=== PATIENT | male | born 1960 | race African-American/Black ===

== ENCOUNTER → 2016-09-11 | Outpatient (CLI) | payer OTHER ==
[~2016-09-11] MED LIST: ACET325T30 PO; ACET325T96 PO; ATOR-22 PO; ATV/1 PO; ATV1 PO; BUSP-8 PO; CHOL1000 PO; DULCOLAX SUPP10 MG RE; FLM4 PO; GABA-112 PO; GABA1CAP5 PO; GLC/500 PO; GLC500 PO; INSDGI SC; INSDGIPEN SC; INSU100I SC; LEDI1TAB PO; LEVE250T PO; LRS20 PO; MAGN400T6 PO; MAGNSUS5 PO; MOML PO; MULT-506 PO; NVLGIPEN SC; OMEG10007 PO; ROPI1TAB PO; SENN1TAB65 PO; SIMV40TA2 PO; SODIENE PR; TAMS0.4C38 PO; VENL150T33 PO; VENL75CA PO; [UNRECOGNIZED DRUG - CODE] INJ
[2016-09-11 08:37] LABS: BASO % 0.3 %; BASO ABS # 0.03 K/uL (0-0.2); COMPLETE YES; EOS % 1.3 %; HEMATOCRIT 37.6 % (42-52); IG% 0.2 %; LYMPH % 35.7 %; LYMPH ABS # 3.59 K/uL (1.2-3.4); MEAN CELL VOLUME 88.9 fL (80-100); MEAN CORPUSCULAR HEMOGLOBIN 29.1 pg (25-34); MEAN CORPUSCULAR HGB CONC 32.7 g/dl (32-36); NEUT % 55.5 %; PLATELET COUNT 276 K/uL (130-400); RED BLOOD COUNT 4.23 M/uL (4.7-6.1); WHITE BLOOD COUNT 10.06 K/uL (4.8-10.8)
[2016-09-11 08:48] LABS: ALT/SGPT 42 U/L (12-78); AST/SGOT 24 U/L (15-37); BLOOD UREA NITROGEN 9 mg/dl (7-18); BUN/CREATININE RATIO 13.2 (10-20); CALCIUM 8.9 mg/dl (8.5-10.1); CARBON DIOXIDE 25 mmol/L (21-32); CHLORIDE 105 mmol/L (98-107); CREATININE 0.71 mg/dl (0.60-1.40); GLUCOSE 65 mg/dl (70-99); POTASSIUM 3.7 mmol/L (3.5-5.1); SODIUM 139 mmol/L (136-145)
[2016-09-11 08:59] LABS: ALB/GLOB RATIO 0.8 (0.9-2); ALKALINE PHOSPHATASE 76 U/L (45-117); THYROID STIMULATING HORMONE 0.953 uIu/ml (0.300-4.500)
--- NOTE | 2016-09-16 08:50 | CODING QUERY MEDICAL NECESSITY ---
SUPPORTING DIAGNOSIS NEEDED A supporting diagnosis is required for the test/procedure performed on this patient in order for us to be reimbursed by the patient's insurance. Please provide a supporting diagnosis for the following test/procedure listed below next to the test name along with your signature. *If there is no additional diagnosis for this patient that would support the following test/procedure please document that below next to the test/procedure. Test(s)/Procedure(s) that require a supporting diagnosis: * VITAMIN B-12 LEVEL DIAGNOSIS: * DOS: 09/11/16 Provider Signature: Date: Thank you Rayna Grey Health Information Management Once completed, please kindly fax back to [phone] For questions please call [phone]
== END ==
LOC: C.LABCC 07:53
PROVIDERS: ATTEND Internal Medicine
DX: M79.1 Myalgia (principal)

== ENCOUNTER → 2016-10-02 | Outpatient (CLI) | payer OTHER ==
[~2016-10-02] MED LIST changes: -ACET325T30 PO; -CHOL1000 PO; -GLC/500 PO; -INSDGI SC; -INSU100I SC; -LEDI1TAB PO; -MOML PO; -SIMV40TA2 PO; -SODIENE PR; -TAMS0.4C38 PO; -VENL150T33 PO; -[UNRECOGNIZED DRUG - CODE] INJ
--- NOTE | 2016-10-08 13:39 | CODING QUERY MEDICAL NECESSITY ---
SUPPORTING DIAGNOSIS NEEDED A supporting diagnosis is required for the test/procedure performed on this patient in order for us to be reimbursed by the patient's insurance. Please provide a supporting diagnosis for the following test/procedure listed below next to the test name along with your signature. *If there is no additional diagnosis for this patient that would support the following test/procedure please document that below next to the test/procedure. Test(s)/Procedure(s) that require a supporting diagnosis: DOS 10/02 * Vitamin D DIAGNOSIS: * Vitamin B12 DIAGNOSIS: Provider Signature: Date: Thank you Marysol Mcadams Health Information Management Once completed, please kindly fax back to [phone] For questions please call [phone]
== END ==
LOC: C.LABCC 08:01
PROVIDERS: ATTEND Internal Medicine
DX: M79.606 Pain in leg, unspecified (principal); M79.1 Myalgia

== ENCOUNTER → 2016-11-07 | Outpatient (CLI) | payer OTHER ==
[~2016-11-07] MED LIST changes: +ACET325T30 PO; +CHOL1000 PO; +CPR500 PO; +GLC/500 PO; +INSDGI SC; +INSU100I SC; +LEDI1TAB PO; +MOML PO; +SIMV40TA2 PO; +SODIENE PR; +TAMS0.4C38 PO; +VENL150T33 PO; +[UNRECOGNIZED DRUG - CODE] INJ
[2016-11-07 09:07] LABS: ESTIMATED AVERAGE GLUCOSE 111 mg/dl; HA1C FLAG Normal (Normal)
== END ==
LOC: C.LABCC 08:18
PROVIDERS: ATTEND Internal Medicine
DX: E11.9 Type 2 diabetes mellitus without complications (principal)

== ENCOUNTER → 2017-02-23 | Outpatient (CLI) | payer OTHER ==
[~2017-02-23] MED LIST changes: -CPR500 PO
[2017-02-23 10:07] LABS: BASO % 0.3 %; BASO ABS # 0.04 K/uL (0-0.2); COMPLETE YES; EOS % 1.2 %; HEMATOCRIT 38.5 % (42-52); IG% 0.3 %; LYMPH ABS # 4.25 K/uL (1.2-3.4); MEAN CORPUSCULAR HEMOGLOBIN 29.2 pg (25-34); MEAN CORPUSCULAR HGB CONC 32.5 g/dl (32-36); MEAN PLATELET VOLUME 9.8 fL (7.4-10.4); MONO % 4.9 %; NEUT % 58.3 %; PLATELET COUNT 312 K/uL (130-400); RED BLOOD COUNT 4.28 M/uL (4.7-6.1); WHITE BLOOD COUNT 12.14 K/uL (4.8-10.8)
[2017-02-23 10:21] LABS: ALT/SGPT 39 U/L (12-78); AST/SGOT 17 U/L (15-37); BLOOD UREA NITROGEN 12 mg/dl (7-18); BUN/CREATININE RATIO 15.3 (10-20); CALCIUM 8.5 mg/dl (8.5-10.1); CARBON DIOXIDE 28 mmol/L (21-32); CHLORIDE 107 mmol/L (98-107); CREATININE 0.76 mg/dl (0.60-1.40); GLUCOSE 89 mg/dl (70-99); POTASSIUM 3.7 mmol/L (3.5-5.1); SODIUM 140 mmol/L (136-145)
[2017-02-23 10:32] LABS: ALB/GLOB RATIO 0.7 (0.9-2); ALKALINE PHOSPHATASE 88 U/L (45-117); CHOLESTEROL 138 mg/dl (0-200); HDL CHOLESTEROL 46 mg/dl; LDL CHOLESTEROL CALCULATED 73 mg/dl; THYROID STIMULATING HORMONE 0.824 uIu/ml (0.300-4.500); TRIGLYCERIDES 97 mg/dl (0-150); VERY LOW DENSITY LIPOPROT CALC 19 mg/dl
[2017-02-23 10:33] LABS: ESTIMATED AVERAGE GLUCOSE 114 mg/dl; HA1C FLAG Normal (Normal)
== END ==
LOC: C.LABCC 09:22
PROVIDERS: ATTEND Internal Medicine
DX: G40.909 Epilepsy, unspecified, not intractable, without status epilepticus (principal); E11.9 Type 2 diabetes mellitus without complications; E78.5 Hyperlipidemia, unspecified

== ENCOUNTER → 2017-03-23 | Outpatient (CLI) | payer OTHER ==
[2017-03-23 08:26] LABS: BASO % 0.3 %; BASO ABS # 0.03 K/uL (0-0.2); COMPLETE YES; EOS % 1.5 %; HEMATOCRIT 36.9 % (42-52); IG% 0.2 %; LYMPH % 36.7 %; LYMPH ABS # 3.24 K/uL (1.2-3.4); MEAN CELL VOLUME 88.1 fL (80-100); MEAN CORPUSCULAR HEMOGLOBIN 28.4 pg (25-34); MEAN CORPUSCULAR HGB CONC 32.2 g/dl (32-36); MEAN PLATELET VOLUME 9.8 fL (7.4-10.4); NEUT % 53.3 %; PLATELET COUNT 250 K/uL (130-400); RED BLOOD COUNT 4.19 M/uL (4.7-6.1); WHITE BLOOD COUNT 8.83 K/uL (4.8-10.8)
[2017-03-23 08:33] LABS: ALT/SGPT 32 U/L (12-78); BLOOD UREA NITROGEN 12 mg/dl (7-18); BUN/CREATININE RATIO 14.9 (10-20); CALCIUM 8.9 mg/dl (8.5-10.1); CARBON DIOXIDE 27 mmol/L (21-32); CHLORIDE 105 mmol/L (98-107); CREATININE 0.78 mg/dl (0.60-1.40); GLUCOSE 76 mg/dl (70-99); POTASSIUM 3.6 mmol/L (3.5-5.1); SODIUM 138 mmol/L (136-145)
[2017-03-23 08:36] LABS: ALKALINE PHOSPHATASE 90 U/L (45-117); AST/SGOT 19 U/L (15-37)
[2017-03-24 15:21] LABS: HEPATITIS C VIRAL RNA BY PCR <15 NOT DETECTED IU/ML (<15); HEPATITIS C VIRAL RNA(LOG) PCR <1.18 NOT DETECTED LOG IU/ML (<1.18)
== END ==
LOC: C.LABCC 07:56
PROVIDERS: ATTEND Internal Medicine
DX: B19.20 Unspecified viral hepatitis C without hepatic coma (principal)

== ENCOUNTER → 2017-04-21 | Outpatient (CLI) | payer OTHER ==
[~2017-04-21] MED LIST changes: -ATOR-22 PO; -ATV1 PO; -FLM4 PO; -GLC500 PO; -INSDGIPEN SC; -MAGNSUS5 PO; -NVLGIPEN SC; -OMEG10007 PO; -VENL75CA PO
[2017-04-21 08:48] LABS: BASO % 0.4 %; BASO ABS # 0.04 K/uL (0-0.2); COMPLETE YES; EOS % 1.3 %; IG% 0.3 %; LYMPH % 32.7 %; LYMPH ABS # 3.47 K/uL (1.2-3.4); MEAN CELL VOLUME 87.6 fL (80-100); MEAN CORPUSCULAR HEMOGLOBIN 28.8 pg (25-34); MEAN CORPUSCULAR HGB CONC 32.8 g/dl (32-36); MEAN PLATELET VOLUME 9.6 fL (7.4-10.4); MONO % 6.6 %; NEUT % 58.7 %; PLATELET COUNT 266 K/uL (130-400); RED BLOOD COUNT 4.45 M/uL (4.7-6.1); WHITE BLOOD COUNT 10.62 K/uL (4.8-10.8)
[2017-04-21 08:56] LABS: ALT/SGPT 40 U/L (12-78); BLOOD UREA NITROGEN 11 mg/dl (7-18); BUN/CREATININE RATIO 13.6 (10-20); CALCIUM 9.1 mg/dl (8.5-10.1); CARBON DIOXIDE 27 mmol/L (21-32); CHLORIDE 104 mmol/L (98-107); CREATININE 0.77 mg/dl (0.60-1.40); GLUCOSE 82 mg/dl (70-99); POTASSIUM 3.7 mmol/L (3.5-5.1); SODIUM 138 mmol/L (136-145)
[2017-04-21 08:59] LABS: ALKALINE PHOSPHATASE 92 U/L (45-117); AST/SGOT 22 U/L (15-37)
[2017-04-23 16:28] LABS: HEPATITIS C VIRAL RNA BY PCR <15 NOT DETECTED IU/ML (<15); HEPATITIS C VIRAL RNA(LOG) PCR <1.18 NOT DETECTED LOG IU/ML (<1.18)
== END ==
LOC: C.LABCC 08:29
PROVIDERS: ATTEND Internal Medicine
DX: B19.20 Unspecified viral hepatitis C without hepatic coma (principal)

== ENCOUNTER → 2017-04-22 | Day surgery (SDC) | payer OTHER ==
[2017-04-16 08:50] VITALS: BMI 33.0
[~2017-04-22] VITALS: Ht 193 cm; Wt 125.0 kg
[~2017-04-22] MED LIST changes: +LABETALOL HCL IV 5 MG/ML 20ML IV ONE; +LIDOCAINE HCL 2% 2 ML VIAL (20MG/ML) ONE; +LIDOCAINE HCL 2% JELLY 30 ML TUBE EXT ONE; +PROPOFOL IV EMULSION 10 MG/ML 20 ML VIAL IV ONE; +SODIUM CHLORIDE 0.9% 500ML 500 ML IV ONE
--- NOTE | 2017-04-22 09:16 | Endo History and Physical ---
History & Physical Date of Service: Apr 22, 2017. Chief Complaint: Referring Physician: History of Present Illness screening colonoscopy Past Medical History Diabetes, CVA/TIA hep C Past Surgical History Hx Cardiac Surgery: No Hx Abdominal Surgery: No Hx Cancer Surgery: No Hx Thoracic Surgery: No Hx Orthopedic: No Hx Urinary Tract Surgery: No Family History None Social History Smoking Status: Former Smoker Hx Substance Use: Yes (HX) Hx Alcohol Use: Yes (HX) Allergies Coded Allergies: No Known Allergies (Verified , 04/16/17) Current Medications Reported Home Medications Medications Dose Route/Sig Max Daily Dose Days Date Category Dose Instructions Havrix (Hepatitis A Vaccine) 1,440 Elu/Ml Inj 1 Dose INJ UD 04/16/17 Reported NEXT DOSE DUE 08-09-17 Fleet Enema (Sodium Phosphate/Biphosphate) Stephanie 1 Ea MT UD PRN 04/16/17 Reported Milk Of Magnesia (Magnesium Hydroxide) 30 Ml Susp 30 Ml PO DAILY PRN 04/16/17 Reported Acetaminophen 325 Mg Tab 2 Tabs PO BID 04/16/17 Reported Vitamin D3 (Cholecalciferol) 1,000 Unit Tab 1 Tab PO QAM 04/16/17 Reported Flomax (Tamsulosin Hcl) 0.4 Mg Cap 0.4 Mg PO BID 04/16/17 Reported Zocor (Simvastatin) 40 Mg Tab 40 Mg PO QPM 04/16/17 Reported Glucophage (Metformin Hcl) 500 Mg Tab 500 Mg PO BID 04/16/17 Reported Ativan (Lorazepam) 1 Mg Tab 1 Mg PO BID 04/16/17 Reported Lantus (Insulin Glargine) 100 Unit/Ml Inj 25 Units SC BID 04/16/17 Reported Humalog (Insulin Lispro (Human)) 100 Unit/Ml Inj 5 Units SC LUNCH 04/16/17 Reported Harvoni 90-400 mg (Ledipasvir-Sofosbuvir) 1 Tab Tab 1 Tab PO DAILY 04/16/17 Reported Baclofen 20 Mg Tab 1 Tab PO QID 04/16/17 Reported Venlafaxine Hcl Er (Venlafaxine Hcl) 150 Mg Tab 1 Tab PO QAM 04/16/17 Reported Tylenol (Acetaminophen) 325 Mg Tab 650 Mg PO Q4 PRN 05/16/15 Reported MAX 3GM APAP/24HR Senna Plus (Sennosides-Docusate Sodium) 1 Tab Tab 1 Tab PO BID 05/16/15 Reported Buspirone Hcl 10 Mg Tab 10 Mg PO BID 05/16/15 Reported Neurontin (Gabapentin) 100 Mg Cap 100 Mg PO QAM 12/13/14 Reported Neurontin (Gabapentin) 400 Mg Cap 400 Mg PO HS 12/13/14 Reported Requip (Ropinirole HCl) 1 Mg Tab 1 Mg PO HS 12/13/14 Reported 1 HOUR BEFORE BEDTIME. Dulcolax Supp10 Mg 10 Mg RE PRN 10/15/09 Reported Keppra (Levetiracetam) 250 Mg Tab 250 Mg PO BID 10/15/09 Reported Multivitamin (Multivitamins) Tab 1 Tab PO QAM 03/08/09 Reported Mag-Ox (Magnesium Oxide) 400 Mg Tab 400 Mg PO BID 03/08/09 Reported Vital Signs Weight (Kilograms): 125 Height (Feet): 0 Height (Inches): 76 Physical Exam General Appearance: no apparent distress Respiratory/Chest: Auscultation: breath sounds normal Cardiovascular: Heart Auscultation: RRR Abdomen: Inspection & Palpation: soft Liver: non-tender Quadriplegic Assessment and Plan stable for colonoscopy
[2017-04-22 10:16] VITALS: Ht 193 cm; Wt 125.0 kg
[2017-04-22 10:33] VITALS: TEMP 36.4
--- NOTE | 2017-04-22 11:12 | Discharge Instructions ---
Endoscopy Patient Instructions Date / Procedure(s) Performed Apr 22, 2017. Colonoscopy Allergy Information Coded Allergies: No Known Allergies (Verified , 04/16/17) Discharge Date / Findings Apr 22, 2017. mild diverticulosis/ no polyps Provider Instructions Activity Restrictions - No exercising or heavy lifting for 24 hours. - Do not drink alcohol the day of the procedure. - Do not drive a car or operate machinery until the day after the procedure. - Do not make any important decisions or sign important papers in 24 hours after the procedure. Following Day: - Return to full activity which may include returning to work/school. Diet Start your diet with liquids and light foods (jello, soup, juice, toast). Then eat your usual diet if not nauseated. Treatment For Common After Affects For mild abdominal pain, bloating, or excessive gas: - Rest - Eat lightly - Lie on right side Follow-Up Information Follow-up with [facility] as scheduled Anesthesia Information What You Should Know You have had a procedure that required some medicine to reduce anxiety and discomfort. This treatment is called moderate sedation. After receiving the treatment, you may be sleepy, but you will be able to breathe on your own. The effects of the treatment may last for several hours. Follow these instructions along with Activity/Diet recommendations noted above: * Do NOT do anything where dizziness or clumsiness would be dangerous. * Rest quietly at home today, then you can be up and about tomorrow. * Have a responsible person stay with you the rest of today. * You may have had an I.V. today. If so, you may take the dressing off later today. Recommendations Call your doctor if: * Trouble breathing * Continuous vomiting for more than 24 hours * Temperature above 101 degrees * Severe abdominal pain or bloating * Pain not relieved by pain medicine ordered * There is increased drainage or redness from any incision * A large amount of rectal bleeding greater than 2-3 tablespoons. (If you had a polyp/s removed or have hemorrhoids, a small amount of blood - from the rectum is to be expected.) * You have any unanswered questions or concerns. IN THE EVENT OF A SERIOUS EMERGENCY, GO TO THE NEAREST EMERGENCY ROOM Your discharge instructions were prepared by provider Himanshu Maria. Patient Instructions Signature Page Karan Guzman Patient (or Guardian) Signature/Date: I have read and understand the instructions given to me by my caregivers. Caregiver/RN/Doctor Signature/Date: The above-named patient and/or guardian has received patient instructions on this date. + Original Patient Signature Page (only) stays with chart. Please make copy for patient.
--- NOTE | 2017-04-22 11:20 | GI REPORT ---
Procedure Date: 04/22/2017 10:44 AM Procedure: Colonoscopy Indications: Screening for colorectal malignant neoplasm Medicines: See the Anesthesia note for documentation of the administered medications Complications: No immediate complications. Estimated Blood Loss: Estimated blood loss: none. Procedure: Pre-Anesthesia Assessment: - Prior to the procedure, a History and Physical was performed, and patient medications, allergies and sensitivities were reviewed. The patient's tolerance of previous anesthesia was reviewed. - The risks and benefits of the procedure and the sedation options and risks were discussed with the patient. All questions were answered and informed consent was obtained. - Patient identification and proposed procedure were verified prior to the procedure by the physician and the nurse. The procedure was verified in the pre-procedure area. - Pre-procedure physical examination revealed no contraindications to sedation. - After reviewing the risks and benefits, the patient was deemed in satisfactory condition to undergo the procedure. After I obtained informed consent, the scope was passed under direct vision. Throughout the procedure, the patient's blood pressure, pulse, and oxygen saturations were monitored continuously. The Scope was introduced through the anus and advanced to the terminal ileum, with identification of the appendiceal orifice and IC valve. The colonoscopy was performed without difficulty. The patient tolerated the procedure well. The quality of the bowel preparation was good. Findings: The perianal and digital rectal examinations were normal. Many small-mouthed diverticula were found in the sigmoid colon and in the descending colon. The exam was otherwise without abnormality on direct and retroflexion views. Impression: - Diverticulosis in the sigmoid colon and in the descending colon. - The examination was otherwise normal on direct and retroflexion views. - No specimens collected. Recommendation: - Repeat colonoscopy in 10 years for screening purposes. - Discharge patient to home. Himanshu Maria M.D. Himanshu Maria MD 04/22/2017 11:19:56 AM This report has been signed electronically. Note Initiated On: 04/22/2017 10:44 AM I attest to the content of the Intraoperative Record and orders documented therein, exceptions below
[2017-04-22 12:39] VITALS: BP 151/89; PULSE 73; O2SAT 98
--- NOTE | 2017-04-22 13:06 | Anesthesiology Progress Note ---
Anesthesia Post Op Note Date & Time Apr 22, 2017 at 13:05 Vital Signs Pain Intensity: 0 Vital Signs Past 12 Hours Date Time Temp Pulse Resp B/P (MAP) Pulse Ox O2 Delivery O2 Flow Rate FiO2 04/22/17 12:39 73 18 151/89 (109) 98 Room Air 04/22/17 12:24 67 18 158/89 (112) 97 Room Air 04/22/17 12:09 66 18 160/90 (113) 96 Room Air 04/22/17 12:00 152/94 (113) 04/22/17 11:54 70 15 166/112 (130) 98 Room Air 04/22/17 11:44 145/96 (112) 04/22/17 11:39 75 18 170/99 (122) 98 Room Air 04/22/17 11:24 88 18 173/95 (121) 98 Room Air 04/22/17 11:09 88 18 137/85 (102) 100 Room Air 04/22/17 10:33 36.4 80 20 135/81 (99) 98 Room Air Notes Mental Status: alert / awake / arousable, participated in evaluation Pt Amnestic to Procedure: Yes Nausea / Vomiting: adequately controlled Pain: adequately controlled Airway Patency, RR, SpO2: stable & adequate BP & HR: stable & adequate Hydration State: stable & adequate Anesthetic Complications: no major complications apparent Patient had prolonged monitoring for his quadraplegia with possible risk for autonomic hyperreflexia. In PACU he did require a dose of labetalol for one BP with diastolic >110. He responded well to this and did not rebound. BP and HR were normal at the time of disposition back to SNF.
== END | disposition home or self-care (01) ==
LOC: C.GI 09:12
PROVIDERS: ATTEND Internal Medicine Gastroenterology
DX: Z12.11 Encounter for screening for malignant neoplasm of colon (principal); K57.30 Diverticulosis of large intestine without perforation or abscess without bleeding; E11.9 Type 2 diabetes mellitus without complications; B19.20 Unspecified viral hepatitis C without hepatic coma; Z86.73 Personal history of transient ischemic attack (TIA), and cerebral infarction without residual deficits; Z87.891 Personal history of nicotine dependence; Z79.4 Long term (current) use of insulin; Z79.899 Other long term (current) drug therapy

== ENCOUNTER 2017-06-13 17:40 | Inpatient (IN) | payer OTHER ==
[~2017-06-13] VITALS: Ht 195.6 cm; Wt 121.4 kg
[~2017-06-13 17:40] MED LIST changes: -LABETALOL HCL IV 5 MG/ML 20ML IV ONE; -LIDOCAINE HCL 2% 2 ML VIAL (20MG/ML) ONE; -LIDOCAINE HCL 2% JELLY 30 ML TUBE EXT ONE; -PROPOFOL IV EMULSION 10 MG/ML 20 ML VIAL IV ONE; -SODIUM CHLORIDE 0.9% 500ML 500 ML IV ONE
[2017-06-13] MEDS ORDERED: CEFEPIME IV 2,000 MG in DEXTROSE 5% 100ML 100 ML IV STA (17:48)
[2017-06-13] MEDS ORDERED: SODIUM CHLORIDE 0.9% 1000ML 500 ML IV ONE (17:48)
--- NOTE | 2017-06-13 17:56 | EMERGENCY ROOM VISIT NOTE ---
History Report prepared by Cass: Tal Hayes Under the Supervision of: Dr. Daniel Baird M.D. First contact with patient: 17:44 Stated Complaint: FEVER/[facility] History of Present Illness The patient is a 57 year old male who presents to the Emergency Room with complaints of a constant fever beginning today. Per EMS, the patient lives at [facility] and is a paraplegic. He notes that the patient's fever reached a high of 102 earlier today, but has since decreased when rechecked--he had received oral Tylenol at the fever onset. He reports that the patient's vital signs were stable during transport. The patient also complains of diaphoresis but denies any cough, body pain, sore throat, and congestion. He notes that he has no function in his legs but has function in both of his arms. Source of History: patient, EMS Onset: today Position: other (global) Symptom Intensity: 102 Quality: other (fever) Timing: constant Associated Symptoms: + diaphoresis, No cough, No neck pain, No chest pain, No abdominal pain, No back pain Note: He denies any head pain, arm pain, leg pain, and congestion. Review of Systems See HPI for pertinent positives & negatives. A total of 10 systems reviewed and were otherwise negative. Past Medical & Surgical Medical Problems: (1) Brain aneurysm (2) Stroke Family History Patient reports no known family medical history. Social History Smoking Status: Former Smoker Alcohol Use: none Drug Use: none Marital Status: single Housing Status: shelter Occupation Status: disabled Current/Historical Medications Scheduled Acetaminophen (Acetaminophen), 2 TABS PO BID Baclofen (Baclofen), 1 TAB PO QID Buspirone Hcl (Buspirone Hcl), 10 MG PO BID Cholecalciferol (Vitamin D3), 1 TAB PO QAM Gabapentin (Neurontin), 400 MG PO HS Gabapentin (Neurontin), 100 MG PO QAM Insulin Glargine (Lantus), 25 UNITS SC BID Insulin Lispro (Human) (Humalog), 5 UNITS SC LUNCH Levetiracetam (Keppra), 250 MG PO BID Lorazepam (Ativan), 1 MG PO BID Magnesium Oxide (Mag-Ox), 400 MG PO BID Metformin Hcl (Glucophage), 500 MG PO BID Multivitamin (Multivitamin), 1 TAB PO QAM Ropinirole (Requip), 1 MG PO HS Sennosides-Docusate Sodium (Senna Plus), 1 TAB PO BID Simvastatin (Zocor), 40 MG PO QPM Tamsulosin Hcl (Flomax), 0.4 MG PO BID Venlafaxine Hcl (Venlafaxine Hcl Er), 1 TAB PO QAM Scheduled PRN , 10 MG RE for no bm x 4 days Acetaminophen Tab (Tylenol), 650 MG PO Q4 PRN for Pain or Fever Magnesium Hydroxide (Milk Of Magnesia), 30 ML PO DAILY PRN for Constipation Sodium Phosphate/Biphosphate (Fleet Enema), 1 EA AL UD PRN for Constipation Allergies Coded Allergies: No Known Allergies (Verified , 06/13/17) Physical Exam Vital Signs Date Time Temp Pulse Resp B/P (MAP) Pulse Ox O2 Delivery O2 Flow Rate FiO2 06/13/17 20:02 37.5 06/13/17 19:45 37.5 121 24 06/13/17 19:43 152/100 96 Room Air 06/13/17 19:40 118 20 06/13/17 19:35 119 21 06/13/17 19:30 233 22 92 06/13/17 19:25 115 23 06/13/17 19:20 134 18 93 06/13/17 19:15 125 18 96 06/13/17 19:15 123 18 143/112 94 Room Air 06/13/17 19:10 124 18 06/13/17 19:09 143/112 06/13/17 19:05 126 20 06/13/17 19:00 127 23 06/13/17 18:55 131 21 06/13/17 18:50 125 19 06/13/17 18:45 131 23 06/13/17 18:40 130 27 06/13/17 18:35 132 21 06/13/17 18:30 133 28 06/13/17 18:25 130 21 06/13/17 18:20 132 24 06/13/17 18:15 134 22 06/13/17 18:10 132 25 06/13/17 18:05 133 16 06/13/17 18:00 135 19 06/13/17 17:56 130 06/13/17 17:56 145/108 06/13/17 17:55 130 20 06/13/17 17:55 37.9 128 18 145/108 96 Room Air Physical Exam GENERAL: Patient is in no acute distress. HEENT: No acute trauma, normocephalic atraumatic, mucous membranes moist, no nasal congestion, no scleral icterus. NECK: No stridor, no adenopathy, no meningismus, trachea is midline. LUNGS: Clear to auscultation bilaterally, no wheeze, no rhonchi, breath sounds equal. HEART: Without murmurs gallops or rubs, regular rate and rhythm. ABDOMEN: Soft, nontender, bowel sounds positive, no hernias, no peritonitis. [place] catheter in place with a strong smell of urine noted. EXTREMITIES: No cyanosis or edema, full range of motion of all the joints without pain or difficulty, no signs for acute trauma. NEUROLOGIC: Random movement of lower extremities, no purposeful lower extremity movement, moves upper extremities on command, awake and alert. SKIN: No rash, no jaundice, no diaphoresis. Medical Decision & Procedures ER Provider Diagnostic Interpretation: Radiology results as stated below per my review and radiologist interpretation: CHEST ONE VIEW PORTABLE FINDINGS: Cardiac silhouette is mildly enlarged, unchanged. The patient is rotated to the right. No pneumothorax, pleural effusion, focal airspace consolidation or overt pulmonary edema. Bones of the chest are grossly intact. IMPRESSION: No acute cardiopulmonary process. The above report was generated using voice recognition software. It may contain grammatical, syntax or spelling errors. Electronically signed by: Je Orosco M.D. 06/13/2017 6:13 PM Laboratory Results 06/13/17 17:30 Red Blood Count 4.71, Mean Corpuscular Volume 88.3, Mean Corpuscular Hemoglobin 28.9, Mean Corpuscular Hemoglobin Concent 32.7, Mean Platelet Volume 10.8, Neutrophils (%) (Auto) 85.7, Lymphocytes (%) (Auto) 7.9, Monocytes (%) (Auto) 5.9, Eosinophils (%) (Auto) 0.1, Basophils (%) (Auto) 0.1, Neutrophils # (Auto) 13.82, Lymphocytes # (Auto) 1.27, Monocytes # (Auto) 0.95, Eosinophils # (Auto) 0.01, Basophils # (Auto) 0.02 06/13/17 18:45 Test 06/13/17 17:30 06/13/17 18:01 06/13/17 18:45 06/13/17 19:10 White Blood Count 16.12 K/uL (4.8-10.8) Red Blood Count 4.71 M/uL (4.7-6.1) Hemoglobin 13.6 g/dL (14.0-18.0) Hematocrit 41.6 % (42-52) Mean Corpuscular Volume 88.3 fL (80-100) Mean Corpuscular Hemoglobin 28.9 pg (25-34) Mean Corpuscular Hemoglobin Concent 32.7 g/dl (32-36) Platelet Count 206 K/uL (130-400) Mean Platelet Volume 10.8 fL (7.4-10.4) Neutrophils (%) (Auto) 85.7 % Lymphocytes (%) (Auto) 7.9 % Monocytes (%) (Auto) 5.9 % Eosinophils (%) (Auto) 0.1 % Basophils (%) (Auto) 0.1 % Neutrophils # (Auto) 13.82 K/uL (1.4-6.5) Lymphocytes # (Auto) 1.27 K/uL (1.2-3.4) Monocytes # (Auto) 0.95 K/uL (0.11-0.59) Eosinophils # (Auto) 0.01 K/uL (0-0.5) Basophils # (Auto) 0.02 K/uL (0-0.2) RDW Standard Deviation 45.3 fL (36.4-46.3) RDW Coefficient of Variation 14.3 % (11.5-14.5) Immature Granulocyte % (Auto) 0.3 % Immature Granulocyte # (Auto) 0.05 K/uL (0.00-0.02) Urine Color YELLOW Urine Appearance CLOUDY (CLEAR) Urine pH 8.0 (4.5-7.5) Urine Specific [place] 1.010 (1.000-1.030) Urine Protein NEG (NEG) Urine Glucose (UA) NEG (NEG) Urine Ketones NEG (NEG) Urine Occult Blood TRACE (NEG) Urine Nitrite POS (NEG) Urine Bilirubin NEG (NEG) Urine Urobilinogen NEG (NEG) Urine Leukocyte Esterase LARGE (NEG) Urine WBC (Auto) 10-30 /hpf (0-5) Urine RBC (Auto) 0-4 /hpf (0-4) Urine Hyaline Casts (Auto) 1-5 /lpf (0-5) Urine Epithelial Cells (Auto) 10-20 /lpf (0-5) Urine Bacteria (Auto) 4+ (NEG) Urine Crystals AMORPHOUS SEDIMENT (NONE Urine Yeast (Auto) (NONE PRSENT) Bedside Lactic Acid Venous 2.71 mmol/L (0.90-1.70) Prothrombin Time 11.4 SECONDS (9.0-12.0) Prothromb Time International Ratio 1.1 (0.9-1.1) Activated Partial Thromboplast Time 29.2 SECONDS (21.0-31.0) Partial Thromboplastin Ratio 1.1 Anion Gap 7.0 mmol/L (3-11) Est Creatinine Clear Calc Drug Dose 109.1 ml/min Estimated GFR () 88.6 Estimated GFR (Non- 76.4 BUN/Creatinine Ratio 13.6 (10-20) Calcium Level 8.8 mg/dl (8.5-10.1) Magnesium Level 1.8 mg/dl (1.8-2.4) Total Bilirubin 0.3 mg/dl (0.2-1) Aspartate Amino Transf (AST/SGOT) 20 U/L (15-37) Alanine Aminotransferase (ALT/SGPT) 31 U/L (12-78) Alkaline Phosphatase 90 U/L (45-117) Total Protein 7.9 gm/dl (6.4-8.2) Albumin 3.3 gm/dl (3.4-5.0) Globulin 4.6 gm/dl (2.5-4.0) Albumin/Globulin Ratio 0.7 (0.9-2) Influenza Type A Antigen Neg for Influ A (NEG) Influenza Type B Antigen Neg for Influ B (NEG) Test 06/13/17 20:41 06/13/17 20:42 Laboratory results reviewed by me. Medications Administered Medications (Trade) Dose Ordered Sig/Kim Route Start Time Stop Time Status Last Admin Dose Admin Sodium Chloride 500 ml @ 999 mls/hr Q31M ONCE IV 06/13/17 17:48 06/13/17 18:18 DC 06/13/17 19:10 999 MLS/HR Cefepime HCl 2000 mg/Dextrose 112.5 ml @ 200 mls/hr ONE STAT IV 06/13/17 17:48 06/13/17 18:21 DC 06/13/17 18:47 200 MLS/HR Sodium Chloride 500 ml @ 999 mls/hr Q31M STAT IV 06/13/17 18:34 06/13/17 19:04 DC 06/13/17 18:47 999 MLS/HR Daptomycin 500 mg/ Syringe 10 ml @ 5 mls/min NOW ONCE IV 06/13/17 19:30 06/13/17 19:31 DC 06/13/17 19:48 5 MLS/MIN ECG Indication: tachycardia Rate (beats per minute): 127 Rhythm: sinus tachycardia Findings: no acute ischemic change, no ectopy, other (possible old inferior infarct) ED Course 1744: The patient was evaluated in room B8. A complete history and physical exam was performed. 1747: Cefepime HC 2000 mg/Dextrose 112.5ml @ 200mls/hr, .Sodium Chloride 500 ml @ 999 mls/hr IV 1833: Sodium Chloride 500 ml @ 999 mls/hr IV 1929: Daptomycin 500mg/Syringe 10 ml @ 5 mls/min Protocol IV 1935: Upon reexamination the patient is stable. I discussed results and treatment plan with the patient. He verbalizes agreement and understanding. I spoke with Dr. Bush - Hospitalist, [facility] [place]. We discussed the patient's results and findings. The patient will be evaluated for further management. 1940: I reevaluated and updated the patient and his . Medical Decision Differential diagnoses include: sepsis, bacteremia, dehydration, UTI, pneumonia , cellulitis, electrolyte imbalance, and viral illness. There is a moderate leukocytosis at 16,000, this is consistent with infection. No concerning anemia. No significant electrolyte abnormality, kidney failure or hepatitis. Lactic acid level is elevated consistent with early sepsis or possibly dehydration. Urinalysis is suggestive of infection, urine culture is pending. Blood cultures are pending. Chest film does not show evidence for pneumonia. There is no coagulopathy. Influenza testing is negative. On exam, I find no evidence for cellulitis. No sacral or buttock cellulitis/skin breakdown. The patient was aggressively managed. He was septic based on his presentation and workup. He received IV saline, IV cefepime and IV daptomycin. The patient's heart rate remains elevated but has improved. He is actually hypertensive, not hypotensive. I have been hesitant to give blood pressure medication as I do not want his blood pressure to plummet, especially given the sepsis diagnosis. The patient requires a hospital stay. I spoke to the patient and his , I did talk with case management. The on-call hospitalist was consulted. Medication Reconcilliation Current Medication List: was personally reviewed by me Blood Pressure Screening Patient's blood pressure: Elevated blood pressure Referred to hospitalist Consults Time Called: 1933 Consulting Physician: Dr. Bush - Hospitalist, [facility] [place] Returned Call: 1935 Discussed the patient's case. The patient will be evaluated for further management. Impression Primary Impression: Sepsis Additional Impressions: Tachycardia UTI (urinary tract infection) Paraplegia Critical Care I have personally spent greater than 34 minutes of critical care time in the direct management of this patient. This includes bedside care, interpretation of diagnostic studies, and testing, discussion with consultants, patient, and family members, and other required patient management activities. This 34 minutes is in excess of all separately billable procedures. Scribe Attestation The scribe's documentation has been prepared under my direction and personally reviewed by me in its entirety. I confirm that the note above accurately reflects all work, treatment, procedures, and medical decision making performed by me. Departure Information Dispostion Being Evaluated By Hospitalist Referrals [facility] (PCP) Problem Qualifiers
--- NOTE | 2017-06-13 18:15 | DIAGNOSTIC IMAGING REPORT ---
CHEST ONE VIEW PORTABLE HISTORY: 57 years-old Male Sepsis acute sepsis COMPARISON: Chest radiograph 05/16/2015 TECHNIQUE: Portable AP view of the chest FINDINGS: Cardiac silhouette is mildly enlarged, unchanged. The patient is rotated to the right. No pneumothorax, pleural effusion, focal airspace consolidation or overt pulmonary edema. Bones of the chest are grossly intact. IMPRESSION: No acute cardiopulmonary process. The above report was generated using voice recognition software. It may contain grammatical, syntax or spelling errors. Electronically signed by: Je Orosco M.D. 06/13/2017 6:13 PM Dictated Date/Time: 06/13/2017 6:12 PM
[2017-06-13 18:22] LABS: BASO % 0.1 %; BASO ABS # 0.02 K/uL (0-0.2); COMPLETE YES; EOS % 0.1 %; HEMATOCRIT 41.6 % (42-52); IG% 0.3 %; LYMPH % 7.9 %; LYMPH ABS # 1.27 K/uL (1.2-3.4); MEAN CELL VOLUME 88.3 fL (80-100); MEAN CORPUSCULAR HEMOGLOBIN 28.9 pg (25-34); MEAN CORPUSCULAR HGB CONC 32.7 g/dl (32-36); MEAN PLATELET VOLUME 10.8 fL (7.4-10.4); MONO % 5.9 %; NEUT % 85.7 %; PLATELET COUNT 206 K/uL (130-400); RED BLOOD COUNT 4.71 M/uL (4.7-6.1); WHITE BLOOD COUNT 16.12 K/uL (4.8-10.8)
[2017-06-13 18:27] LABS: URINE APPEARANCE CLOUDY (CLEAR); URINE BILIRUBIN NEG (NEG); URINE COLOR YELLOW; URINE NITRITE POS (NEG); UROBILINOGEN NEG (NEG); ZZURINE CULT IF INDIC CATH YES
[2017-06-13 18:28] LABS: MANUAL MICROSCOPIC REQUIRED? NO; REVIEW REQ? YES
[2017-06-13] MEDS ORDERED: SODIUM CHLORIDE 0.9% 500ML 500 ML IV STA (18:34)
[2017-06-13 19:07] LABS: INR 1.1 (0.9-1.1); PARTIAL THROMBOPLASTIN RATIO 1.1; PROTHROMBIN TIME (PATIENT) 11.4 SECONDS (9.0-12.0)
[2017-06-13] MEDS ORDERED: DAPTOmycin IV 500 MG in SODIUM CHLORIDE 0.9% 50ML 50 ML IV STA (19:10)
[2017-06-13] MEDS ORDERED: DAPTOmycin IV 500 MG in SYRINGE 0 ML IV ONE (19:30)
[2017-06-13 19:33] LABS: BUN/CREATININE RATIO 13.6 (10-20); CALCIUM 8.8 mg/dl (8.5-10.1); CREATININE 1.06 mg/dl (0.60-1.40); MAGNESIUM 1.8 mg/dl (1.8-2.4); POTASSIUM 3.6 mmol/L (3.5-5.1)
[2017-06-13 19:36] LABS: ALB/GLOB RATIO 0.7 (0.9-2)
[2017-06-13] MEDS ORDERED: ONDANSETRON INJ 2 MG/ML 2 ML VIAL IV PRN (20:45)
[2017-06-13] MEDS ORDERED: ACETAMINOPHEN 325 MG TAB PO PRN (21:00)
[2017-06-13] MEDS ORDERED: SOD PHOSPHATE/SOD BIPHOSPHATE ENEMA 132 ML BTL PR PRN (21:00)
[2017-06-13] MEDS ORDERED: MAGNESIUM HYDROXIDE SUSP 30 ML UDC PO PRN (21:00)
--- NOTE | 2017-06-13 21:06 | History and Physical ---
History & Physical Date & Time of Service: Jun 13, 2017 at 21:06 Chief Complaint: Fever/[facility] Primary Care Physician: Val Saravia History of Present Illness Source: family, hospital records This is a 57 yo m paraplegic secondary to CVA that is presenting to us with altered LOC and fever from [facility]. The states that the patient has been becoming more confused over the past 24 hours and today he has radha very drowsy and is havign difficulty answering questions. He was found to be febrile at the [facility] and was brought to the hospital for further evaluation. In the ED he was found to have leukocytosis and fever as well as a UTI which is the most likely source of infection. Patient was treated with Daptomycin and Cefepime in the ED. The states that at [facility] he has no use of bilat LE, minimal of the left UE and able to us his right UE. Past Medical/Surgical History Medical Problems: (1) Stroke Status: Resolved Family History Patient reports no known family medical history. Social History Smoking Status: Former Smoker Drug Use: none Marital Status: single Occupational Status: disabled Immunizations History of Influenza Vaccine: Unknown History of Tetanus Vaccine?: Unknown History of Pneumococcal: Unknown History of Hepatitis B Vaccine: Unknown Multi-Drug Resistant Organisms History of MDRO: Yes Allergies Coded Allergies: No Known Allergies (Verified , 06/13/17) Home Medications Scheduled Acetaminophen (Acetaminophen), 2 TABS PO BID Baclofen (Baclofen), 1 TAB PO QID Buspirone Hcl (Buspirone Hcl), 10 MG PO BID Cholecalciferol (Vitamin D3), 1 TAB PO QAM Gabapentin (Neurontin), 400 MG PO HS Gabapentin (Neurontin), 100 MG PO QAM Insulin Glargine (Lantus), 25 UNITS SC BID Insulin Lispro (Human) (Humalog), 5 UNITS SC LUNCH Levetiracetam (Keppra), 250 MG PO BID Lorazepam (Ativan), 1 MG PO BID Magnesium Oxide (Mag-Ox), 400 MG PO BID Metformin Hcl (Glucophage), 500 MG PO BID Multivitamin (Multivitamin), 1 TAB PO QAM Ropinirole (Requip), 1 MG PO HS Sennosides-Docusate Sodium (Senna Plus), 1 TAB PO BID Simvastatin (Zocor), 40 MG PO QPM Tamsulosin Hcl (Flomax), 0.4 MG PO BID Venlafaxine Hcl (Venlafaxine Hcl Er), 1 TAB PO QAM Scheduled PRN , 10 MG RE for no bm x 4 days Acetaminophen Tab (Tylenol), 650 MG PO Q4 PRN for Pain or Fever Magnesium Hydroxide (Milk Of Magnesia), 30 ML PO DAILY PRN for Constipation Sodium Phosphate/Biphosphate (Fleet Enema), 1 EA CO UD PRN for Constipation Review of Systems Unable to obtain meaningful ROS secondary to confusion Physical Exam Vital Signs Date Time Temp Pulse Resp B/P (MAP) Pulse Ox O2 Delivery O2 Flow Rate FiO2 06/13/17 20:02 37.5 06/13/17 19:45 37.5 121 24 06/13/17 19:43 152/100 96 Room Air 06/13/17 19:40 118 20 06/13/17 19:35 119 21 06/13/17 19:30 233 22 92 06/13/17 19:25 115 23 06/13/17 19:20 134 18 93 06/13/17 19:15 125 18 96 06/13/17 19:15 123 18 143/112 94 Room Air 06/13/17 19:10 124 18 06/13/17 19:09 143/112 06/13/17 19:05 126 20 06/13/17 19:00 127 23 06/13/17 18:55 131 21 06/13/17 18:50 125 19 06/13/17 18:45 131 23 06/13/17 18:40 130 27 06/13/17 18:35 132 21 06/13/17 18:30 133 28 06/13/17 18:25 130 21 06/13/17 18:20 132 24 06/13/17 18:15 134 22 06/13/17 18:10 132 25 06/13/17 18:05 133 16 06/13/17 18:00 135 19 06/13/17 17:56 130 06/13/17 17:56 145/108 06/13/17 17:55 130 20 06/13/17 17:55 37.9 128 18 145/108 96 Room Air General Appearance: + pertinent finding (somnolent but arousable ) Head: normocephalic, atraumatic Eyes: normal inspection ENT: normal ENT inspection, + pertinent finding (poor dentition) Neck: supple Respiratory/Chest: normal breath sounds, no respiratory distress, no accessory muscle use Cardiovascular: regular rate, rhythm, no murmur, normal peripheral pulses Abdomen/GI: normal bowel sounds, non tender, soft Extremities/Musculoskelatal: normal inspection Neurologic/Psych: + pertinent finding (somnolent ) Skin: normal color, warm/dry, no rash Lymphatic: no adenopathy Diagnostics Laboratory Results Results Past 24 Hours Test 06/13/17 17:30 06/13/17 18:01 06/13/17 18:45 06/13/17 19:10 Range/Units White Blood Count 16.12 4.8-10.8 K/uL Red Blood Count 4.71 4.7-6.1 M/uL Hemoglobin 13.6 14.0-18.0 g/dL Hematocrit 41.6 42-52 % Mean Corpuscular Volume 88.3 80-100 fL Mean Corpuscular Hemoglobin 28.9 25-34 pg Mean Corpuscular Hemoglobin Concent 32.7 32-36 g/dl Platelet Count 206 130-400 K/uL Mean Platelet Volume 10.8 7.4-10.4 fL Neutrophils (%) (Auto) 85.7 % Lymphocytes (%) (Auto) 7.9 % Monocytes (%) (Auto) 5.9 % Eosinophils (%) (Auto) 0.1 % Basophils (%) (Auto) 0.1 % Neutrophils # (Auto) 13.82 1.4-6.5 K/uL Lymphocytes # (Auto) 1.27 1.2-3.4 K/uL Monocytes # (Auto) 0.95 0.11-0.59 K/uL Eosinophils # (Auto) 0.01 0-0.5 K/uL Basophils # (Auto) 0.02 0-0.2 K/uL RDW Standard Deviation 45.3 36.4-46.3 fL RDW Coefficient of Variation 14.3 11.5-14.5 % Immature Granulocyte % (Auto) 0.3 % Immature Granulocyte # (Auto) 0.05 0.00-0.02 K/uL Urine Color YELLOW Urine Appearance CLOUDY CLEAR Urine pH 8.0 4.5-7.5 Urine Specific [place] 1.010 1.000-1.030 Urine Protein NEG NEG Urine Glucose (UA) NEG NEG Urine Ketones NEG NEG Urine Occult Blood TRACE NEG Urine Nitrite POS NEG Urine Bilirubin NEG NEG Urine Urobilinogen NEG NEG Urine Leukocyte Esterase LARGE NEG Urine WBC (Auto) 10-30 0-5 /hpf Urine RBC (Auto) 0-4 0-4 /hpf Urine Hyaline Casts (Auto) 1-5 0-5 /lpf Urine Epithelial Cells (Auto) 10-20 0-5 /lpf Urine Bacteria (Auto) 4+ NEG Urine Crystals AMORPHOUS SEDIMENT NONE PRSENT Urine Yeast (Auto) NONE PRSENT Bedside Lactic Acid Venous 2.71 0.90-1.70 mmol/L Prothrombin Time 11.4 9.0-12.0 SECONDS Prothromb Time International Ratio 1.1 0.9-1.1 Activated Partial Thromboplast Time 29.2 21.0-31.0 SECONDS Partial Thromboplastin Ratio 1.1 Sodium Level 135 136-145 mmol/L Potassium Level 3.6 3.5-5.1 mmol/L Chloride Level 104 98-107 mmol/L Carbon Dioxide Level 24 21-32 mmol/L Anion Gap 7.0 3-11 mmol/L Blood Urea Nitrogen 14 7-18 mg/dl Creatinine 1.06 0.60-1.40 mg/dl Est Creatinine Clear Calc Drug Dose 109.1 ml/min Estimated GFR () 88.6 Estimated GFR (Non- 76.4 BUN/Creatinine Ratio 13.6 10-20 Random Glucose 110 70-99 mg/dl Calcium Level 8.8 8.5-10.1 mg/dl Magnesium Level 1.8 1.8-2.4 mg/dl Total Bilirubin 0.3 0.2-1 mg/dl Aspartate Amino Transf (AST/SGOT) 20 15-37 U/L Alanine Aminotransferase (ALT/SGPT) 31 12-78 U/L Alkaline Phosphatase 90 45-117 U/L Total Protein 7.9 6.4-8.2 gm/dl Albumin 3.3 3.4-5.0 gm/dl Globulin 4.6 2.5-4.0 gm/dl Albumin/Globulin Ratio 0.7 0.9-2 Influenza Type A Antigen Neg for Influ A NEG Influenza Type B Antigen Neg for Influ B NEG Test 06/13/17 20:41 06/13/17 20:42 Range/Units Microbiology Results 06/13/17 Blood Culture, Received Pending 06/13/17 Blood Culture, Received Pending 06/13/17 Urine Culture, Received Pending Diagnostic Radiology CHEST ONE VIEW PORTABLE HISTORY: 57 years-old Male Sepsis acute sepsis COMPARISON: Chest radiograph 05/16/2015 TECHNIQUE: Portable AP view of the chest FINDINGS: Cardiac silhouette is mildly enlarged, unchanged. The patient is rotated to the right. No pneumothorax, pleural effusion, focal airspace consolidation or overt pulmonary edema. Bones of the chest are grossly intact. IMPRESSION: No acute cardiopulmonary process. EKG HR 127 with sinus tachy, no acute ischemic changes Impression Assessment and Plan This is a 57 yo m that is presenting to us with sepsis with most likely a urinary source Sepsis secondary to urinary infection as evidenced by abnormal UA - Tele admission - continue dapto and cefepime while UCx pending - blood culture pending - Procalcitonin and repeat lactate - IVF NSS @ 150cc/h Paraplegia secondary to CVA , stable - continue Gabapentin 100 in am and 400 in pm - continue Baclofen 20 mg qid, Keppra 250 mg bid, Ropinirole 1 mg hs - continue ativan bid Anxiety - continue Effexor 150 mg daily and Buspar 10 mg bid Hyperlipidemia - continue Simvastatin 40 mg HS BPH Flomax 0.4mg bid DMII - Lantus 25 units bid - insulin ISS DVT Prophylaxis Heparin tid Attending addendum: I have physically seen this patient, have supervised the medical residents activities, and agree with the H&P unless as otherwise noted. Assessment and Plan: Urosepsis-- Daptomycin IV and cefepime IV Follow urine culture and sensitivity Follow blood culture and sensitivity NSS at 150 ML's per hour Follow abnormal pro-calcitonin of 7.85 Paraplegia secondary to CVA-- Continue current dosings of gabapentin, baclofen, Keppra, ropinirole and Ativan. Anxiety-- Continue Effexor, BuSpar and Ativan Diabetes mellitus-- Continue Lantus 25 units subcutaneous twice a day Place on Accu-Cheks before meals and at bedtime with NovoLog coverage per scale Level of Care Telemetry Advanced Directives Existing Advance Directive: No Existing Living Will: No Existing Power of [employer] Forming Equipment Operator: No Resuscitation Status FULL RESUSCITATION VTE Prophylaxis VTE Risk Assessment Done? Y/N: Yes Risk Level: Moderate Given or contraindicated: Unfractionated heparin SQ Social Service Consult Lives in Usp Note Total Time: Critical Care 30 - 74 minutes Additional Copies To [place], Crest
[2017-06-13 22:00] VITALS: O2SAT 94; Ht 195.6 cm; Wt 121.4 kg
[2017-06-13 22:10] VITALS: O2SAT 94
[2017-06-13 22:11] VITALS: BP 159/53; PULSE 108; TEMP 37; O2SAT 94
[2017-06-13] MEDS ORDERED: GLUCAGON FOR INJ 1 MG VIAL SQ PRN (22:30)
[2017-06-13] MEDS ORDERED: GLUCOSE 40% GEL 15 GM TUBE PO PRN (22:30)
[2017-06-13] MEDS ORDERED: GLUCOSE 10 TABS/TUBE PO PRN (22:30)
[2017-06-13] MEDS ORDERED: DEXTROSE 50% 50 ML SYR IV PRN (22:30)
[2017-06-13 23:33] VITALS: BP 106/76; PULSE 107; TEMP 37.4; O2SAT 96
[2017-06-13] MEDS: TAMSULOSIN HCL 0.4 MG CAP PO SCH (23:48)
[2017-06-13] MEDS: LEVETIRACETAM 250 MG TAB PO SCH (23:48)
[2017-06-13] MEDS: MAGNESIUM OXIDE 400 MG TAB PO SCH (23:49)
[2017-06-13] MEDS: BACLOFEN TAB 20 MG TAB PO SCH (23:49)
[2017-06-13] MEDS: GABAPENTIN 400 MG CAP PO SCH (23:50)
[2017-06-13] MEDS: DOCUSATE SODIUM/SENNA 50/8.6MG TAB PO SCH (23:51)
[2017-06-13] MEDS: ROPINIROLE HCL 1 MG TAB PO SCH (23:51)
[2017-06-13] MEDS: ACETAMINOPHEN 325 MG TAB PO SCH (23:52)
[2017-06-13] MEDS: SIMVASTATIN 40 MG TAB PO SCH (23:52)
[2017-06-13] MEDS: INSULIN GLARGINE SOLOSTAR 100 UNITS/ML 3 ML PEN SC SCH (23:54)
[2017-06-13] MEDS: LORAZEPAM 1 MG TAB PO SCH (23:55)
[2017-06-13] MEDS: HEPARIN SOD 5000 UNIT/0.5 ML CARP SQ SCH (23:55)
[2017-06-14] VITALS (11 sets, daily range): BP systolic 103–158; BP diastolic 66–95; PULSE 87–102; TEMP 36.6–37; O2SAT 92–98
[2017-06-14] MEDS: SODIUM CHLORIDE 0.9% 1000ML 1,000 ML IV SCH ×4 (02:18→23:33)
[2017-06-14] MEDS: HEPARIN SOD 5000 UNIT/0.5 ML CARP SQ SCH ×3 (06:28→21:51)
[2017-06-14] MEDS: CEFEPIME IV 2,000 MG in SYRINGE 7.5 ML IV SCH ×2 (06:28→18:12)
[2017-06-14 07:13] LABS: BASO % 0.1 %; BASO ABS # 0.02 K/uL (0-0.2); COMPLETE YES; EOS % 0.2 %; HEMATOCRIT 38.3 % (42-52); IG% 0.2 %; LYMPH % 14.2 %; LYMPH ABS # 2.52 K/uL (1.2-3.4); MEAN CELL VOLUME 89.3 fL (80-100); MEAN CORPUSCULAR HEMOGLOBIN 27.7 pg (25-34); MEAN CORPUSCULAR HGB CONC 31.1 g/dl (32-36); MEAN PLATELET VOLUME 9.6 fL (7.4-10.4); MONO % 7.8 %; NEUT % 77.5 %; PLATELET COUNT 225 K/uL (130-400); RED BLOOD COUNT 4.29 M/uL (4.7-6.1); WHITE BLOOD COUNT 17.77 K/uL (4.8-10.8)
[2017-06-14 07:44] LABS: ALB/GLOB RATIO 0.7 (0.9-2); BUN/CREATININE RATIO 13.9 (10-20); CALCIUM 8.7 mg/dl (8.5-10.1); CREATININE 0.75 mg/dl (0.60-1.40); POTASSIUM 3.5 mmol/L (3.5-5.1)
--- NOTE | 2017-06-14 07:59 | Family Medicine Progress Note ---
Progress Note Date of Service Jun 14, 2017. Subjective Pt evaluation today including: conversation w/ patient, physical exam, chart review, lab review, review of inpatient medication list Pain: No pain reported PO Intake: Tolerating PO intake Voiding: samson catheter in place Mr. Guzman reports that he feels fine today. He denies any pain, shortness of breath, but appears drowsy and answers questions with one word answers. He is oriented to person, place and is slightly confused regarding time. Constitutional: No fever, No chills Respiratory: No cough, No sputum, No wheezing, No shortness of breath Cardiovascular: No chest pain Abdomen: No pain, No nausea, No vomiting All Other Systems: Reviewed and Negative Medications Current Inpatient Medications Medications (Trade) Dose Ordered Sig/Kim Route Start Time Stop Time Status Last Admin Dose Admin Heparin Sodium (Porcine) (Heparin Sq 5000 Unit/0.5ml) 5,000 unit Q8 SQ 06/13/17 22:00 07/13/17 21:59 06/14/17 06:28 5,000 UNIT Ondansetron HCl (Zofran Inj) 4 mg Q6H PRN IV 06/13/17 20:45 07/13/17 20:44 Acetaminophen (Tylenol Tab) 650 mg BID PO 06/13/17 21:00 07/13/17 20:59 06/14/17 08:03 650 MG Acetaminophen (Tylenol Tab) 650 mg Q4 PRN PO 06/13/17 21:00 07/13/17 20:59 Baclofen (Lioresal Tab) 20 mg QID PO 06/13/17 21:00 07/13/17 20:59 06/14/17 08:02 20 MG Cholecalciferol (Vitamin D Tab) 1,000 inter.unit QAM PO 06/14/17 09:00 07/14/17 08:59 06/14/17 08:04 1,000 INTER.UNIT Gabapentin (Neurontin Cap) 100 mg QAM PO 06/14/17 09:00 07/14/17 08:59 06/14/17 08:03 100 MG Gabapentin (Neurontin Cap) 400 mg HS PO 06/13/17 21:00 07/13/17 20:59 06/13/17 23:50 400 MG Insulin Glargine (Lantus Solostar Pen) 25 units BID SC 06/13/17 21:00 07/13/17 20:59 06/14/17 08:05 25 UNITS Levetiracetam (Keppra Tab) 250 mg BID PO 06/13/17 21:00 07/13/17 20:59 06/14/17 08:02 250 MG Lorazepam (Ativan Tab) 1 mg BID PO 06/13/17 21:00 07/13/17 20:59 06/14/17 08:07 1 MG Magnesium Hydroxide (Milk Of Magnesia Susp) 30 ml DAILY PRN PO 06/13/17 21:00 07/13/17 20:59 Magnesium Oxide (Mag-Ox Tab) 400 mg BID PO 06/13/17 21:00 07/13/17 20:59 06/14/17 08:02 400 MG Multivitamins (Multivitamin Tab) 1 tab QAM PO 06/14/17 09:00 07/14/17 08:59 06/14/17 08:03 1 TAB Ropinirole HCl (Requip Tab) 1 mg HS PO 06/13/17 21:00 07/13/17 20:59 06/13/17 23:51 1 MG Senna/Docusate Sodium (Senokot S Tab) 1 tab BID PO 06/13/17 21:00 07/13/17 20:59 06/14/17 08:03 1 TAB Simvastatin (Zocor Tab) 40 mg QPM PO 06/13/17 21:00 07/13/17 20:59 06/13/17 23:52 40 MG Sodium Biphosphate/ Sodium Phosphate (Fleet Enema) 1 ml UD PRN [place] 06/13/17 21:00 07/13/17 20:59 Tamsulosin HCl (Flomax Cap) 0.4 mg BID PO 06/13/17 21:00 07/13/17 20:59 06/14/17 08:02 0.4 MG Venlafaxine HCl (effeXOR EXTENDED REL CAP) 150 mg QAM PO 06/14/17 09:00 18 08:59 06/14/17 08:01 150 MG Buspirone HCl (Buspar Tab) 10 mg BID PO 06/13/17 21:00 07/13/17 20:59 06/14/17 08:01 10 MG Daptomycin 750 mg/ Syringe 15 ml @ 7.5 mls/min DAILY@2000 IV 06/14/17 20:00 06/14/17 20:01 Glucose (Glucose 40% Gel) 15-30 GRAMS 15 GRAMS... UD PRN PO 06/13/17 22:30 07/13/17 22:29 Glucose (Glucose Chew Tab) 4-8 Tablets 4 Tabl... UD PRN PO 06/13/17 22:30 07/13/17 22:29 Dextrose (Dextrose 50% 50ML Syringe) 25-50ML OF 50% DW IV FOR... UD PRN IV 06/13/17 22:30 07/13/17 22:29 Glucagon (Glucagon Inj) 1 mg UD PRN SQ 06/13/17 22:30 07/13/17 22:29 Cefepime HCl 2000 mg/Syringe 20 ml @ 5 mls/min Q12H IV 06/14/17 06:00 06/15/17 06:03 06/14/17 06:28 5 MLS/MIN Sodium Chloride 1,000 ml @ 150 mls/hr Q6H40M IV 06/14/17 02:30 07/14/17 02:29 06/14/17 02:18 150 MLS/HR Objective Vital Signs Date Time Temp Pulse Resp B/P (MAP) Pulse Ox O2 Delivery O2 Flow Rate FiO2 06/14/17 07:51 37.0 95 18 125/83 (97) 94 06/14/17 04:00 96 Room Air 06/14/17 03:44 36.6 102 20 103/69 (80) 96 Room Air 06/14/17 00:00 95 Room Air 06/13/17 23:33 37.4 107 22 106/76 (86) 96 Room Air 06/13/17 22:11 37.0 108 20 159/53 (88) 94 Room Air 06/13/17 22:10 94 Room Air 06/13/17 22:00 94 Room Air 06/13/17 21:30 37.5 121 24 152/100 96 06/13/17 20:02 37.5 06/13/17 19:45 37.5 121 24 06/13/17 19:43 152/100 96 Room Air 06/13/17 19:40 118 20 06/13/17 19:35 119 21 06/13/17 19:30 233 22 92 06/13/17 19:25 115 23 06/13/17 19:20 134 18 93 06/13/17 19:15 125 18 96 06/13/17 19:15 123 18 143/112 94 Room Air 06/13/17 19:10 124 18 06/13/17 19:09 143/112 06/13/17 19:05 126 20 06/13/17 19:00 127 23 06/13/17 18:55 131 21 06/13/17 18:50 125 19 06/13/17 18:45 131 23 06/13/17 18:40 130 27 06/13/17 18:35 132 21 06/13/17 18:30 133 28 06/13/17 18:25 130 21 06/13/17 18:20 132 24 06/13/17 18:15 134 22 06/13/17 18:10 132 25 06/13/17 18:05 133 16 06/13/17 18:00 135 19 06/13/17 17:56 130 06/13/17 17:56 145/108 06/13/17 17:55 130 20 06/13/17 17:55 37.9 128 18 145/108 96 Room Air Physical Exam General Appearance: WD/WN, no apparent distress Respiratory/Chest: chest non-tender, lungs clear, normal breath sounds, no respiratory distress, no accessory muscle use Cardiovascular: regular rate, rhythm, no edema, no gallop, no JVD, no murmur Abdomen: normal bowel sounds, non tender, soft, no organomegaly, no pulsatile mass Laboratory Results Last 24 Hours Test 06/13/17 17:30 06/13/17 18:01 06/13/17 18:45 06/13/17 19:10 White Blood Count 16.12 K/uL Red Blood Count 4.71 M/uL Hemoglobin 13.6 g/dL Hematocrit 41.6 % Mean Corpuscular Volume 88.3 fL Mean Corpuscular Hemoglobin 28.9 pg Mean Corpuscular Hemoglobin Concent 32.7 g/dl Platelet Count 206 K/uL Mean Platelet Volume 10.8 fL Neutrophils (%) (Auto) 85.7 % Lymphocytes (%) (Auto) 7.9 % Monocytes (%) (Auto) 5.9 % Eosinophils (%) (Auto) 0.1 % Basophils (%) (Auto) 0.1 % Neutrophils # (Auto) 13.82 K/uL Lymphocytes # (Auto) 1.27 K/uL Monocytes # (Auto) 0.95 K/uL Eosinophils # (Auto) 0.01 K/uL Basophils # (Auto) 0.02 K/uL RDW Standard Deviation 45.3 fL RDW Coefficient of Variation 14.3 % Immature Granulocyte % (Auto) 0.3 % Immature Granulocyte # (Auto) 0.05 K/uL Urine Color YELLOW Urine Appearance CLOUDY Urine pH 8.0 Urine Specific [place] 1.010 Urine Protein NEG Urine Glucose (UA) NEG Urine Ketones NEG Urine Occult Blood TRACE Urine Nitrite POS Urine Bilirubin NEG Urine Urobilinogen NEG Urine Leukocyte Esterase LARGE Urine WBC (Auto) 10-30 /hpf Urine RBC (Auto) 0-4 /hpf Urine Hyaline Casts (Auto) 1-5 /lpf Urine Epithelial Cells (Auto) 10-20 /lpf Urine Bacteria (Auto) 4+ Urine Crystals AMORPHOUS SEDIMENT Urine Yeast (Auto) Bedside Lactic Acid Venous 2.71 mmol/L Prothrombin Time 11.4 SECONDS Prothromb Time International Ratio 1.1 Activated Partial Thromboplast Time 29.2 SECONDS Partial Thromboplastin Ratio 1.1 Sodium Level 135 mmol/L Potassium Level 3.6 mmol/L Chloride Level 104 mmol/L Carbon Dioxide Level 24 mmol/L Anion Gap 7.0 mmol/L Blood Urea Nitrogen 14 mg/dl Creatinine 1.06 mg/dl Est Creatinine Clear Calc Drug Dose 109.1 ml/min Estimated GFR () 88.6 Estimated GFR (Non- 76.4 BUN/Creatinine Ratio 13.6 Random Glucose 110 mg/dl Calcium Level 8.8 mg/dl Magnesium Level 1.8 mg/dl Total Bilirubin 0.3 mg/dl Aspartate Amino Transf (AST/SGOT) 20 U/L Alanine Aminotransferase (ALT/SGPT) 31 U/L Alkaline Phosphatase 90 U/L Total Protein 7.9 gm/dl Albumin 3.3 gm/dl Globulin 4.6 gm/dl Albumin/Globulin Ratio 0.7 Influenza Type A Antigen Neg for Influ A Influenza Type B Antigen Neg for Influ B Test 06/13/17 21:27 06/13/17 22:37 06/14/17 06:07 06/14/17 06:27 Lactic Acid Level 1.9 mmol/L Procalcitonin 7.85 ng/ml Bedside Glucose 102 mg/dl 89 mg/dl White Blood Count 17.77 K/uL Red Blood Count 4.29 M/uL Hemoglobin 11.9 g/dL Hematocrit 38.3 % Mean Corpuscular Volume 89.3 fL Mean Corpuscular Hemoglobin 27.7 pg Mean Corpuscular Hemoglobin Concent 31.1 g/dl Platelet Count 225 K/uL Mean Platelet Volume 9.6 fL Neutrophils (%) (Auto) 77.5 % Lymphocytes (%) (Auto) 14.2 % Monocytes (%) (Auto) 7.8 % Eosinophils (%) (Auto) 0.2 % Basophils (%) (Auto) 0.1 % Neutrophils # (Auto) 13.77 K/uL Lymphocytes # (Auto) 2.52 K/uL Monocytes # (Auto) 1.38 K/uL Eosinophils # (Auto) 0.04 K/uL Basophils # (Auto) 0.02 K/uL RDW Standard Deviation 46.1 fL RDW Coefficient of Variation 14.1 % Immature Granulocyte % (Auto) 0.2 % Immature Granulocyte # (Auto) 0.04 K/uL Sodium Level 137 mmol/L Potassium Level 3.5 mmol/L Chloride Level 105 mmol/L Carbon Dioxide Level 26 mmol/L Anion Gap 6.0 mmol/L Blood Urea Nitrogen 10 mg/dl Creatinine 0.75 mg/dl Est Creatinine Clear Calc Drug Dose 153.0 ml/min Estimated GFR () 116.4 Estimated GFR (Non- 100.4 BUN/Creatinine Ratio 13.9 Random Glucose 87 mg/dl Calcium Level 8.7 mg/dl Total Bilirubin 0.7 mg/dl Aspartate Amino Transf (AST/SGOT) 24 U/L Alanine Aminotransferase (ALT/SGPT) 33 U/L Alkaline Phosphatase 80 U/L Total Protein 7.3 gm/dl Albumin 3.0 gm/dl Globulin 4.3 gm/dl Albumin/Globulin Ratio 0.7 Assessment and Plan Mr. Guzman is a 57 year old paraplegic male due to a CVA, with a history of type DM2 who presented with confusion and drowsiness, and was found to be septic secondary to a urinary source Sepsis secondary to urinary infection as evidenced by abnormal UA - continue cefepime - ucx showed gram negative bacilli x2 strains - d/c daptomycin given he has not had any recent hospital admission & cultures did not grow MRSA, no reason to suspect MRSA infection - blood culture pending - IVF NSS @ 150cc/h likely can reduce as PO intake improves since septic picture improving Paraplegia secondary to CVA , stable - continue Gabapentin 100 in am and 400 in pm - continue Baclofen 20 mg qid, Keppra 250 mg bid, Ropinirole 1 mg hs - continue ativan bid Anxiety - continue Effexor 150 mg daily and Buspar 10 mg bid Hyperlipidemia - continue Simvastatin 40 mg HS BPH - continue Flomax 0.4mg bid DMII - Lantus 25 units bid - insulin ISS - sugars have been good DVT Prophylaxis: Heparin tid Code: Full Disposition: move to med/surg Resident Physician Supervision Note: I interviewed and examined the patient. Discussed with Dr. Petersen and agree with findings and plan as documented in the note. Any exceptions or clarifications are listed here: None Documented By: Fei Alexander feeling better. sleepy vitlas noted nad breathing unlabored no pallor or icterus UTI w sepsis - gram negative - stop dapto, continue cefepime pending ID&S otherwise as above Resident Tracking Resident Involvement: Resident Care Provided Care Provided: Adult Hospital Medicine
[2017-06-14] MEDS: VENLAFAXINE HCL XR 150 MG CAPXR PO SCH (08:01)
[2017-06-14] MEDS: LEVETIRACETAM 250 MG TAB PO SCH ×2 (08:02→20:07)
[2017-06-14] MEDS: TAMSULOSIN HCL 0.4 MG CAP PO SCH ×2 (08:02→20:03)
[2017-06-14] MEDS: BACLOFEN TAB 20 MG TAB PO SCH ×4 (08:02→20:04)
[2017-06-14] MEDS: MAGNESIUM OXIDE 400 MG TAB PO SCH ×2 (08:02→20:04)
[2017-06-14] MEDS: MULTIVITAMIN TAB PO SCH (08:03)
[2017-06-14] MEDS: ACETAMINOPHEN 325 MG TAB PO SCH ×2 (08:03→20:06)
[2017-06-14] MEDS: GABAPENTIN 100 MG CAP PO SCH (08:03)
[2017-06-14] MEDS: DOCUSATE SODIUM/SENNA 50/8.6MG TAB PO SCH ×2 (08:03→20:06)
[2017-06-14] MEDS: CHOLECALCIFEROL 1000 INTER.UNIT TAB PO SCH (08:04)
[2017-06-14] MEDS: INSULIN GLARGINE SOLOSTAR 100 UNITS/ML 3 ML PEN SC SCH ×2 (08:05→21:50)
[2017-06-14] MEDS: LORAZEPAM 1 MG TAB PO SCH ×2 (08:07→20:09)
[2017-06-14] MEDS ORDERED: CEFEPIME IV 2,000 MG in DEXTROSE 5% 100ML 100 ML IV SCH (09:00)
[2017-06-14] MEDS ORDERED: DAPTOmycin IV 750 MG in SODIUM CHLORIDE 0.9% 50ML 50 ML IV SCH (09:00)
[2017-06-14] MEDS ORDERED: DAPTOmycin IV 750 MG in SYRINGE 0 ML IV SCH (20:00)
[2017-06-14] MEDS: ROPINIROLE HCL 1 MG TAB PO SCH (20:04)
[2017-06-14] MEDS: SIMVASTATIN 40 MG TAB PO SCH (20:06)
[2017-06-14] MEDS: GABAPENTIN 400 MG CAP PO SCH (20:07)
[2017-06-15] MEDS: CEFEPIME IV 2,000 MG in SYRINGE 7.5 ML IV SCH (05:49)
[2017-06-15] MEDS: SODIUM CHLORIDE 0.9% 1000ML 1,000 ML IV SCH ×3 (05:49→19:28)
[2017-06-15] MEDS: HEPARIN SOD 5000 UNIT/0.5 ML CARP SQ SCH ×3 (05:50→21:28)
[2017-06-15 07:13] VITALS: BP 145/84; PULSE 83; TEMP 36.9; O2SAT 96
[2017-06-15 07:23] LABS: MEAN CELL VOLUME 89.2 fL (80-100); MEAN CORPUSCULAR HEMOGLOBIN 28.7 pg (25-34); MEAN CORPUSCULAR HGB CONC 32.2 g/dl (32-36); MEAN PLATELET VOLUME 9.5 fL (7.4-10.4); PLATELET COUNT 200 K/uL (130-400); RED BLOOD COUNT 4.15 M/uL (4.7-6.1); WHITE BLOOD COUNT 13.48 K/uL (4.8-10.8)
[2017-06-15 07:52] LABS: BUN/CREATININE RATIO 11.1 (10-20); CALCIUM 8.6 mg/dl (8.5-10.1); CREATININE 0.71 mg/dl (0.60-1.40); POTASSIUM 3.6 mmol/L (3.5-5.1)
[2017-06-15] MEDS: INSULIN GLARGINE SOLOSTAR 100 UNITS/ML 3 ML PEN SC SCH ×2 (09:07→21:28)
[2017-06-15] MEDS: DOCUSATE SODIUM/SENNA 50/8.6MG TAB PO SCH ×2 (09:10→21:31)
[2017-06-15] MEDS: CHOLECALCIFEROL 1000 INTER.UNIT TAB PO SCH (09:10)
[2017-06-15] MEDS: LORAZEPAM 1 MG TAB PO SCH ×2 (09:10→21:33)
[2017-06-15] MEDS: MULTIVITAMIN TAB PO SCH (09:10)
[2017-06-15] MEDS: LEVETIRACETAM 250 MG TAB PO SCH ×2 (09:10→21:32)
[2017-06-15] MEDS: MAGNESIUM OXIDE 400 MG TAB PO SCH ×2 (09:10→21:32)
[2017-06-15] MEDS: BACLOFEN TAB 20 MG TAB PO SCH ×4 (09:11→21:32)
[2017-06-15] MEDS: TAMSULOSIN HCL 0.4 MG CAP PO SCH ×2 (09:11→21:32)
[2017-06-15] MEDS: VENLAFAXINE HCL XR 150 MG CAPXR PO SCH (09:11)
[2017-06-15] MEDS: GABAPENTIN 100 MG CAP PO SCH (09:11)
[2017-06-15] MEDS: ACETAMINOPHEN 325 MG TAB PO SCH ×2 (09:12→23:00)
--- NOTE | 2017-06-15 11:59 | Clinical Documentation Query ---
APOORVA Alcaraz : CLINICAL DOCUMENTATION QUERY Patient is a 57 year old male admitted with an altered mental status, fever, and difficulty answering questions. Documentation includes sepsis secondary to UTI. Hospital day #2, remains confused to time and drowsy. Urine culture positive for K. Pneumoniae and P. Aeruginosa. He is being treated with Ciprofloxacin. In your clinical opinion is this patient being managed for: ( X ) Metabolic encephalopathy ( ) Not Agree ( ) Other explanation of clinical findings (Please Explain) ( ) Unable to determine (Please Define) ( ) Need to Discuss The medical record reflects the following clinical findings, treatment, and risk factors. Clinical Indicators: AMS in the setting of infection Treatment: IVF, antibiotics, cultures, serial labs Risk Factors: Sepsis secondary to UTI. Please clarify and document your clinical opinion in the progress notes and discharge summary. Terms such as "probable", "suspected", "likely", "questionable", "possible", or "still to be ruled out" are acceptable. IF IN AGREEMENT, YOU MUST DOCUMENT ABOVE DIAGNOSTIC STATEMENT IN DAILY PROGRESS NOTES AND DISCHARGE SUMMARY. This document is not part of the patient's record. Thank You, Luis Chapman, RUSTY [phone]
--- NOTE | 2017-06-15 13:25 | Family Medicine Progress Note ---
Progress Note Date of Service Jun 15, 2017. Subjective Pt evaluation today including: conversation w/ patient, physical exam, chart review, lab review, review of studies Found pt resting in bed, speaking a bit slow (likely his baseline s/p prior CVA ) but answering questions easily and coherently in sentences (i.e. not just one- word answers). He denies any acute concerns or physical complaints. Constitutional: No fever, No chills Respiratory: No cough, No shortness of breath Cardiovascular: No chest pain Abdomen: No nausea, No vomiting Neurologic: + problem reported (baseline neuro deficits s/p prior CVA) Medications Current Inpatient Medications Medications (Trade) Dose Ordered Sig/Kim Route Start Time Stop Time Status Last Admin Dose Admin Heparin Sodium (Porcine) (Heparin Sq 5000 Unit/0.5ml) 5,000 unit Q8 SQ 06/13/17 22:00 07/13/17 21:59 06/15/17 05:50 5,000 UNIT Ondansetron HCl (Zofran Inj) 4 mg Q6H PRN IV 06/13/17 20:45 07/13/17 20:44 Acetaminophen (Tylenol Tab) 650 mg BID PO 06/13/17 21:00 07/13/17 20:59 06/15/17 09:12 650 MG Acetaminophen (Tylenol Tab) 650 mg Q4 PRN PO 06/13/17 21:00 07/13/17 20:59 Baclofen (Lioresal Tab) 20 mg QID PO 06/13/17 21:00 07/13/17 20:59 06/15/17 12:47 20 MG Cholecalciferol (Vitamin D Tab) 1,000 inter.unit QAM PO 06/14/17 09:00 07/14/17 08:59 06/15/17 09:10 1,000 INTER.UNIT Gabapentin (Neurontin Cap) 100 mg QAM PO 06/14/17 09:00 07/14/17 08:59 06/15/17 09:11 100 MG Gabapentin (Neurontin Cap) 400 mg HS PO 06/13/17 21:00 07/13/17 20:59 06/14/17 20:07 400 MG Insulin Glargine (Lantus Solostar Pen) 25 units BID SC 06/13/17 21:00 07/13/17 20:59 06/15/17 09:07 25 UNITS Levetiracetam (Keppra Tab) 250 mg BID PO 06/13/17 21:00 07/13/17 20:59 06/15/17 09:10 250 MG Lorazepam (Ativan Tab) 1 mg BID PO 06/13/17 21:00 07/13/17 20:59 06/15/17 09:10 1 MG Magnesium Hydroxide (Milk Of Magnesia Susp) 30 ml DAILY PRN PO 06/13/17 21:00 07/13/17 20:59 Magnesium Oxide (Mag-Ox Tab) 400 mg BID PO 06/13/17 21:00 07/13/17 20:59 06/15/17 09:10 400 MG Multivitamins (Multivitamin Tab) 1 tab QAM PO 06/14/17 09:00 07/14/17 08:59 06/15/17 09:10 1 TAB Ropinirole HCl (Requip Tab) 1 mg HS PO 06/13/17 21:00 07/13/17 20:59 06/14/17 20:04 1 MG Senna/Docusate Sodium (Senokot S Tab) 1 tab BID PO 06/13/17 21:00 07/13/17 20:59 06/15/17 09:10 1 TAB Simvastatin (Zocor Tab) 40 mg QPM PO 06/13/17 21:00 07/13/17 20:59 06/14/17 20:06 40 MG Sodium Biphosphate/ Sodium Phosphate (Fleet Enema) 1 ml UD PRN AR 06/13/17 21:00 07/13/17 20:59 Tamsulosin HCl (Flomax Cap) 0.4 mg BID PO 06/13/17 21:00 07/13/17 20:59 06/15/17 09:11 0.4 MG Venlafaxine HCl (effeXOR EXTENDED REL CAP) 150 mg QAM PO 06/14/17 09:00 07/14/17 08:59 06/15/17 09:11 150 MG Buspirone HCl (Buspar Tab) 10 mg BID PO 06/13/17 21:00 07/13/17 20:59 06/15/17 09:10 10 MG Glucose (Glucose 40% Gel) 15-30 GRAMS 15 GRAMS... UD PRN PO 06/13/17 22:30 1/1/18 22:29 Glucose (Glucose Chew Tab) 4-8 Tablets 4 Tabl... UD PRN PO 06/13/17 22:30 07/13/17 22:29 Dextrose (Dextrose 50% 50ML Syringe) 25-50ML OF 50% DW IV FOR... UD PRN IV 06/13/17 22:30 07/13/17 22:29 Glucagon (Glucagon Inj) 1 mg UD PRN SQ 06/13/17 22:30 07/13/17 22:29 Sodium Chloride 1,000 ml @ 150 mls/hr Q6H40M IV 06/14/17 02:30 07/14/17 02:29 06/15/17 12:47 150 MLS/HR Ciprofloxacin (Cipro Tab) 500 mg BID PO 06/15/17 21:00 06/19/17 23:00 Objective Vital Signs Date Time Temp Pulse Resp B/P (MAP) Pulse Ox O2 Delivery O2 Flow Rate FiO2 06/15/17 08:30 Room Air 06/15/17 07:13 36.9 83 20 145/84 (104) 96 Room Air 06/14/17 23:38 36.8 97 18 129/88 (102) 92 Room Air 06/14/17 20:00 98 Room Air 06/14/17 18:30 98 Room Air 06/14/17 17:30 36.7 96 18 158/95 (116) 96 Room Air 06/14/17 17:29 36.9 87 22 98 06/14/17 16:00 Room Air 06/14/17 15:21 36.9 87 22 138/86 (103) 98 Room Air Physical Exam General Appearance: no apparent distress Respiratory/Chest: lungs clear, normal breath sounds, no respiratory distress Cardiovascular: regular rate, rhythm, no murmur Abdomen: non tender, soft Extremities: + swelling (trace (B) edema) Neurologic/Psychiatric: + pertinent finding (Left UE and LE weaker than right, per patient at his baseline) Notes: Condom cath in place. Laboratory Results Last Resulted 06/15/17 06:59 Last Resulted 06/15/17 06:59 Assessment and Plan Mr. Guzman is a 57 year old paraplegic male due to a CVA, with a history of type DM2 who presented with confusion and drowsiness, and was found to be septic secondary to a urinary source Sepsis secondary to urinary infection as evidenced by abnormal UA - Likely the cause of his acute confusion. Not confused this morning, answering questions appropriately. - 02Dec BCx x 2 with no growth to date (04Dec). - 02Dec UCx grew klebsiella and pseudomonas, both coronado-sensitive. - Was empirically started on cefepime. 04Dec stopped IV abx and started Cipro 500 mg PO BID for complicated UTI. - On NS IVF at 150 ml/hr, which can titrate down as patient's PO intake continues to improve. Paraplegia secondary to CVA , stable - continue Gabapentin 100 in am and 400 in pm - continue Baclofen 20 mg qid, Keppra 250 mg bid, Ropinirole 1 mg hs - continue ativan bid Anxiety - continue Effexor 150 mg daily and Buspar 10 mg bid Hyperlipidemia - continue Simvastatin 40 mg HS BPH - continue Flomax 0.4mg bid DMII - Lantus 25 units bid - insulin ISS - sugars have been good DVT Prophylaxis: Heparin subq tid Code: Full Disposition: Back to residence at [facility] upon d/c. Resident Physician Supervision Note: I was present with Dr. Londono during the history and exam. I discussed the case with the resident and agree with the findings and plan as documented in the note. Any exceptions or clarifications are listed here: 57 y/o male with metabolic encephalopathy secondary to UTI. Improving sensorium today. Will change to PO Cipro today and potential return to [facility] tomorrow. Documented By: Benji Smith Resident Tracking Resident Involvement: Resident Care Provided Care Provided: Adult Hospital Medicine (inpt rounds)
[2017-06-15 15:16] VITALS: BP 139/87; PULSE 80; TEMP 36.5; O2SAT 98
[2017-06-15] MEDS: ROPINIROLE HCL 1 MG TAB PO SCH (21:31)
[2017-06-15] MEDS: SIMVASTATIN 40 MG TAB PO SCH (21:31)
[2017-06-15] MEDS: GABAPENTIN 400 MG CAP PO SCH (21:31)
[2017-06-15] MEDS: CIPROFLOXACIN 500 MG TAB PO SCH (21:32)
[2017-06-16 00:28] VITALS: BP 142/93; PULSE 94; TEMP 36.7; O2SAT 94
[2017-06-16] MEDS: SODIUM CHLORIDE 0.9% 1000ML 1,000 ML IV SCH ×2 (02:16→08:53)
[2017-06-16] MEDS: HEPARIN SOD 5000 UNIT/0.5 ML CARP SQ SCH (05:57)
[2017-06-16] MEDS: INSULIN GLARGINE SOLOSTAR 100 UNITS/ML 3 ML PEN SC SCH (07:54)
[2017-06-16] MEDS: LORAZEPAM 1 MG TAB PO SCH (07:55)
[2017-06-16 07:56] VITALS: BP 145/89; PULSE 78; TEMP 36.8; O2SAT 94
[2017-06-16] MEDS: MULTIVITAMIN TAB PO SCH (07:56)
[2017-06-16] MEDS: CHOLECALCIFEROL 1000 INTER.UNIT TAB PO SCH (07:56)
[2017-06-16] MEDS: ACETAMINOPHEN 325 MG TAB PO SCH (07:56)
[2017-06-16] MEDS: VENLAFAXINE HCL XR 150 MG CAPXR PO SCH (07:57)
[2017-06-16] MEDS: LEVETIRACETAM 250 MG TAB PO SCH (07:58)
[2017-06-16] MEDS: GABAPENTIN 100 MG CAP PO SCH (07:59)
[2017-06-16] MEDS: DOCUSATE SODIUM/SENNA 50/8.6MG TAB PO SCH (07:59)
[2017-06-16] MEDS: BACLOFEN TAB 20 MG TAB PO SCH ×2 (07:59→13:05)
[2017-06-16] MEDS: CIPROFLOXACIN 500 MG TAB PO SCH (07:59)
[2017-06-16] MEDS: MAGNESIUM OXIDE 400 MG TAB PO SCH (07:59)
[2017-06-16] MEDS: TAMSULOSIN HCL 0.4 MG CAP PO SCH (08:00)
[2017-06-16] MEDS ORDERED: CPR500 PO (08:58)
--- NOTE | 2017-06-16 09:14 | Discharge Instructions ---
Discharge Instructions Date of Service Jun 16, 2017. Admission Reason for Admission: Sepsis,Uti Discharge Discharge Diagnosis / Problem: urosepsis Discharge Goals Goal(s): Decrease discomfort, Prevent Disease Progression Activity Recommendations Activity Limitations: as noted below Lifting Limitations: gradually increase as tolerated Shower/Bathe: no limitations Driving or Machine Use: no limitations . Instructions / Follow-Up Instructions / Follow-Up Karan was admitted for altered mental status secondary to UTI. His condition has improved. He will continue Cipro 500 mg bid for another 4 days. No other changes were made. Current Hospital Diet Patient's current hospital diet: Diabetes Type 2 Diet, AHA Diet (Heart Healthy) Discharge Diet Recommended Diet: Diabetes Type 2 Diet Pending Studies Studies pending at discharge: no Medical Emergencies . Who to Call and When: Medical Emergencies: If at any time you feel your situation is an emergency, please call 911 immediately. . Non-Emergent Contact Non-Emergency issues call your: Primary Care Provider Call Non-Emergent contact if: you have a fever . . "Provider Documentation" section prepared by Rosalinda Schmitt. . VTE Core Measure Inpt VTE Proph given/why not?: Unfractionated heparin SQ
--- NOTE | 2017-06-16 09:33 | Discharge Summary ---
Discharge Summary Date of Service Jun 16, 2017. Discharge Summary Admission Date: Jun 13, 2017 at 20:58 Discharge Disposition: [facility] facility Principal Diagnosis: Urosepsis Immunizations: Have You Had Influenza Vaccine: Unknown History of Tetanus Vaccine?: Unknown History of Pneumococcal: Unknown History of Hepatitis B Vaccine: Unknown Procedures: CHEST ONE VIEW PORTABLE HISTORY: 57 years-old Male Sepsis acute sepsis COMPARISON: Chest radiograph 05/16/2015 TECHNIQUE: Portable AP view of the chest FINDINGS: Cardiac silhouette is mildly enlarged, unchanged. The patient is rotated to the right. No pneumothorax, pleural effusion, focal airspace consolidation or overt pulmonary edema. Bones of the chest are grossly intact. IMPRESSION: No acute cardiopulmonary process. Medication Reconciliation New Medications: Ciprofloxacin (Ciprofloxacin HCl) 500 Mg Tab 500 MG PO BID for 4 Days, #8 TAB Continued Medications: Acetaminophen (Acetaminophen) 325 Mg Tab 2 TABS PO BID Acetaminophen Tab (Tylenol) 325 Mg Tab 650 MG PO Q4 PRN for Pain or Fever, TAB MAX 3GM APAP/24HR Baclofen (Baclofen) 20 Mg Tab 1 TAB PO QID Buspirone Hcl (Buspirone Hcl) 10 Mg Tab 10 MG PO BID, TAB Cholecalciferol (Vitamin D3) 1,000 Unit Tab 1 TAB PO QAM () 10 MG RE PRN for no bm x 4 days Gabapentin (Neurontin) 400 Mg Cap 400 MG PO HS, CAP Gabapentin (Neurontin) 100 Mg Cap 100 MG PO QAM Insulin Glargine (Lantus) 100 Unit/Ml Inj 25 UNITS SC BID Insulin Lispro (Human) (Humalog) 100 Unit/Ml Inj 5 UNITS SC LUNCH Levetiracetam (Keppra) 250 Mg Tab 250 MG PO BID Lorazepam (Ativan) 1 Mg Tab 1 MG PO BID Magnesium Hydroxide (Milk Of Magnesia) 30 Ml Susp 30 ML PO DAILY PRN for Constipation Magnesium Oxide (Mag-Ox) 400 Mg Tab 400 MG PO BID Metformin Hcl (Glucophage) 500 Mg Tab 500 MG PO BID Multivitamin (Multivitamin) Tab 1 TAB PO QAM Ropinirole (Requip) 1 Mg Tab 1 MG PO HS 1 HOUR BEFORE BEDTIME. Sennosides-Docusate Sodium (Senna Plus) 1 Tab Tab 1 TAB PO BID Simvastatin (Zocor) 40 Mg Tab 40 MG PO QPM Sodium Phosphate/Biphosphate (Fleet Enema) Stephanie 1 EA CO UD PRN for Constipation Tamsulosin Hcl (Flomax) 0.4 Mg Cap 0.4 MG PO BID Venlafaxine Hcl (Venlafaxine Hcl Er) 150 Mg Tab 1 TAB PO QAM Discharge Exam Review of Systems: Constitutional: No fever, No chills ENT: No hearing loss Respiratory: No cough, No shortness of breath, No dyspnea on exertion, No dyspnea at rest Cardiovascular: No chest pain Abdomen: No pain, No nausea, No vomiting Neurologic: + weakness Physical Exam: General Appearance: no apparent distress ENT: hearing grossly normal Neck: supple, no adenopathy Respiratory/Chest: normal breath sounds, no respiratory distress, no accessory muscle use Cardiovascular: regular rate, rhythm, + pertinent finding (trace edema) Abdomen / GI: normal bowel sounds, non tender, soft Extremities: + pedal edema, + pertinent finding (weakness of lower extremities (L>R, preexisting from CVA)) Neurologic/Psychiatric: oriented x 3 Hospital Course This is a 57 y/o M w/o a h/o of paraplegia 2/2 to CVA, DM2 who presented with metabolic encephalopathy, and found to be septic from a UTI. Presenting concerns: Metabolic encephalopathy 2/2 Urosepsis: Patient was treated with IV cefepime and transitioned to PO Cipro Urine cultures grew coronado sensitive klebsiella and pseudomonas Improved mentation to baseline at discharge D/c back to [facility] on 06/16/2017 Chronic Conditions: Paraplegia secondary to CVA , stable - Gabapentin 100 in am and 400 in pm was continued - Baclofen 20 mg qid, Keppra 250 mg bid, Ropinirole 1 mg hs were continued - ativan bid was continued Anxiety - Effexor 150 mg daily and Buspar 10 mg bid were continued Hyperlipidemia - Simvastatin 40 mg HS was continued BPH - Flomax 0.4mg bid continued DMII - Lantus 25 units bid - insulin ISS - sugars were controlled Resident Physician Supervision Note: I was present with Dr. Long during the history and exam. I discussed the case with the resident and agree with the findings and plan as documented in the note. Documented By: Benji Smith Total Time Spent: Greater than 30 minutes This includes examination of the patient, discharge planning, medication reconciliation, and communication with other providers. Total time 40 minutes. Discharge Instructions Please refer to the electronic Patient Visit Report (Discharge Instructions) for additional information. Additional Copies To [place], [place]
[2017-06-16 10:28] VITALS: BP 145/89; PULSE 78; TEMP 36.8; O2SAT 94
[2017-06-16 13:12] VITALS: BP 145/89; PULSE 78; TEMP 36.8; O2SAT 94
== END 2017-06-16 14:00 | DRG 871 ==
LOC: EDBD 17:40 → C.EDB 17:42 → C.2T 20:58 → ENRESERV 21:10 → C.MS2W 06-14 17:46
PROVIDERS: ADMIT Hospitalist; ATTEND Family Medicine
DX: A41.9 Sepsis, unspecified organism (principal); G93.41 Metabolic encephalopathy; N39.0 Urinary tract infection, site not specified; G82.20 Paraplegia, unspecified; E78.5 Hyperlipidemia, unspecified; N40.0 Benign prostatic hyperplasia without lower urinary tract symptoms; F41.9 Anxiety disorder, unspecified; Z86.73 Personal history of transient ischemic attack (TIA), and cerebral infarction without residual deficits; Z87.891 Personal history of nicotine dependence

== ENCOUNTER → 2017-07-30 | Outpatient (CLI) | payer OTHER ==
[~2017-07-30] MED LIST changes: +ACET-1346 PO; -ACET325T30 PO; +CPR500 PO; -LEDI1TAB PO; -[UNRECOGNIZED DRUG - CODE] INJ
[2017-07-30 09:04] LABS: BASO % 0.4 %; BASO ABS # 0.04 K/uL (0-0.2); EOS % 1.1 %; EOS ABS # 0.12 K/uL (0-0.5); HEMATOCRIT 39.6 % (42-52); HEMOGLOBIN 12.8 g/dL (14.0-18.0); IG# 0.02 K/uL (0.00-0.02); LYMPH % 34.2 %; LYMPH ABS # 3.69 K/uL (1.2-3.4); MEAN CELL VOLUME 89.8 fL (80-100); MEAN CORPUSCULAR HGB CONC 32.3 g/dl (32-36); MONO % 5.6 %; NEUT % 58.5 %; NEUT ABS # 6.31 K/uL (1.4-6.5); PLATELET COUNT 284 K/uL (130-400); RED CELL DISTRIBUTION WIDTH SD 45.9 fL (36.4-46.3); WHITE BLOOD COUNT 10.78 K/uL (4.8-10.8)
[2017-07-30 09:12] LABS: ALBUMIN 3.5 gm/dl (3.4-5.0); ALT/SGPT 26 U/L (12-78); BLOOD UREA NITROGEN 11 mg/dl (7-18); CALCIUM 9.4 mg/dl (8.5-10.1); CARBON DIOXIDE 27 mmol/L (21-32); GLUCOSE 86 mg/dl (70-99); POTASSIUM 3.8 mmol/L (3.5-5.1); SODIUM 140 mmol/L (136-145)
[2017-07-30 09:15] LABS: ALKALINE PHOSPHATASE 77 U/L (45-117); AST/SGOT 14 U/L (15-37)
[2017-08-03 10:41] LABS: HEPATITIS C VIRAL RNA BY PCR <15 NOT DETECTED IU/ML (<15); HEPATITIS C VIRAL RNA(LOG) PCR <1.18 NOT DETECTED LOG IU/ML (<1.18)
== END ==
LOC: C.LABCC 08:44
PROVIDERS: ATTEND Internal Medicine
DX: B19.20 Unspecified viral hepatitis C without hepatic coma (principal)

== ENCOUNTER → 2017-08-18 | Outpatient (CLI) | payer OTHER ==
[~2017-08-18] MED LIST changes: +ACET-1693 PO; -ACET325T96 PO; +GABA-1220 PO; -GABA1CAP5 PO
[2017-08-18 08:24] LABS: ALBUMIN 3.6 gm/dl (3.4-5.0); ALT/SGPT 32 U/L (12-78); BLOOD UREA NITROGEN 10 mg/dl (7-18); CARBON DIOXIDE 27 mmol/L (21-32); CREATININE 0.86 mg/dl (0.60-1.40); GLUCOSE 86 mg/dl (70-99); POTASSIUM 4.1 mmol/L (3.5-5.1); SODIUM 136 mmol/L (136-145)
[2017-08-18 08:27] LABS: ALKALINE PHOSPHATASE 84 U/L (45-117); AST/SGOT 19 U/L (15-37); TOTAL PROTEIN 8.1 gm/dl (6.4-8.2)
[2017-08-18 08:58] LABS: HEMOGLOBIN A1C 5.5 % (4.5-5.6)
== END ==
LOC: C.LABCC 07:44
PROVIDERS: ATTEND Internal Medicine
DX: E11.00 Type 2 diabetes mellitus with hyperosmolarity without nonketotic hyperglycemic-hyperosmolar coma (NKHHC) (principal)

== ENCOUNTER → 2017-10-16 | Outpatient (CLI) | payer OTHER ==
[2017-10-16 08:45] LABS: BASO % 0.3 %; BASO ABS # 0.03 K/uL (0-0.2); EOS % 0.9 %; HEMOGLOBIN 12.7 g/dL (14.0-18.0); IG# 0.03 K/uL (0.00-0.02); LYMPH % 33.4 %; LYMPH ABS # 3.61 K/uL (1.2-3.4); MEAN CELL VOLUME 87.8 fL (80-100); MEAN CORPUSCULAR HEMOGLOBIN 28.6 pg (25-34); MEAN CORPUSCULAR HGB CONC 32.6 g/dl (32-36); MEAN PLATELET VOLUME 9.9 fL (7.4-10.4); MONO % 6.3 %; MONO ABS # 0.68 K/uL (0.11-0.59); NEUT % 58.8 %; NEUT ABS # 6.35 K/uL (1.4-6.5); PLATELET COUNT 281 K/uL (130-400); RED CELL DISTRIBUTION WIDTH SD 45.1 fL (36.4-46.3)
[2017-10-16 09:15] LABS: ALBUMIN 3.5 gm/dl (3.4-5.0); ALT/SGPT 26 U/L (12-78); BLOOD UREA NITROGEN 13 mg/dl (7-18); CARBON DIOXIDE 25 mmol/L (21-32); GLUCOSE 99 mg/dl (70-99); POTASSIUM 3.7 mmol/L (3.5-5.1); SODIUM 139 mmol/L (136-145)
[2017-10-16 09:18] LABS: ALKALINE PHOSPHATASE 80 U/L (45-117); AST/SGOT 14 U/L (15-37); TOTAL PROTEIN 7.7 gm/dl (6.4-8.2)
[2017-10-19 06:59] LABS: HEPATITIS C VIRAL RNA BY PCR <15 NOT DETECTED IU/ML (<15); HEPATITIS C VIRAL RNA(LOG) PCR <1.18 NOT DETECTED LOG IU/ML (<1.18)
== END ==
LOC: C.LABCC 07:58
PROVIDERS: ATTEND Internal Medicine
DX: B19.20 Unspecified viral hepatitis C without hepatic coma (principal)

== ENCOUNTER 2020-08-13 14:29 | Inpatient (IN) ==
[2020-08-13] MEDS ORDERED: SODIUM CHLORIDE 0.9% 1000ML 1,000 ML IV SCH (14:45)
[2020-08-13] MEDS ORDERED: ADENOSINE IV SOLN 3 MG/ML 2 ML VIAL IV ONE ×2 (15:24→17:29)
[2020-08-13] MEDS ORDERED: ADENOSINE IV SOLN 3 MG/ML 2 ML VIAL IV STA (15:27)
[2020-08-13] MEDS ORDERED: dilTIAZem HCl 5 MG/ML 5 ML VIAL IV STA ×3 (15:27→19:25)
[2020-08-13 15:28] LABS: Albumin Level 3.3 gm/dl (3.4-5.0); Calcium 8.7 mg/dl (8.5-10.1); Creatinine Clr Calc Pharmacy 105.9 ml/min; Est GFR (African American) 89.8; Est GFR (Non-African American) 77.5; Magnesium 2.4 mg/dl (1.8-2.4); Potassium 4.1 mmol/L (3.5-5.1)
--- NOTE | 2020-08-13 15:30 | XRay Report ---
XR chest 1V portable HISTORY: 60 years-old Male weakness acute weakness COMPARISON: Chest radiograph 06/13/2017 TECHNIQUE: Supine AP view of the chest FINDINGS: Cardiac silhouette is enlarged. Unchanged appearance of the mediastinal contours. Interstitial coarse leidy has progressed from comparison. Pulmonary vascular congestion. No pneumothorax, large pleural ef fusion or lobar airspace consolidation. Degenerative changes of the shoulders and spine. IMPRESSION: Cardiomegaly and pulmonary vascular congestion with interstitial opacities suggestive of pulmonary edema versus interstitial pneumonitis. ACT 112: Negative or not required by law. The above report was generated using voice recognition software. It may contain grammatical, syntax o r spelling errors. Electronically signed by: Je Orosco M.D. 08/13/2020 3:29 PM
--- NOTE | 2020-08-13 15:37 | Emergency Department Note ---
Impression & Plan Atrial flutter with rapid ventricular response, Chest pain, Elevated troponin I level ED Provider Note NAME: GUERRERO PERERA AGE: 60 SEX: M : 1960 ARRIVES VIA: Ambulance INFORMANT: Patient, prehospital personnel ED PROVIDER(S): Gato De La Cruz DO CHIEF COMPLAINT: Palpitations HPI: The patient is a 60-year-old male who presented to the emergency department for an evaluation of chest pain and palpitations. The patient stays at [facility] at this time. He does have a history of brain aneurysm that was treated surgically leaving him with left-sided weakness. The patient states that over the last 24 hours he has been experiencing episodes of palpitations including fast and irregular heartbeat. He is also noticed chest pressure. He denies having any specific shortness of breath. He has had some lower extremity swe lling. He denies having any recent falls. He denies having any headaches or changes to his outpatient medication regimen. The patient normally has a chronic indwelling [place]. He has had no fever or cough. He was previously immunized for COVID-19. The patient received aspirin and a small fluid bolus prior to arrival. ROS: See above HPI for pertinent positives & negatives. A total of 10 systems reviewed and were otherwise negative. PAST MEDICAL HISTORY: See Below PAST SURGICAL HISTORY: See Below FAMILY HISTORY: See Below SOCIAL HISTORY: See Below HOME MEDICATIONS: See Below ALLERGIES: See Below VITALS: See Below PHYSICAL EXAMINATION: GENERAL: The patient is awake and alert. He is nonanxious appearing and appears to be comfortable. EYES: The conjunctivae are clear. The pupils are round and reactive. EARS, NOSE, MOUTH AND THROAT: The nose is without any evidence of any deformity. Mucous membranes are moist. Tongue is midline. NECK: The neck is nontender and supple. RESPIRATORY: Normal respiratory effort is noted there is no evidence of wheezing rhonchi or rales CARDIOVASCULAR: Tachycardic and regular heart sounds were noted to auscultation. No definite murmur was noted. GASTROINTESTINAL: The abdomen is soft. Abdomen is nontender. MUSCULOSKELETAL/EXTREMITIES: There is no evidence of gross deformity full range of motion is noted in the hips and shoulders. SKIN: Skin was warm and dry. Pedal edema was noted bilaterally. NEUROLOGIC: Patient is awake alert and oriented x3. MEDICAL DECISION MAKING: The patient is a 60-year-old male who presented to the emergency department for an evaluation of chest pain and palpitations. The patient was found to be in narrow complex tachycardia which was very regular. At times it did have some variability and had the appearance of possible atrial flutter or fibrillation. The patient was given IV adenosine initially. This failed to break the dysrhythmia. The patient was treated with IV fluids as well as IV Cardizem in the emergency department. Blood pressure started to drop. After the second Cardizem bolus he was also treated with IV calcium. He was reevaluated multiple times. He was treated with aspirin prior to arrival. The patient was also treated with another dose of IV Cardizem which did break the dysrhythmia and appeared to show flutter waves. I discussed the patient's condition [facility] They have agreed to evaluate the patient in the emergency department for further management and disposition. Triage Nursing notes reviewed. Prior medical records reviewed Vital Signs: reviewed and remarkable for tachycardia and hypotension. Differential diagnosis: Cardiac ischemia, aortic dissection, pulmonary embolism, pneumothorax, pneumonia, pericarditis, myocarditis, esophageal rupture, GERD, cholecystitis, pancreatitis, musculoskeletal, as well as other pathologies. ER treatment provided: See below Diagnostics interpreted by me: ECG: EKG was obtained in the emergency department. My interpretation is narrow complex tachycardia at 138 bpm. Diffuse lateral and inferior T wave abnormalities were noted. This was compared to a tracing from June 132016. The T wave abnormalities are new compared to the previous tracing. Cardiac Monitoring: An order was placed for continuous cardiac monitoring. The monitor shows a rate of 140 bpm with atrial flutter rhythm. Laboratory studies: As stated above and show below. Imaging studies: See below Consultation(s): 1730: [facility], Dr. Silva was notified about the patient. ED COURSE: Procedures: none PDMP:reviewed and no issues Critical Care: I have personally spent greater than 45 minutes of critical care time in the direct management of this patient. This includes bedside care, interpretation of diagnostic studies, and testing, discussion with consultants, patient, and family members, and other required patient management activities. This 45 minutes is in excess of all separately billable procedures. Past Med/Surg History Medical History Abnormal EKG Brain aneurysm Dehydration Hyperglycemia Stroke Urinary tract infection Surgical History H/O tracheostomy Social History Smoking Status: Former smoker Feels Safe at Home: Yes Allergies Allergies Allergy/AdvReac Type Severity Reaction Status Date / Time No Known Allergies Allergy Verified 08/13/20 15:49 Home Meds Home Medications Medication Instructions Recorded Confirmed acetaminophen [Tylenol] 650 mg PO BIDM MDD 3 GRAMS/24 HOURS 08/13/20 08/13/20 acetaminophen [Tylenol] 650 mg PO Q6H PRN MDD 3 GRAMS/24 08/13/20 08/13/20 HOURS baclofen 20 mg PO QID 08/13/20 08/13/20 buspirone 10 mg PO BIDM 08/13/20 08/13/20 cholecalciferol (vitamin D3) 2,000 mcg PO QAM 08/13/20 08/13/20 [Vitamin D3] gabapentin 300 mg PO BID 08/13/20 08/13/20 gabapentin 400 mg PO HS 08/13/20 08/13/20 levetiracetam [Keppra] 250 mg PO BIDM 08/13/20 08/13/20 lorazepam 1 mg PO BIDM 08/13/20 08/13/20 magnesium oxide 400 mg PO BIDM 08/13/20 08/13/20 metformin 500 mg PO BIDM 08/13/20 08/13/20 multivitamin [Daily-Adair] 1 tab PO QAM 08/13/20 08/13/20 ropinirole 1 mg PO QPM 08/13/20 08/13/20 sennosides-docusate sodium [Senna 1 tab-cap PO BIDM 08/13/20 08/13/20 Plus] simvastatin 40 mg PO HS 08/13/20 08/13/20 tamsulosin [Flomax] 0.4 mg PO BIDM 08/13/20 08/13/20 venlafaxine [Effexor XR] 150 mg PO QAM 08/13/20 08/13/20 Results & Data (ED) Vital Signs Vital Signs - 24 hr 08/13/20 14:51 08/13/20 16:02 08/13/20 16:03 Temperature 36.7 C Temperature Source Oral Pulse Rate 138 H Pulse Rate [Apical] 137 H Pulse Rhythm Regular Pulse Rhythm [Apical] Regular Pulse Strength Normal Pulse Strength [Apical] Normal Respiratory Rate 18 18 Respiratory Effort / Characteristics Non-Labored Spontaneous Non-Labored Spontaneous Respiratory Depth Normal Normal Respiratory Pattern Regular Regular Blood Pressure 111/88 Blood Pressure [Right Arm] 106/76 Blood Pressure Mean 95 Blood Pressure Mean [Right Arm] 86 Blood Pressure Position Sitting Blood Pressure Position [Right Arm] Lying Pulse Oximetry 97 86 L 97 Oxygen Delivery Method Room Air Room Air Nasal Cannula Oxygen Flow Rate 2 Sepsis Recent Fever Within 48 Hours No Sepsis New/Unexplained Change in Mental Status N/A Sepsis Action Taken by Nursing No Action Required Oxygen Flow Rate - Titration 2 Pulse Oximetry Post Tiitration 97 08/13/20 17:21 Temperature Temperature Source Pulse Rate Pulse Rate [Apical] 137 H Pulse Rhythm Pulse Rhythm [Apical] Regular Pulse Strength Pulse Strength [Apical] Normal Respiratory Rate 22 Respiratory Effort / Characteristics Non-Labored Spontaneous Respiratory Depth Normal Respiratory Pattern Regular Blood Pressure Blood Pressure [Right Arm] 107/87 Blood Pressure Mean Blood Pressure Mean [Right Arm] 93 Blood Pressure Position Blood Pressure Position [Right Arm] Lying Pulse Oximetry 97 Oxygen Delivery Method Nasal Cannula Oxygen Flow Rate 2 Sepsis Recent Fever Within 48 Hours Sepsis New/Unexplained Change in Mental Status Sepsis Action Taken by Nursing Oxygen Flow Rate - Titration Pulse Oximetry Post Tiitration Home Medications Current Medication List: was personally reviewed by me Laboratory Data Attestation: I reviewed the patient's lab results. Result diagrams: 08/13/20 16:12 08/13/20 14:50 Lab Results 08/13/20 08/13/20 08/13/20 Range/Units 14:50 14:50 16:06 WBC Cancelled RBC Cancelled Hgb Cancelled Hct Cancelled MCV Cancelled MCH Cancelled MCHC Cancelled RDW Std Deviation Cancelled RDW Coeff of Jose Cancelled Plt Count Cancelled MPV Cancelled Immature Gran % (Auto) Cancelled Neut % (Auto) Cancelled Lymph % (Auto) Cancelled [place] % (Auto) Cancelled Eos % (Auto) Cancelled Baso % (Auto) Cancelled Neut # (Auto) Cancelled Lymph # (Auto) Cancelled [place] # (Auto) Cancelled Eos # (Auto) Cancelled Baso # (Auto) Cancelled Immature Gran # (Auto) Cancelled Absolute Nucleated RBC Cancelled Nucleated RBC % (auto) Cancelled Neutrophils % (Manual) Cancelled Band Neutrophils % Cancelled Lymphocytes % (Manual) Cancelled Prolymphocyte % Cancelled Reactive Lymphs % (Man) Cancelled Monocytes % (Manual) Cancelled Eosinophils % (Manual) Cancelled Basophils % (Manual) Cancelled Metamyelocytes % (Man) Cancelled Myelocytes % (Man) Cancelled Promyelocytes % (Man) Cancelled Blast Cells % (Manual) Cancelled Plasma Cell % (Manual) Cancelled Other Cells % Cancelled Nucleated RBC % Cancelled Neutrophils # (Manual) Cancelled Band Neutrophils # Cancelled Total Absolute Neuts Cancelled Lymphocytes # (Manual) Cancelled Prolymphocyte # Cancelled Reactive Lymphs # Cancelled Total Abs Lymphocytes Cancelled Monocytes # (Manual) Cancelled Eosinophils # (Manual) Cancelled Basophils # (Manual) Cancelled Metamyelocytes # (Man) Cancelled Myelocytes # (Manual) Cancelled Promyelocytes # (Man) Cancelled Blast Cells # (Man) Cancelled Plasma Cell # (Manual) Cancelled Other Cells # Cancelled Nucleated RBCs # (Man) Cancelled Hypersegmented Neuts Cancelled Hyposegmented Neuts Cancelled Hypogranular Neuts Cancelled Large Granular Lymphs Cancelled # Lrg Granular Lymphs Cancelled Hairy Cells Cancelled Smudge Cells Cancelled Toxic Granulation Cancelled Toxic Vacuolation Cancelled Dohle Bodies Cancelled Yaneli Rods Cancelled Platelet Estimate Cancelled Hypogranular Platelets Cancelled Clumped Platelets Cancelled Giant Platelets Cancelled Platelet Satelliting Cancelled RBC Morphology Cancelled Polychromasia Cancelled Hypochromasia Cancelled Poikilocytosis Cancelled Basophilic Stippling Cancelled Anisocytosis Cancelled Microcytosis Cancelled Macrocytosis Cancelled Spherocytes Cancelled Pappenheimer Bodies Cancelled Sickle Cells Cancelled Target Cells Cancelled Tear Drop Cells Cancelled Ovalocytes Cancelled Stomatocytes Cancelled [place]otulla Bodies Cancelled Echinocytes Cancelled Acanthocytes (Spur) Cancelled Rouleaux Cancelled RBC Agglutinates Cancelled Schistocytes Cancelled RBC Morph Comment Cancelled Sezary Cell Cancelled PT (9.0-12.0) Seconds INR (0.9-1.1) APTT (21.0-31.0) Seconds PTT Ratio D-Dimer (0-500) ug/L FEU Sodium 143 (136-145) mmol/L Potassium 4.1 (3.5-5.1) mmol/L Chloride 115 H (98-107) mmol/L Carbon Dioxide 24 (21-32) mmol/L Anion Gap 4.0 (3-11) BUN 19 H (7-18) mg/dl Creatinine 1.03 (0.6-1.4) mg/dl Est Cr Clr Drug Dosing 105.9 ml/min Est GFR ( Amer) 89.8 Est GFR (Non-Af Amer) 77.5 BUN/Creatinine Ratio 18.0 (10-20) Glucose 114 H (70-99) mg/dl Calcium 8.7 (8.5-10.1) mg/dl Magnesium 2.4 (1.8-2.4) mg/dl Total Bilirubin 0.3 (0.2-1) mg/dl AST 13 L (15-37) U/L ALT 23 (12-78) U/L Alkaline Phosphatase 87 (45-117) U/L Troponin I 0.133 H* (0-0.045) ng/ml Total Protein 7.5 (6.4-8.2) gm/dl Albumin 3.3 L (3.4-5.0) gm/dl Globulin 4.2 H (2.5-4.0) gm/dl Albumin/Globulin Ratio 0.8 L (0.9-2) TSH 1.670 (0.300-4.500) uIu/ml Specimen Hemolysis [facility], RNA, NAAT (NEGATIVE) 08/13/20 08/13/20 08/13/20 Range/Units 16:06 16:12 16:12 WBC 10.10 RBC 4.19 L Hgb 12.1 L Hct 36.6 L MCV 87.4 MCH 28.9 MCHC 33.1 RDW Std Deviation 50.1 H RDW Coeff of Jose 15.5 H Plt Count 288 MPV 9.8 Immature Gran % (Auto) 0.1 Neut % (Auto) 54.7 Lymph % (Auto) 36.7 [place] % (Auto) 7.1 Eos % (Auto) 1.0 Baso % (Auto) 0.4 Neut # (Auto) 5.52 Lymph # (Auto) 3.71 H [place] # (Auto) 0.72 H Eos # (Auto) 0.10 Baso # (Auto) 0.04 Immature Gran # (Auto) 0.01 Absolute Nucleated RBC Nucleated RBC % (auto) Neutrophils % (Manual) Band Neutrophils % Lymphocytes % (Manual) Prolymphocyte % Reactive Lymphs % (Man) Monocytes % (Manual) Eosinophils % (Manual) Basophils % (Manual) Metamyelocytes % (Man) Myelocytes % (Man) Promyelocytes % (Man) Blast Cells % (Manual) Plasma Cell % (Manual) Other Cells % Nucleated RBC % Neutrophils # (Manual) Band Neutrophils # Total Absolute Neuts Lymphocytes # (Manual) Prolymphocyte # Reactive Lymphs # Total Abs Lymphocytes Monocytes # (Manual) Eosinophils # (Manual) Basophils # (Manual) Metamyelocytes # (Man) Myelocytes # (Manual) Promyelocytes # (Man) Blast Cells # (Man) Plasma Cell # (Manual) Other Cells # Nucleated RBCs # (Man) Hypersegmented Neuts Hyposegmented Neuts Hypogranular Neuts Large Granular Lymphs # Lrg Granular Lymphs Hairy Cells Smudge Cells Toxic Granulation Toxic Vacuolation Dohle Bodies Yaneli Rods Platelet Estimate Hypogranular Platelets Clumped Platelets Giant Platelets Platelet Satelliting RBC Morphology Polychromasia Hypochromasia Poikilocytosis Basophilic Stippling Anisocytosis Microcytosis Macrocytosis Spherocytes Pappenheimer Bodies Sickle Cells Target Cells Tear Drop Cells Ovalocytes Stomatocytes [place]otulla Bodies Echinocytes Acanthocytes (Spur) Rouleaux RBC Agglutinates Schistocytes RBC Morph Comment Sezary Cell PT 11.2 (9.0-12.0) Seconds INR 1.1 (0.9-1.1) APTT 27.7 (21.0-31.0) Seconds PTT Ratio 1.0 D-Dimer 420 (0-500) ug/L FEU Sodium (136-145) mmol/L Potassium (3.5-5.1) mmol/L Chloride (98-107) mmol/L Carbon Dioxide (21-32) mmol/L Anion Gap (3-11) BUN (7-18) mg/dl Creatinine (0.6-1.4) mg/dl Est Cr Clr Drug Dosing ml/min Est GFR ( Amer) Est GFR (Non-Af Amer) BUN/Creatinine Ratio (10-20) Glucose (70-99) mg/dl Calcium (8.5-10.1) mg/dl Magnesium (1.8-2.4) mg/dl Total Bilirubin (0.2-1) mg/dl AST (15-37) U/L ALT (12-78) U/L Alkaline Phosphatase (45-117) U/L Troponin I (0-0.045) ng/ml Total Protein (6.4-8.2) gm/dl Albumin (3.4-5.0) gm/dl Globulin (2.5-4.0) gm/dl Albumin/Globulin Ratio (0.9-2) TSH (0.300-4.500) uIu/ml Specimen Hemolysis COVID-19 Eval Order SARS-CoV-2, RNA, NAAT NEGATIVE (NEGATIVE) Administered Medications Discontinued Medications Adenosine (Adenosine Iv Soln 3 Mg/Ml 2 Ml Vial) Confirm Administered Dose 6 mg IV .STK-MED ONE Stop: 08/13/20 15:25 Last Admin: 08/13/20 15:25 Dose: 6 mg Documented by: [id number] Adenosine (Adenosine Iv Soln 3 Mg/Ml 2 Ml Vial) 6 mg IV NOW STA Stop: 08/13/20 15:28 Last Admin: 08/13/20 15:48 Dose: Not Given Documented by: [id number] Adenosine (Adenosine Iv Soln 3 Mg/Ml 2 Ml Vial) Confirm Administered Dose 12 mg IV .STK-MED ONE Stop: 08/13/20 17:30 Last Admin: 08/13/20 17:36 Dose: 12 mg Documented by: [id number] Diltiazem HCl (Diltiazem Hcl 5 Mg/Ml 5 Ml Vial) 20 mg IV NOW STA Stop: 08/13/20 15:28 Last Admin: 08/13/20 15:52 Dose: 20 mg Documented by: [id number] Cosigned by: [id number] Diltiazem HCl (Diltiazem Hcl 5 Mg/Ml 5 Ml Vial) 10 mg IV NOW STA Stop: 08/13/20 16:49 Last Admin: 08/13/20 17:15 Dose: 10 mg Documented by: [id number] Cosigned by: [id number] Sodium Chloride (Nss 1000ml) 1,000 mls @ 999 mls/hr IV .Q1H1M VICKY Stop: 08/13/20 15:45 Last Infusion: 02/01/21 15:59 Dose: 0 mls/hr Documented by: [id number] Admin: 08/13/20 14:59 Dose: 999 mls/hr Documented by: [id number] Calcium Gluconate () 1,000 mg in 60 mls @ 240 mls/hr IV NOW STA Stop: 08/13/20 17:02 Last Admin: 08/13/20 17:15 Dose: 240 mls/hr Documented by: [id number] Imaging Data Radiologist's Impression: Patient: GUERRERO PERERA Admit Date: 08/13/20 MR#: [id number] Address1: [facility] Radha GUNDERSON Acct ID:[id number] Address2: [facility] Date: 1960 [facility] Zip: [place] [address] Age: 60 Location: ED Sex: M Room/Bed: Att Phy: Diagnosis: CHEST PRESSURE Dianna Phy: Val Saravia Service Date: 08/13/20 Fam Phy: Interpreting Phy: Brando Orosco Admit Phy: Ordering Phy: Gato De La Cruz DO cc: ~ XR chest 1V portable HISTORY: 60 years-old Male weakness acute weakness COMPARISON: Chest radiograph 06/13/2017 TECHNIQUE: Supine AP view of the chest FINDINGS: Cardiac silhouette is enlarged. Unchanged appearance of the mediastinal contours. Interstitial coarsening has progressed from comparison. Pulmonary vascular congestion. No pneumothorax, large pleural effusion or lobar airspace consolidation. Degenerative changes of the shoulders and spine. IMPRESSION: Cardiomegaly and pulmonary vascular congestion with interstitial opacities suggestive of pulmonary edema versus interstitial pneumonitis. ACT 112: Negative or not required by law. The above report was generated using voice recognition software. It may contain grammatical, syntax or spelling errors. Electronically signed by: Je Orosco M.D. 08/13/2020 3:29 PM Dictated: 08/13/20 1526 Transcribed: 08/13/20 1526 Discharge Plan Visit Data Chief Complaint: Chest Pain ED Provider: Gato De La Cruz Discharge Problem: Atrial flutter with rapid ventricular response, Chest pain, Elevated troponin I level Patient Disposition: Being Evaluated by Hospitalist Condition: Good Forms Stand Alone Forms: [employer] Prescriptions Prescriptions: No Action multivitamin [Daily-Adair] Tablet 1 tab PO QAM RF: 0 metformin 500 mg Tablet 500 mg PO BIDM RF: 0 acetaminophen [Tylenol] 325 mg Tablet 650 mg PO Q6H MDD 3 GRAMS/24 HOURS PRN (Reason: TEMP >100/MILD PAIN) RF: 0 acetaminophen [Tylenol] 325 mg Tablet 650 mg PO BIDM MDD 3 GRAMS/24 HOURS RF: 0 ropinirole 1 mg Tablet 1 mg PO QPM RF: 0 gabapentin 400 mg Capsule 400 mg PO HS RF: 0 venlafaxine [Effexor XR] 150 mg Capsule,Extended Release 24hr 150 mg PO QAM RF: 0 simvastatin 40 mg Tablet 40 mg PO HS RF: 0 baclofen 20 mg Tablet 20 mg PO QID RF: 0 tamsulosin [Flomax] 0.4 mg Capsule 0.4 mg PO BIDM RF: 0 levetiracetam [Keppra] 250 mg Tablet 250 mg PO BIDM RF: 0 buspirone 10 mg Tablet 10 mg PO BIDM RF: 0 gabapentin 300 mg Capsule 300 mg PO BID RF: 0 lorazepam 1 mg Tablet 1 mg PO BIDM RF: 0 cholecalciferol (vitamin D3) [Vitamin D3] 50 mcg (2,000 unit) Capsule 2,000 mcg PO QAM RF: 0 magnesium oxide 400 mg magnesium Capsule 400 mg PO BIDM RF: 0 Senna Plus 8.6-50 mg Capsule 1 tab-cap PO BIDM RF: 0 Referrals Referrals: Val Saravia [Primary Care Provider] - Discharge Problem: Chest pain Qualifiers: Chest pain type: unspecified Qualified Code(s): R07.9 - Chest pain, unspecified
[2020-08-13 15:44] LABS: Albumin Globulin Ratio 0.8 (0.9-2); Bilirubin,Total 0.3 mg/dl (0.2-1); Globulin 4.2 gm/dl (2.5-4.0); Thyroid Stimulating Hormone 1.67 uIu/ml (0.300-4.500); Total Protein 7.5 gm/dl (6.4-8.2); Troponin I 0.133 ng/ml (0-0.045)
[2020-08-13 16:20] LABS: Basophils # (auto) 0.04 K/uL (0-0.2); Basophils % (auto) 0.4 %; Hematocrit (blood only) 36.6 % (42-52); Hemoglobin 12.1 g/dL (14.0-18.0); Immature Granulocytes # (auto) 0.01 K/uL (0.00-0.02); Immature Granulocytes % (auto) 0.1 %; Lymphocytes # (auto) 3.71 K/uL (1.2-3.4); Lymphocytes % (auto) 36.7 %; Mean Corpuscular Hemoglobin 28.9 pg (25-34); Mean Corpuscular Hgb Conc 33.1 g/dL (32-36); Mean Corpuscular Volume 87.4 fL (80-100); Mean Platelet Volume 9.8 fL (7.4-10.4); Monocytes # (auto) 0.72 K/uL (0.11-0.59); Monocytes % (auto) 7.1 %; Neutrophils # (auto) 5.52 K/uL (1.4-6.5); Neutrophils % (auto) 54.7 %; Platelet Count 288 K/uL (130-400); RDW Coefficient of Variation 15.5 % (11.5-14.5); RDW Standard Deviation 50.1 fL (36.4-46.3); Red Blood Count 4.19 M/uL (4.7-6.1)
[2020-08-13] MEDS ORDERED: CALCIUM GLUCONATE 1,000 MG/60 ML BAG IV STA (16:48)
[2020-08-13 16:53] LABS: D Dimer 420 ug/L FEU (0-500); INR 1.1 (0.9-1.1); Partial Thromboplastin Time 27.7 Seconds (21.0-31.0); Prothrombin Time 11.2 Seconds (9.0-12.0)
[2020-08-13 17:43] LABS: Appearance Urine Cloudy (Clear); Bacteria Urine Automated 4+ (Negative); Blood Urine Negative (Negative); Color Urine Dark Yellow; Glucose Urine UA Negative (Negative); Ketones Urine 1+ (Negative); Leukocyte Esterase Urine 2+ (Negative); Nitrite Urine Negative (Negative); RBC Urine Automated 0-4 /hpf (0-4); Urobilinogen Urine Negative (Negative); pH Urine 7.5 (4.5-7.5)
[2020-08-13 17:50] LABS: Bilirubin Urine 1+ (Negative); Protein Urine 1+ (Negative)
[2020-08-13] MEDS ORDERED: METOPROLOL TARTRATE 25 MG TAB PO STA (17:57)
--- NOTE | 2020-08-13 19:01 | History & Physical Report ---
Date of Service August 13, 2020 Assessment & Plan (1) Atrial flutter with rapid ventricular response: Slowed to 100 bpm with diltiazem 30mg IV given in ER. Given 25mg PO metoprolol. Not HR back to 130 bpm. Will continue on PO metoprolol 25mg PO QID and start on IV diltiazem drip. Anticoagulation - [id number] 1-2, start apixaban 5mg PO BID TTE Consult cardiology (2) Shortness of breath: Suspect secondary to rapid ventricular rate. D-dimer 420low suspicion of pulmonary embolism. (3) Elevated troponin I level: Suspected demand ischemia in the setting of rapid rate as above. Will trend overnight given symptom of shortness of breath to rule out acute coronary syndrome. (4) Major depressive disorder: Continue venlafaxine 150 mg p.o. every morning. (5) Type 2 diabetes mellitus: HbA1c 5.8 in April. We will repeat with a.m. labs. Hold Metformin, use NovoLog for correction factor only. (6) BPH without urinary obstruction: Continue tamsulosin 0.4 mg p.o. twice daily. (7) Seizure disorder: Continue Keppra to 50 mg p.o. twice daily. Admission and Anticipated Discharge Date Admission Date: August 13, 2020 History of Present Illness Chief Complaint: Shortness of breath, tachycardia Primary Care Provider: [facility] Karan Guzman is a 60 year old male who presents to the ER from [facility] due to acute onset shortness of breath and tachycardia. Patient reports feeling acutely short of breath earlier this morning. He was evaluated by the on-call healthcare provider who noted tachycardia 150 to 180 bpm. Carotid massage and Valsalva of no benefit, therefore recommended further evaluation in the ER. The patient denies any chest pain, leg swelling, calf pain. No history of coronary artery disease or cardiac arrhythmias. 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 In the ER he received adenosine 6 mg with no effect, 12 mg showing underlying flutter P waves. He was given a total of 30 mg IV diltiazem with good effect slowing his heart rate to 100 bpm. He was referred to medicine for admission and ongoing management of atrial flutter with rapid ventricular rate. Allergies Allergy/AdvReac Type Severity Reaction Status Date / Time No Known Allergies Allergy Verified 08/13/20 15:49 Home Medications Medication Instructions Recorded Confirmed Type acetaminophen [Tylenol] 650 mg PO BIDM MDD 3 GRAMS/24 HOURS 08/13/20 08/13/20 History acetaminophen [Tylenol] 650 mg PO Q6H PRN MDD 3 GRAMS/24 08/13/20 08/13/20 History HOURS baclofen 20 mg PO QID 08/13/20 08/13/20 History buspirone 10 mg PO BIDM 08/13/20 08/13/20 History cholecalciferol (vitamin D3) 2,000 mcg PO QAM 08/13/20 08/13/20 History [Vitamin D3] gabapentin 300 mg PO BID 08/13/20 08/13/20 History gabapentin 400 mg PO HS 08/13/20 08/13/20 History levetiracetam [Keppra] 250 mg PO BIDM 08/13/20 08/13/20 History lorazepam 1 mg PO BIDM 08/13/20 08/13/20 History magnesium oxide 400 mg PO BIDM 08/13/20 08/13/20 History metformin 500 mg PO BIDM 08/13/20 08/13/20 History multivitamin [Daily-Adair] 1 tab PO QAM 08/13/20 08/13/20 History ropinirole 1 mg PO QPM 08/13/20 08/13/20 History sennosides-docusate sodium [Senna 1 tab-cap PO BIDM 08/13/20 08/13/20 History Plus] simvastatin 40 mg PO HS 08/13/20 08/13/20 History tamsulosin [Flomax] 0.4 mg PO BIDM 08/13/20 08/13/20 History venlafaxine [Effexor XR] 150 mg PO QAM 08/13/20 08/13/20 History Past Med/Surg History Medical History Abnormal EKG Anxiety disorder BPH without urinary obstruction Brain aneurysm Contracture of left hand Dehydration Dysphagia Essential hypertension Generalized muscle weakness Hyperglycemia Major depressive disorder Nontraumatic subarachnoid hemorrhage Personal history of covid-19 Personal history of methicillin resistant Staphylococcus aureus Quadriplegia, unspecified Seizure disorder Stroke Transient paralysis Type 2 diabetes mellitus Unspecified dementia without behavioral disturbance Unspecified glaucoma Unsteadiness on feet Urinary tract infection Surgical History H/O tracheostomy Social History Smoking Status: Former smoker Hx Alcohol Use: No Hx Substance Use: No Beliefs That Will Affect Care: None Current Living Situation: [facility] Current Living Situation Comment: [facility] Feels Safe at Home: Yes Safety Concerns: Feels Safe At This Time Assistive Devices: Oxygen - Continuous Assistive Devices Comment: lower Partial Review of Systems Review of Systems: All systems reviewed & are unremarkable except as noted in HPI & below Physical Exam Constitutional: well developed and well nourished; no acute distress Eyes: PERRL, conjunctivae normal, anicteric sclerae ENMT: Ears: no external ear abnormality Nose: no external nose abnormality Mouth: + dry oral mucous membranes Neck: trachea midline Respiratory: normal respiratory effort and able to speak in complete sentences; no respiratory distress, no labored breathing, no retractions and does not use accessory muscles Auscultation: + diminished lung sounds (Bibasal) and + crackles (Bibasal); no wheezes Cardiovascular: Rate/Rhythm: regular rhythm (Occasional skipped beats) and + tachycardic Heart Sounds: no murmur Vessels: no JVD Extremities: normal capillary refill and + pedal edema (Left 2+ to thigh, right 1+); no calf tenderness Gastrointestinal (Abdomen): normal bowel sounds, soft, nontender, no hepatosplenomegaly Skin: no rashes, warm and dry Neurologic: + focal motor deficit (Left > Right, Lower extremity > upper sided weakness (chronic, prior SAH)) and awake; + does not move all extremities (No movements of left lower extremity) and not confused Speech / Cognition: + abnormal speech (Mild dysarthria) Motor/Sensory: no tremor Psychiatric: A+Ox3, euthymic affect Genitourinary: no CVA tenderness Results & Data Results & Data ([facility]) Vital Signs (Past 12 Hours) Vital Signs Temp Pulse Pulse Resp BP BP Pulse Ox 08/13/20 17:31 136 H 22 99/72 L 96 08/13/20 17:21 137 H 22 107/87 97 08/13/20 16:03 137 H 18 106/76 97 08/13/20 16:02 86 L 08/13/20 14:51 36.7 C 138 H 18 111/88 97 Diagnostic Findings XR chest 1V portable IMPRESSION: Cardiomegaly and pulmonary vascular congestion with interstitial opacities suggestive of pulmonary edema versus interstitial pneumonitis. Medications Administered ER medications given: NSS 1 hour bolus Adenosine 6 mg + 12 mg IV Diltiazem 20 mg IV Calcium gluconate 1 g IV Diltiazem 10 mg IV ECG Rate (beats per minute): 138 Rhythm: sinus tachycardia (Unable to see flutter waves on EKG, however on telemetry this was seen when adenosine given and when heart rate slowed down) Findings: + T-wave inversion (Inferior, lateral) Comparison ECG Date: from (June 13, 2017) Change: the following changes noted Code Status & VTE Plan Code Status Full VTE Prophylaxis Plan VTE Prophylaxis will be ordered: Yes PG Care Time/CCT Total # of Minutes Spent Total Time Spent with Patient: Total time spent is greater than 50% in coordination of care (as documented) at patient's floor/unit and/or counseling patient: Coding Level of Care Code 54670 OBS Care - Level 3 Diagnoses Atrial flutter with rapid ventricular response I48.92 Shortness of breath R06.02 Elevated troponin I level R77.8 Major depressive disorder F32.9 Type 2 diabetes mellitus E11.9 BPH without urinary obstruction N40.0 Seizure disorder G40.909
[2020-08-13] MEDS ORDERED: STAT IV Infusion **Titration per Protocol STA (19:25)
[2020-08-13] MEDS: dilTIAZem HCL 125 MG in DEXTROSE 5% 100 ML IV SCH (19:52)
[2020-08-13] MEDS ORDERED: POLYETHYLENE (MIRALAX) 17 GM PACK PO PRN (20:50)
[2020-08-13] MEDS ORDERED: ONDANSETRON INJ 2 MG/ML 2 ML VIAL IV PRN (20:50)
[2020-08-13] MEDS ORDERED: ALUMINUM/MAGNESIUM SUSP 30 ML UDC PO PRN (20:50)
[2020-08-13] MEDS ORDERED: SODIUM CHLORIDE 0.9% 1000ML 500 ML IV ONE (20:54)
[2020-08-13] MEDS ORDERED: SIMVASTATIN 40 MG TAB PO SCH (21:00)
[2020-08-13] MEDS: BACLOFEN 20 MG TAB PO SCH (21:14)
[2020-08-13] MEDS: GABAPENTIN 400 MG CAP PO SCH (21:14)
[2020-08-13] MEDS: APIXABAN 5 MG TABLET PO SCH (21:15)
[2020-08-13] MEDS: rOPINIRole HCL 1 MG TABLET PO SCH (21:15)
[2020-08-13] MEDS ORDERED: DEXTROSE 50% 50 ML SYRINGE IV PRN (22:33)
[2020-08-13] MEDS ORDERED: GLUCOSE 10 TABS/TUBE PO PRN (22:33)
[2020-08-13] MEDS ORDERED: GLUCAGON FOR INJ 1 MG VIAL SQ PRN (22:33)
[2020-08-13] MEDS ORDERED: GLUCOSE 40% GEL 15 GM TUBE PO PRN (22:33)
[2020-08-13] MEDS ORDERED: CARBOHYDRATES FOR HYPOGLYCEMIA PO PRN (22:33)
[2020-08-14] MEDS: cefTRIAXone SODIUM 2,000 MG in DEXTROSE 5% 50 ML IV SCH ×2 (00:16→22:52)
[2020-08-14] MEDS ORDERED: DIGOXIN 250 MCG in SYRINGE 9 ML IV STA (01:22)
[2020-08-14] MEDS: ALBUMIN 25% 12.5 GM/50 ML VIAL IV SCH ×4 (01:50→04:58)
[2020-08-14] MEDS ORDERED: Nursing to Pharmacy Communication SCH (02:15)
[2020-08-14] MEDS ORDERED: LORazepam 1 MG TAB ONE (02:25)
[2020-08-14 06:33] LABS: Basophils # (auto) 0.04 K/uL (0-0.2); Basophils % (auto) 0.4 %; Eosinophils # (auto) 0.06 K/uL (0-0.5); Eosinophils % (auto) 0.5 %; Hematocrit (blood only) 35.2 % (42-52); Hemoglobin 11.4 g/dL (14.0-18.0); Immature Granulocytes # (auto) 0.02 K/uL (0.00-0.02); Immature Granulocytes % (auto) 0.2 %; Lymphocytes % (auto) 32.7 %; Mean Corpuscular Hemoglobin 28.4 pg (25-34); Mean Corpuscular Hgb Conc 32.4 g/dL (32-36); Mean Corpuscular Volume 87.8 fL (80-100); Mean Platelet Volume 9.6 fL (7.4-10.4); Monocytes % (auto) 5.5 %; Neutrophils # (auto) 6.68 K/uL (1.4-6.5); Neutrophils % (auto) 60.7 %; Platelet Count 261 K/uL (130-400); RDW Coefficient of Variation 15.6 % (11.5-14.5); RDW Standard Deviation 49.8 fL (36.4-46.3); Red Blood Count 4.01 M/uL (4.7-6.1)
[2020-08-14 06:56] LABS: Calcium 8.9 mg/dl (8.5-10.1); Creatinine Clr Calc Pharmacy 104.2 ml/min; Est GFR (African American) 88.8; Est GFR (Non-African American) 76.6; Potassium 4.2 mmol/L (3.5-5.1)
[2020-08-14 07:01] LABS: Troponin I 0.125 ng/ml (0-0.045)
[2020-08-14 07:54] LABS: Estimated Average Glucose 123 mg/dl; Hemoglobin A1C 5.9 % (4.5-5.6)
[2020-08-14] MEDS: INSULIN ASPART 100 UNITS/ML 3 ML PEN SC SCH ×4 (08:34→22:01)
[2020-08-14] MEDS: VENLAFAXINE HCL XR 150 MG CAPXR PO SCH (08:36)
[2020-08-14] MEDS: MAGNESIUM OXIDE 400 MG TAB PO SCH ×2 (08:36→17:21)
[2020-08-14] MEDS: MULTIVITAMIN TAB PO SCH (08:36)
[2020-08-14] MEDS: DOCUSATE SODIUM/SENNA 50/8.6MG TAB PO SCH ×2 (08:36→17:20)
[2020-08-14] MEDS: CHOLECALCIFEROL 1,000 UNITS 25 MCG TAB PO SCH (08:36)
[2020-08-14] MEDS: BACLOFEN 20 MG TAB PO SCH ×4 (08:36→22:05)
[2020-08-14] MEDS: GABAPENTIN 300 MG CAP PO SCH ×2 (08:36→15:13)
[2020-08-14] MEDS: levETIRAcetam 250 MG TAB PO SCH ×2 (08:37→17:21)
[2020-08-14] MEDS: TAMSULOSIN HCL 0.4 MG CAP PO SCH ×2 (08:37→17:21)
[2020-08-14] MEDS: APIXABAN 5 MG TABLET PO SCH ×2 (08:37→22:05)
[2020-08-14] MEDS: busPIRone 5 MG TAB PO SCH ×2 (08:37→17:20)
[2020-08-14] MEDS: ACETAMINOPHEN 325 MG TAB PO SCH ×2 (08:49→17:20)
[2020-08-14] MEDS: LORazepam 1 MG TAB PO SCH ×2 (08:49→17:20)
[2020-08-14] MEDS: dilTIAZem HCL 125 MG in DEXTROSE 5% 100 ML IV SCH ×2 (08:50→18:09)
--- NOTE | 2020-08-14 10:59 | XCELERA ---
[id number]
--- NOTE | 2020-08-14 12:55 | Hospitalist Progress Note ---
Date of Service August 14, 2020 Assessment & Plan (1) Atrial flutter with rapid ventricular response: New-onset, with thought that this was possibly acute yesterday. TTE on 08/14 showed EF 30-35%. - Anticoagulation - [id number] 1-2, started apixaban 5mg PO BID - Presently converted back to sinus rhtyhm. Discussed with cardiology re: amiodarone gtt, but now may hold off. - Consult cardiology - Appreciate recs (2) Shortness of breath: Suspect secondary to rapid ventricular rate. D-dimer 420low suspicion of pulmonary embolism. (3) Elevated troponin I level: Suspected demand ischemia in the setting of rapid rate as above. Troponin stable at ~0.12 x 3. No further trending needed. - Further testing per cardiology (4) Major depressive disorder: Flat affect today, but no overt depression. No expression of SI/HI. - Continue venlafaxine 150 mg p.o. every morning. (5) Type 2 diabetes mellitus: HbA1c 5.8% in April and again 5.9% this admission. - Hold metformin - Sliding scale insulin -> 100 - 150 in the last 24 hours. (6) BPH without urinary obstruction: - Continue tamsulosin 0.4 mg p.o. twice daily. - Per admitting provider, had some urinary retention due to CVA. Will monitor PVRs. (7) Seizure disorder: No seizure episodes here. - Continue Keppra to 50 mg p.o. twice daily. (8) History of CVA (cerebrovascular accident): Per prior notes from [facility] on 04/22/2017, he had a brain aneurysm and SAH in approx. 2006. - Continue baclofen, gabapentin (9) DVT prophylaxis: Apixaban per admitting provider for afib. - Will need to determine if he can be on anticoagulation given the possible SAH hx. Admission and Anticipated Discharge Date Admission Date: August 13, 2020 Subjective Improved shortness of breath. No edema he reports, though RN notes some trace LLE edema. Reports no fevers/chills, chest pain, shortness of breath, abdominal pain, nausea, or vomiting. Physical Exam Constitutional: WD/WN, vitals as above Eyes: EOM intact bilaterally; no conjunctival abnormality ENMT: external ear and nose normal, oropharynx normal Neck: trachea midline, no thyromegaly normal visual inspection Respiratory: normal respiratory effort, lungs clear to auscultation no respiratory distress Cardiovascular: Rate/Rhythm: regular rhythm and + tachycardic Heart Sounds: normal S1 and normal S2 Vessels: no JVD Extremities: + edema (Trace left) Gastrointestinal (Abdomen): Inspection/Auscultation: abdomen normal to inspection; abdomen not distended Musculoskeletal: no cyanosis or clubbing, extremities motor strength 5/5 Skin: no rashes, warm and dry Neurologic: moves all extremities and awake Psychiatric: Orientation: alert, oriented to person and cooperative Results & Data Results & Data ([facility]) Vital Signs (Past 12 Hours) Vital Signs Temp Pulse Pulse Resp BP Pulse Ox 08/14/20 12:01 36.5 C 88 16 142/63 H 95 08/14/20 08:02 36.6 C 89 18 135/69 100 08/14/20 07:00 104 H 08/14/20 04:23 36.8 C 75 20 106/72 94 08/14/20 01:49 134 H 08/14/20 01:12 133 H 99/72 L 08/14/20 00:49 37.2 C 133 H 17 102/67 95 PG Care Time/CCT Total # of Minutes Spent Total Time Spent with Patient: Total time spent is greater than 50% in coordination of care (as documented) at patient's floor/unit and/or counseling patient: Coding Level of Care Code 32725 Subseq Hosp Care Lvl 3 Diagnoses Atrial flutter with rapid ventricular response I48.92 Shortness of breath R06.02 Elevated troponin I level R77.8 Major depressive disorder F32.9 Type 2 diabetes mellitus E11.9 BPH without urinary obstruction N40.0 Seizure disorder G40.909 History of CVA (cerebrovascular accident) Z86.73 DVT prophylaxis Z29.9
--- NOTE | 2020-08-14 13:27 | Cardiology Consultation ---
Date of Consultation August 14, 2020 Assessment & Plan (1) Atrial flutter with rapid ventricular response: -symptoms suggest his dysrhythmia started on the day of presentation. -diltiazem seems inadequate. -would start intravenous amiodarone as the dysrhythmia is poorly tolerated (pulmonary edema). -agree with initiation of Eliquis. (2) Elevated troponin I level: -relatively minor elevation. -likely a supply demand mismatch. (3) Left ventricular dysfunction: -left ventricular ejection fraction of 30-35%. -mild left ventricular dysfunction noted on echocardiogram May 2015. (4) Pulmonary edema: -would recommend a dose of intravenous Lasix. -hopefully this will improve with rate control and/or cardioversion. History of Present Illness Attending Physician: Errol Kay MD History of Present Illness Mr. Guzman is a 60-year-old male admitted yesterday with new onset atrial flutter and associated shortness of breath. This consultation was ordered to assistance cardiac management. The patient was in his usual state of health until the day of presentation when he had the abrupt onset of palpitations and shortness of breath. The on-call physician evaluated the patient and his pulse to vary between 150-180 beats per minute. He was sent to the emergency room for further care. On arrival here, patient was noted to be in atrial flutter with 2-1 conduction at 150 beats per minute. He was treated with intravenous diltiazem and hospitalization was recommended. The patient denies a prior history of an atrial dysrhythmia. Unfortunately, the patient was not cooperative with the interview. 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 He required an emergent craniotomy. This occurred back in 2006. Currently, patient is resting comfortably in bed without complaints. Past medical and surgical history 1. Hypertension 2. Mild LVH 3. Mild left ventricular dysfunction 4. Diabetes mellitus 5. Quadriplegic 6. Brain aneurysm 7. Subarachnoid hemorrhage 8. Seizure disorder 9. BPH 10. Chronic UTIs 11. Anxiety/depression 12. Left hand contracture 13. Hepatitis-C 14. Dementia 15. History of G-tube 16. History of tracheostomy 17. Craniotomy-2006 Social history The patient is a resident at [facility]. No tobacco or alcohol. Does have history of intravenous drug abuse. Family history Unobtainable Review of systems Unobtainable Allergies Allergy/AdvReac Type Severity Reaction Status Date / Time No Known Allergies Allergy Verified 08/13/20 15:49 Home Medications Medication Instructions Recorded Confirmed Type acetaminophen [Tylenol] 650 mg PO BIDM MDD 3 GRAMS/24 HOURS 08/13/20 08/13/20 History acetaminophen [Tylenol] 650 mg PO Q6H PRN MDD 3 GRAMS/24 08/13/20 08/13/20 History HOURS baclofen 20 mg PO QID 08/13/20 08/13/20 History buspirone 10 mg PO BIDM 08/13/20 08/13/20 History cholecalciferol (vitamin D3) 2,000 mcg PO QAM 08/13/20 08/13/20 History [Vitamin D3] gabapentin 300 mg PO BID 08/13/20 08/13/20 History gabapentin 400 mg PO HS 08/13/20 08/13/20 History levetiracetam [Keppra] 250 mg PO BIDM 08/13/20 08/13/20 History lorazepam 1 mg PO BIDM 08/13/20 08/13/20 History magnesium oxide 400 mg PO BIDM 08/13/20 08/13/20 History metformin 500 mg PO BIDM 08/13/20 08/13/20 History multivitamin [Daily-Adair] 1 tab PO QAM 08/13/20 08/13/20 History ropinirole 1 mg PO QPM 08/13/20 08/13/20 History sennosides-docusate sodium [Senna 1 tab-cap PO BIDM 08/13/20 08/13/20 History Plus] simvastatin 40 mg PO HS 08/13/20 08/13/20 History tamsulosin [Flomax] 0.4 mg PO BIDM 08/13/20 08/13/20 History venlafaxine [Effexor XR] 150 mg PO QAM 08/13/20 08/13/20 History Patient History Medical History Abnormal EKG Anxiety disorder BPH without urinary obstruction Brain aneurysm Contracture of left hand Dehydration Dysphagia Essential hypertension Generalized muscle weakness Hyperglycemia Major depressive disorder Nontraumatic subarachnoid hemorrhage Personal history of covid-19 Personal history of methicillin resistant Staphylococcus aureus Quadriplegia, unspecified Seizure disorder Stroke Transient paralysis Type 2 diabetes mellitus Unspecified dementia without behavioral disturbance Unspecified glaucoma Unsteadiness on feet Urinary tract infection Surgical History H/O tracheostomy Social History Smoking Status: Former smoker Hx Alcohol Use: No Hx Substance Use: No Beliefs That Will Affect Care: None Current Living Situation: [facility] Current Living Situation Comment: [facility] [facility] Feels Safe at Home: Yes Safety Concerns: Feels Safe At This Time Assistive Devices: Oxygen - Continuous Assistive Devices Comment: lower Partial Physical Exam Physical Exam: In general is well-developed well-nourished black male in no acute distress. HEENT exam is negative. Neck is supple with full carotid upstrokes. No obvious bruits. Jugular venous pressure is difficult to evaluate. Cardiovascular exam reveals a rapid rate with distant heart sounds. No obvious murmurs. Lungs are clear without rales, rhonchi or wheezes. Abdomen is soft without bruits. Extremities reveal intact radial artery pulses bilaterally. Trace pretibial edema is noted. Results & Data ([facility]) Vital Signs (Past 12 Hours) Vital Signs Temp Pulse Pulse Resp BP Pulse Ox 08/14/20 12:01 36.5 C 88 16 142/63 H 95 08/14/20 08:02 36.6 C 89 18 135/69 100 08/14/20 07:00 104 H 08/14/20 04:23 36.8 C 75 20 106/72 94 08/14/20 01:49 134 H Laboratory Results CBC notes hemoglobin 11.4, hematocrit 35.2, white count 11.0, platelet count [id number]. Electrolytes note a sodium of 144, potassium 4.2, chloride 113, bicarb 24, BUN 23, creatinine 1.04, and glucose of 1 2. Magnesium level is normal at 2.4. TSH is normal at 1.67. Initial troponin was 0.133 with follow-up values of 0.122 and 0.125. Diagnostic Findings Echocardiogram notes moderate left ventricular dysfunction with ejection fraction of 30-35%. There is moderate global hypokinesis. There is moderate mitral and mild tricuspid regurgitation. EKG notes atrial flutter with 2-1 conduction. Chest x-ray notes cardiomegaly and evidence of congestive failure. PG Care Time/CCT Total # of Minutes Spent Total Time Spent with Patient: Total time spent is greater than 50% in coordination of care (as documented) at patient's floor/unit and/or counseling patient: Coding Level of Care Code 56849 Inpt Consult Level 4 Diagnoses Atrial flutter with rapid ventricular response I48.92 Elevated troponin I level R77.8 Left ventricular dysfunction I51.9 Pulmonary edema J81.1
--- NOTE | 2020-08-14 14:13 | Electrocardiogram Report ---
Test Reason : Blood Pressure : / mmHG Vent. Rate : 138 BPM Atrial Rate : 138 BPM P-R Int : 132 ms QRS Dur : 100 ms QT Int : 338 ms P-R-T Axes : 012 021 155 degrees QTc Int : 512 ms Atrial flutter with 2 to 1 block Abnormal ECG When compared with ECG of 13-JUN-2017 19:00, Significant changes have occurred Confirmed by Gato Greene ([id number]) on 08/14/2020 2:12:37 PM Referred By: [facility] Confirmed By:Gato Greene
[2020-08-14] MEDS ORDERED: AMIODARONE IV BOLUS & DRIP IV STA (17:11)
[2020-08-14] MEDS ORDERED: STAT IV Infusion **Titration per Protocol STA (17:11)
[2020-08-14] MEDS ORDERED: 0.2 MICRON FILTER SET 1 EA IV ONE (17:11)
[2020-08-14] MEDS ORDERED: AMIODARONE / D5W 150 MG/100 ML BAG IV ONE (17:15)
[2020-08-14] MEDS ORDERED: AMIODARONE / D5W 360 MG/200 ML BAG IV ONE (17:30)
[2020-08-14] MEDS ORDERED: OPTIRAY 320 125ml IV ONE (18:13)
--- NOTE | 2020-08-14 18:57 | CT Scan Report ---
CT ANGIOGRAM OF THE BRAIN CLINICAL HISTORY: Intracranial aneurysm. COMPARISON STUDY: No prior studies are available for comparison at the time of dictation. TECHNIQUE: Following the IV administration of 119 cc of Optiray 320, CT angiogram of the brain was pe rformed from the skull base to the vertex. Images are reviewed in the axial, sagittal, and coronal pl anes. 3-D MIPS images are created and assessed. IV contrast was administered without complication. A dose lowering technique was utilized adhering to the principles of ALARA. The examination is comprom ised by streak artifact from metallic aneurysm coils. CT DOSE: 324.34 mGy.cm FINDINGS: Brain parenchyma: Bifrontal and left temporal encephalomalacia is consistent with a remote insult. Th ere is involutional change noting mild to moderate subcortical and periventricular microangiopathic d isease There is no hemorrhage, mass effect, or evidence of acute territorial ischemia by CT criteria on this angiographic phase technique. There is no evidence of enhancing mass lesion. No extra-axial f luid collection is seen. Bark[place]-white matter differentiation is preserved. Ventricles, sulci, and cisterns: Prominent secondary to involutional change. There is ex vacuo dilata tion of the frontal horns of lateral ventricles. CT angiogram of the brain: Aneurysm coils are noted in the suprasellar region and along the course of the left middle cervical artery. The [place] is developmentally complete. The internal [place] arteries are widely patent, as are the anterior and middle cerebral arteries. The vertebrobasilar system and posterior cerebral arteries are widely patent. The right vertebral artery is dominant. No discrete aneurysm is identified. There is no high-grade stenosis or focal vessel cut off seen [place] the intracranial circulation. Dural sinuses: Clear as visualized. Orbits: The bony orbits are intact. The orbital contents are normal as visualized. Sinuses and mastoids: A 6 cm osteoma is incidentally noted in the left frontal sinus. The visualized paranasal sinuses are otherwise clear. The mastoid air cells are well pneumatized. Calvarium: Unremarkable. IMPRESSION: 1. There is no hemorrhage, mass effect, or evidence of acute territorial ischemia by CT criteria noti ng angiographic phase technique. 2. Foci of bifrontal and left temporal encephalomalacia are consistent with remote insults. 3. Aneurysm coils are seen in the suprasellar region and along the course of the left middle cerebral artery. 4. The intracranial vessels are patent. 5. No aneurysm is clearly identified. ACT 112: Negative or not required by law. Electronically signed by: Daniel Alexander M.D. 08/14/2020 6:38 PM
[2020-08-14] MEDS ORDERED: FUROSEMIDE 40 MG in SYRINGE 0 ML IV ONE (21:00)
[2020-08-14] MEDS: rOPINIRole HCL 1 MG TABLET PO SCH (22:04)
[2020-08-14] MEDS: GABAPENTIN 400 MG CAP PO SCH (22:05)
[2020-08-14] MEDS: SIMVASTATIN 20 MG TAB PO SCH (22:52)
[2020-08-14] MEDS: AMIODARONE / D5W 360 MG/200 ML BAG IV SCH (23:54)
[2020-08-15] MEDS ORDERED: DIGOXIN 250 MCG in SYRINGE 9 ML IV STA (05:11)
[2020-08-15] MEDS: dilTIAZem HCL 125 MG in DEXTROSE 5% 100 ML IV SCH (07:04)
[2020-08-15 07:15] LABS: Hematocrit (blood only) 38.5 % (42-52); Hemoglobin 12.8 g/dL (14.0-18.0); Mean Corpuscular Hemoglobin 28.7 pg (25-34); Mean Corpuscular Hgb Conc 33.2 g/dL (32-36); Mean Corpuscular Volume 86.3 fL (80-100); Mean Platelet Volume 10.8 fL (7.4-10.4); Platelet Count 301 K/uL (130-400); RDW Coefficient of Variation 15.6 % (11.5-14.5); RDW Standard Deviation 49.3 fL (36.4-46.3); Red Blood Count 4.46 M/uL (4.7-6.1); White Blood Count 12.86 K/uL (4.8-10.8)
[2020-08-15 07:43] LABS: BUN Creatinine Ratio 21.9 (10-20); Calcium 9.3 mg/dl (8.5-10.1); Creatinine Clr Calc Pharmacy 102.2 ml/min; Est GFR (African American) 86.8; Est GFR (Non-African American) 74.8; Magnesium 2.4 mg/dl (1.8-2.4); Potassium 4.1 mmol/L (3.5-5.1)
[2020-08-15] MEDS: INSULIN ASPART 100 UNITS/ML 3 ML PEN SC SCH ×4 (08:14→20:33)
--- NOTE | 2020-08-15 09:01 | XRay Report ---
XR chest 1V portable HISTORY: Possible aspiration COMPARISON: Chest 08/13/2020. FINDINGS: No pneumothorax. Small bilateral pleural effusions with diffuse interstitial/vascular thick ening. There are bibasilar airspace opacities, right greater than left. The heart is enlarged. IMPRESSION: 1. Interval development of mild interstitial pulmonary edema and small bilateral pleural effusions. 2. Bibasilar airspace opacities, right greater than left, could represent layering pleural effusions or a developing pneumonia. ACT 112: Negative or not required by law. Electronically signed by: Hung Villa M.D. 08/15/2020 9:00 AM
--- NOTE | 2020-08-15 11:39 | Cardiology Progress Note ---
Date of Service August 15, 2020 Assessment & Plan (1) Atrial flutter with rapid ventricular response: -symptoms suggest his dysrhythmia started on the day of admission. -continues on intravenous amiodarone and diltiazem. -rate was down to 90 bpm earlier this morning. -agree with Eliquis. (2) Elevated troponin I level: -minor elevation. -likely a supply/demand mismatch. (3) Left ventricular dysfunction: -left ventricular ejection fraction of 30-35%. -mild left ventricular dysfunction noted on an echocardiogram, May 2015. (4) Pulmonary edema: -received a dose of IV Lasix last evening. Admission and Anticipated Discharge Date Admission Date: August 13, 2020 Subjective The patient is resting comfortably in bed without complaints of chest pain, dyspnea, or palpitations. Physical Exam Physical Exam: In general is well-developed well-nourished black male in no acute distress. HEENT exam is negative. Neck is supple with full carotid upstrokes. No obvious bruits. Jugular venous pressure is difficult to evaluate. Cardiovascular exam reveals a rapid rate with distant heart sounds. No obvious murmurs. Lungs are clear without rales, rhonchi or wheezes. Abdomen is soft without bruits. Extremities reveal intact radial artery pulses bilaterally. Trace pretibial edema is noted. Left hand is contracted. Results & Data ([facility]) Vital Signs (Past 12 Hours) Vital Signs Temp Pulse Pulse Resp BP BP Pulse Ox 08/15/20 07:24 37.1 C 52 L 18 120/85 93 08/15/20 07:00 123 H 08/15/20 06:45 122 H 08/14/20 23:46 36.8 C 128 H 18 89/66 L 92 Diagnostic Findings refractory manager notes atrial flutter with a variable ventricular response varying between 90 and 120 bpm. PG Care Time/CCT Total # of Minutes Spent Total Time Spent with Patient: Total time spent is greater than 50% in coordination of care (as documented) at patient's floor/unit and/or counseling patient: Coding Level of Care Code 55009 Subseq Hosp Care Lvl 3 Diagnoses Atrial flutter with rapid ventricular response I48.92 Elevated troponin I level R77.8 Left ventricular dysfunction I51.9 Pulmonary edema J81.1
[2020-08-15] MEDS: AMIODARONE / D5W 360 MG/200 ML BAG IV SCH (11:59)
[2020-08-15] MEDS: DOCUSATE SODIUM/SENNA 50/8.6MG TAB PO SCH ×2 (11:59→17:21)
[2020-08-15] MEDS ORDERED: FUROSEMIDE 40 MG in SYRINGE 0 ML IV ONE (12:00)
[2020-08-15] MEDS: ACETAMINOPHEN 325 MG TAB PO SCH ×2 (12:00→17:21)
[2020-08-15] MEDS: LORazepam 1 MG TAB PO SCH ×2 (12:00→17:21)
[2020-08-15] MEDS: CHOLECALCIFEROL 1,000 UNITS 25 MCG TAB PO SCH (12:00)
[2020-08-15] MEDS: BACLOFEN 20 MG TAB PO SCH ×4 (12:00→20:33)
[2020-08-15] MEDS: MULTIVITAMIN TAB PO SCH (12:00)
[2020-08-15] MEDS: APIXABAN 5 MG TABLET PO SCH ×2 (12:01→20:33)
[2020-08-15] MEDS: busPIRone 5 MG TAB PO SCH ×2 (12:01→17:20)
[2020-08-15] MEDS: GABAPENTIN 300 MG CAP PO SCH ×2 (12:01→17:20)
[2020-08-15] MEDS: VENLAFAXINE HCL XR 150 MG CAPXR PO SCH (12:01)
[2020-08-15] MEDS: levETIRAcetam 250 MG TAB PO SCH ×2 (12:01→17:20)
[2020-08-15] MEDS: MAGNESIUM OXIDE 400 MG TAB PO SCH ×2 (12:01→17:20)
[2020-08-15] MEDS: TAMSULOSIN HCL 0.4 MG CAP PO SCH ×2 (12:01→17:20)
--- NOTE | 2020-08-15 13:18 | Hospitalist Progress Note ---
Date of Service August 15, 2020 Assessment & Plan (1) Atrial flutter with rapid ventricular response: New-onset, with thought that this was possibly acute yesterday. TTE on 08/14 showed EF 30-35%. - Anticoagulation - [id number] 1-2, started apixaban 5mg PO BID - Continue amiodarone and diltiazem. Will discuss with cardiology regarding a beta-lisa given his reduced EF. - Consult cardiology - Appreciate recs (2) Shortness of breath: Suspect secondary to rapid ventricular rate. D-dimer 420low suspicion of pulmonary embolism. - Possibly pulmonary edema given his new heart failure. (3) Elevated troponin I level: Suspected demand ischemia in the setting of rapid rate as above. Troponin stable at ~0.12 x 3. No further trending needed. - Further testing per cardiology (4) Major depressive disorder: Flat affect today, but no overt depression. No expression of SI/HI. - Continue venlafaxine 150 mg p.o. every morning. (5) Type 2 diabetes mellitus: HbA1c 5.8% in April and again 5.9% this admission. - Hold metformin - Sliding scale insulin -> 100 - 150 in the last 24 hours. (6) BPH without urinary obstruction: - Continue tamsulosin 0.4 mg p.o. twice daily. - Per admitting provider, had some urinary retention due to CVA. Will monitor PVRs. (7) Seizure disorder: No seizure episodes here. - Continue Keppra to 50 mg p.o. twice daily. (8) History of CVA (cerebrovascular accident): Per prior notes from [facility] on 04/22/2017, he had a brain aneurysm and SAH in approx. 2006. - CTA head on 08/14 shows aneurysm coils in the suprasellar region with no aneurysm clearly identified. - Continue baclofen, gabapentin (9) DVT prophylaxis: Apixaban per admitting provider for afib. - Discussed with neurology who feel that given there is no current aneurysm clearly identified, he can get anticoagulation at minimal additional risk. Admission and Anticipated Discharge Date Admission Date: August 13, 2020 Subjective No major issues today. Overnight, he possibly had some aspiration, but unclear. Reports no fevers/chills, chest pain, shortness of breath, abdominal pain, nausea, or vomiting. Physical Exam Constitutional: WD/WN, vitals as above Eyes: EOM intact bilaterally; no conjunctival abnormality ENMT: external ear and nose normal, oropharynx normal Neck: trachea midline, no thyromegaly normal visual inspection Respiratory: normal respiratory effort, lungs clear to auscultation no respiratory distress Cardiovascular: Rate/Rhythm: + tachycardic and + irregularly irregular Heart Sounds: normal S1 and normal S2 Vessels: no JVD Extremities: + edema (Trace left) Gastrointestinal (Abdomen): Inspection/Auscultation: abdomen normal to inspection; abdomen not distended Musculoskeletal: no cyanosis or clubbing, extremities motor strength 5/5 Skin: no rashes, warm and dry Neurologic: moves all extremities and awake Psychiatric: Orientation: alert, oriented to person and cooperative Results & Data Results & Data ([facility]) Vital Signs (Past 12 Hours) Vital Signs Temp Pulse Pulse Resp BP Pulse Ox 08/15/20 11:17 37.2 C 121 H 24 118/80 94 08/15/20 07:24 37.1 C 52 L 18 120/85 93 08/15/20 07:00 123 H 08/15/20 06:45 122 H PG Care Time/CCT Total # of Minutes Spent Total Time Spent with Patient: Total time spent is greater than 50% in coordination of care (as documented) at patient's floor/unit and/or counseling patient: Coding Level of Care Code 63368 Subseq Hosp Care Lvl 3 Diagnoses Atrial flutter with rapid ventricular response I48.92 Shortness of breath R06.02 Elevated troponin I level R77.8 Major depressive disorder F32.9 Type 2 diabetes mellitus E11.9 BPH without urinary obstruction N40.0 Seizure disorder G40.909 History of CVA (cerebrovascular accident) Z86.73 DVT prophylaxis Z29.9
[2020-08-15] MEDS ORDERED: DIGOXIN 250 MCG in SYRINGE 9 ML IV ONE (17:15)
[2020-08-15] MEDS: AMIODARONE 200 MG TAB PO SCH (17:20)
[2020-08-15] MEDS: rOPINIRole HCL 1 MG TABLET PO SCH (20:33)
[2020-08-15] MEDS: GABAPENTIN 400 MG CAP PO SCH (20:33)
[2020-08-15] MEDS: SIMVASTATIN 20 MG TAB PO SCH (20:33)
[2020-08-16] MEDS: AMIODARONE / D5W 360 MG/200 ML BAG IV SCH ×2 (00:17→11:52)
[2020-08-16] MEDS: cefTRIAXone SODIUM 2,000 MG in DEXTROSE 5% 50 ML IV SCH ×2 (00:18→23:56)
[2020-08-16] MEDS ORDERED: FUROSEMIDE 40 MG in SYRINGE 0 ML IV ONE ×2 (00:42→20:45)
[2020-08-16] MEDS: dilTIAZem HCL 125 MG in DEXTROSE 5% 100 ML IV SCH ×2 (03:36→11:20)
[2020-08-16 06:57] LABS: Hematocrit (blood only) 35.8 % (42-52); Hemoglobin 11.7 g/dL (14.0-18.0); Mean Corpuscular Hemoglobin 28.5 pg (25-34); Mean Corpuscular Hgb Conc 32.7 g/dL (32-36); Mean Corpuscular Volume 87.1 fL (80-100); Mean Platelet Volume 9.7 fL (7.4-10.4); Platelet Count 268 K/uL (130-400); RDW Coefficient of Variation 15.4 % (11.5-14.5); RDW Standard Deviation 48.7 fL (36.4-46.3); Red Blood Count 4.11 M/uL (4.7-6.1); White Blood Count 11.51 K/uL (4.8-10.8)
[2020-08-16 07:36] LABS: BUN Creatinine Ratio 24.2 (10-20); Calcium 8.7 mg/dl (8.5-10.1); Creatinine Clr Calc Pharmacy 109.6 ml/min; Est GFR (African American) 94.2; Est GFR (Non-African American) 81.3; Magnesium 2.4 mg/dl (1.8-2.4); Potassium 3.7 mmol/L (3.5-5.1)
[2020-08-16] MEDS: INSULIN ASPART 100 UNITS/ML 3 ML PEN SC SCH ×4 (08:47→21:10)
[2020-08-16] MEDS: busPIRone 5 MG TAB PO SCH ×2 (08:53→16:54)
[2020-08-16] MEDS: AMIODARONE 200 MG TAB PO SCH ×2 (08:53→16:54)
[2020-08-16] MEDS: CHOLECALCIFEROL 1,000 UNITS 25 MCG TAB PO SCH (08:54)
[2020-08-16] MEDS: MAGNESIUM OXIDE 400 MG TAB PO SCH ×2 (08:54→16:52)
[2020-08-16] MEDS: MULTIVITAMIN TAB PO SCH (08:54)
[2020-08-16] MEDS: ACETAMINOPHEN 325 MG TAB PO SCH ×2 (08:54→16:53)
[2020-08-16] MEDS: VENLAFAXINE HCL XR 150 MG CAPXR PO SCH (08:54)
[2020-08-16] MEDS: GABAPENTIN 300 MG CAP PO SCH ×2 (08:54→16:52)
[2020-08-16] MEDS: TAMSULOSIN HCL 0.4 MG CAP PO SCH ×2 (08:54→16:54)
[2020-08-16] MEDS: BACLOFEN 20 MG TAB PO SCH ×4 (08:54→21:08)
[2020-08-16] MEDS: LORazepam 1 MG TAB PO SCH ×2 (08:55→16:59)
[2020-08-16] MEDS: levETIRAcetam 250 MG TAB PO SCH ×2 (08:55→16:53)
[2020-08-16] MEDS: DOCUSATE SODIUM/SENNA 50/8.6MG TAB PO SCH ×2 (08:55→16:55)
[2020-08-16] MEDS: APIXABAN 5 MG TABLET PO SCH ×2 (08:55→21:09)
--- NOTE | 2020-08-16 09:51 | Cardiology Progress Note ---
Date of Service August 16, 2020 Assessment & Plan (1) Atrial flutter with rapid ventricular response: -dysrhythmia started on the day of admission. -continues on intravenous amiodarone and diltiazem. -started intravenous digoxin -rate has been better controlled. -continue Eliquis. -consider electrical cardioversion in a.m.. (2) Elevated troponin I level: -minor elevation at time of presentation. -likely a supply/demand mismatch. (3) Left ventricular dysfunction: -left ventricular ejection fraction is 30-35%. -mild left ventricular dysfunction noted on an echocardiogram, May 2015. -will start appropriate medications once atrial flutter has resolved. (4) Pulmonary edema: -compensated at this time. Admission and Anticipated Discharge Date Admission Date: August 15, 2020 Subjective The patient is resting comfortably in bed complaints chest pain, dyspnea, or palpitations. Physical Exam Physical Exam: In general is well-developed well-nourished black male in no acute distress. HEENT exam is negative. Neck is supple with full carotid upstrokes. No obvious bruits. Jugular venous pressure is difficult to evaluate. Cardiovascular exam reveals a rapid rate with distant heart sounds. No obvious murmurs. Lungs are clear without rales, rhonchi or wheezes. Abdomen is soft without bruits. Extremities reveal intact radial artery pulses bilaterally. Trace pretibial edema is noted. Left hand is contracted. Results & Data ([facility]) Vital Signs (Past 12 Hours) Vital Signs Temp Pulse Pulse Resp BP BP Pulse Ox 08/16/20 07:21 37.0 C 93 H 22 116/73 96 08/16/20 06:58 97 H 08/16/20 03:13 36.7 C 74 20 104/47 L 96 08/16/20 00:19 36.6 C 121 H 21 112/79 92 Diagnostic Findings lunchroom monitor notes atrial flutter with variable ventricular response. Heart rate has been below 100 bpm. PG Care Time/CCT Total # of Minutes Spent Total Time Spent with Patient: Total time spent is greater than 50% in coordination of care (as documented) at patient's floor/unit and/or counseling patient: Coding Level of Care Code 96677 Subseq Hosp Care Lvl 3 Diagnoses Atrial flutter with rapid ventricular response I48.92 Elevated troponin I level R77.8 Left ventricular dysfunction I51.9 Pulmonary edema J81.1
--- NOTE | 2020-08-16 12:40 | Hospitalist Progress Note ---
Date of Service August 16, 2020 Assessment & Plan (1) Atrial flutter with rapid ventricular response: New-onset, with thought that this was possibly acute yesterday. TTE on 08/14 showed EF 30-35%. - Anticoagulation - [id number] 1-2, started apixaban 5mg PO BID - Continue amiodarone and diltiazem. Added digoxin yesterday and rates are improving. - Consult cardiology - Appreciate recs (2) Shortness of breath: Suspect secondary to rapid ventricular rate. D-dimer 420low suspicion of pulmonary embolism. - Possibly pulmonary edema given his new heart failure. - Improved today after 2 doses of Lasix 40 mg IV yesterday. Will monitor closely. (3) Elevated troponin I level: Suspected demand ischemia in the setting of rapid rate as above. Troponin stable at ~0.12 x 3. No further trending needed. - Further testing per cardiology (4) Major depressive disorder: Flat affect today, but no overt depression. No expression of SI/HI. - Continue venlafaxine 150 mg p.o. every morning. (5) Type 2 diabetes mellitus: HbA1c 5.8% in April and again 5.9% this admission. - Hold metformin - Sliding scale insulin -> 110 - 150 in the last 24 hours. (6) BPH without urinary obstruction: - Continue tamsulosin 0.4 mg p.o. twice daily. - Per admitting provider, had some urinary retention due to CVA. Will monitor PVRs. - No indication of retention as of 08/16. (7) Seizure disorder: No seizure episodes here. - Continue Keppra to 50 mg p.o. twice daily. (8) History of CVA (cerebrovascular accident): Per prior notes from [facility] on 04/22/2017, he had a brain aneurysm and SAH in approx. 2006. - CTA head on 08/14 shows aneurysm coils in the suprasellar region with no aneurysm clearly identified. - Continue baclofen, gabapentin (9) DVT prophylaxis: Apixaban per admitting provider for afib. - Discussed with neurology who feel that given there is no current aneurysm clearly identified, he can get anticoagulation at minimal additional risk. Admission and Anticipated Discharge Date Admission Date: August 15, 2020 Subjective No issues today. No shortness of breath. Reports no fevers/chills, chest pain, shortness of breath, abdominal pain, nausea, or vomiting. Physical Exam Constitutional: WD/WN, vitals as above Eyes: EOM intact bilaterally; no conjunctival abnormality ENMT: external ear and nose normal, oropharynx normal Neck: trachea midline, no thyromegaly normal visual inspection Respiratory: normal respiratory effort, lungs clear to auscultation no respiratory distress Cardiovascular: Rate/Rhythm: + tachycardic and + irregularly irregular Heart Sounds: normal S1 and normal S2 Vessels: no JVD Extremities: + edema (Trace left) Gastrointestinal (Abdomen): Inspection/Auscultation: abdomen normal to inspection; abdomen not distended Musculoskeletal: no cyanosis or clubbing, extremities motor strength 5/5 Skin: no rashes, warm and dry Neurologic: moves all extremities and awake Psychiatric: Orientation: alert, oriented to person and cooperative Results & Data Results & Data ([facility]) Vital Signs (Past 12 Hours) Vital Signs Temp Pulse Pulse Resp BP BP Pulse Ox 08/16/20 11:36 36.2 C L 56 L 20 103/67 90 08/16/20 07:21 37.0 C 93 H 22 116/73 96 08/16/20 06:58 97 H 08/16/20 03:13 36.7 C 74 20 104/47 L 96 PG Care Time/CCT Total # of Minutes Spent Total Time Spent with Patient: Total time spent is greater than 50% in coordination of care (as documented) at patient's floor/unit and/or counseling patient: Coding Level of Care Code 05695 Subseq Hosp Care Lvl 2 Diagnoses Atrial flutter with rapid ventricular response I48.92 Shortness of breath R06.02 Elevated troponin I level R77.8 Major depressive disorder F32.9 Type 2 diabetes mellitus E11.9 BPH without urinary obstruction N40.0 Seizure disorder G40.909 History of CVA (cerebrovascular accident) Z86.73 DVT prophylaxis Z29.9
[2020-08-16] MEDS: DIGOXIN 0.125 MG TAB PO SCH (16:52)
[2020-08-16] MEDS ORDERED: AMIODARONE / D5W 150 MG/100 ML BAG IV STA (20:50)
[2020-08-16] MEDS ORDERED: 0.2 MICRON FILTER SET 1 EA IV ONE (20:50)
--- NOTE | 2020-08-16 20:56 | XRay Report ---
XR chest 1V portable HISTORY: tachypnea COMPARISON: Chest 08/15/2020. FINDINGS: No pneumothorax. The heart remains enlarged. There are small bilateral pleural effusions. P erihilar interstitial/vascular thickening and hazy bibasilar densities are again noted. This is sligh tly progressed within the left lung base. IMPRESSION: Redemonstration of the suspected mild interstitial pulmonary edema, cardiomegaly, small bilateral ple ural effusions. The left base airspace opacity has progressed and could represent layering pleural fl uid or developing pneumonia. ACT 112: Negative or not required by law. Electronically signed by: Hung Villa M.D. 08/16/2020 8:54 PM
[2020-08-16] MEDS: POTASSIUM CHLORIDE / WTR 10 MEQ/100 ML PLCT IV SCH (21:00)
[2020-08-16] MEDS: GABAPENTIN 400 MG CAP PO SCH (21:08)
[2020-08-16] MEDS: SIMVASTATIN 20 MG TAB PO SCH (21:08)
[2020-08-16] MEDS: rOPINIRole HCL 1 MG TABLET PO SCH (21:09)
[2020-08-16 21:17] LABS: Allen Test Pos (Pos); HCO3 ABG 24 mmol/L (19-24); Oxygen Saturation ABG 95.5 % (90-95); PCO2 ABG 37 mmHg (35-46); PO2 ABG 75 mmHg (80-95); pH ABG 7.43 (7.35-7.45)
[2020-08-16 21:34] LABS: BUN Creatinine Ratio 24.2 (10-20); Calcium 9.1 mg/dl (8.5-10.1); Creatinine Clr Calc Pharmacy 99.6 ml/min; Est GFR (African American) 83.9; Est GFR (Non-African American) 72.4; Magnesium 2.3 mg/dl (1.8-2.4); Potassium 3.5 mmol/L (3.5-5.1)
[2020-08-16 21:41] LABS: Phosphorus 3.3 mg/dl (2.5-4.9); Troponin I 0.085 ng/ml (0-0.045)
[2020-08-17] MEDS ORDERED: POTASSIUM CHLORIDE 10 MEQ TABCR PO ONE (00:15)
--- NOTE | 2020-08-17 00:42 | Procedure Note ---
Procedure Note Date of Service August 17, 2020 Chief Complaint: Poor IV Access History of Present Illness: Patient is a 60-year-old male admitted for A. fib requiring amiodarone and Cardizem drips as well as multiple other intravenous medications. I was contacted by hospitalist service as they were having difficulty with peripheral IV placement. I was asked to evaluate the patient for ongoing intravenous access. I did perform chart review which demonstrated that the patient is limb restricted on the LEFT secondary to prior history of CVA. He is not currently anticoagulated. Covid-19 negative. I did discuss patient with IV team at bedside. He has 2 sites, one of which recently failed. Medications: Reviewed Allergies: NKDAs PMH: CVA, Brain Aneurysm, A-flutter, Seizure disorder, DMII, HTN SHx: Reviewed ROS: All pertinent positive and negative review of systems are appropriately documented in the History of Present Illness. Physical Exam: VITAL SIGNS - Vital signs and nursing notes were reviewed. GENERAL - 60-year-old male appearing his stated age who is in no acute distress. Minimally communicative. SKIN - IV sites in the RIGHT AC and Hand. RIGHT AC site nonfunctional. MUSCULOSKELETAL - LUE flaccid paralysis w/ atrophy noted. VASCULAR - Capillary refill was brisk. Course/Procedure: Procedure: Rn Radiology Indwelling Peripherally Inserted IV Catheter Placement Attending: Dr. Ellis APC: Trent Fung PA-C Indication: Need for IV Access, Poor Vascular Access Anesthesia: None Verbal consent was obtained from patient prior to performing the procedure. A time-out was completed verifying correct patient, procedure, site, positioning, and implant(s) or special equipment if applicable. Utilizing bedside ultrasound, vascularity of the RIGHT upper extremity was assessed. Vessel size was noted for appropriate catheter selection and skin was marked with gentle pressure. Patients RIGHT upper extremity was prepped and draped in the usual sterile fashion utilizing chlorhexidine. Ultrasound guidance was used to aid needle placement. An 18 g Endurance Catheter was introduced into the RIGHT Basilic vein under direct ultrasound guidance. Guide wire was easily deployed without resistance. Catheter was threaded over the guide wire without resistance and the entire apparatus was removed intact. Good venous blood return was noted in the catheter. The IV catheter was easily flushed with sterile saline flush. Sterile clave was attached to the end of the catheter and good blood return was again noted. Tourniquet was released. StatLock device and sterile dressing were applied. The patient tolerated the procedure well. Blood Loss: Minimal Complications: None Procedural Ultrasound Guidance: Procedure Date: 08/17/2020 Indication: Poor Vascular Access Attending: Dr. Ellis APC: Trent Fung PA-C Artery/Veins Identified: YES Access confirmed in Vein with ultrasound: YES Complications: NONE Patient tolerated procedure: WELL Plan: Patient to continue w/ ongoing management per hospitalist service. Thank you for allowing me to participate in the care of this patient. Coding CPT Codes Tubes, Drains, and Vasc Access - Tubes, Drains, and Vasc Access: [id number] Venipuncture, Age 3/>Req phys skill, (sep proc), Dx/Tx (not rtn) ([id number]) [facility] [place] Codes (Charges) Tubes, Drains, and Vasc Access Procedure 1: Tubes, Drains, and Vasc Access: [id number] Venipuncture, Age 1/>Req phys skill, (sep proc), Dx/Tx (not rtn)
[2020-08-17] MEDS: POTASSIUM CHLORIDE / WTR 10 MEQ/100 ML PLCT IV SCH (01:06)
--- NOTE | 2020-08-17 02:00 | Communication Note ---
Date of Service: August 17, 2020 Called to patient's bedside at beginning of shift for increased oxygen demand, increased from 2LNC to 4LNC with some tachypnea. This is in the setting of having been in AFib with RVR intermittently for last 2-3 days; today was started on digoxin as well as his continued dilt and amiodarone drips with improvement in HR to 80s for a few hours. Patient stated he had a few hours of difficulty catching his breath. No chest pain, dizziness, headache. Exam with some crackles at bilateral bases, no wheezes. Noted to be HR high 110s, afebrile. CXR and ABG performed. No acidosis, CO2 and bicarb normal. CXR showed continued pulmonary edema seen on CXR /, with possible pleural fluid vs. developing pneumonia. EKG without changes compared to previous day. Troponin elevated to 0.085 however this is decreased from admission troponin. K 3.5, Mg and Phos normal. WBC elevated but decreased from yesterday, currently on ceftriaxone. Given Lasix 40mg IV, KCl 40 mEq, amiodarone 150mg bolus. HR decreased to 105. Later in the evening called due to inability of IV team to place IVs after attempting access several times. Trent Fung asked to assess IV access. Long-term indwelling peripherally-inserted IV Catheter placed in right arm successfully. Amiodarone and diltiazem drips restarted.
[2020-08-17] MEDS: dilTIAZem HCL 125 MG in DEXTROSE 5% 100 ML IV SCH (02:15)
[2020-08-17] MEDS: AMIODARONE / D5W 360 MG/200 ML BAG IV SCH ×2 (02:16→15:10)
[2020-08-17 06:26] LABS: Hematocrit (blood only) 34.8 % (42-52); Hemoglobin 11.4 g/dL (14.0-18.0); Mean Corpuscular Hemoglobin 28.7 pg (25-34); Mean Corpuscular Hgb Conc 32.8 g/dL (32-36); Mean Corpuscular Volume 87.7 fL (80-100); Mean Platelet Volume 10.3 fL (7.4-10.4); Platelet Count 289 K/uL (130-400); RDW Coefficient of Variation 15.5 % (11.5-14.5); RDW Standard Deviation 48.7 fL (36.4-46.3); Red Blood Count 3.97 M/uL (4.7-6.1); White Blood Count 11.67 K/uL (4.8-10.8)
[2020-08-17 06:58] LABS: BUN Creatinine Ratio 30.3 (10-20); Calcium 8.6 mg/dl (8.5-10.1); Creatinine Clr Calc Pharmacy 117.6 ml/min; Est GFR (African American) 102.9; Est GFR (Non-African American) 88.8; Magnesium 2.5 mg/dl (1.8-2.4); Potassium 3.6 mmol/L (3.5-5.1)
[2020-08-17] MEDS: INSULIN ASPART 100 UNITS/ML 3 ML PEN SC SCH ×4 (08:55→21:14)
--- NOTE | 2020-08-17 10:03 | CT Scan Report ---
CT chest diagnostic wo con CT DOSE: 1919.94 mGycm HISTORY: Shortness of breath. Pleural effusion, pneumonia? TECHNIQUE: Multiaxial CT images of the chest were performed without contrast. A dose lowering techni que was utilized adhering to the principles of ALARA. COMPARISON: Chest 08/16/2020. Abdomen and pelvis CT 11/15/2014. FINDINGS: No pneumothorax. Respiratory motion artifact results in suboptimal evaluation of the chest. The central airways appear patent. There is interlobular septal thickening with bilateral patchy per ihilar airspace opacities most pronounced within the left upper lobe. There is an intrathecal cathete r which terminates at the T10 level. No acute fractures within the visualized osseous structures. Mulligan ited views of the upper abdomen demonstrate a normal liver and spleen. Stable 2 cm left adrenal gland nodule. Stable hypodense lesions within the left kidney. Focal irregular density within the right malik bareolar breast which measures 2 cm. This favors gynecomastia. Normal esophagus. The jorge luis are not wel l assessed. The heart is mildly enlarged. Trace pericardial fluid is noted. There are few prominent u sed on lymph nodes measuring up to 13 mm in short axis diameter. Small to moderate bilateral pleural effusions. Consolidation within the bilateral lower lobes posteriorly favors compressive atelectasis from the pleural effusions. IMPRESSION: 1. Cardiomegaly, small to moderate bilateral pleural effusions, and interlobular septal thickening co nsistent with pulmonary edema. There are also patchy bilateral perihilar airspace opacities which als o favors an alveolar component of the moderate pulmonary edema. A superimposed pneumonia cannot be ex cluded. 2. Trace pericardial effusion. 3. Mild mediastinal lymphadenopathy. 4. Focal irregular density within the right subareolar breast which measures 2 cm. This favors gyneco mastia. However, the irregularity should be assessed at a dedicated breast cancer Center once the pat ient has stabilized. ACT 112: Positive. There are findings on this exam that require communication between the performing entity and the patient following Patient Test Result Information Act ([place] Act 112) guidelines. Electronically signed by: Hung Villa M.D. 08/17/2020 10:02 AM
--- NOTE | 2020-08-17 10:22 | Cardiology Progress Note ---
Date of Service August 17, 2020 Assessment & Plan (1) Atrial flutter with rapid ventricular response: -dysrhythmia started on the day of presentation. -continues on intravenous amiodarone and diltiazem. -oral digoxin digoxin initiated. -continue Eliquis. -electrical cardioversion 2 day as rate continues to be difficult to control. (2) Elevated troponin I level: -minor elevation. -likely a supply demand mismatch. (3) Left ventricular dysfunction: -left ventricular ejection fraction moderately reduced at 30-35%. -mild left ventricular dysfunction noted previously (May 2015). -will start beta-lisa and ACEI/ARB once atrial flutter has resolved. (4) Pulmonary edema: -compensated. Admission and Anticipated Discharge Date Admission Date: August 15, 2020 Subjective Resting comfortably in bed without complaints chest pain, dyspnea, or palpitations. Physical Exam Physical Exam: In general is well-developed well-nourished black male in no acute distress. HEENT exam is negative. Neck is supple with full carotid upstrokes. No obvious bruits. Jugular venous pressure is difficult to e valuate. Cardiovascular exam reveals distant heart sounds. No obvious murmurs. Lungs are clear without rales, rhonchi or wheezes. Abdomen is soft without bruits. Extremities reveal intact radial artery pulses bilaterally. Trace pretibial edema is noted. Left hand contracted. Results & Data ([facility]) Vital Signs (Past 12 Hours) Vital Signs Temp Pulse Pulse Resp BP BP Pulse Ox 08/17/20 07:25 37.0 C 101 H 20 107/72 98 08/17/20 03:23 36.6 C 72 22 93/68 L 94 08/17/20 00:21 36.7 C 120 H 20 111/79 96 08/17/20 00:00 117 H Diagnostic Findings monitor worker notes atrial flutter with variable response. Heart rate is approximately 100 beats per minute. PG Care Time/CCT Total # of Minutes Spent Total Time Spent with Patient: Total time spent is greater than 50% in coordination of care (as documented) at patient's floor/unit and/or counseling patient: Coding Level of Care Code 82630 Subseq Hosp Care Lvl 3 Diagnoses Atrial flutter with rapid ventricular response I48.92 Elevated troponin I level R77.8 Left ventricular dysfunction I51.9 Pulmonary edema J81.1
[2020-08-17] MEDS: levETIRAcetam 250 MG TAB PO SCH ×2 (10:29→16:06)
[2020-08-17] MEDS: LORazepam 1 MG TAB PO SCH ×3 (10:29→21:01)
[2020-08-17] MEDS: ACETAMINOPHEN 325 MG TAB PO SCH ×3 (10:29→21:02)
[2020-08-17] MEDS: MAGNESIUM OXIDE 400 MG TAB PO SCH ×2 (10:29→16:03)
[2020-08-17] MEDS: AMIODARONE 200 MG TAB PO SCH ×2 (10:29→16:02)
[2020-08-17] MEDS: DOCUSATE SODIUM/SENNA 50/8.6MG TAB PO SCH ×2 (10:29→17:15)
[2020-08-17] MEDS: TAMSULOSIN HCL 0.4 MG CAP PO SCH ×2 (10:29→16:02)
[2020-08-17] MEDS: busPIRone 5 MG TAB PO SCH ×2 (10:29→16:05)
[2020-08-17] MEDS: MULTIVITAMIN TAB PO SCH (10:30)
[2020-08-17] MEDS: APIXABAN 5 MG TABLET PO SCH ×2 (10:30→20:51)
[2020-08-17] MEDS: CHOLECALCIFEROL 1,000 UNITS 25 MCG TAB PO SCH (10:30)
[2020-08-17] MEDS: BACLOFEN 20 MG TAB PO SCH ×4 (10:30→20:51)
[2020-08-17] MEDS: GABAPENTIN 300 MG CAP PO SCH ×2 (10:30→15:11)
[2020-08-17] MEDS: VENLAFAXINE HCL XR 150 MG CAPXR PO SCH (10:30)
[2020-08-17] MEDS ORDERED: PROPOFOL IV EMULSION 10 MG/ML 20 ML VIAL IV ONE (13:12)
--- NOTE | 2020-08-17 13:22 | Electrocardiogram Report ---
Test Reason : Blood Pressure : / mmHG Vent. Rate : 117 BPM Atrial Rate : 117 BPM P-R Int : 166 ms QRS Dur : 104 ms QT Int : 332 ms P-R-T Axes : 030 020 135 degrees QTc Int : 463 ms Atrial flutter with 2 to 1 block Left ventricular hypertrophy with repolarization abnormality Cannot rule out Septal infarct , age undetermined Abnormal ECG When compared with ECG of 13-AUG-2020 14:36, Minimal criteria for Septal infarct are now Present Confirmed by Gato Greene ([id number]) on 08/17/2020 1:22:08 PM Referred By: [facility] Confirmed By:Gato Greene
--- NOTE | 2020-08-17 13:23 | Electrocardiogram Report ---
Test Reason : Blood Pressure : / mmHG Vent. Rate : 114 BPM Atrial Rate : 114 BPM P-R Int : 174 ms QRS Dur : 102 ms QT Int : 354 ms P-R-T Axes : 004 014 162 degrees QTc Int : 487 ms Atrial flutter with 2 to 1 block Left ventricular hypertrophy with repolarization abnormality Abnormal ECG When compared with ECG of 16-AUG-2020 20:01, (unconfirmed) No significant change was found Confirmed by Gato Greene ([id number]) on 08/17/2020 1:23:18 PM Referred By: [facility] Confirmed By:Gato Greene
[2020-08-17] MEDS ORDERED: ATROPINE SULFATE 0.1 MG/ML 10ML SYR IV PRN (13:50)
[2020-08-17] MEDS ORDERED: ePHEDrine sulfate 50 MG/ML AMP IV PRN (13:50)
--- NOTE | 2020-08-17 13:50 | Anesthesiology Consultation ---
Date of Service August 17, 2020 Assessment & Plan ASA ASA4 Proposed Anesthesia Anesthesia Type: MAC Risk / Benefits Reviewed With: PT / POA / Parent / Guardian, Accepts Plan and Informed Consent Obtained History Surgery Operation Date: 08/17/20 12:30 Proposed Procedures p Cardioversion Back Tender Paper Machine w/Anesthesia - Gato Greene MD Height/Weight Height: 6 ft 5 in Weight: 116 kg Allergies Allergy/AdvReac Type Severity Reaction Status Date / Time No Known Allergies Allergy Verified 08/13/20 15:49 Medications Home Medications Medication Instructions Recorded Confirmed Last Taken acetaminophen [Tylenol] 650 mg PO BIDM MDD 3 GRAMS/24 HOURS 08/13/20 08/13/20 08/13/20 08:30 acetaminophen [Tylenol] 650 mg PO Q6H PRN MDD 3 GRAMS/24 08/13/20 08/13/20 Unknown HOURS baclofen 20 mg PO QID 08/13/20 08/13/20 08/13/20 12:30 buspirone 10 mg PO BIDM 08/13/20 08/13/20 08/13/20 08:30 cholecalciferol (vitamin D3) 2,000 mcg PO QAM 08/13/20 08/13/20 08/13/20 [Vitamin D3] gabapentin 300 mg PO BID 08/13/20 08/13/20 08/13/20 08:30 gabapentin 400 mg PO HS 08/13/20 08/13/20 08/12/20 levetiracetam [Keppra] 250 mg PO BIDM 08/13/20 08/13/20 08/13/20 08:30 lorazepam 1 mg PO BIDM 08/13/20 08/13/20 08/13/20 08:30 magnesium oxide 400 mg PO BIDM 08/13/20 08/13/20 08/13/20 08:30 metformin 500 mg PO BIDM 08/13/20 08/13/20 08/13/20 08:30 multivitamin [Daily-Adair] 1 tab PO QAM 08/13/20 08/13/20 08/13/20 ropinirole 1 mg PO QPM 08/13/20 08/13/20 08/12/20 sennosides-docusate sodium [Senna 1 tab-cap PO BIDM 08/13/20 08/13/20 08/13/20 08:30 Plus] simvastatin 40 mg PO HS 08/13/20 08/13/20 08/12/20 tamsulosin [Flomax] 0.4 mg PO BIDM 08/13/20 08/13/20 08/13/20 08:30 venlafaxine [Effexor XR] 150 mg PO QAM 08/13/20 08/13/20 08/13/20 Active Medications Generic Name Dose Route Start Last Admin Trade Name Faby PRN Reason Stop Dose Admin Acetaminophen 650 mg 08/14/20 08:00 08/17/20 10:29 Acetaminophen 325 Mg Tab PO 09/13/20 07:59 Not Given BIDM VICKY Amiodarone HCl 200 mg 08/15/20 17:00 08/17/20 10:29 Amiodarone 200 Mg Tab PO 09/14/20 16:59 Not Given BIDM VICKY Apixaban 5 mg 08/13/20 21:00 08/17/20 10:30 Apixaban 5 Mg Tablet PO 09/12/20 20:59 Not Given BID VICKY Baclofen 20 mg 08/13/20 21:00 08/17/20 12:52 Baclofen 20 Mg Tab PO 09/12/20 20:59 Not Given QID VICKY Buspirone HCl 10 mg 08/14/20 08:00 08/17/20 10:29 Buspirone 5 Mg Tab PO 09/13/20 07:59 Not Given BIDM VICKY Digoxin 0.125 mg 08/16/20 16:00 08/16/20 16:52 Digoxin 0.125 Mg Tab PO 09/15/20 15:59 0.125 mg DAILY@1600 VICKY Administration Gabapentin 400 mg 08/13/20 21:00 08/16/20 21:08 Gabapentin 400 Mg Cap PO 09/12/20 20:59 400 mg HS VICKY Administration Gabapentin 300 mg 08/14/20 08:30 08/17/20 10:30 Gabapentin 300 Mg Cap PO 09/13/20 08:29 Not Given BID@0830,1430 VICKY Diltiazem HCl 125 mg/ Dextrose 125 mls @ 10 mls/hr 08/13/20 19:30 08/17/20 02:15 IV 09/12/20 19:29 10 mg/hr .[id number] VICKY 10 mls/hr Administration Protocol 10 MG/HR Ceftriaxone Sodium 2,000 mg/ 70 mls @ 100 mls/hr 08/13/20 22:30 08/17/20 01:36 Dextrose IV 08/18/20 22:29 Infused Q24H VICKY Infusion Protocol Amiodarone HCl/Dextrose 360 mg in 200 mls @ 16.667 mls/hr 08/14/20 23:30 08/17/20 02:16 Nexterone / D5w IV 09/13/20 23:29 0.5 mg/min .Q12H VICKY 16.7 mls/hr Administration 0.5 MG/MIN Insulin Aspart 0 units 08/14/20 07:30 08/17/20 11:55 Insulin Aspart 100 Units/Ml 3 Ml Pen SC 09/13/20 07:29 Not Given ACHS VICKY Levetiracetam 250 mg 08/14/20 08:00 08/17/20 10:29 Levetiracetam 250 Mg Tab PO 09/13/20 07:59 Not Given BIDM VICKY Lorazepam 1 mg 08/14/20 08:00 08/17/20 10:29 Lorazepam 1 Mg Tab PO 09/13/20 07:59 Not Given BIDM VICKY Magnesium Oxide 400 mg 08/14/20 08:00 08/17/20 10:29 Magnesium Oxide 400 Mg Tab PO 09/13/20 07:59 Not Given BIDM VICKY Multivitamins 1 tab 08/14/20 09:00 08/17/20 10:30 Multivitamin Tab PO 09/13/20 08:59 Not Given QAM VICKY Ropinirole HCl 1 mg 08/13/20 21:00 08/16/20 21:09 Ropinirole Hcl 1 Mg Tablet PO 09/12/20 20:59 1 mg QPM VICKY Administration Senna/Docusate Sodium 1 tab 08/14/20 08:00 08/17/20 10:29 Docusate Sodium/Senna 50/8.6mg Tab PO 09/13/20 07:59 Not Given BIDM VICKY Simvastatin 20 mg 08/14/20 21:00 08/16/20 21:08 Simvastatin 20 Mg Tab PO 09/13/20 20:59 20 mg HS VICKY Administration Tamsulosin HCl 0.4 mg 08/14/20 08:00 08/17/20 10:29 Tamsulosin Hcl 0.4 Mg Cap PO 09/13/20 07:59 Not Given BIDM [facility] Venlafaxine HCl 150 mg 08/14/20 09:00 08/17/20 10:30 Venlafaxine Hcl Xr 150 Mg Capxr PO 09/13/20 08:59 Not Given QAM [facility] Vitamin D 2,000 units 08/14/20 09:00 08/17/20 10:30 Cholecalciferol 1,000 Units 25 Mcg Tab PO 09/13/20 08:59 Not Given QAM [facility] Past Medical History Medical History Abnormal EKG Anxiety disorder BPH without urinary obstruction Brain aneurysm Contracture of left hand Dehydration Dysphagia Essential hypertension Generalized muscle weakness Hyperglycemia Major depressive disorder Nontraumatic subarachnoid hemorrhage Personal history of covid-19 Personal history of methicillin resistant Staphylococcus aureus Quadriplegia, unspecified Seizure disorder Stroke Transient paralysis Type 2 diabetes mellitus Unspecified dementia without behavioral disturbance Unspecified glaucoma Unsteadiness on feet Urinary tract infection Exercise / Class Metabolic Activity II 4-5 Yardwork/Stairs/Walk up hill Past Surgical History Surgical History H/O tracheostomy Past Anesthesia History No Hx of Anesthesia Complications and No Family Hx of Anesthesia Complications History of PONV No Hx of PONV and No Hx of Motion Sickness Social History Smoking Status: Former smoker Hx Alcohol Use: No Hx Substance Use: No Review of Systems denies fever/cough/ colds/ chest pain/ / ADY + sob denies ADY Physical Exam Vital Signs Last Vital Signs Temp 37.2 C 08/17/20 11:24 Pulse 113 H 08/17/20 11:24 Resp 20 08/17/20 11:24 BP 121/65 08/17/20 11:24 Pulse Ox 94 08/17/20 11:24 ENMT Mouth: + poor dentition and + chipped teeth; no TMJ abnormality and no dentition abnormality Thyromental Distance: > or= 3.5 Finger Breadths Mallampati Class: III Neck neck extension not limited Respiratory normal respiratory effort; no respiratory distress Auscultation: lungs clear to auscultation bilaterally Cardiovascular Rate/Rhythm: regular rate and regular rhythm Neurologic moves all extremities Psychiatric Orientation: alert and oriented x 3 Testing Laboratory Results 08/17/20 05:48 08/17/20 05:48 PT 11.2 Seconds (9.0-12.0) 08/13/20 16:12 INR 1.1 (0.9-1.1) 08/13/20 16:12 APTT 27.7 Seconds (21.0-31.0) 08/13/20 16:12 Hemoglobin A1c 5.9 % (4.5-5.6) H 08/14/20 06:17 Urine Color Dark Yellow 08/13/20 17:26 Urine Appearance Cloudy (Clear) A 08/13/20 17:26 Urine pH 7.5 (4.5-7.5) 08/13/20 17:26 Ur Specific [place] 1.030 (1.000-1.030) 08/13/20 17: Urine Protein 1+ (Negative) H 08/13/20 17:26 Urine Glucose (UA) Negative (Negative) 08/13/20 17: Urine Ketones 1+ (Negative) H 08/13/20 17:26 Urine Nitrite Negative (Negative) 08/13/20 17:26 Ur Leukocyte Esterase 2+ (Negative) H 08/13/20 17:26 Urine WBC (Auto) 5-10 /hpf (0-5) H 08/13/20 17:26 Urine RBC (Auto) 0-4 /hpf (0-4) 08/13/20 17: U Hyaline Cast (Auto) 1-5 /lpf (0-5) 08/13/20 17:26 U Epithel Cells (Auto) 5-10 /lpf (0-5) H 08/13/20 17:26 Urine Bacteria (Auto) 4+ (Negative) H 08/13/20 17:26 08/13/20 17:26 Urine Culture - Final Urine,Straight Cath Three types of organisms present, all high counts. Repeat collection recommended. No further identifications or sensitivities to follow. 08/17/20 08/17/20 11:50 07:40 POC Glucose 124 H 137 H
--- NOTE | 2020-08-17 14:17 | Anesthesiology Progress Note ---
Date of Service August 17, 2020 Anesthesia Post Procedure Vital Signs Vital Signs: Temp Pulse Pulse Resp BP BP Pulse Ox 08/17/20 11:24 37.2 C 113 H 20 121/65 94 08/17/20 08:00 106 H 08/17/20 07:25 37.0 C 101 H 20 107/72 98 08/17/20 03:23 36.6 C 72 22 93/68 L 94 08/17/20 00:21 36.7 C 120 H 20 111/79 96 08/17/20 00:00 117 H 08/16/20 19:46 36.9 C 118 H 24 114/79 94 08/16/20 17:17 105 H 08/16/20 16:52 115 H 08/16/20 15:33 36.3 C L 118 H 20 106/67 92 Transfer of Care Handoff Completed per policy Notes Mental Status: alert / awake / arousable and participated in evaluation Patient Amnestic to Procedure: Yes Nausea / Vomiting: adequately controlled Pain: adequately controlled Airway Patency, RR, SpO2: stable & adequate BP & HR: stable & adequate Hydration State: stable & adequate Anesthetic Complications: no major complications apparent and Pt Satisfied with anesthetic care
--- NOTE | 2020-08-17 14:28 | Cardioversion ---
Date of Service August 17, 2020 PG Electrical Cardioversion Rp Electrical Cardioversion Report Date of procedure: August 17, 2020 Principal procedure: Electrical cardioversion Indications: Refractory atrial flutter, symptomatic Protocol: After informed consent was obtained, and a time-out undertaken, the patient was sedated smoothly by anesthesia using propofol. The patient was monitored continuously by telemetry, sphygmomanometry, oximetry, and end-tidal CO2. The patient was given 50 joules of biphasic energy via hands-off paddles which was unsuccessful in cardioversion. The patient was then given 100 joules of biphasic energy via hands-off paddles and successfully converted to sinus rhythm. There were no complications. The patient tolerated the procedure well. Following the cardioversion, the patient was conversant and without complaints. Conclusions: 1. Successful electrical cardioversion from atrial flutter to sinus rhythm. 2. No complications. 3. Follow-up as scheduled. Coding Level of Care Code Cardioversion, elective Additional Codes Electrical Cardioversion Report ([id number]) Time Spent (min) 45
[2020-08-17] MEDS: DIGOXIN 0.125 MG TAB PO SCH (16:05)
--- NOTE | 2020-08-17 16:34 | Hospitalist Progress Note ---
Date of Service August 17, 2020 Assessment & Plan (1) Atrial flutter with rapid ventricular response: New-onset, with thought that this was possibly acute yesterday. TTE on 08/14 showed EF 30-35%. - Anticoagulation - [id number] 1-2, started apixaban 5mg PO BID - Cardioverted on 08/17 with return to normal sinus rythm. - STOP diltiazem and digoxin. Continue amiodarone at 200 mg PO BID -> Likely discharge tomorrow or Thursday if feeling well. - Consult cardiology - Appreciate recs (2) Shortness of breath: Suspect secondary to rapid ventricular rate. D-dimer 420low suspicion of pulmonary embolism. - Possibly pulmonary edema given his new heart failure. - Improved today after 2 doses of Lasix 40 mg IV yesterday. Will monitor closely. - Will give an additional dose of Lasix today at 40 mg IV. I thought his heart failure was mostly due to rhythm issues, but he may need standing Lasix on discharge. (3) Elevated troponin I level: Suspected demand ischemia in the setting of rapid rate as above. Troponin stable at ~0.12 x 3. No further trending needed. - Further testing per cardiology (4) Major depressive disorder: Flat affect today, but no overt depression. No expression of SI/HI. - Continue venlafaxine 150 mg p.o. every morning. (5) Type 2 diabetes mellitus: HbA1c 5.8% in April and again 5.9% this admission. - Hold metformin - Sliding scale insulin -> 110 - 150 in the last 24 hours. (6) BPH without urinary obstruction: - Continue tamsulosin 0.4 mg p.o. twice daily. - Per admitting provider, had some urinary retention due to CVA. Will monitor PVRs. - No indication of retention as of 08/16. (7) Seizure disorder: No seizure episodes here. - Continue Keppra to 50 mg p.o. twice daily. (8) History of CVA (cerebrovascular accident): Per prior notes from [facility] on 04/22/2017, he had a brain aneurysm and SAH in approx. 2006. - CTA head on 08/14 shows aneurysm coils in the suprasellar region with no aneurysm clearly identified. - Continue baclofen, gabapentin (9) DVT prophylaxis: Apixaban per admitting provider for afib. - Discussed with neurology who feel that given there is no current aneurysm clearly identified, he can get anticoagulation at minimal additional risk. Admission and Anticipated Discharge Date Admission Date: August 15, 2020 Subjective When I saw him, he was pre-cardioversion and was hungry. Overall doing well though. Reports his shortness of breath is "good enough." Reports no fevers/chills, chest pain, abdominal pain, nausea, or vomiting. Physical Exam Constitutional: WD/WN, vitals as above Eyes: EOM intact bilaterally; no conjunctival abnormality ENMT: external ear and nose normal, oropharynx normal Neck: trachea midline, no thyromegaly normal visual inspection Respiratory: normal respiratory effort, lungs clear to auscultation no respiratory distress Cardiovascular: Rate/Rhythm: + tachycardic and + irregularly irregular Heart Sounds: normal S1 and normal S2 Vessels: no JVD Extremities: + edema (Trace left) Gastrointestinal (Abdomen): Inspection/Auscultation: abdomen normal to inspection; abdomen not distended Musculoskeletal: no cyanosis or clubbing, extremities motor strength 5/5 Skin: no rashes, warm and dry Neurologic: moves all extremities and awake Psychiatric: Orientation: alert, oriented to person and cooperative Results & Data Results & Data ([facility]) Vital Signs (Past 12 Hours) Vital Signs Temp Pulse Pulse Resp BP BP Pulse Ox 08/17/20 16:05 92 H 08/17/20 16:00 88 08/17/20 15:38 36.8 C 92 H 20 122/83 90 08/17/20 14:30 36.8 C 88 20 166/82 H 96 08/17/20 14:15 36.8 C 88 20 158/88 H 95 08/17/20 11:24 37.2 C 113 H 20 121/65 94 08/17/20 08:00 106 H 08/17/20 07:25 37.0 C 101 H 20 107/72 98 PG Care Time/CCT Total # of Minutes Spent Total Time Spent with Patient: Total time spent is greater than 50% in coordination of care (as documented) at patient's floor/unit and/or counseling patient: Coding Level of Care Code 44280 Subseq Hosp Care Lvl 2 Diagnoses Atrial flutter with rapid ventricular response I48.92 Shortness of breath R06.02 Elevated troponin I level R77.8 Major depressive disorder F32.9 Type 2 diabetes mellitus E11.9 BPH without urinary obstruction N40.0 Seizure disorder G40.909 History of CVA (cerebrovascular accident) Z86.73 DVT prophylaxis Z29.9
[2020-08-17] MEDS ORDERED: FUROSEMIDE 40 MG in SYRINGE 0 ML IV ONE (16:45)
[2020-08-17] MEDS: rOPINIRole HCL 1 MG TABLET PO SCH (20:51)
[2020-08-17] MEDS: GABAPENTIN 400 MG CAP PO SCH (20:51)
[2020-08-17] MEDS: SIMVASTATIN 20 MG TAB PO SCH (20:51)
[2020-08-17] MEDS: cefTRIAXone SODIUM 2,000 MG in DEXTROSE 5% 50 ML IV SCH (21:41)
[2020-08-18 06:41] LABS: Hematocrit (blood only) 35.6 % (42-52); Hemoglobin 11.4 g/dL (14.0-18.0); Mean Corpuscular Hemoglobin 28.5 pg (25-34); Mean Platelet Volume 10.1 fL (7.4-10.4); Platelet Count 291 K/uL (130-400); RDW Coefficient of Variation 15.6 % (11.5-14.5); RDW Standard Deviation 50.1 fL (36.4-46.3); White Blood Count 9.89 K/uL (4.8-10.8)
[2020-08-18 07:33] LABS: BUN Creatinine Ratio 29.2 (10-20); Calcium 8.9 mg/dl (8.5-10.1); Creatinine Clr Calc Pharmacy 110.3 ml/min; Est GFR (African American) 96.6; Est GFR (Non-African American) 83.3; Magnesium 2.5 mg/dl (1.8-2.4); Potassium 3.4 mmol/L (3.5-5.1)
[2020-08-18] MEDS: INSULIN ASPART 100 UNITS/ML 3 ML PEN SC SCH ×4 (08:01→21:20)
[2020-08-18] MEDS: MAGNESIUM OXIDE 400 MG TAB PO SCH ×2 (08:28→16:54)
[2020-08-18] MEDS: LORazepam 1 MG TAB PO SCH ×2 (08:46→16:52)
[2020-08-18] MEDS: ACETAMINOPHEN 325 MG TAB PO SCH ×2 (08:47→16:53)
[2020-08-18] MEDS: BACLOFEN 20 MG TAB PO SCH ×4 (08:47→21:18)
[2020-08-18] MEDS: CHOLECALCIFEROL 1,000 UNITS 25 MCG TAB PO SCH (08:48)
[2020-08-18] MEDS: VENLAFAXINE HCL XR 150 MG CAPXR PO SCH (08:48)
[2020-08-18] MEDS: MULTIVITAMIN TAB PO SCH (08:48)
[2020-08-18] MEDS: levETIRAcetam 250 MG TAB PO SCH ×2 (08:48→16:54)
[2020-08-18] MEDS: AMIODARONE 200 MG TAB PO SCH ×2 (08:48→16:52)
[2020-08-18] MEDS: TAMSULOSIN HCL 0.4 MG CAP PO SCH ×2 (08:48→16:53)
[2020-08-18] MEDS: APIXABAN 5 MG TABLET PO SCH ×2 (08:48→21:18)
[2020-08-18] MEDS: busPIRone 5 MG TAB PO SCH ×2 (08:49→16:53)
[2020-08-18] MEDS: GABAPENTIN 300 MG CAP PO SCH ×2 (08:49→14:09)
[2020-08-18] MEDS: DOCUSATE SODIUM/SENNA 50/8.6MG TAB PO SCH ×2 (08:50→16:54)
[2020-08-18] MEDS ORDERED: dilTIAZem HCl 5 MG/ML 5 ML VIAL IV STA (16:53)
[2020-08-18] MEDS ORDERED: STAT IV Infusion **Titration per Protocol STA (16:53)
[2020-08-18] MEDS: dilTIAZem HCL 125 MG in DEXTROSE 5% 100 ML IV SCH (17:10)
[2020-08-18] MEDS: SIMVASTATIN 20 MG TAB PO SCH (21:18)
[2020-08-18] MEDS: ACETAMINOPHEN 325 MG TAB PO PRN (21:18)
[2020-08-18] MEDS: rOPINIRole HCL 1 MG TABLET PO SCH (21:18)
[2020-08-18] MEDS: GABAPENTIN 400 MG CAP PO SCH (21:19)
--- NOTE | 2020-08-18 21:41 | Hospitalist Progress Note ---
Date of Service August 18, 2020 Assessment & Plan (1) Atrial flutter with rapid ventricular response: New-onset, with thought that this was possibly acute yesterday. TTE on 08/14 showed EF 30-35%. -Patient returned to atrial flutter. -D/W cardio: patient will be placed on diltiazem drip -will continue with amiodarone 200 mg PO BID. - Anticoagulation - [id number] 1-2, started apixaban 5mg PO BID - Cardioverted on 08/17 with return to normal sinus rythm but again reverted back to atrial flutter on 08/18. - Consult cardiology - Appreciate recs (2) Shortness of breath: Suspect secondary to rapid ventricular rate. D-dimer 420low suspicion of pulmonary embolism. - Possibly pulmonary edema given his new heart failure. - Improved today after 2 doses of Lasix 40 mg IV yesterday. Will monitor closely. - Will give an additional dose of Lasix today at 40 mg IV. -Likely multifactorial from systolic cardiomyopathy. (3) Elevated troponin I level: Suspected demand ischemia in the setting of rapid rate as above. Troponin stable at ~0.12 x 3. No further trending needed. - Further testing per cardiology (4) Major depressive disorder: Flat affect today, but no overt depression. No expression of SI/HI. - Continue venlafaxine 150 mg p.o. every morning. (5) Type 2 diabetes mellitus: HbA1c 5.8% in April and again 5.9% this admission. - Hold metformin - Sliding scale insulin -> 110 - 150 in the last 24 hours. (6) BPH without urinary obstruction: - Continue tamsulosin 0.4 mg p.o. twice daily. - Per admitting provider, had some urinary retention due to CVA. Will monitor PVRs. - No indication of retention as of 08/16. (7) Seizure disorder: No seizure episodes here. - Continue Keppra to 50 mg p.o. twice daily. (8) History of CVA (cerebrovascular accident): Per prior notes from [facility] on 04/22/2017, he had a brain aneurysm and SAH in approx. 2006. - CTA head on 08/14 shows aneurysm coils in the suprasellar region with no aneurysm clearly identified. - Continue baclofen, gabapentin (9) DVT prophylaxis: Apixaban per admitting provider for afib. - Discussed with neurology who feel that given there is no current aneurysm bob hugo identified, he can get anticoagulation at minimal additional risk. Admission and Anticipated Discharge Date Admission Date: August 15, 2020 Subjective 60 yo male reports feeling well. He has no new complaints at this time. Review of Systems Review of Systems: All systems reviewed & are unremarkable except as noted in HPI & below Physical Exam Physical Exam: Constitutional: WD/WN, vitals as above Eyes: EOM intact bilaterally; no conjunctival abnormality ENMT: external ear and nose normal, oropharynx normal Neck: trachea midline, no thyromegaly normal visual inspection Respiratory: normal respiratory effort, lungs clear to auscultation no respiratory distress Cardiovascular: Rate/Rhythm: + tachycardic and + irregularly irregular Heart Sounds: normal S1 and normal S2 Vessels: no JVD Extremities: + edema (Trace left) Gastrointestinal (Abdomen): Inspection/Auscultation: abdomen normal to inspection; abdomen not distended Musculoskeletal: no cyanosis or clubbing, extremities motor strength 5/5 Skin: no rashes, warm and dry Neurologic: moves all extremities and awake Psychiatric: Orientation: alert, oriented to person and cooperative Results & Data Results & Data ([facility]) Vital Signs (Past 12 Hours) Vital Signs Temp Pulse Pulse Resp BP BP Pulse Ox 08/18/20 18:57 37.1 C 102 H 22 112/72 90 08/18/20 17:37 121 H 110/73 08/18/20 17:07 130 H 141/86 H 08/18/20 15:30 36.5 C 106 H 18 108/74 90 08/18/20 11:34 37.0 C 54 L 22 124/76 96 PG Care Time/CCT Total # of Minutes Spent Total Time Spent with Patient: Total time spent is greater than 50% in coordination of care (as documented) at patient's floor/unit and/or counseling patient: Coding Level of Care Code 71634 Subseq Hosp Care Lvl 3 Diagnoses Atrial flutter with rapid ventricular response I48.92 Shortness of breath R06.02 Elevated troponin I level R77.8 Major depressive disorder F32.9 Type 2 diabetes mellitus E11.9 BPH without urinary obstruction N40.0 Seizure disorder G40.909 History of CVA (cerebrovascular accident) Z86.73 DVT prophylaxis Z29.9 Time Spent (min) 35
[2020-08-19] MEDS: dilTIAZem HCL 125 MG in DEXTROSE 5% 100 ML IV SCH ×3 (01:06→22:00)
[2020-08-19] MEDS: INSULIN ASPART 100 UNITS/ML 3 ML PEN SC SCH ×4 (07:29→21:01)
[2020-08-19] MEDS: LORazepam 1 MG TAB PO SCH ×2 (08:13→17:01)
[2020-08-19] MEDS: APIXABAN 5 MG TABLET PO SCH ×2 (08:14→20:53)
[2020-08-19] MEDS: MAGNESIUM OXIDE 400 MG TAB PO SCH ×2 (08:14→17:02)
[2020-08-19] MEDS: busPIRone 5 MG TAB PO SCH ×2 (08:14→17:01)
[2020-08-19] MEDS: levETIRAcetam 250 MG TAB PO SCH ×2 (08:14→17:02)
[2020-08-19] MEDS: CHOLECALCIFEROL 1,000 UNITS 25 MCG TAB PO SCH (08:15)
[2020-08-19] MEDS: MULTIVITAMIN TAB PO SCH (08:15)
[2020-08-19] MEDS: BACLOFEN 20 MG TAB PO SCH ×4 (08:15→20:54)
[2020-08-19] MEDS: AMIODARONE 200 MG TAB PO SCH ×2 (08:16→17:01)
[2020-08-19] MEDS: ACETAMINOPHEN 325 MG TAB PO SCH ×2 (08:16→17:02)
[2020-08-19] MEDS: GABAPENTIN 300 MG CAP PO SCH ×2 (08:16→14:24)
[2020-08-19] MEDS: TAMSULOSIN HCL 0.4 MG CAP PO SCH ×2 (08:17→17:01)
[2020-08-19] MEDS: DOCUSATE SODIUM/SENNA 50/8.6MG TAB PO SCH ×2 (08:18→17:01)
[2020-08-19] MEDS: VENLAFAXINE HCL XR 150 MG CAPXR PO SCH (08:18)
--- NOTE | 2020-08-19 10:06 | Cardiology Progress Note ---
Date of Service August 19, 2020 Assessment & Plan (1) Atrial flutter with rapid ventricular response: He had fairly rapid return to atrial flutter following cardioversion, therefore repeat cardioversion is not probably going to be very successful in the near term. My thought would be to achieve better rate control if possible (especially given his left ventricular dysfunction) and repeat cardioversion in 3 to 4 weeks when he has a better likelihood of maintaining sinus rhythm as he will be loaded with amiodarone. His heart rate is reasonable however given his left ventricular dysfunction I think we should get better rate control. Beta- blockade would probably be a good drug for him, either by itself or in addition to diltiazem, due to his left ventricular dysfunction. I am going to start metoprolol succinate 100 mg daily starting today. We can titrate his beta- lisa off if his heart rate drops. Flutter may be difficult to rate control, especially with slow flutters, but since he has variable conduction perhaps we can achieve it. (2) Cardiomyopathy: He has left ventricular dysfunction, it sounds as though he has a long history of that but it seems worse now. It may be rate related, leads to some extent. He should be on a beta-lisa and I am going to add that today and try to continue with rate control. (3) On amiodarone therapy: I would continue amiodarone at 400 mg daily, since we probably should not cardiovert again in the near future I would continue this for about a month before attempting cardioversion again. If we have to we can convert sooner but he would likely have recurrence in the near future. (4) On continuous oral anticoagulation: He should be kept on an anticoagulant, he is doing well on Eliquis and I would continue it. Admission and Anticipated Discharge Date Admission Date: August 15, 2020 Subjective He converted back to atrial fibrillation/flutter shortly after cardioversion, therefore his intravenous diltiazem was started August 18, 2020 again to help control heart rate. He was maintained on oral amiodarone rather than switching to IV. Today he tells me he feels well, although he seems very sleepy and falls asleep as I am talking to him and only has 1 word answers. He does not appear to be in distress. Physical Exam Physical Exam: Constitutional: Alert, cooperative and in no distress. Sleepy. Pulmonary: Clear to auscultation bilaterally. Cardiac: Irregular rhythm with no murmur, gallop or rub. Abdomen: Soft, nontender with normal bowel sounds. Extremities: No edema. Skin: No rash, ecchymoses or petechiae. Results & Data ([facility]) Vital Signs (Past 12 Hours) Vital Signs Temp Pulse Resp BP Pulse Ox 08/19/20 07:53 36.9 C 113 H 20 128/86 92 08/19/20 03:46 37.1 C 118 H 20 115/68 94 08/18/20 23:36 36.9 C 89 20 112/69 91 Laboratory Results Intake and Output 08/18/20 08/19/20 08/19/20 22:59 06:59 14:59 Intake Total 19.917 / 690.667 190.75 / 690.667 Output Total 250 / 650 150 / 650 Balance -230.083 / 40.667 40.75 / 40.667 Intake: IV 19.917 / 110.667 90.75 / 110.667 Rocephin 2,000 mg In D5w 50 ml 0 / 0 @ 100 mls/hr IV Q24H VICKY Rx#: [id number] Cardizem 125 mg In D5 100 ml @ 19.917 / 110.667 90.75 / 110.667 5 MG/HR 5 mls/hr IV .Q24H VICKY Rx#:[id number] Oral 100 / 580 Output: Urine Amount (Catheter) 250 / 650 150 / 650 External 250 / 650 150 / 650 Other: # Unmeasured Voids 1 Weight 116 kg Weight Measurement Method Built in [facility] Diagnostic Findings Telemetry: Atrial fibrillation, possibly flutter, periods of 2-1 AV conduction with a heart rate of about 115 bpm. Heart rate averaging around 100 overall. PG Care Time/CCT Total # of Minutes Spent Total Time Spent with Patient: Total time spent is greater than 50% in coordination of care (as documented) at patient's floor/unit and/or counseling patient: Coding Level of Care Code 96090 Subseq Hosp Care Lvl 3 Diagnoses Atrial flutter with rapid ventricular response I48.92 Cardiomyopathy I42.9 Cardiomyopathy type: unspecified On amiodarone therapy Z79.899 On continuous oral anticoagulation Z79.01 (1) Cardiomyopathy Cardiomyopathy type: unspecified Qualified Code(s): I42.9 - Cardiomyopathy, unspecified
--- NOTE | 2020-08-19 11:16 | Electrocardiogram Report ---
Test Reason : Blood Pressure : / mmHG Vent. Rate : 101 BPM Atrial Rate : 101 BPM P-R Int : 190 ms QRS Dur : 110 ms QT Int : 386 ms P-R-T Axes : 053 011 151 degrees QTc Int : 500 ms Poor data quality, interpretation may be adversely affected Sinus tachycardia T wave abnormality, consider lateral ischemia Abnormal ECG When compared with ECG of 16-AUG-2020 20:50, Sinus rhythm has replaced Atrial flutter T wave inversion no longer evident in Anterior leads Confirmed by Mason Ayers ([id number]) on 08/19/2020 11:16:31 AM Referred By: [facility] Confirmed By:Mason Ayers
--- NOTE | 2020-08-19 11:33 | Electrocardiogram Report ---
Test Reason : Blood Pressure : / mmHG Vent. Rate : 131 BPM Atrial Rate : 131 BPM P-R Int : 000 ms QRS Dur : 098 ms QT Int : 328 ms P-R-T Axes : 000 007 192 degrees QTc Int : 484 ms Atrial fibrillation with rapid ventricular response T wave abnormality, consider lateral ischemia Abnormal ECG When compared with ECG of 18-AUG-2020 07:38, (unconfirmed) Atrial fibrillation has replaced Sinus rhythm Confirmed by Mason Ayers ([id number]) on 08/19/2020 11:32:56 AM Referred By: [facility] Confirmed By:Mason Ayers
[2020-08-19] MEDS: METOPROLOL SUCC 50MG EXT REL TAB PO SCH (12:11)
[2020-08-19] MEDS ORDERED: METOPROLOL TARTRATE 50 MG TAB PO STA (17:01)
[2020-08-19] MEDS ORDERED: POTASSIUM CHLORIDE CRTAB 20 MEQ TABCR PO STA (17:51)
--- NOTE | 2020-08-19 17:53 | XRay Report ---
XR chest 1V portable HISTORY: 60 years-old Male sob acute shortness of breath COMPARISON: Chest radiograph 08/16/2020, chest CT 08/17/2020 TECHNIQUE: Portable AP view of the chest FINDINGS: Cardiac silhouette is enlarged. Pulmonary vascular congestion with persistent reticular opacities. Pa tchy bilateral airspace opacities appear similar to comparison with mild progression within the right lung base. Small pleural effusions. Degenerative changes of the shoulders and spine. IMPRESSION: 1. Cardiomegaly with persistent pulmonary edema and bilateral airspace opacities. Mildly progressed c onsolidation of the right lung base. 2. Small pleural effusions. ACT 112: Negative or not required by law. The above report was generated using voice recognition software. It may contain grammatical, syntax o r spelling errors. Electronically signed by: Je Orosco M.D. 08/19/2020 5:52 PM
[2020-08-19] MEDS ORDERED: FUROSEMIDE 40 MG/4 ML VIAL IV ONE (17:54)
[2020-08-19] MEDS ORDERED: FUROSEMIDE 40 MG in SYRINGE 0 ML IV ONE ×2 (18:00→22:14)
[2020-08-19 18:43] LABS: BUN Creatinine Ratio 25.1 (10-20); Calcium 8.9 mg/dl (8.5-10.1); Creatinine Clr Calc Pharmacy 102.1 ml/min; Est GFR (African American) 86.8; Est GFR (Non-African American) 74.8; Potassium 3.7 mmol/L (3.5-5.1)
[2020-08-19] MEDS: rOPINIRole HCL 1 MG TABLET PO SCH (20:50)
[2020-08-19] MEDS: POTASSIUM CHLORIDE CRTAB 20 MEQ TABCR PO SCH (20:51)
[2020-08-19] MEDS: GABAPENTIN 400 MG CAP PO SCH (20:52)
[2020-08-19] MEDS: SIMVASTATIN 20 MG TAB PO SCH (20:55)
--- NOTE | 2020-08-19 21:34 | Hospitalist Progress Note ---
Date of Service August 19, 2020 Assessment & Plan (1) Atrial flutter with rapid ventricular response: New-onset, with thought that this was possibly acute yesterday. TTE on 08/14 showed EF 30-35%. -Patient remains on atrial flutter. -D/W cardio: patient will be placed on diltiazem drip -will continue with amiodarone 200 mg PO BID. -added metoprolol 100 succinate due to elevated HR added an additional metoprolol tartrate for evening. As patient remains wet, reordered lasix. -will monitor. - Anticoagulation - [id number] 1-2, started apixaban 5mg PO BID - Cardioverted on 08/17 with return to normal sinus rythm but again reverted back to atrial flutter on 08/18. - Consult cardiology - Appreciate recs (2) Shortness of breath: Suspect secondary to rapid ventricular rate. D-dimer 420low suspicion of pulmonary embolism. - Possibly pulmonary edema given his new heart failure. - Improved today after 2 doses of Lasix 40 mg IV yesterday. Will monitor closely. - Will give an additional dose of Lasix today at 40 mg IV. -Likely multifactorial from systolic cardiomyopathy. (3) Elevated troponin I level: Suspected demand ischemia in the setting of rapid rate as above. Troponin stable at ~0.12 x 3. No further trending needed. - Further testing per cardiology (4) Major depressive disorder: Flat affect today, but no overt depression. No expression of SI/HI. - Continue venlafaxine 150 mg p.o. every morning. (5) Type 2 diabetes mellitus: HbA1c 5.8% in April and again 5.9% this admission. - Hold metformin - Sliding scale insulin -> 110 - 150 in the last 24 hours. (6) BPH without urinary obstruction: - Continue tamsulosin 0.4 mg p.o. twice daily. - Per admitting provider, had some urinary retention due to CVA. Will monitor PVRs. - No indication of retention as of 08/16. (7) Seizure disorder: No seizure episodes here. - Continue Keppra to 50 mg p.o. twice daily. (8) History of CVA (cerebrovascular accident): Per prior notes from [facility] on 04/22/2017, he had a brain aneurysm and SAH in approx. 2006. - CTA head on 08/14 shows aneurysm coils in the suprasellar region with no aneurysm clearly identified. - Continue baclofen, gabapentin (9) DVT prophylaxis: Apixaban per admitting provider for afib. - Discussed with neurology who feel that given there is no current aneurysm clearly identified, he can get anticoagulation at minimal additional risk. Admission and Anticipated Discharge Date Admission Date: August 15, 2020 Subjective Patient reports feeling more short of breath today. Review of Systems Review of Systems: All systems reviewed & are unremarkable except as noted in HPI & below Physical Exam Physical Exam: Constitutional: WD/WN, vitals as above Eyes: EOM intact bilaterally; no conjunctival abnormality ENMT: external ear and nose normal, oropharynx normal Neck: trachea midline, no thyromegaly normal visual inspection Respiratory: normal respiratory effort, lung: rales at bases no respiratory distress Cardiovascular: Rate/Rhythm: + tachycardic and + irregularly irregular Heart Sounds: normal S1 and normal S2 Vessels: no JVD Extremities: + edema (Trace left) Gastrointestinal (Abdomen): Inspection/Auscultation: abdomen normal to inspection; abdomen not distended Musculoskeletal: no cyanosis or clubbing, extremities motor strength 5/5 Skin: no rashes, warm and dry Neurologic: moves all extremities and awake Psychiatric: Orientation: alert, oriented to person and cooperative Results & Data Results & Data ([facility]) Vital Signs (Past 12 Hours) Vital Signs Temp Pulse Pulse Resp BP BP Pulse Ox 08/19/20 18:43 36.5 C 72 96/61 L 95 08/19/20 15:18 37.0 C 112 H 19 121/85 91 08/19/20 11:59 37.0 C 61 20 108/67 94 PG Care Time/CCT Total # of Minutes Spent Total Time Spent with Patient: Total time spent is greater than 50% in coordination of care (as documented) at patient's floor/unit and/or counseling patient: Coding Level of Care Code 77673 Subseq Hosp Care Lvl 3 Diagnoses Atrial flutter with rapid ventricular response I48.92 Shortness of breath R06.02 Elevated troponin I level R77.8 Major depressive disorder F32.9 Type 2 diabetes mellitus E11.9 BPH without urinary obstruction N40.0 Seizure disorder G40.909 History of CVA (cerebrovascular accident) Z86.73 DVT prophylaxis Z29.9 Time Spent (min) 35
[2020-08-19] MEDS ORDERED: VANCOMYCIN HCL 1,000 MG/270 ML BAG IV STA (22:01)
[2020-08-19] MEDS ORDERED: VANCOMYCIN CONSULT ACTIVE PRN (22:01)
[2020-08-19 22:24] LABS: Hemoglobin 10.5 g/dL (14.0-18.0); Mean Corpuscular Hemoglobin 28.4 pg (25-34); Mean Corpuscular Hgb Conc 31.8 g/dL (32-36); Mean Corpuscular Volume 89.2 fL (80-100); Mean Platelet Volume 9.8 fL (7.4-10.4); Platelet Count 297 K/uL (130-400); RDW Coefficient of Variation 15.6 % (11.5-14.5); RDW Standard Deviation 50.1 fL (36.4-46.3); White Blood Count 15.34 K/uL (4.8-10.8)
[2020-08-19] MEDS ORDERED: VANCOMYCIN HCL 2,750 MG in SODIUM CHLORIDE 0.9% 500 ML IV ONE (22:30)
[2020-08-19] MEDS ORDERED: CEFEPIME 2,000 MG/20 ML VIAL IV STA (22:38)
[2020-08-20] MEDS: ALBUMIN 25% 12.5 GM/50 ML VIAL IV SCH ×2 (03:30→04:50)
--- NOTE | 2020-08-20 04:28 | Communication Note ---
Date of Service: August 20, 2020 Overnight around 9 PM patient became very cold and clammy, somewhat lethargic, complaining of worse shortness of breath per nursing. When I arrived at bedside patient was tachypneic, could audibly hear crackles with and without stethoscope. Oxymask overnight increased to 8L. Patient has not been febrile, nor hypothermic. Overnight received 40 IV Lasix, second dosing deferred due to hypotension to 90s systolic. Also received albumin infusion. On chart review it was noted on CXR from 08/19 that pulmonary edema was persistent as well as progression of focal consolidation. It was noted that patient had a positive MRSA nares but has not been treated with vancomycin during his time here. CBC ordered which showed an increase in WBC count to 15. Vancomycin and cefepime ordered for suspected pneumonia. On repeat evaluation at 4 AM, patient was still on 8 L oxygen mask however reported that he was more comfortable, though still tachypneic to mid 20s. On exam on repeat evaluation noted to still have bilateral crackles but decreased as compared to earlier in shift. Patient at this time was much more alert and no longer cold and clammy. Continue to monitor for now. Can consider HFNC, BiPAP if necessary for positive pressure. Patient also required straight cath x2 overnight, order placed for [place] for strict intake and output. Resident Activity Tracking Resident Involvement: Resident Care Provided Care Provided: Adult Hospital Medicine
--- NOTE | 2020-08-20 08:08 | Anesthesiology Progress Note ---
Date of Service August 20, 2020 Anesthesia Post Procedure Vital Signs Vital Signs: Temp Pulse Pulse Pulse Resp BP BP 08/20/20 07:35 36.5 C 81 22 112/75 08/20/20 03:29 37 C 91 H 26 H 101/66 08/19/20 23:00 80 08/19/20 22:00 37.1 C 87 22 93/73 L 08/19/20 18:43 36.5 C 72 96/61 L 08/19/20 15:18 37.0 C 112 H 19 121/85 08/19/20 11:59 37.0 C 61 20 108/67 Pulse Ox 08/20/20 07:35 94 08/20/20 03:29 91 08/19/20 23:00 08/19/20 22:00 90 08/19/20 18:43 95 08/19/20 15:18 91 08/19/20 11:59 94 Notes Mental Status: alert / awake / arousable and participated in evaluation Patient Amnestic to Procedure: Yes Nausea / Vomiting: adequately controlled Pain: adequately controlled Airway Patency, RR, SpO2: stable & adequate BP & HR: stable & adequate Hydration State: stable & adequate Anesthetic Complications: no major complications apparent and Pt Satisfied with anesthetic care
[2020-08-20] MEDS: APIXABAN 5 MG TABLET PO SCH (08:09)
[2020-08-20] MEDS: MULTIVITAMIN TAB PO SCH (08:09)
[2020-08-20] MEDS: GABAPENTIN 300 MG CAP PO SCH ×2 (08:10→13:33)
[2020-08-20] MEDS: busPIRone 5 MG TAB PO SCH ×2 (08:10→18:21)
[2020-08-20] MEDS: MAGNESIUM OXIDE 400 MG TAB PO SCH ×2 (08:10→18:24)
[2020-08-20] MEDS: CHOLECALCIFEROL 1,000 UNITS 25 MCG TAB PO SCH (08:10)
[2020-08-20] MEDS: levETIRAcetam 250 MG TAB PO SCH ×2 (08:10→18:22)
[2020-08-20] MEDS: METOPROLOL SUCC 50MG EXT REL TAB PO SCH (08:11)
[2020-08-20] MEDS: ACETAMINOPHEN 325 MG TAB PO SCH ×2 (08:11→18:21)
[2020-08-20] MEDS: AMIODARONE 200 MG TAB PO SCH ×2 (08:11→18:24)
[2020-08-20] MEDS: BACLOFEN 20 MG TAB PO SCH ×4 (08:11→21:11)
[2020-08-20] MEDS: VENLAFAXINE HCL XR 150 MG CAPXR PO SCH (08:11)
[2020-08-20] MEDS: POTASSIUM CHLORIDE CRTAB 20 MEQ TABCR PO SCH ×3 (08:12→21:11)
[2020-08-20] MEDS: DOCUSATE SODIUM/SENNA 50/8.6MG TAB PO SCH ×2 (08:13→18:24)
[2020-08-20] MEDS: TAMSULOSIN HCL 0.4 MG CAP PO SCH ×2 (08:13→18:24)
[2020-08-20] MEDS: INSULIN ASPART 100 UNITS/ML 3 ML PEN SC SCH ×4 (08:13→21:24)
[2020-08-20] MEDS: LORazepam 1 MG TAB PO SCH ×2 (08:17→18:26)
--- NOTE | 2020-08-20 08:41 | Pharmacy Report ---
Pharmacy Abx Initial Consult - Date of Service August 20, 2020 - Pharmacy Dosing Scope Date of Consult: 08/19/20 Consultation requested by: Dr. Silva Pharmacy is consulted to initiate Vancomycin IV dosing therapy, order appropriate labs and adjust drug dose/frequency. - Subjective The patient is a 60 year old M admitted on 08/15/20 16:45. - Objective Height: 6 ft 5 in Weight: 118.3 kg Vital Signs (Past 12hrs): Vital Signs Temp Pulse Pulse Resp BP Pulse Ox 08/20/20 07:35 36.5 C 81 22 112/75 94 08/20/20 03:29 37 C 91 H 26 H 101/66 91 08/19/20 23:00 80 08/19/20 22:00 37.1 C 87 22 93/73 L 90 Lab Results (24hrs): Laboratory Tests (24 Hours) 08/19/20 08/19/20 22:09 18:13 WBC 15.34 H Creatinine 1.06 Est Cr Clr Drug Dosing 102.1 Micro Results: 08/13/20 17:26 Urine Culture - Final Urine,Straight Cath Three types of organisms present, all high counts. Repeat collection recommended. No further identifications or sensitivities to follow. - Risk Factors for Resistance * Resident in a jail or extended-care facility * Current hospitalization > 5 days * History of infection with a multidrug-resistant organism: * Positive MRSA nasal swab * Antimicrobial use within the last 90 days: * Ceftriaxone 2000 mg IV daily x 5 days (08/14-08/19) - Assessment & Plan Assessment 60 year old M admitted on 08/13/20 secondary to atrial flutter with RVR * Chest XR yesterday showed persistent pulmonary edema and bilateral airspace opacities with mildly progressed consolidation of the right lung base. * Leukocytosis worsened yesterday (9.89k--15.34k). Renal function is stable. Previous procalcitonin on 08/15 was negative, will repeat this morning. * Patient became cold, clammy, lethargic and had worsening SOB last evening per nursing. He was also tachypneic. Oxymask had to be increased to 8L. * He was started on Vancomycin and received one dose of Cefepime. Will recommend further pseudomonas coverage given possibility of HCAP/HAP. Plan Vancomycin for treatment of possible pneumonia Vancomycin IV * Loading dose: 2750 mg (23 mg/kg) * Maintenance dose: 1500 mg IV (13 mg/kg) every 12 hours * Goal trough level: 15 to 20 mcg/mL * Trough level ordered for 08/21/20 Pharmacy will continue to follow and will adjust dose/frequency as necessary. Thank you.
[2020-08-20 09:19] LABS: Basophils # (auto) 0.03 K/uL (0-0.2); Basophils % (auto) 0.3 %; Hematocrit (blood only) 34.5 % (42-52); Hemoglobin 10.9 g/dL (14.0-18.0); Immature Granulocytes # (auto) 0.04 K/uL (0.00-0.02); Immature Granulocytes % (auto) 0.3 %; Lymphocytes # (auto) 0.85 K/uL (1.2-3.4); Lymphocytes % (auto) 7.4 %; Mean Corpuscular Hemoglobin 27.9 pg (25-34); Mean Corpuscular Hgb Conc 31.6 g/dL (32-36); Mean Corpuscular Volume 88.2 fL (80-100); Mean Platelet Volume 10.1 fL (7.4-10.4); Monocytes # (auto) 0.46 K/uL (0.11-0.59); Neutrophils # (auto) 10.11 K/uL (1.4-6.5); Platelet Count 261 K/uL (130-400); RDW Coefficient of Variation 15.7 % (11.5-14.5); RDW Standard Deviation 49.7 fL (36.4-46.3); Red Blood Count 3.91 M/uL (4.7-6.1); White Blood Count 11.49 K/uL (4.8-10.8)
--- NOTE | 2020-08-20 09:32 | Cardiology Progress Note ---
Date of Service August 20, 2020 Assessment & Plan (1) Atrial flutter with rapid ventricular response: -converted back to sinus rhythm last evening. -can d/c diltiazem drip. -continue amiodarone and metoprolol. -continue Eliquis. (2) Cardiomyopathy: -LVEF=30-35% on current echo. (3) On amiodarone therapy: -continue amiodarone at 400 mg daily (4) On continuous oral anticoagulation: -continue Eliquis. Admission and Anticipated Discharge Date Admission Date: August 15, 2020 Subjective The patient is resting comfortably in bed without complaints of chest pain, dyspnea, or palpitations. Physical Exam Physical Exam: In general is well-developed well-nourished black male in no acute distress. HEENT exam is negative. Neck is supple with full carotid upstrokes. No obvious bruits. Jugular venous pressure is difficult to evaluate. Cardiovascular exam reveals a regular rhythm with distant heart sounds. No obvious murmurs. Lungs are clear without rales, rhonchi or wheezes. Abdomen is soft without bruits. Extremities reveal intact radial artery pulses bilaterally. Trace pretibial edema is noted. Left hand contracted. Results & Data ([facility]) Vital Signs (Past 12 Hours) Vital Signs Temp Pulse Pulse Resp BP Pulse Ox 08/20/20 07:35 36.5 C 81 22 112/75 94 08/20/20 03:29 37 C 91 H 26 H 101/66 91 08/19/20 23:00 80 08/19/20 22:00 37.1 C 87 22 93/73 L 90 Diagnostic Findings residential monitor notes sinus rhythm. PG Care Time/CCT Total # of Minutes Spent Total Time Spent with Patient: Total time spent is greater than 50% in coordination of care (as documented) at patient's floor/unit and/or counseling patient: Coding Level of Care Code 30221 Subseq Hosp Care Lvl 3 Diagnoses Atrial flutter with rapid ventricular response I48.92 Cardiomyopathy I42.9 Cardiomyopathy type: unspecified On amiodarone therapy Z79.899 On continuous oral anticoagulation Z79.01 (1) Cardiomyopathy Cardiomyopathy type: unspecified Qualified Code(s): I42.9 - Cardiomyopathy, unspecified
[2020-08-20 09:43] LABS: BUN Creatinine Ratio 30.3 (10-20); Est GFR (African American) 85.8; Potassium 3.9 mmol/L (3.5-5.1)
[2020-08-20] MEDS ORDERED: VANCOMYCIN HCL 1,500 MG in SODIUM CHLORIDE 0.9% 500 ML IV SCH (10:00)
--- NOTE | 2020-08-20 10:12 | CT Scan Report ---
CT SCAN OF THE CHEST WITHOUT IV CONTRAST CLINICAL HISTORY: Dyspnea. COMPARISON STUDY: Chest x-ray dated 08/19/2020. Chest CT dated 08/17/2020. TECHNIQUE: CT scan of the thorax was performed from the thoracic inlet to the upper abdomen. Images are reviewed in the axial, sagittal, and coronal planes. IV contrast was not administered for this ex amination as per the referring clinician. A dose lowering technique was utilized adhering to the obdulia jerples of DIANNE. CT DOSE: 1344.85 mGy.cm FINDINGS: Thyroid: Imaged portions of the thyroid gland are normal in size and attenuation. Thoracic aorta: There is mild atherosclerotic calcification of the thoracic aorta, which is normal in caliber and demonstrates standard 3-vessel arch anatomy. Heart: The heart is enlarged and without pericardial effusion. Lungs and pleural spaces: Evaluation of the lung parenchyma is significantly compromised by motion ar tifact. The trachea appears clear. Secretions are noted in the right mainstem bronchus. There are mod erate pleural effusions, left larger than right with associated atelectasis. Groundglass consolidatio n is again seen throughout both lungs. This has progressed as compared to 08/17/2020. Mediastinum: There are enlarged mediastinal lymph nodes. A prevascular node on image #105 measures 13 mm in short axis. A high right peritracheal node measures 13 mm in short axis as seen on image #66. Sadia: Not well assessed without IV contrast. Axillae: There is no axillary lymphadenopathy. Upper abdomen: There are calcified gallstones. The partially imaged kidneys demonstrate cortical atro phy. There are least 2 left renal cysts which measure up to 2 cm. Foci of cortical scarring are noted in the right upper pole. Skeletal structures: Mild degenerative change and scoliosis are noted in the thoracic spine. There ar e mild superior endplate compression deformities in the upper thoracic spine. Intrathecal catheter is in place within the lower thoracic region. No lytic or blastic bony lesions are seen. Soft tissues: Gynecomastia is noted. IMPRESSION: 1. There are moderate pleural effusions, left larger than right with associated atelectasis. These ar e unchanged to modestly increased from 08/17/2020. 2. Multifocal airspace consolidation is seen throughout both lungs. This has progressed as compared t o 08/17/2020. This could represent pulmonary edema, ARDS, and/or multifocal pneumonia. Clinical correla tion will be required. 3. Cardiomegaly. 4. There are numerous mildly enlarged mediastinal lymph nodes. 5. Cholelithiasis. ACT 112: Negative or not required by law. Electronically signed by: Daniel Alexander M.D. 08/20/2020 10:10 AM
[2020-08-20] MEDS ORDERED: FUROSEMIDE 40 MG in SYRINGE 0 ML IV ONE (18:00)
[2020-08-20] MEDS: dilTIAZem HCL 125 MG in DEXTROSE 5% 100 ML IV SCH (18:06)
--- NOTE | 2020-08-20 20:22 | Progress Note ---
Date of Service August 20, 2020 Assessment & Plan (1) Atrial flutter with rapid ventricular response: low grade temp and return of atrial flutter, will recollect urine and have prn metoprolol. antibiotics were stopped today, if fever > 100f will also have 2blood cutlures Admission and Anticipated Discharge Date Admission Date: August 15, 2020 Results & Data ([facility]) Vital Signs (Past 12 Hours) Vital Signs Temp Pulse Pulse Resp BP BP Pulse Ox 08/20/20 19:54 97 H 08/20/20 19:44 100.6 F H 97 H 24 131/82 94 08/20/20 16:01 99.0 F 96 H 23 118/75 93 08/20/20 11:52 97.5 F L 84 20 111/76 95
[2020-08-20] MEDS: rOPINIRole HCL 1 MG TABLET PO SCH (21:11)
[2020-08-20] MEDS: GABAPENTIN 400 MG CAP PO SCH (21:11)
[2020-08-20] MEDS: SIMVASTATIN 20 MG TAB PO SCH (21:11)
--- NOTE | 2020-08-20 22:42 | Hospitalist Progress Note ---
Date of Service August 20, 2020 Assessment & Plan (1) Atrial flutter with rapid ventricular response: New-onset, with thought that this was possibly acute yesterday. TTE on 08/14 showed EF 30-35%. -Patient remains on atrial flutter. -D/W cardio: patient will be placed on diltiazem drip -will continue with amiodarone 200 mg PO BID. -continue metoprolol 100 succinate -patient continues to require lasix, received multiple doses of lasix IV 40 mg As patient remains wet, reordered lasix. - Anticoagulation - [id number] 1-2, started apixaban 5mg PO BID - Cardioverted on 08/17 with return to normal sinus rythm but again reverted back to atrial flutter on 08/18. - Consult cardiology - Appreciate recs (2) Shortness of breath: Suspect secondary to rapid ventricular rate. D-dimer 420low suspicion of pulmonary embolism. - Possibly pulmonary edema given his new heart failure. - Improved today after 2 doses of Lasix 40 mg IV yesterday. Will monitor closely. - Will give an additional dose of Lasix today at 40 mg IV. -Likely multifactorial from systolic cardiomyopathy. (3) Elevated troponin I level: Suspected demand ischemia in the setting of rapid rate as above. Troponin stable at ~0.12 x 3. No further trending needed. - Further testing per cardiology (4) Major depressive disorder: Flat affect today, but no overt depression. No expression of SI/HI. - Continue venlafaxine 150 mg p.o. every morning. (5) Type 2 diabetes mellitus: HbA1c 5.8% in April and again 5.9% this admission. - Hold metformin - Sliding scale insulin -> 110 - 150 in the last 24 hours. (6) BPH without urinary obstruction: - Continue tamsulosin 0.4 mg p.o. twice daily. - Per admitting provider, had some urinary retention due to CVA. Will monitor PVRs. - No indication of retention as of 08/16. (7) Seizure disorder: No seizure episodes here. - Continue Keppra to 50 mg p.o. twice daily. (8) History of CVA (cerebrovascular accident): Per prior notes from [facility] on 04/22/2017, he had a brain aneurysm and SAH in approx. 2006. - CTA head on 08/14 shows aneurysm coils in the suprasellar region with no aneurysm clearly identified. - Continue baclofen, gabapentin (9) DVT prophylaxis: holding eliquis for now. - Discussed with neurology who feel that given there is no current aneurysm clearly identified, he can get anticoagulation at minimal additional risk. (10) Bilateral pleural effusion: Had discussion with pulmonary for thoracocenthesis. Will hold anticoagulation for likely thoracocenthesis on Thursday. D/W cardio who agree that there is risk with holding anticoagulant currently, patient though will benefit from thoracocenthesis as not responing to diuretics. Admission and Anticipated Discharge Date Admission Date: August 15, 2020 Subjective Patient is more lethargic today. Review of Systems Review of Systems: All systems reviewed & are unremarkable except as noted in HPI & below Physical Exam Physical Exam: Constitutional: WD/WN, vitals as above Eyes: EOM intact bilaterally; no conjunctival abnormality ENMT: external ear and nose normal, oropharynx normal Neck: trachea midline, no thyromegaly normal visual inspection Respiratory: decreased breath sounds with rales in lower thrid bilaterally Cardiovascular: Rate/Rhythm: + tachycardic and + irregularly irregular Heart Sounds: normal S1 and normal S2 Vessels: no JVD Extremities: + edema (Trace left) Gastrointestinal (Abdomen): Inspection/Auscultation: abdomen normal to inspection; abdomen not distended Musculoskeletal: no cyanosis or clubbing, extremities motor strength 5/5 Skin: no rashes, warm and dry Neurologic: moves all extremities and awake Psychiatric: Orientation: lethargic Results & Data Results & Data ([facility]) Vital Signs (Past 12 Hours) Vital Signs Temp Pulse Pulse Resp BP BP Pulse Ox 08/20/20 19:54 97 H 08/20/20 19:44 38.1 C H 97 H 24 131/82 94 08/20/20 16:01 37.2 C 96 H 23 118/75 93 08/20/20 11:52 36.4 C L 84 20 111/76 95 PG Care Time/CCT Total # of Minutes Spent Total Time Spent with Patient: Total time spent is greater than 50% in coordination of care (as documented) at patient's floor/unit and/or counseling patient: Coding Level of Care Code 29879 Subseq Hosp Care Lvl 3 Diagnoses Atrial flutter with rapid ventricular response I48.92 Shortness of breath R06.02 Elevated troponin I level R77.8 Major depressive disorder F32.9 Type 2 diabetes mellitus E11.9 BPH without urinary obstruction N40.0 Seizure disorder G40.909 History of CVA (cerebrovascular accident) Z86.73 DVT prophylaxis Z29.9 Bilateral pleural effusion J90 Time Spent (min) 35
[2020-08-20] MEDS ORDERED: VANCOMYCIN CONSULT ACTIVE PRN (23:00)
[2020-08-20] MEDS: CEFEPIME 2,000 MG in SYRINGE 0 ML IV SCH (23:49)
[2020-08-20] MEDS: VANCOMYCIN HCL 1,500 MG in SODIUM CHLORIDE 0.9% 500 ML IV SCH (23:49)
[2020-08-21] MEDS ORDERED: FUROSEMIDE 40 MG in SYRINGE 0 ML IV ONE ×2 (00:30→14:00)
[2020-08-21 00:59] LABS: Allen Test Pos (Pos); HCO3 ABG 21 mmol/L (19-24); Oxygen Saturation ABG 94.1 % (90-95); PCO2 ABG 28 mmHg (35-46); PO2 ABG 66 mmHg (80-95); pH ABG 7.48 (7.35-7.45)
[2020-08-21] MEDS: METOPROLOL TARTRATE 1 MG/ML VIAL IV PRN (03:16)
[2020-08-21] MEDS ORDERED: AMIODARONE IV BOLUS & DRIP IV STA (04:18)
[2020-08-21] MEDS ORDERED: STAT IV Infusion **Titration per Protocol STA (04:18)
[2020-08-21] MEDS ORDERED: AMIODARONE / D5W 150 MG/100 ML BAG IV STA (04:29)
[2020-08-21] MEDS ORDERED: 0.2 MICRON FILTER SET 1 EA IV ONE (04:30)
--- NOTE | 2020-08-21 04:42 | Communication Note ---
Date of Service: August 21, 2020 Overnight called to patient's bedside for reports of lethargy, tachypnea. 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 Denied chest pain, headache. Endorsed sensation of dyspnea. Patient had ABG performed with low O2, started on CPAP, which he tolerated for a few hours. After a few hours of CPAP he was more alert, but more fidgety and agitated. He was noted at that time to go into AFib with RVR, HR 120-150s fluctuating. Given Lopressor 5mg IV x1 as BP was 110s/60s, HR briefly went to 110s for about 10 minutes before returning to 130-140s. BP at second check was 90s/50s, deferred repeat Lopressor dosing. Amiodarone push and gtt ordered, and patient transferred to PCU. Patient's HR went down to 110s with amiodarone push, continue gtt. Resident Activity Tracking Resident Involvement: Resident Care Provided Care Provided: Adult [facility] Medicine
[2020-08-21] MEDS ORDERED: AMIODARONE / D5W 360 MG/200 ML BAG IV ONE (04:45)
[2020-08-21] MEDS: MAGNESIUM OXIDE 400 MG TAB PO SCH ×2 (08:15→17:44)
[2020-08-21] MEDS: TAMSULOSIN HCL 0.4 MG CAP PO SCH ×2 (08:15→17:44)
[2020-08-21] MEDS: MULTIVITAMIN TAB PO SCH (08:16)
[2020-08-21] MEDS: BACLOFEN 20 MG TAB PO SCH ×4 (08:16→21:02)
[2020-08-21] MEDS: CHOLECALCIFEROL 1,000 UNITS 25 MCG TAB PO SCH (08:16)
[2020-08-21] MEDS: busPIRone 5 MG TAB PO SCH ×2 (08:17→17:44)
[2020-08-21] MEDS: levETIRAcetam 250 MG TAB PO SCH ×2 (08:17→17:44)
[2020-08-21] MEDS: ACETAMINOPHEN 325 MG TAB PO SCH ×2 (08:18→17:44)
[2020-08-21] MEDS: VENLAFAXINE HCL XR 150 MG CAPXR PO SCH (08:20)
[2020-08-21] MEDS: POTASSIUM CHLORIDE CRTAB 20 MEQ TABCR PO SCH ×3 (08:20→21:02)
[2020-08-21] MEDS: METOPROLOL SUCC 50MG EXT REL TAB PO SCH (08:21)
[2020-08-21] MEDS: DOCUSATE SODIUM/SENNA 50/8.6MG TAB PO SCH ×2 (08:23→17:44)
[2020-08-21] MEDS: LORazepam 1 MG TAB PO SCH ×2 (08:23→17:44)
[2020-08-21] MEDS: INSULIN ASPART 100 UNITS/ML 3 ML PEN SC SCH ×4 (08:44→21:00)
[2020-08-21] MEDS ORDERED: VANCOMYCIN TROUGH ONE ×3 (09:30→11:30)
--- NOTE | 2020-08-21 10:37 | Pulmonary Consultation ---
Date of Consultation August 21, 2020 Assessment & Plan (1) Bilateral pleural effusion: Impression: This 60-year-old -[place] male that was admitted on 08/13/2020 for acute shortness of breath. He was found to have pulmonary edema as well as pleural effusions. He has been diuresed with furosemide. Cumulatively the patient is 4.2 L ahead in spite of diuresis. We are asked to see the patient for evaluation and possible thoracentesis. Patient currently is anticoagulated on Eliquis (apixaban). His last dose was 08/20/2020 in the morning. 1. Pleural effusions: Patient does have left ventricular dysfunction with a current ejection fraction of 30 to 35%. Echocardiogram also shows hypokinesis of the left ventricle. Patient appears to have edema on chest x-ray and CT of the chest in addition to small to moderate pleural effusions. Continue to hold apixaban and we will evaluate tomorrow morning for possible thoracentesis. Patient does not need to be n.p.o. for this procedure. In the meantime, we will continue to diurese as the patient is 4.2 L ahead for cumulative fluid this admission. 2. Hypoxemic respiratory failure: Multifactorial to cardiopulmonary etiology. ABG this morning shows alkalosis. Patient has been converted over to high flow supplemental oxygen. Patient does have a prior history of tobacco abuse but is unclear if he has a diagnosis of COPD. Would target an SaO2 of around 90%. Patient does have a mild leukocytosis. He is afebrile. He has no significant sputum production. Procalcitonin was -0.08. MRSA nasal screen was positive 08/13/20. Blood cultures x2 are pending. Patient currently is being treated for urinary tract infection and MRSA. Currently on cefepime and vancomycin. Gill nue high flow supplemental O2 as above 3. Atrial flutter with RVR: Patient was started on amiodarone. Cardiology is following. 4. Left ventricular dysfunction: Hypokinesis of the left ventricle. Mitral valve regurgitation. Cardiology is following. 5. History of tobacco abuse: Patient smoked most of his adult life. He quit smoking in 2006 when he had a stroke. No indication for smoking cessation counseling Thank you very much for including us in the care of this patient. We will follow along with you. Please refer to Dr. Moore's addendum and corrections for further recommendations. (2) Pulmonary edema: Chronicity: acute Qualified Code(s): J81.0 - Acute pulmonary edema (3) Left ventricular dysfunction: (4) Acute respiratory failure: Respiratory failure complication: hypoxia Qualified Code(s): J96.01 - Acute respiratory failure with hypoxia (5) History of CVA (cerebrovascular accident): (6) Type 2 diabetes mellitus: Diabetes mellitus complication status: with other specified complication Diabetes mellitus nursing home insulin use: without nursing home use Qualified Code(s): E11.69 - Type 2 diabetes mellitus with other specified complication (7) Seizure disorder: (8) Atrial flutter with rapid ventricular response: (9) Urinary tract infection: Hematuria presence: without hematuria Urinary tract infection type: acute cystitis Qualified Code(s): N30.00 - Acute cystitis without hematuria Supervising Physician Co-Signing Physician Notes Seen and examined. Imaging independently reviewed. Discussed with pulmonary KELTON and agree with assessment and plan as noted. Pleural effusions likely secondary to fluid overload. Agree with continued diuretics. Anticoagulation is being withheld appropriately for potential pleural procedure. Will perform bedside ultrasound tomorrow morning and assess whether or not there is enough fluid to safely tap. Additional management per the patient's primary service. History of Present Illness Attending Physician: Ever Lomeli History of Present Illness Attending: Dr. Moore This is a 60-year-old -[place] male that resides at [facility]. He has a past medical history including CVA, brain aneurysm, atrial flutter with rapid ventricular response on chronic anticoagulation, BPH, left ventricular dysfunction, cardiomyopathy, hyperglycemia. The patient has been a resident at [facility] since his previous CVA with ruptured brain aneurysm followed by emergent craniotomy in 2006. He has a mother and a sister. He has never been and has no children. He reports that his sister is his POA. The patient presented on August 13, 2020 with acute onset of shortness of breath and tachycardia. In the emergency department he received 6 mg of IV adenosine with no effect. He then received 12 mg which revealed underlying a trial flutter. He was also found to have gross urinary tract infection was started on ceftriaxone. This the time of the patient's admission he has had bilateral pleural effusions which appeared small to moderate on chest x-ray. Yesterday the patient had a CT scan of the chest without contrast which showed moderate pleural effusions left larger than right with associated atelectasis. The patient also has numerous mildly enlarged mediastinal lymph nodes which may or may not be reactive. Chest x-ray today shows persistent pulmonary edema. In addition to pulmonary issues the patient also has left ventricular dysfunction. Echocardiogram reveals reduced left ventricular ejection fraction of 30 to 35%. There is moderate global hypokinesis of the left ventricle. Patient also has moderate mitral regurgitation. There is no evidence of aortic valve disease. On examination today, patient seem to be cooperative and was able to give me some of his history as well information regarding his mother and sister. He is aware of where he lives and how long he has been at [facility]. He knows why he came to the hospital. He denies any acute shortness of breath today. At the time my examination he had removed his Oxymask as well as nasal cannula and was oxygen on room air at 87 to 89%. 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 He quit smoking at the time of his stroke in 2006. The patient denies any chest pain or tightness. He has no cough. He denies any hemoptysis. He does report shortness of breath with exertion. He states he is never had pleural effusions before and is not aware of any previous thoracentesis. He denies any history of malignancy. He has no other acute complaints. Allergies Allergy/AdvReac Type Severity Reaction Status Date / Time No Known Allergies Allergy Verified 08/13/20 15:49 Home Medications Medication Instructions Recorded Confirmed Type acetaminophen [Tylenol] 650 mg PO BIDM MDD 3 GRAMS/24 HOURS 08/13/20 08/13/20 History acetaminophen [Tylenol] 650 mg PO Q6H PRN MDD 3 GRAMS/24 08/13/20 08/13/20 History HOURS baclofen 20 mg PO QID 08/13/20 08/13/20 History buspirone 10 mg PO BIDM 08/13/20 08/13/20 History cholecalciferol (vitamin D3) 2,000 mcg PO QAM 08/13/20 08/13/20 History [Vitamin D3] gabapentin 300 mg PO BID 08/13/20 08/13/20 History gabapentin 400 mg PO HS 08/13/20 08/13/20 History levetiracetam [Keppra] 250 mg PO BIDM 08/13/20 08/13/20 History lorazepam 1 mg PO BIDM 08/13/20 08/13/20 History magnesium oxide 400 mg PO BIDM 08/13/20 08/13/20 History metformin 500 mg PO BIDM 08/13/20 08/13/20 History multivitamin [Daily-Adair] 1 tab PO QAM 08/13/20 08/13/20 History ropinirole 1 mg PO QPM 08/13/20 08/13/20 History sennosides-docusate sodium [Senna 1 tab-cap PO BIDM 08/13/20 08/13/20 History Plus] simvastatin 40 mg PO HS 08/13/20 08/13/20 History tamsulosin [Flomax] 0.4 mg PO BIDM 08/13/20 08/13/20 History venlafaxine [Effexor XR] 150 mg PO QAM 08/13/20 08/13/20 History Patient History Medical History Abnormal EKG Anxiety disorder BPH without urinary obstruction Brain aneurysm Contracture of left hand Dehydration Dysphagia Essential hypertension Generalized muscle weakness Hyperglycemia Major depressive disorder Nontraumatic subarachnoid hemorrhage Personal history of covid-19 Personal history of methicillin resistant Staphylococcus aureus Quadriplegia, unspecified Seizure disorder Stroke Transient paralysis Type 2 diabetes mellitus Unspecified dementia without behavioral disturbance Unspecified glaucoma Unsteadiness on feet Urinary tract infection Surgical History H/O tracheostomy Family History (Updated 08/21/20 @ 12:43 by Daniel Hernandez PA-C) Other Family history non-contributory Social History (Updated 08/21/20 @ 12:48 by Daniel Hernandez PA-C) Smoking Status: Former smoker Age Quit Using Tobacco: 54; packs per day: 1; Smoking End Date: 2006; Do You Dip or Chew Tobacco: No; Hx Alcohol Use: No Hx Substance Use: No Communication Ability: Effective Beliefs That Will Affect Care: None marital status details: Never Current Living Situation: Custodial Current Living Situation Comment: [facility] 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 Has not worked since [facility] How many Children do You have: 0 Feels Safe at Home: Yes Safety Concerns: Feels Safe At This Time Assistive Devices: Oxygen - Continuous Assistive Devices Comment: lower Partial Review of Systems Review of Systems: All systems reviewed & are unremarkable except as noted in HPI & below Physical Exam Physical Exam: GENERAL : No acute distress EYES: No icterus, gaze conjugate NOSE: No evidence of epistaxis MOUTH: No lesions or candidiasis NECK: Supple LUNGS: Coarse crackles. Diaphragmatic excursion less than 10 cm. No appreciation of bronchospasm. HEART: Regular, rate controlled at 85 bpm ABDOMEN: Soft, NT, ND, BS Present EXTREMITIES: No LE edema, pedal pulses intact NEURO: A&OX3 Results & Data Results & Data ([facility]) Vital Signs (Past 12 Hours) Vital Signs Temp Pulse Pulse Pulse Resp BP BP 08/21/20 08:16 36.8 C 119 H 16 08/21/20 04:55 37.0 C 120 H 18 104/58 L 08/21/20 04:52 138 H 08/21/20 03:33 37.0 C 96 H 20 120/68 08/21/20 03:16 122 H 113/63 08/21/20 01:50 105 H 22 08/21/20 00:56 105 H 08/20/20 23:43 37.3 C 113 H 24 BP Pulse Ox 08/21/20 08:16 115/73 98 08/21/20 04:55 93 08/21/20 04:52 08/21/20 03:33 92 08/21/20 03:16 08/21/20 01:50 92 08/21/20 00:56 08/20/20 23:43 115/76 91 Laboratory Results 08/20/20 08:55 08/21/20 11:20 08/16/20 08/21/20 08/21/20 21:02 00:37 10:40 ABG pH 7.43 7.48 H 7.48 H ABG pCO2 37 28 L 28 L ABG pO2 75 L 66 L 55 L ABG HCO3 ABG O2 Saturation 95.5 H 94.1 89.3 L ABG Base Excess 0.0 -2.0 -2.0 INR 1.1 (0.9-1.1) 08/13/20 16:12 Diagnostic Findings XR chest 1V portable HISTORY: Increased hypoxia, shortness of breath COMPARISON: Chest 08/19/2020. FINDINGS: Progressive multifocal bilateral airspace opacities. No pneumothorax. The heart remains enlarged. There are small bilateral pleural effusions. IMPRESSION: Progressive multifocal bilateral airspace opacities. Cardiomegaly and small bilateral pleural effusions persist. Electronically signed by: Hung Villa M.D. 08/21/2020 11:16 AM PG Care Time/CCT Total # of Minutes Spent Total Time Spent with Patient: Total time spent is greater than 50% in coordination of care (as documented) at patient's floor/unit and/or counseling patient: 60 minutes Coding Level of Care Code 01066 Inpt Consult Level 4 Medical Decision Making Moderate Complexity Diagnoses Bilateral pleural effusion J90 Pulmonary edema J81.0 Chronicity: acute Left ventricular dysfunction I51.9 Acute respiratory failure J96.01 Respiratory failure complication: hypoxia History of CVA (cerebrovascular accident) Z86.73 Type 2 diabetes mellitus E11.69 Diabetes mellitus complication status: with other specified complication Diabetes mellitus physical therapy aides teacher insulin use: without physical therapy aides teacher use Seizure disorder G40.909 Atrial flutter with rapid ventricular response I48.92 Urinary tract infection N30.00 Hematuria presence: without hematuria Urinary tract infection type: acute cystitis Time Spent (min) 60
[2020-08-21 11:00] LABS: HCO3 ABG 21 mmol/L (19-24); Oxygen Saturation ABG 89.3 % (90-95); PCO2 ABG 28 mmHg (35-46); PO2 ABG 55 mmHg (80-95); pH ABG 7.48 (7.35-7.45)
[2020-08-21 11:01] LABS: Allen Test Pos (Pos)
[2020-08-21] MEDS: VANCOMYCIN HCL 1,500 MG in SODIUM CHLORIDE 0.9% 500 ML IV SCH ×2 (11:05→23:21)
--- NOTE | 2020-08-21 11:17 | XRay Report ---
XR chest 1V portable HISTORY: Increased hypoxia, shortness of breath COMPARISON: Chest 08/19/2020. FINDINGS: Progressive multifocal bilateral airspace opacities. No pneumothorax. The heart remains enl arged. There are small bilateral pleural effusions. IMPRESSION: Progressive multifocal bilateral airspace opacities. Cardiomegaly and small bilateral pleural effusio ns persist. ACT 112: Negative or not required by law. Electronically signed by: Hung Villa M.D. 08/21/2020 11:16 AM
[2020-08-21] MEDS: AMIODARONE / D5W 360 MG/200 ML BAG IV SCH (11:19)
[2020-08-21 12:02] LABS: Est GFR (African American) 77.8; Est GFR (Non-African American) 67.1
[2020-08-21] MEDS: CEFEPIME 2,000 MG in SYRINGE 0 ML IV SCH ×2 (12:24→23:21)
--- NOTE | 2020-08-21 12:31 | Pharmacy Report ---
Pharmacy Abx Dose Short Note - Date of Service August 21, 2020 - Assessment & Plan Assessment 60 year old M admitted on 08/13/20 secondary to atrial flutter with RVR * Day #3 of antimicrobial therapy * Antibiotics initially discontinued last evening but then patient's breathing worsened so Vancomycin and Cefepime were re-started. Did have a one time fever of 38.1oC around 2000 last night. * Requiring HFNC at 30 L/min today. Still experiencing some tachypnea. Renal fxn slightly worse today. * Pulm consulted. Will await their recommendations. Plan Vancomycin * Trough level of 16.2 mcg/mL is therapeutic * Continue dose of 1500 mg IV every 12 hours * Goal trough level: 15 to 20 mcg/mL * Trough level ordered for: 08/23/20 Cefepime * Cefepime 2 g IV every 12 hours Pharmacy will continue to follow and will adjust dose/frequency as necessary. Thank you.
[2020-08-21 14:53] LABS: Basophils # (auto) 0.07 K/uL (0-0.2); Basophils % (auto) 0.3 %; Eosinophils # (auto) 0.21 K/uL (0-0.5); Hematocrit (blood only) 33.8 % (42-52); Hemoglobin 10.8 g/dL (14.0-18.0); Immature Granulocytes # (auto) 0.07 K/uL (0.00-0.02); Immature Granulocytes % (auto) 0.3 %; Lymphocytes # (auto) 1.26 K/uL (1.2-3.4); Lymphocytes % (auto) 6.2 %; Mean Corpuscular Hemoglobin 28.3 pg (25-34); Mean Corpuscular Volume 88.5 fL (80-100); Mean Platelet Volume 9.6 fL (7.4-10.4); Monocytes # (auto) 1.94 K/uL (0.11-0.59); Monocytes % (auto) 9.6 %; Neutrophils # (auto) 16.73 K/uL (1.4-6.5); Neutrophils % (auto) 82.6 %; Platelet Count 278 K/uL (130-400); RDW Coefficient of Variation 16.1 % (11.5-14.5); RDW Standard Deviation 51.4 fL (36.4-46.3); Red Blood Count 3.82 M/uL (4.7-6.1); White Blood Count 20.28 K/uL (4.8-10.8)
--- NOTE | 2020-08-21 16:29 | Cardiology Progress Note ---
Date of Service August 21, 2020 Assessment & Plan (1) Atrial flutter with rapid ventricular response: -atrial flutter recurred last evening. -intravenous amiodarone was restarted. -continue metoprolol succinate. -Kandice currently on hold for possible thoracentesis tomorrow. (2) Cardiomyopathy: -LVEF=30-35% on current echocardiogram. (3) On amiodarone therapy: -continue amiodarone drip for now. (4) On continuous oral anticoagulation: -Jignaquis currently on hold as described.. Admission and Anticipated Discharge Date Admission Date: August 15, 2020 Subjective The patient is resting comfortably in bed without complaints of chest pain, dyspnea, or palpitations. Intravenous amiodarone was restarted last evening due to atrial flutter with a rapid ventricular response. Physical Exam Physical Exam: In general is well-developed well-nourished black male in no acute distress. HEENT exam is negative. Neck is supple with full carotid upstrokes. No obvious bruits. Jugular venous pressure is difficult to evaluate. Cardiovascular exam reveals a regular rhythm with distant heart sounds. No obvious murmurs. Lungs are clear without rales, rhonchi or wheezes. Abdomen is soft without bruits. Extremities reveal intact radial artery pulses bilaterally. Trace pretibial edema is noted. Left hand contracted. Results & Data ([facility]) Vital Signs (Past 12 Hours) Vital Signs Temp Pulse Pulse Pulse Resp BP BP 08/21/20 15:06 105 H 24 08/21/20 13:00 108 H 08/21/20 11:21 92 H 28 H 08/21/20 08:16 36.8 C 119 H 16 115/73 08/21/20 04:55 37.0 C 120 H 18 104/58 L 08/21/20 04:52 138 H Pulse Ox 08/21/20 15:06 92 08/21/20 13:00 08/21/20 11:21 95 08/21/20 08:16 98 08/21/20 04:55 93 08/21/20 04:52 Diagnostic Findings shop estimator notes sinus rhythm at approximately 9100 beats per minute with paroxysms of atrial flutter. PG Care Time/CCT Total # of Minutes Spent Total Time Spent with Patient: Total time spent is greater than 50% in coordination of care (as documented) at patient's floor/unit and/or counseling patient: Coding Level of Care Code 77235 Subseq Hosp Care Lvl 3 Diagnoses Atrial flutter with rapid ventricular response I48.92 Cardiomyopathy I42.9 Cardiomyopathy type: unspecified On amiodarone therapy Z79.899 On continuous oral anticoagulation Z79.01 (1) Cardiomyopathy Cardiomyopathy type: unspecified Qualified Code(s): I42.9 - Cardiomyopathy, unspecified
--- NOTE | 2020-08-21 16:59 | XRay Report ---
XR chest 1V portable CLINICAL HISTORY: hypoxia COMPARISON STUDY: Chest CT August 2020. Chest radiograph August 21, 2020 at 10:39 AM. FINDINGS: There is no pneumothorax. Bilateral pleural effusions persist. Extensive bilateral airspace opacities with relative sparing of the right middle and right lower lobes are again noted. These hav e mildly progressed. Cardiomediastinal silhouette is stable. IMPRESSION: 1. Progressive extensive bilateral airspace opacities which may reflect pulmonary edema, pneumonia or ARDS. 2. Persistent bilateral pleural effusions. 3. Cardiomegaly. ACT 112: Negative or not required by law. Electronically signed by: Abdifatah Mariscal M.D. 08/21/2020 4:58 PM
[2020-08-21] MEDS: SIMVASTATIN 20 MG TAB PO SCH (21:02)
[2020-08-21] MEDS: rOPINIRole HCL 1 MG TABLET PO SCH (21:03)
--- NOTE | 2020-08-21 22:37 | Hospitalist Progress Note ---
Date of Service August 21, 2020 Assessment & Plan (1) Atrial flutter with rapid ventricular response: New-onset, with thought that this was possibly acute yesterday. TTE on 08/14 showed EF 30-35%. -Patient remains on atrial flutter. -D/W cardio: patient will be placed on diltiazem drip -Amiodarone is switched to IV amodarone. -continue metoprolol 100 succinate -patient continues to require lasix, received multiple doses of lasix IV 40 mg As patient remains wet, reordered lasix on 06/20 - Anticoagulation - [id number] 1-2, started apixaban 5mg PO BID: held for thoracocenthesis. - Cardioverted on 08/17 with return to normal sinus rythm but again reverted back to atrial flutter on 08/18. - Consult cardiology - Appreciate recs (2) Shortness of breath: Suspect secondary to rapid ventricular rate. D-dimer 420low suspicion of pulmonary embolism. - Possibly pulmonary edema given his new heart failure. - Improved today after 2 doses of Lasix 40 mg IV yesterday. Will monitor closely. - Will give an additional dose of Lasix today at 40 mg IV. -Likely multifactorial from systolic cardiomyopathy. -dUE TO fever, and worsening tachycardia and WBC. added cefepime and vanco. (3) Elevated troponin I level: Suspected demand ischemia in the setting of rapid rate as above. Troponin stable at ~0.12 x 3. No further trending needed. - Further testing per cardiology (4) Major depressive disorder: Flat affect today, but no overt depression. No expression of SI/HI. - Continue venlafaxine 150 mg p.o. every morning. (5) Type 2 diabetes mellitus: HbA1c 5.8% in April and again 5.9% this admission. - Hold metformin - Sliding scale insulin -> 110 - 150 in the last 24 hours. (6) BPH without urinary obstruction: - Continue tamsulosin 0.4 mg p.o. twice daily. - Per admitting provider, had some urinary retention due to CVA. Will monitor PVRs. - No indication of retention as of 08/16. (7) Seizure disorder: No seizure episodes here. - Continue Keppra to 50 mg p.o. twice daily. (8) History of CVA (cerebrovascular accident): Per prior notes from [facility] on 04/22/2017, he had a brain aneurysm and SAH in approx. 2006. - CTA head on 08/14 shows aneurysm coils in the suprasellar region with no aneurysm clearly identified. - Continue baclofen, gabapentin (9) DVT prophylaxis: holding eliquis for now. - Discussed with neurology who feel that given there is no current aneurysm clearly identified, he can get anticoagulation at minimal additional risk. (10) Bilateral pleural effusion: Had discussion with pulmonary for thoracocenthesis. Will hold anticoagulation for likely thoracocenthesis on Thursday. D/W cardio who agree that there is risk with holding anticoagulant currently, patient though will benefit from thoracocenthesis as not responding to diuretics. Admission and Anticipated Discharge Date Admission Date: August 15, 2020 Subjective 60 yo male appears lethargic but more awake. Review of Systems Review of Systems: All systems reviewed & are unremarkable except as noted in HPI & below Physical Exam Physical Exam: Constitutional: WD/WN, vitals as above Eyes: EOM intact bilaterally; no conjunctival abnormality ENMT: external ear and nose normal, oropharynx normal Neck: trachea midline, no thyromegaly normal visual inspection Respiratory: decreased breath sounds with rales in lower third bilaterally Cardiovascular: Rate/Rhythm: + tachycardic and + irregularly irregular Heart Sounds: normal S1 and normal S2 Vessels: no JVD Extremities: + edema (Trace left) Gastrointestinal (Abdomen): Inspection/Auscultation: abdomen normal to inspection; abdomen not distended Musculoskeletal: no cyanosis or clubbing, extremities motor strength 5/5 Skin: no rashes, warm and dry Neurologic: moves all extremities and awake Psychiatric: Orientation: lethargic Results & Data Results & Data ([facility]) Vital Signs (Past 12 Hours) Vital Signs Temp Pulse Pulse Pulse Resp BP BP 08/21/20 20:00 37.1 C 105 H 24 122/82 08/21/20 16:30 36.6 C 79 18 123/72 08/21/20 15:06 105 H 24 08/21/20 13:00 108 H 08/21/20 11:21 92 H 28 H Pulse Ox 08/21/20 20:00 95 08/21/20 16:30 96 08/21/20 15:06 92 08/21/20 13:00 08/21/20 11:21 95 PG Care Time/CCT Total # of Minutes Spent Total Time Spent with Patient: Total time spent is greater than 50% in coordination of care (as documented) at patient's floor/unit and/or counseling patient: Coding Level of Care Code 95306 Subseq Hosp Care Lvl 3 Diagnoses Atrial flutter with rapid ventricular response I48.92 Shortness of breath R06.02 Elevated troponin I level R77.8 Major depressive disorder F32.9 Type 2 diabetes mellitus E11.69 Diabetes mellitus complication status: with other specified complication Diabetes mellitus half-way insulin use: without long line teamster use BPH without urinary obstruction N40.0 Seizure disorder G40.909 History of CVA (cerebrovascular accident) Z86.73 DVT prophylaxis Z29.9 Bilateral pleural effusion J90 Time Spent (min) 35 (1) Type 2 diabetes mellitus Diabetes mellitus complication status: with other specified complication Diabetes mellitus half-way insulin use: without long line teamster use Qualified Code(s): E11.69 - Type 2 diabetes mellitus with other specified complication
[2020-08-22] MEDS: AMIODARONE / D5W 360 MG/200 ML BAG IV SCH ×3 (00:55→22:48)
[2020-08-22 02:31] LABS: Hemoglobin 10.7 g/dL (14.0-18.0); Mean Corpuscular Hemoglobin 28.6 pg (25-34); Mean Corpuscular Hgb Conc 32.4 g/dL (32-36); Mean Corpuscular Volume 88.2 fL (80-100); Mean Platelet Volume 10.1 fL (7.4-10.4); Platelet Count 336 K/uL (130-400); RDW Standard Deviation 51.1 fL (36.4-46.3); Red Blood Count 3.74 M/uL (4.7-6.1); White Blood Count 20.16 K/uL (4.8-10.8)
[2020-08-22 02:48] LABS: BUN Creatinine Ratio 41.4 (10-20); Calcium 8.6 mg/dl (8.5-10.1); Creatinine Clr Calc Pharmacy 99.8 ml/min; Est GFR (African American) 84.8; Est GFR (Non-African American) 73.2; Magnesium 2.7 mg/dl (1.8-2.4)
[2020-08-22 02:49] LABS: Phosphorus 3.1 mg/dl (2.5-4.9)
[2020-08-22] MEDS ORDERED: FUROSEMIDE 40 MG in SYRINGE 0 ML IV ONE (06:45)
[2020-08-22] MEDS: METOPROLOL TARTRATE 1 MG/ML VIAL IV PRN ×3 (08:28→23:59)
[2020-08-22] MEDS: LORazepam 1 MG TAB PO SCH ×2 (08:34→16:42)
[2020-08-22] MEDS: POTASSIUM CHLORIDE CRTAB 20 MEQ TABCR PO SCH ×3 (08:34→21:10)
[2020-08-22] MEDS: MAGNESIUM OXIDE 400 MG TAB PO SCH ×2 (08:35→16:43)
[2020-08-22] MEDS: MULTIVITAMIN TAB PO SCH (08:35)
[2020-08-22] MEDS: BACLOFEN 20 MG TAB PO SCH ×4 (08:36→21:10)
[2020-08-22] MEDS: CHOLECALCIFEROL 1,000 UNITS 25 MCG TAB PO SCH (08:36)
[2020-08-22] MEDS: ACETAMINOPHEN 325 MG TAB PO SCH ×2 (08:37→17:01)
[2020-08-22] MEDS: TAMSULOSIN HCL 0.4 MG CAP PO SCH ×2 (08:40→16:44)
[2020-08-22] MEDS: busPIRone 5 MG TAB PO SCH ×2 (08:40→16:45)
[2020-08-22] MEDS: levETIRAcetam 250 MG TAB PO SCH ×2 (08:42→16:44)
[2020-08-22] MEDS: VENLAFAXINE HCL XR 150 MG CAPXR PO SCH (08:43)
[2020-08-22] MEDS: METOPROLOL SUCC 50MG EXT REL TAB PO SCH (08:44)
[2020-08-22] MEDS: INSULIN ASPART 100 UNITS/ML 3 ML PEN SC SCH ×4 (08:51→21:28)
--- NOTE | 2020-08-22 08:56 | XRay Report ---
XR chest 1V portable CLINICAL HISTORY: Hypoxia, Small pleural effusions COMPARISON STUDY: 08/21/2020 FINDINGS: Heart is enlarged. There are persistent multifocal pulmonary airspace opacities. Small subp ulmonic pleural effusions are suspected. Diagnostic considerations remain pulmonary edema, multifocal pneumonia, or ARDS. IMPRESSION: Persistent multifocal pulmonary airspace opacities. ACT 112: Negative or not required by law. Electronically signed by: Nayan Hsu M.D. 08/22/2020 8:54 AM
[2020-08-22] MEDS: DOCUSATE SODIUM/SENNA 50/8.6MG TAB PO SCH ×2 (11:40→16:42)
[2020-08-22] MEDS: CEFEPIME 2,000 MG in SYRINGE 0 ML IV SCH (11:45)
[2020-08-22] MEDS: VANCOMYCIN HCL 1,500 MG in SODIUM CHLORIDE 0.9% 500 ML IV SCH (11:46)
--- NOTE | 2020-08-22 13:31 | Procedure Note ---
Procedure Note Date of Service August 22, 2020 Procedure: Diagnostic therapeutic ultrasound-guided catheter thoracentesis Clergy Member: Dr. Robb Moore Indication: Pleural effusion Consent: Signed by patient and verified with timeout prior to procedure Anesthesia: 10 mL's 1% lidocaine without epinephrine local. Procedure: Consent was verified and timeout performed. Appropriate imaging studies were reviewed prior to the procedure. Patient was placed in a seated position and limited thoracic ultrasound was performed of the bilateral chest. See separate imaging. Small left-sided effusion was noted with trivial right-sided effusion. Site appropriate for thoracentesis was selected. The skin was prepped and draped in normal sterile fashion. Lidocaine was used for local analgesia. Fluid was aspirated via the finder needle. A small skin deirdre was made with the scalpel and the catheter over the needle apparatus was advanced over the rib into the pleural space. Using the syringe one-way valve system, a total of 550 mL's of yellow fluid was removed. Procedure was terminated due to inability to drain any additional fluid. The catheter was removed and observed to be intact. A sterile dressing was applied. Post procedure chest x-ray was ordered. Fluid was sent for cytology, Gram stain and culture, cell count differential, LDH, glucose, total protein, and pH Follow-up thoracic ultrasound after the procedure demonstrated trivial residual pleural fluid. The patient tolerated the procedure well without obvious complication Coding CPT Codes Pulmonary/Thoracic - Pulmonary and Thoracic: 81974 Thoracentesis w imaging ([id number]) [facility] [place] Procedure Codes (Charges) Pulmonary/Thoracic Procedure 1: Pulmonary and Thoracic: 39873 Thoracentesis w imaging
--- NOTE | 2020-08-22 13:39 | Pulmonology Progress Note ---
Date of Service August 22, 2020 Assessment & Plan (1) Bilateral pleural effusion: Impression: This 60-year-old -A[place] male that was admitted on 08/13/2020 for acute shortness of breath. He was found to have pulmonary edema as well as pleural effusions. He has been diuresed with furosemide. Cumulatively the patient is >5 L ahead in spite of diuresis. We are asked to see the patient for evaluation and possible thoracentesis. Patient currently is anticoagulated on Eliquis (apixaban). His last dose was 08/20/2020 in the morning. 1. Pleural effusions: Patient does have left ventricular dysfunction with a current ejection fraction of 30 to 35%. Echocardiogram also shows hypokinesis of the left ventricle. Although patient's chest x-ray is improving from a pleural effusion standpoint, he continues to have higher oxygen demands. He is still on high flow oxygen. We will perform thoracentesis. Dr. Moore will see the patient at bedside. Consent has been obtained by Dr. Moore from the sister Moreno Osorio who is the POA and is on the chart. Continue to titrate supplemental oxygen to a SaO2 of 88 to 92%. We will send pleural fluid to the lab for analysis. 2. Hypoxemic respiratory failure: Multifactorial to cardiopulmonary etiology. ABG revealed alkalosis with no evidence of hypercapnia. Patient continues on hi gh flow supplemental oxygen. Patient does have a prior history of tobacco abuse but is unclear if he has a diagnosis of COPD. Would target an SaO2 of around 90%. Patient does have a mild leukocytosis. He is afebrile. He has no significant sputum production. Procalcitonin was -0.08. MRSA nasal screen was positive 08/13/20. Blood cultures x2 are negative for growth as collected 08/20/2020. Patient currently is being treated for urinary tract infection and MRSA. Currently on cefepime and vancomycin. Continue high flow supplemental O2 as above and titrate as tolerated. Patient may benefit from pulmonary function testing as an outpatient. 3. Atrial flutter with RVR: Patient continues on amiodarone. Cardiology is following. 4. Left ventricular dysfunction: Hypokinesis of the left ventricle. Mitral valve regurgitation. Cardiology is following. 5. History of tobacco abuse: Patient smoked most of his adult life. He quit smoking in 2006 when he had a stroke. No indication for smoking cessation counseling Thank you very much for including us in the care of this patient. We will follow along with you. Please refer to Dr. Moore's addendum and corrections for further recommendations. (2) Pulmonary edema: Chronicity: acute Qualified Code(s): J81.0 - Acute pulmonary edema (3) Left ventricular dysfunction: (4) Acute respiratory failure: Respiratory failure complication: hypoxia Qualified Code(s): J96.01 - Acute respiratory failure with hypoxia (5) History of CVA (cerebrovascular accident): (6) Type 2 diabetes mellitus: Diabetes mellitus complication status: with other specified complication Diabetes mellitus medical terminologist insulin use: without nursing home use Qualified Code(s): E11.69 - Type 2 diabetes mellitus with other specified complication (7) Seizure disorder: (8) Atrial flutter with rapid ventricular response: (9) Urinary tract infection: Hematuria presence: without hematuria Urinary tract infection type: acute cystitis Qualified Code(s): N30.00 - Acute cystitis without hematuria Admission and Anticipated Discharge Date Admission Date: August 15, 2020 Supervising Physician Co-Signing Physician Notes Seen and examined. Agree with assessment plan as noted by KELTON. The patient underwent thoracentesis with removal of 550 cc of serous fluid. Suspect this is a transudate. Would favor continued diuresis. May need to increase Lasix or potentially add thiazide diuretic or potassium sparing diuretics to improve diuretics. His kidney function appears to be tolerating diuresis quite well. Would try and target 1 to 2 L negative every 24 hours. Would not recommend serial thoracentesis as a long-term management strategy. Wean oxygen as tolerated. We will follow up with pleural fluid studies tomorrow and then likely sign off. Subjective Attending: Dr. Moore Is a 60-year-old -Azerbaijani male who was admitted 08/13/2020. He has had progressive shortness of breath. He was also found to have progressive pleural effusions bilaterally. The patient states he has no shortness of breath today however he is on high flow oxygen at 25 L/min and an FiO2 of 40%. He has no respiratory distress on observation. He has no use of accessory muscles. He is awake and alert and answers questions appropriate. He denies any fever or chills. He has no chest pain or tightness. He does complain of some left leg pain secondary to positioning. He has no other acute complaints at this time. Review of Systems Review of Systems: All systems reviewed & are unremarkable except as noted in Subjective Physical Exam Physical Exam: GENERAL : No acute distress. Somewhat lethargic today but easily arousable. EYES: No icterus, gaze conjugate. Pupils equal round and reactive to light. NOSE: No evidence of epistaxis. High flow nasal cannula is in place. MOUTH: No lesions or candidiasis. Mucosa is moist. Tongue is midline. NECK: Supple LUNGS: Some rales at the bilateral bases. No appreciation of bronchospasm. Diaphragmatic excursion is less than 10 cm. HEART: Irregular, irregular, rate controlled ABDOMEN: Soft, NT, ND, BS Present EXTREMITIES: No LE edema, pedal pulses intact NEURO: Awake and alert. Results & Data Results & Data ([facility]) Vital Signs (Past 12 Hours) Vital Signs Temp Pulse Pulse Resp BP BP Pulse Ox 08/22/20 11:30 37.0 C 76 20 129/76 96 08/22/20 11:13 101 H 20 97 08/22/20 08:28 146 H 08/22/20 08:00 37.0 C 89 18 114/70 94 08/22/20 07:12 105 H 27 H 95 08/22/20 06:15 110 H 28 H 90 08/22/20 04:49 37.2 C 79 24 111/74 90 Laboratory Results 08/22/20 02:17 08/22/20 02:17 INR 1.1 (0.9-1.1) 08/13/20 16:12 Diagnostic Findings XR chest 1V portable CLINICAL HISTORY: Hypoxia, Small pleural effusions COMPARISON STUDY: 08/21/2020 FINDINGS: Heart is enlarged. There are persistent multifocal pulmonary airspace opacities. Small subpulmonic pleural effusions are suspected. Diagnostic considerations remain pulmonary edema, multifocal pneumonia, or ARDS. IMPRESSION: Persistent multifocal pulmonary airspace opacities. Electronically signed by: Nayan Hsu M.D. 08/22/2020 8:54 AM PG Care Time/CCT Total # of Minutes Spent Total Time Spent with Patient: Total time spent is greater than 50% in coordination of care (as documented) at patient's floor/unit and/or counseling patient: 20 minutes Coding Level of Care Code 60920 Subseq Hosp Care Lvl 2 Diagnoses Bilateral pleural effusion J90 Pulmonary edema J81.0 Chronicity: acute Left ventricular dysfunction I51.9 Acute respiratory failure J96.01 Respiratory failure complication: hypoxia History of CVA (cerebrovascular accident) Z86.73 Type 2 diabetes mellitus E11.69 Diabetes mellitus complication status: with other specified complication Diabetes mellitus medical terminologist insulin use: without nursing home use Seizure disorder G40.909 Atrial flutter with rapid ventricular response I48.92 Urinary tract infection N30.00 Hematuria presence: without hematuria Urinary tract infection type: acute cystitis Time Spent (min) 20
--- NOTE | 2020-08-22 14:13 | XRay Report ---
XR chest 1V portable HISTORY: S/P Thoracentesis COMPARISON: Chest 08/22/2020. FINDINGS: Small right pleural effusion has decreased in size. Subtle lucency at the right lung base m ay represent a tiny pneumothorax. No left-sided pneumothorax. The heart remains enlarged. Bilateral h azy airspace opacities have slightly improved. IMPRESSION: 1. Decrease in size in the small right pleural effusion. 2. Subtle linear lucency at the right lung base could represent a tiny loculated pneumothorax. Follow -up recommended to ensure resolution. 3. No left-sided pneumothorax. 4. Improved aeration within the bilateral airspace opacities. 5. Stable cardiomegaly. ACT 112: Negative or not required by law. Electronically signed by: Hung Villa M.D. 08/22/2020 2:12 PM
[2020-08-22 14:41] LABS: Glucose Pleural Fluid 149 mg/dl
[2020-08-22 14:45] LABS: LDH Pleural Fluid 143 U/L; Total Protein Pleural Fluid 2.4 g/dl
[2020-08-22 14:53] LABS: Albumin Level 2.7 gm/dl (3.4-5.0); Calcium 9.2 mg/dl (8.5-10.1); Creatinine Clr Calc Pharmacy 81.2 ml/min; Est GFR (African American) 65.9; Est GFR (Non-African American) 56.9; Potassium 3.8 mmol/L (3.5-5.1)
[2020-08-22 15:02] LABS: Albumin Globulin Ratio 0.6 (0.9-2); Bilirubin,Total 0.8 mg/dl (0.2-1); Globulin 4.2 gm/dl (2.5-4.0); Total Protein 6.9 gm/dl (6.4-8.2)
[2020-08-22 15:38] LABS: Appearance Pleural Fluid HAZY; Color Pleural Fluid YELLOW; RBC Pleural Fluid (A) < 3000 /uL; Source Pleural Fluid LEFT LUNG; WBC Pleural Fluid (A) 1069 /uL
[2020-08-22 15:57] LABS: Basophils, Fluid 0 %; Eosinophils, Fluid 0 %; Lymphocytes, Fluid 14 %; Mono,Macrophage,Mesothelial 77 %; Neutrophils, Fluid 9 %
[2020-08-22] MEDS: rOPINIRole HCL 1 MG TABLET PO SCH (21:19)
[2020-08-22] MEDS: SIMVASTATIN 20 MG TAB PO SCH (21:19)
--- NOTE | 2020-08-22 23:39 | Hospitalist Progress Note ---
Date of Service August 22, 2020 Assessment & Plan (1) Atrial flutter with rapid ventricular response: New-onset, with thought that this was possibly acute yesterday. TTE on 08/14 showed EF 30-35%. -Patient remains on atrial flutter. -D/W cardio: patient will be placed on diltiazem drip -Amiodarone is switched to IV amodarone. -continue metoprolol 100 succinate -patient continues to require lasix, received multiple doses of lasix IV 40 mg As patient remains wet, reordered lasix on 06/20 and had dose in AM of 06/21 - Anticoagulation - [id number] 1-2, started apixaban 5mg PO BID: held for thoracocenthesis. - Cardioverted on 08/17 with return to normal sinus rythm but again reverted ba ck to atrial flutter on 08/18. - Consult cardiology - Appreciate recs (2) Shortness of breath: Acute systolic heart failure Suspect secondary to rapid ventricular rate. D-dimer 420low suspicion of pulmonary embolism. - Possibly pulmonary edema given his new heart failure. Likely non ischemic given global hypokinesis. - Improved today after 2 doses of Lasix 40 mg IV yesterday. Will monitor closely. - Will give an additional dose of Lasix today at 40 mg IV. -Likely multifactorial from systolic cardiomyopathy. -dUE TO fever, and worsening tachycardia and WBC. added cefepime and vanco. (3) Elevated troponin I level: Suspected demand ischemia in the setting of rapid rate as above. Troponin stable at ~0.12 x 3. No further trending needed. - Further testing per cardiology (4) Major depressive disorder: Flat affect today, but no overt depression. No expression of SI/HI. - Continue venlafaxine 150 mg p.o. every morning. (5) Type 2 diabetes mellitus: HbA1c 5.8% in April and again 5.9% this admission. - Hold metformin - Sliding scale insulin -> 110 - 150 in the last 24 hours. (6) BPH without urinary obstruction: - Continue tamsulosin 0.4 mg p.o. twice daily. - Per admitting provider, had some urinary retention due to CVA. Will monitor PVRs. - No indication of retention as of 08/16. (7) Seizure disorder: No seizure episodes here. - Continue Keppra to 50 mg p.o. twice daily. (8) History of CVA (cerebrovascular accident): Per prior notes from [facility] on 04/22/2017, he had a brain aneurysm and SAH in approx. 2006. - CTA head on 08/14 shows aneurysm coils in the suprasellar region with no aneurysm clearly identified. - Continue baclofen, gabapentin (9) DVT prophylaxis: holding eliquis for now. - Discussed with neurology who feel that given there is no current aneurysm clearly identified, he can get anticoagulation at minimal additional risk. (10) Bilateral pleural effusion: Had discussion with pulmonary for thoracocenthesis. Will hold anticoagulation for likely thoracocenthesis This was completed today. will resume in AM. Admission and Anticipated Discharge Date Admission Date: August 15, 2020 Subjective Patient is more awake today. He has no complaints and reports breathing better after thoracocenthesis. Updated sister. Review of Systems Review of Systems: All systems reviewed & are unremarkable except as noted in HPI & below Physical Exam Physical Exam: Constitutional: WD/WN, vitals as above Eyes: EOM intact bilaterally; no conjunctival abnormality ENMT: external ear and nose normal, oropharynx normal Neck: trachea midline, no thyromegaly normal visual inspection Respiratory: decreased breath sounds with bibasilar rales. Cardiovascular: Rate/Rhythm: + tachycardic and + irregularly irregular Heart Sounds: normal S1 and normal S2 Vessels: no JVD Extremities: + edema (Trace left) Gastrointestinal (Abdomen): Inspection/Auscultation: abdomen normal to inspec tion; abdomen not distended Musculoskeletal: no cyanosis or clubbing, extremities motor strength 5/5 Skin: no rashes, warm and dry Neurologic: moves all extremities and awake Psychiatric: Orientation: lethargic Results & Data Results & Data ([facility]) Vital Signs (Past 12 Hours) Vital Signs Temp Pulse Pulse Pulse Resp BP BP 08/22/20 20:13 37.6 C H 87 18 109/80 08/22/20 18:26 128 H 113/70 08/22/20 18:22 128 H 113/70 08/22/20 16:00 36.8 C 76 16 08/22/20 15:12 20 08/22/20 14:30 104 H BP Pulse Ox 08/22/20 20:13 97 08/22/20 18:26 08/22/20 18:22 08/22/20 16:00 124/71 96 08/22/20 15:12 95 08/22/20 14:30 PG Care Time/CCT Total # of Minutes Spent Total Time Spent with Patient: Total time spent is greater than 50% in coordination of care (as documented) at patient's floor/unit and/or counseling patient: Coding Level of Care Code 77162 Subseq Hosp Care Lvl 3 Diagnoses Atrial flutter with rapid ventricular response I48.92 Shortness of breath R06.02 Elevated troponin I level R77.8 Major depressive disorder F32.9 Type 2 diabetes mellitus E11.69 Diabetes mellitus complication status: with other specified complication Diabetes mellitus bed bug exterminator insulin use: without [facility] use BPH without urinary obstruction N40.0 Seizure disorder G40.909 History of CVA (cerebrovascular accident) Z86.73 DVT prophylaxis Z29.9 Bilateral pleural effusion J90 Time Spent (min) 35 (1) Type 2 diabetes mellitus Diabetes mellitus complication status: with other specified complication Diabetes mellitus [facility] insulin use: without bed bug exterminator use Qualified Code(s): E11.69 - Type 2 diabetes mellitus with other specified complication
[2020-08-23] MEDS: CEFEPIME 2,000 MG in SYRINGE 0 ML IV SCH ×2 (07:49→21:48)
[2020-08-23] MEDS: LORazepam 1 MG TAB PO SCH ×2 (07:49→17:51)
[2020-08-23] MEDS: busPIRone 5 MG TAB PO SCH ×2 (07:53→17:54)
[2020-08-23] MEDS: levETIRAcetam 250 MG TAB PO SCH ×2 (07:54→17:54)
[2020-08-23] MEDS: TAMSULOSIN HCL 0.4 MG CAP PO SCH ×2 (07:55→17:54)
[2020-08-23] MEDS: MAGNESIUM OXIDE 400 MG TAB PO SCH ×2 (07:55→17:55)
[2020-08-23] MEDS: VENLAFAXINE HCL XR 150 MG CAPXR PO SCH (07:56)
[2020-08-23] MEDS: BACLOFEN 20 MG TAB PO SCH ×4 (07:57→21:48)
[2020-08-23] MEDS: POTASSIUM CHLORIDE CRTAB 20 MEQ TABCR PO SCH ×2 (07:57→22:18)
[2020-08-23] MEDS: CHOLECALCIFEROL 1,000 UNITS 25 MCG TAB PO SCH (07:58)
[2020-08-23] MEDS: MULTIVITAMIN TAB PO SCH (07:58)
[2020-08-23] MEDS: INSULIN ASPART 100 UNITS/ML 3 ML PEN SC SCH ×4 (08:38→21:20)
[2020-08-23] MEDS: ACETAMINOPHEN 325 MG TAB PO SCH ×2 (08:38→17:51)
[2020-08-23] MEDS: DOCUSATE SODIUM/SENNA 50/8.6MG TAB PO SCH ×2 (08:39→18:02)
[2020-08-23] MEDS: METOPROLOL SUCC 50MG EXT REL TAB PO SCH (08:45)
[2020-08-23] MEDS: AMIODARONE / D5W 360 MG/200 ML BAG IV SCH ×2 (10:13→22:19)
[2020-08-23] MEDS ORDERED: VANCOMYCIN TROUGH ONE ×2 (10:30→11:30)
[2020-08-23] MEDS: METOPROLOL TARTRATE 1 MG/ML VIAL IV PRN ×2 (11:33→18:32)
--- NOTE | 2020-08-23 12:00 | Pulmonology Progress Note ---
Date of Service August 23, 2020 Assessment & Plan (1) Bilateral pleural effusion: Impression: This 60-year-old -Hungarian male that was admitted on 08/13/2020 for acute shortness of breath. He was found to have pulmonary edema as well as pleural effusions. He has been diuresed with furosemide. Cumulatively the patient is still>5 L ahead in spite of diuresis. We were asked to see the patient for evaluation and possible thoracentesis which was completed 08/22/2020 with 550 cc evacuated. 1. Pleural effusions: Patient does have left ventricular dysfunction with a current ejection fraction of 30 to 35%. Echocardiogram also shows hypokinesis of the left ventricle. Although patient's chest x-ray is improving from a pleural effusion standpoint, he continues to have higher oxygen demands. He is still on high flow oxygen. Transudate of pleural fluid with thoracentesis 08/22/2020. Continue to titrate supplemental oxygen to a SaO2 of 88 to 92%. Ques tion of very small pneumothorax at the right base after procedure yesterday. Repeat chest x-ray today with no evidence of pneumothorax. There does appear to be some minimal reaccumulation of fluid in the right costovertebral angle. Patient also does appear to have increasing pulmonary opacities bilaterally. 2. Hypoxemic respiratory failure: Multifactorial to cardiopulmonary etiology. ABG revealed alkalosis with no evidence of hypercapnia. Patient continues on high flow supplemental oxygen at 25 L/min and an FiO2 of 40%. Patient does have a prior history of tobacco abuse but is unclear if he has a diagnosis of COPD. Would target an SaO2 of around 90%. Patient does have increasing leukocytosis. He is afebrile. He has no significant sputum production. Procalcitonin was - 0.08. Check repeat procalcitonin today. MRSA nasal screen was positive 08/13/20. Blood cultures x2 are negative for growth as collected 08/20/2020. Patient currently is being treated for urinary tract infection and MRSA. Currently on cefepime and vancomycin. Continue high flow supplemental O2 as above and titrate as tolerated. Patient may benefit from pulmonary function testing as an outpatient. We will also start chest percussion with the pneumo vest. Patient also needs to be out of bed to chair every shift and with meals. Patient does still have room for increased diuresis. Creatinine is 1.33 which is up from 1.08 yesterday. Patient has not received any further furosemide since yesterday. 3. Atrial flutter with RVR: Patient continues on amiodarone. Cardiology is following. Continue on telemetry 4. Left ventricular dysfunction: Hypokinesis of the left ventricle. Mitral valve regurgitation. Cardiology is following. 5. History of tobacco abuse: Patient smoked most of his adult life. He quit smoking in 2006 when he had a stroke. No indication for smoking cessation counseling Thank you very much for including us in the care of this patient. Please refer to Dr. Moore's addendum and corrections for further recommendations. (2) Pulmonary edema: Chronicity: acute Qualified Code(s): J81.0 - Acute pulmonary edema (3) Left ventricular dysfunction: (4) Acute respiratory failure: Respiratory failure complication: hypoxia Qualified Code(s): J96.01 - Acute respiratory failure with hypoxia (5) History of CVA (cerebrovascular accident): (6) Type 2 diabetes mellitus: Diabetes mellitus complication status: with other specified complication Diabetes mellitus terminal clerk insulin use: without fpc use Qualified Code(s): E11.69 - Type 2 diabetes mellitus with other specified complication (7) Seizure disorder: (8) Atrial flutter with rapid ventricular response: (9) Urinary tract infection: Hematuria presence: without hematuria Urinary tract infection type: acute cystitis Qualified Code(s): N30.00 - Acute cystitis without hematuria Admission and Anticipated Discharge Date Admission Date: August 15, 2020 Supervising Physician Co-Signing Physician Notes Patient seen and examined. Agree with assessment plan as noted by ADALGISA castellano. Chest x-ray today demonstrates more persistent airspace opacity in the left hemithorax. There is no evidence of pneumothorax on the right. He continues to remain essentially bedbound. He remains fluid up. Creatinine did bump slightly. Would recommend continued aggressive diuresis as tolerated. Pulmonary toilet including incentive spirometry and flutter valve may be beneficial. Patient's white count remains elevated. He is on amiodarone however I think there is a low likelihood of this causing his underlying pulmonary infiltrates. Pulmonary hemorrhage is possible given the fact that he is systemically anticoagulated however also I believe this is less likely. Risks of continued anticoagulation are outweighed by potential benefits. He is at risk for potential staph pneumonia given his positive nasal MRSA. Would repeat procalcitonin. Given the patient's debilitated state, addressing CODE STATUS would not be unreasonable. Subjective Attending: Dr. Moore Patient seen and examined at bedside today. He continues to have hypoxia and requires high flow supplemental oxygen at 25 L/min and an FiO2 of 40%. Patient has no distress and he denies any shortness of breath. He does continue to have rhonchi in the upper mason. This can be heard at bedside without stethoscopy. Patient denies any chest pain. He has no back pain. He does complain of some right hip pain and persistent left knee pain. He is unaware of any fever. He has no sweats. He is unaware of any rigors overnight. He has no other acute complaints. Review of Systems Review of Systems: All systems reviewed & are unremarkable except as noted in Subjective Physical Exam Physical Exam: GENERAL : No acute distress EYES: No icterus, gaze conjugate NOSE: No evidence of epistaxis. High flow nasal cannula in place MOUTH: No lesions or candidiasis NECK: Supple LUNGS: Rhonchi in the upper mason bilaterally. Some coarse rales at the bases. HEART: Irregular, rate controlled ABDOMEN: Soft, NT, ND, BS Present. No pain with palpation. No guarding EXTREMITIES: No LE edema, pedal pulses intact NEURO: A&OX3 Results & Data Results & Data ([facility]) Vital Signs (Past 12 Hours) Vital Signs Temp Pulse Pulse Resp BP BP Pulse Ox 08/23/20 11:33 160 H 119/68 08/23/20 07:38 37.4 C 80 20 98/68 L 93 08/23/20 03:48 37.7 C H 81 18 132/83 100 08/23/20 00:30 37.4 C 74 20 140/82 98 Laboratory Results 08/22/20 02:17 08/22/20 14:08 Diagnostic Findings No new diagnostic imaging since yesterday. Repeat chest x-ray is pending. PG Care Time/CCT Total # of Minutes Spent Total Time Spent with Patient: Total time spent is greater than 50% in coordin ation of care (as documented) at patient's floor/unit and/or counseling patient: 25 minutes Coding Level of Care Code 80134 Subseq Hosp Care Lvl 2 Diagnoses Bilateral pleural effusion J90 Pulmonary edema J81.0 Chronicity: acute Left ventricular dysfunction I51.9 Acute respiratory failure J96.01 Respiratory failure complication: hypoxia History of CVA (cerebrovascular accident) Z86.73 Type 2 diabetes mellitus E11.69 Diabetes mellitus complication status: with other specified complication Diabetes mellitus terminal clerk insulin use: without terminal clerk use Seizure disorder G40.909 Atrial flutter with rapid ventricular response I48.92 Urinary tract infection N30.00 Hematuria presence: without hematuria Urinary tract infection type: acute cystitis Time Spent (min) 25
--- NOTE | 2020-08-23 12:24 | XRay Report ---
XR chest 1V portable CLINICAL HISTORY: Hypoxia, ? R base pneumothorax COMPARISON STUDY: August 22, 2020 FINDINGS: The heart remains enlarged. There are progressive multifocal airspace opacities. A definite pneumothorax is not visualized on the current study.[ IMPRESSION: Cardiomegaly, and mild progression in the extensive bilateral pulmonary airspace opacitie s ACT 112: Negative or not required by law. Electronically signed by: Nayan Hsu M.D. 08/23/2020 12:23 PM
--- NOTE | 2020-08-23 14:35 | Hospitalist Progress Note ---
Date of Service August 23, 2020 Assessment & Plan (1) Pneumonia: Concern for pneumonia with abx started on 08/20 for concern for pneumonia. Despite abx, he has remained near febrile for several days. - Repeat bloodwork today once PICC is inserted. - Nasal swab for Covid/Bio[employer] - VBG - Follow CXR (2) Atrial flutter with rapid ventricular response: New-onset, with thought that this was possibly acute the day prior to admission. TTE on 08/14 showed EF 30-35%. - Anticoagulation - [id number] 1-2, started apixaban 5mg PO BID - Cardioverted on 08/17 with return to normal sinus rhythm. - Stopped diltiazem and digoxin at that time. Continued amiodarone at 200 mg PO BID -> Returned to atrial flutter on 08/18. - Consult cardiology - Appreciate recs - Lasix 40 mg IV x 1 today. (3) Shortness of breath: Suspect secondary to rapid ventricular rate. D-dimer 420low suspicion of pulmonary embolism. - Possibly pulmonary edema given his new heart failure. - Continue diuresis. (4) Elevated troponin I level: Suspected demand ischemia in the setting of rapid rate as above. Troponin stable at ~0.12 x 3. No further trending needed. - Further testing per cardiology (5) Major depressive disorder: Flat affect today, but no overt depression. No expression of SI/HI. - Continue venlafaxine 150 mg p.o. every morning. (6) Type 2 diabetes mellitus: HbA1c 5.8% in April and again 5.9% this admission. - Hold metformin - Sliding scale insulin -> 110 - 150 in the last 24 hours. (7) BPH without urinary obstruction: - Continue tamsulosin 0.4 mg p.o. twice daily. - Per admitting provider, had some urinary retention due to CVA. Will monitor PVRs. - No indication of retention as of 08/16. (8) Seizure disorder: No seizure episodes here. - Continue Keppra to 50 mg p.o. twice daily. (9) History of CVA (cerebrovascular accident): Per prior notes from [facility] on 04/22/2017, he had a brain aneurysm and SAH in approx. 2006. - CTA head on 08/14 shows aneurysm coils in the suprasellar region with no aneurysm clearly identified. - Continue baclofen, gabapentin (10) DVT prophylaxis: Apixaban per admitting provider for afib. - Discussed with neurology who feel that given there is no current aneurysm clearly identified, he can get anticoagulation at minimal additional risk. Admission and Anticipated Discharge Date Admission Date: August 15, 2020 Subjective Unable to answer today. He was given Ativan for agitation and now unable to answer questions for me. Will open eyes and look around, but then falls back asleep. Review of Systems Review of Systems: Unobtainable due to reduced consciousness Physical Exam Constitutional: WD/WN, vitals as above Eyes: EOM intact bilaterally; no conjunctival abnormality ENMT: external ear and nose normal, oropharynx normal Neck: trachea midline, no thyromegaly normal visual inspection Respiratory: normal respiratory effort, lungs clear to auscultation no respiratory distress Cardiovascular: Rate/Rhythm: + tachycardic and + irregularly irregular Heart Sounds: normal S1 and normal S2 Vessels: no JVD Extremities: + edema (Trace left) Gastrointestinal (Abdomen): Inspection/Auscultation: abdomen normal to inspection; abdomen not distended Musculoskeletal: no cyanosis or clubbing, extremities motor strength 5/5 Skin: no rashes, warm and dry Neurologic: moves all extremities; + not awake Psychiatric: Orientation: + not alert and + not oriented to person Results & Data Results & Data ([facility]) Vital Signs (Past 12 Hours) Vital Signs Temp Pulse Pulse Resp BP BP BP 08/23/20 14:11 08/23/20 12:41 36.5 C 145 H 20 119/68 08/23/20 11:33 160 H 119/68 08/23/20 07:38 37.4 C 80 20 98/68 L 08/23/20 07:00 149 H 08/23/20 03:48 37.7 C H 81 18 132/83 Pulse Ox 08/23/20 14:11 97 08/23/20 12:41 94 08/23/20 11:33 08/23/20 07:38 93 08/23/20 07:00 08/23/20 03:48 100 PG Care Time/CCT Total # of Minutes Spent Total Time Spent with Patient: Total time spent is greater than 50% in coordination of care (as documented) at patient's floor/unit and/or counseling patient: Coding Level of Care Code 78828 Subseq Hosp Care Lvl 3 Diagnoses Pneumonia J18.9 Atrial flutter with rapid ventricular response I48.92 Shortness of breath R06.02 Elevated troponin I level R77.8 Major depressive disorder F32.9 Type 2 diabetes mellitus E11.69 Diabetes mellitus chcf insulin use: without terminal block assembler use Diabetes mellitus complication status: with other specified complication BPH without urinary obstruction N40.0 Seizure disorder G40.909 History of CVA (cerebrovascular accident) Z86.73 DVT prophylaxis Z29.9 (1) Type 2 diabetes mellitus Diabetes mellitus terminal block assembler insulin use: without terminal block assembler use Diabetes mellitus complication status: with other specified complication Qualified Code(s): E11.69 - Type 2 diabetes mellitus with other specified complication
[2020-08-23] MEDS ORDERED: FUROSEMIDE 40 MG in SYRINGE 0 ML IV ONE (14:49)
[2020-08-23] MEDS ORDERED: FUROSEMIDE 40 MG/4 ML VIAL IV ONE (15:00)
--- NOTE | 2020-08-23 15:25 | XRay Report ---
SINGLE VIEW CHEST CLINICAL HISTORY: PICC placement. FINDINGS: An AP, portable, upright chest radiograph is compared to chest x-ray performed earlier the same day 08/23/2020 and correlated with chest CT dated 08/20/2020. The examination is significantly degr aded by portable technique and patient rotation. A right PICC line has been placed. The tip is coiled in the right subclavian vein. The heart is enlarged. There is pulmonary vascular congestion. Multifo jumana airspace consolidation is again seen throughout both lungs, most confluent in the right upper lob e. There are layering pleural effusions. No pneumothorax is identified. The skeletal structures are o steopenic. The bony thorax is grossly intact. IMPRESSION: 1. A right PICC line has been placed. The tip is coiled in the subclavian vein and repositioning is i ndicated. 2. Multifocal airspace consolidation is similar in appearance to today's earlier examination. 3. Layering pleural effusions. 4. Cardiomegaly with evidence of congestive failure. ACT 112: Negative or not required by law. Electronically signed by: Daniel Alexander M.D. 08/23/2020 3:24 PM
[2020-08-23 16:23] LABS: Influenza A virus by PCR Negative (Neg); Influenza B virus by PCR Negative (Neg); RSV by PCR Negative (Neg); SARS CoV2 RNA(COVID-19) InHosp NEGATIVE (Negative)
--- NOTE | 2020-08-23 17:39 | XRay Report ---
SINGLE VIEW CHEST CLINICAL HISTORY: PICC placement. FINDINGS: An AP, portable, upright chest radiograph is compared to chest x-ray performed earlier the same day 08/23/2020 and correlated with chest CT dated 08/20/2020. The examination is significantly degr aded by portable technique and patient rotation. A right PICC line has been reposition. The tip now e xtends into the neck within the jugular vein. The heart is enlarged. There is pulmonary vascular segundo estion. Multifocal airspace consolidation is again seen throughout both lungs, most confluent in the right upper lobe. There are layering pleural effusions. No pneumothorax is identified. The skeletal s tructures are osteopenic. The bony thorax is grossly intact. IMPRESSION: 1. A right PICC line has been repositioned. The tip now extends into the neck within the internal jug ular vein. Repositioning is indicated. 2. Multifocal airspace consolidation is similar in appearance to today's earlier examinations. 3. Layering pleural effusions. 4. Cardiomegaly with evidence of congestive failure. ACT 112: Negative or not required by law. Electronically signed by: Daniel Alexander M.D. 08/23/2020 5:38 PM
--- NOTE | 2020-08-23 21:31 | XRay Report ---
SINGLE VIEW CHEST CLINICAL HISTORY: PICC repositioning. FINDINGS: An AP, portable, upright chest radiograph is compared to chest x-ray performed earlier the same day 08/23/2020 and correlated with chest CT dated 08/20/2020. The examination is significantly degr aded by portable technique and patient rotation. A right PICC line has been reposition. The tip remai ns in the neck within the jugular vein. The heart is enlarged. There is pulmonary vascular congestion . Multifocal airspace consolidation is again seen throughout both lungs, most confluent in the right upper lobe. There are layering pleural effusions. No pneumothorax is identified. The skeletal structu res are osteopenic. The bony thorax is grossly intact. IMPRESSION: 1. A right PICC line has been repositioned. The tip remains in the neck within the internal jugular v ein. Repositioning is indicated. 2. Multifocal airspace consolidation is similar in appearance to today's earlier examinations. 3. Layering pleural effusions. 4. Cardiomegaly with evidence of congestive failure. ACT 112: Negative or not required by law. Electronically signed by: Daniel Alexander M.D. 08/23/2020 9:29 PM
[2020-08-23] MEDS: VANCOMYCIN HCL 1,500 MG in SODIUM CHLORIDE 0.9% 500 ML IV SCH ×2 (21:48)
[2020-08-23] MEDS: APIXABAN 5 MG TABLET PO SCH (21:51)
[2020-08-23] MEDS: SIMVASTATIN 20 MG TAB PO SCH (21:53)
[2020-08-23] MEDS: rOPINIRole HCL 1 MG TABLET PO SCH (21:53)
[2020-08-23 22:37] LABS: Basophils # (auto) 0.03 K/uL (0-0.2); Basophils % (auto) 0.2 %; Eosinophils # (auto) 0.77 K/uL (0-0.5); Eosinophils % (auto) 3.9 %; Hematocrit (blood only) 31.8 % (42-52); Immature Granulocytes # (auto) 0.08 K/uL (0.00-0.02); Immature Granulocytes % (auto) 0.4 %; Lymphocytes # (auto) 2.02 K/uL (1.2-3.4); Lymphocytes % (auto) 10.4 %; Mean Corpuscular Hemoglobin 27.7 pg (25-34); Mean Corpuscular Hgb Conc 31.4 g/dL (32-36); Mean Corpuscular Volume 88.1 fL (80-100); Mean Platelet Volume 10.2 fL (7.4-10.4); Monocytes % (auto) 8.2 %; Neutrophils % (auto) 76.9 %; Nucleated RBC # (auto) 0.13 K/uL (0-0); Nucleated RBC % (auto) 0.7 %; Platelet Count 334 K/uL (130-400); RDW Coefficient of Variation 16.1 % (11.5-14.5); RDW Standard Deviation 52.1 fL (36.4-46.3); Red Blood Count 3.61 M/uL (4.7-6.1)
[2020-08-23 22:43] LABS: Base Excess VBG -3.4 mEq/L; Oxygen Saturation VBG 96.4 %; pH VBG 7.48 (7.36-7.41)
[2020-08-23 22:53] LABS: Albumin Level 2.6 gm/dl (3.4-5.0); BUN Creatinine Ratio 46.4 (10-20); Calcium 8.9 mg/dl (8.5-10.1); Creatinine Clr Calc Pharmacy 75.6 ml/min; Est GFR (African American) 60.9; Est GFR (Non-African American) 52.6; Potassium 4.1 mmol/L (3.5-5.1)
[2020-08-23 22:58] LABS: Albumin Globulin Ratio 0.6 (0.9-2); Bilirubin,Total 0.8 mg/dl (0.2-1); Globulin 4.5 gm/dl (2.5-4.0); Total Protein 7.1 gm/dl (6.4-8.2)
[2020-08-24] MEDS ORDERED: HALOPERIDOL LACTATE 5 MG/ML 1 ML VIAL IV STA (06:00)
[2020-08-24 07:08] LABS: Hematocrit (blood only) 30.7 % (42-52); Hemoglobin 9.8 g/dL (14.0-18.0); Mean Corpuscular Hgb Conc 31.9 g/dL (32-36); Mean Corpuscular Volume 87.7 fL (80-100); Mean Platelet Volume 10.6 fL (7.4-10.4); Nucleated RBC # (auto) 0.13 K/uL (0-0); Nucleated RBC % (auto) 0.7 %; Platelet Count 337 K/uL (130-400); RDW Coefficient of Variation 16.2 % (11.5-14.5); RDW Standard Deviation 51.8 fL (36.4-46.3); White Blood Count 18.64 K/uL (4.8-10.8)
[2020-08-24 07:42] LABS: Albumin Level 2.6 gm/dl (3.4-5.0); BUN Creatinine Ratio 49.1 (10-20); Calcium 8.5 mg/dl (8.5-10.1); Creatinine Clr Calc Pharmacy 81.4 ml/min; Est GFR (African American) 67.2; Est GFR (Non-African American) 57.9; Magnesium 3.1 mg/dl (1.8-2.4); Potassium 3.6 mmol/L (3.5-5.1)
[2020-08-24 07:44] LABS: Albumin Globulin Ratio 0.6 (0.9-2); Bilirubin,Total 0.9 mg/dl (0.2-1); Globulin 4.3 gm/dl (2.5-4.0); Total Protein 6.9 gm/dl (6.4-8.2)
[2020-08-24] MEDS: VANCOMYCIN HCL 1,500 MG in SODIUM CHLORIDE 0.9% 500 ML IV SCH ×2 (08:36→20:57)
[2020-08-24] MEDS: CEFEPIME 2,000 MG in SYRINGE 0 ML IV SCH (08:37)
[2020-08-24] MEDS: INSULIN ASPART 100 UNITS/ML 3 ML PEN SC SCH ×4 (08:44→21:20)
[2020-08-24] MEDS: AMIODARONE / D5W 360 MG/200 ML BAG IV SCH ×2 (11:02→23:05)
[2020-08-24] MEDS: LORazepam 1 MG TAB PO SCH ×2 (11:03→16:50)
[2020-08-24] MEDS: BACLOFEN 20 MG TAB PO SCH ×4 (11:05→21:00)
[2020-08-24] MEDS: VENLAFAXINE HCL XR 150 MG CAPXR PO SCH (11:05)
[2020-08-24] MEDS: busPIRone 5 MG TAB PO SCH ×2 (11:06→16:49)
[2020-08-24] MEDS: APIXABAN 5 MG TABLET PO SCH ×2 (11:07→21:01)
[2020-08-24] MEDS: CHOLECALCIFEROL 1,000 UNITS 25 MCG TAB PO SCH (11:08)
[2020-08-24] MEDS: MULTIVITAMIN TAB PO SCH (11:09)
[2020-08-24] MEDS: METOPROLOL SUCC 50MG EXT REL TAB PO SCH (11:09)
[2020-08-24] MEDS: MAGNESIUM OXIDE 400 MG TAB PO SCH ×2 (11:09→16:51)
[2020-08-24] MEDS: levETIRAcetam 250 MG TAB PO SCH ×2 (11:10→16:50)
[2020-08-24] MEDS: ACETAMINOPHEN 325 MG TAB PO SCH ×2 (13:42→16:50)
[2020-08-24] MEDS: TAMSULOSIN HCL 0.4 MG CAP PO SCH ×2 (13:43→16:50)
[2020-08-24] MEDS: DOCUSATE SODIUM/SENNA 50/8.6MG TAB PO SCH ×2 (13:43→17:06)
--- NOTE | 2020-08-24 14:20 | Hospitalist Progress Note ---
Date of Service August 24, 2020 Assessment & Plan (1) Pneumonia: Concern for pneumonia with abx started on 08/20 for concern for pneumonia. Despite abx, he has remained near febrile for several days. - Nasal swab for Covid was negative. He has had both Covid and vaccine, so unlikely. - Taper down to vanc/doxycycline. Stop cefepime. Trend procalcitonin and x-rays. (2) Atrial flutter with rapid ventricular response: New-onset, with thought that this was possibly acute the day prior to admission. TTE on 08/14 showed EF 30-35%. - Anticoagulation - [id number] 1-2, started apixaban 5mg PO BID - Cardioverted on 08/17 with return to normal sinus rhythm. - Stopped diltiazem and digoxin at that time. Continued amiodarone at 200 mg PO BID -> Returned to atrial flutter on 08/18. - Consult cardiology - Appreciate recs - Likely will plan for ablation on Thursday if he doesn't hold sinus. He is going back and forth now, so hopefully amiodarone will take effect. - Lasix 40 mg IV x 1 today. (3) Shortness of breath: Suspect secondary to rapid ventricular rate. D-dimer 420low suspicion of pulmonary embolism. - Possibly pulmonary edema given his new heart failure. - Continue diuresis. (4) Elevated troponin I level: Suspected demand ischemia in the setting of rapid rate as above. Troponin stable at ~0.12 x 3. No further trending needed. - Further testing per cardiology (5) Major depressive disorder: Flat affect today, but no overt depression. No expression of SI/HI. - Continue venlafaxine 150 mg p.o. every morning. (6) Type 2 diabetes mellitus: HbA1c 5.8% in April and again 5.9% this admission. - Hold metformin - Sliding scale insulin -> 110 - 150 in the last 24 hours. (7) BPH without urinary obstruction: - Continue tamsulosin 0.4 mg p.o. twice daily. - Per admitting provider, had some urinary retention due to CVA. Will monitor PVRs. - No indication of retention as of 08/16. (8) Seizure disorder: No seizure episodes here. - Continue Keppra to 50 mg p.o. twice daily. (9) History of CVA (cerebrovascular accident): Per prior notes from [facility] on 04/22/2017, he had a brain aneurysm and SAH in approx. 2006. - CTA head on 08/14 shows aneurysm coils in the suprasellar region with no aneurysm clearly identified. - Continue baclofen, gabapentin (10) DVT prophylaxis: Apixaban per admitting provider for afib. - Discussed with neurology who feel that given there is no current aneurysm clearly identified, he can get anticoagulation at minimal additional risk. Admission and Anticipated Discharge Date Admission Date: August 15, 2020 Subjective Seen after Haldol given this morning. Unable to respond. Review of Systems Review of Systems: Unobtainable due to reduced consciousness Physical Exam Constitutional: WD/WN, vitals as above Eyes: EOM intact bilaterally; no conjunctival abnormality ENMT: external ear and nose normal, oropharynx normal Neck: trachea midline, no thyromegaly normal visual inspection Respiratory: normal respiratory effort, lungs clear to auscultation no respiratory distress Cardiovascular: Rate/Rhythm: + tachycardic and + irregularly irregular Heart Sounds: normal S1 and normal S2 Vessels: no JVD Extremities: + edema (Trace left) Gastrointestinal (Abdomen): Inspection/Auscultation: abdomen normal to inspection; abdomen not distended Musculoskeletal: no cyanosis or clubbing, extremities motor strength 5/5 Skin: no rashes, warm and dry Neurologic: moves all extremities; + not awake Psychiatric: Orientation: + not alert and + not oriented to person Results & Data Results & Data ([facility]) Vital Signs (Past 12 Hours) Vital Signs Temp Pulse Resp BP BP Pulse Ox 08/24/20 08:10 37.1 C 139 H 20 100/59 L 94 08/24/20 04:12 37.5 C 90 18 120/38 L 97 PG Care Time/CCT Total # of Minutes Spent Total Time Spent with Patient: Total time spent is greater than 50% in coordination of care (as documented) at patient's floor/unit and/or counseling patient: Coding Level of Care Code 95246 Subseq Hosp Care Lvl 2 Diagnoses Pneumonia J18.9 Atrial flutter with rapid ventricular response I48.92 Shortness of breath R06.02 Elevated troponin I level R77.8 Major depressive disorder F32.9 Type 2 diabetes mellitus E11.69 Diabetes mellitus skilled nursing insulin use: without skilled nursing use Diabetes mellitus complication status: with other specified complication BPH without urinary obstruction N40.0 Seizure disorder G40.909 History of CVA (cerebrovascular accident) Z86.73 DVT prophylaxis Z29.9 (1) Type 2 diabetes mellitus Diabetes mellitus skilled nursing insulin use: without plastic and reconstructive surgeon use Diabetes mellitus complication status: with other specified complication Qualified Code(s): E11.69 - Type 2 diabetes mellitus with other specified complication
[2020-08-24] MEDS ORDERED: FUROSEMIDE 40 MG in SYRINGE 0 ML IV ONE (14:30)
--- NOTE | 2020-08-24 14:35 | Pulmonology Progress Note ---
Date of Service August 24, 2020 Assessment & Plan (1) Pneumonia: (2) Acute respiratory failure: Impression: This 60-year-old -[place] male that was admitted on 08/13/2020 for acute shortness of breath. He was found to have pulmonary edema as well as pleural effusions. We were asked to see the patient for evaluation and possible thoracentesis which was completed 08/22/2020 with 550 cc evacuated. 1. Pleural effusions: Pleural fluid was transudate of. Suspect this is related to fluid overload. Would recommend continued diuretics until the patient's BUN and creatinine bump. Unfortunately his eyes and nose continue to maintain a fairly even status. Discussed with hospitalist this morning. 2. Hypoxemic respiratory failure: Multifactorial to fluid overload, atelectasis, VQ mismatch. Oxygenation significantly improved over the last 24 to 48 hours and is now down to conventional oxygen at 4 L/min. 3. History of tobacco abuse: Patient smoked most of his adult life. He quit smoking in 2006 when he had a stroke. No indication for smoking cessation counseling 4. Possible pneumonia: Patient's white count has been decreasing since initiation of vancomycin. He is currently day #11 broad-spectrum antibiotics including cefepime and Rocephin. He is day #5 vancomycin. Given the improvement in his numbers (white blood cell count) would favor continuing vancomycin for now. Could consider bronchoscopy however given the fact that he is clinically improved at this point time I would favor continued treatment with vancomycin and following clinically. 5. Management of the patient's other medical issues is deferred to the admitting hospitalist and anesthesia technician We will continue to follow Respiratory failure complication: hypoxia Qualified Code(s): J96.01 - Acute respiratory failure with hypoxia (3) Bilateral pleural effusion: (4) Pulmonary edema: Chronicity: acute Qualified Code(s): J81.0 - Acute pulmonary edema Admission and Anticipated Discharge Date Admission Date: August 15, 2020 Subjective Patient is more somnolent today. He is arousable to verbal and tactile stimulus but does doze off frequently. When he is awake he does state that his breathing is better post thoracentesis. He has been able to be weaned off high flow oxygen and is now down to nasal cannula at 4 L/min. He does not report coughing, chest pain, or palpitations. Review of Systems Review of Systems: Unobtainable due to reduced consciousness Physical Exam Constitutional: WD/WN, vitals as above Eyes: EOM intact bilaterally; no conjunctival abnormality ENMT: external ear and nose normal, oropharynx normal Neck: trachea midline, no thyromegaly normal visual inspection Respiratory: normal respiratory effort, lungs clear to auscultation no respiratory distress Cardiovascular: Rate/Rhythm: + tachycardic and + irregularly irregular Heart Sounds: normal S1 and normal S2 Vessels: no JVD Extremities: + edema (Trace left) Gastrointestinal (Abdomen): Inspection/Auscultation: abdomen normal to inspection; abdomen not distended Musculoskeletal: no cyanosis or clubbing, extremities motor strength 5/5 Skin: no rashes, warm and dry Neurologic: moves all extremities; + not awake Psychiatric: Orientation: + not alert and + not oriented to person Results & Data Results & Data ([facility]) Vital Signs (Past 12 Hours) Vital Signs Temp Pulse Resp BP BP Pulse Ox 08/24/20 08:10 37.1 C 139 H 20 100/59 L 94 08/24/20 04:12 37.5 C 90 18 120/38 L 97 Laboratory Results 08/24/20 06:40 08/24/20 06:40 I/O: about even Diagnostic Findings No new imaging PG Care Time/CCT Total # of Minutes Spent Total Time Spent with Patient: Total time spent is greater than 50% in coordination of care (as documented) at patient's floor/unit and/or counseling patient: Coding Level of Care Code 86024 Subseq Hosp Care Lvl 3 Diagnoses Pneumonia J18.9 Acute respiratory failure J96.01 Respiratory failure complication: hypoxia Bilateral pleural effusion J90 Pulmonary edema J81.0 Chronicity: acute Time Spent (min) 30
--- NOTE | 2020-08-24 14:47 | Cardiology Progress Note ---
Date of Service August 24, 2020 Assessment & Plan (1) Atrial flutter with rapid ventricular response: -atrial flutter and sinus rhythm in a 50-50 split. -intravenous amiodarone to continue over the weekend. -continue metoprolol succinate. -add digoxin 0.25 mg IV x2 doses today. -Eliquis restarted. (2) Cardiomyopathy: -LVEF=30-35% on current echocardiogram. (3) On amiodarone therapy: -continue amiodarone drip over the weekend. (4) On continuous oral anticoagulation: -Eliquis restarted following the thoracentesis. Admission and Anticipated Discharge Date Admission Date: August 15, 2020 Subjective The patient is resting comfortably in bed without complaints of chest pain, dyspnea, palpitations. He is quite somnolent today. Physical Exam Physical Exam: In general is well-developed well-nourished black male in no acute distress. HEENT exam is negative. Neck is supple with full carotid upstrokes. No obvious bruits. Jugular venous pressure is difficult to evaluate. Cardiovascular exam reveals a regular rhythm with distant heart sounds. No obvious murmurs. Lungs are clear without rales, rhonchi or wheezes. Abdomen is soft without bruits. Extremities reveal intact radial artery pulses bilaterally. Trace pretibial edema is noted. Left hand contracted. Results & Data ([facility]) Vital Signs (Past 12 Hours) Vital Signs Temp Pulse Resp BP BP Pulse Ox 08/24/20 08:10 37.1 C 139 H 20 100/59 L 94 08/24/20 04:12 37.5 C 90 18 120/38 L 97 Diagnostic Findings alarm security or surveillance monitor notes sinus rhythm and atrial flutter with a rapid ventricular response. He appears to be in sinus rhythm approximately 50% of the time. When in sinus rhythm, his heart rate is approximately 90 beats per minute. When in atrial flutter, his ventricular response is approximately 120 beats per minute. Monitor reviewed with Dr. Ayers. PG Care Time/CCT Total # of Minutes Spent Total Time Spent with Patient: Total time spent is greater than 50% in coordination of care (as documented) at patient's floor/unit and/or counseling patient: Coding Level of Care Code 18869 Subseq Hosp Care Lvl 3 Diagnoses Atrial flutter with rapid ventricular response I48.92 Cardiomyopathy I42.9 Cardiomyopathy type: unspecified On amiodarone therapy Z79.899 On continuous oral anticoagulation Z79.01 (1) Cardiomyopathy Cardiomyopathy type: unspecified Qualified Code(s): I42.9 - Cardiomyopathy, unspecified
[2020-08-24] MEDS: levETIRAcetam 500 MG TAB PO SCH (17:41)
--- NOTE | 2020-08-24 18:10 | Electrocardiogram Report ---
Test Reason : Blood Pressure : / mmHG Vent. Rate : 133 BPM Atrial Rate : 315 BPM P-R Int : 000 ms QRS Dur : 104 ms QT Int : 336 ms P-R-T Axes : 000 072 093 degrees QTc Int : 500 ms Atrial flutter with variable A-V block with premature ventricular or aberrantly conducted complexes Minimal voltage criteria for LVH, may be normal variant ( Sokolow-Rivera ) Nonspecific T wave abnormality Abnormal ECG When compared with ECG of 18-AUG-2020 16:31, Atrial flutter has replaced Atrial fibrillation Questionable change in QRS axis Nonspecific T wave abnormality has replaced inverted T waves in Lateral leads Confirmed by Gato Greene ([id number]) on 08/24/2020 6:10:09 PM Referred By: [facility] Confirmed By:Gato Greene
[2020-08-24] MEDS: DOXYCYCLINE HYCLATE 100 MG CAP PO SCH (20:58)
[2020-08-24] MEDS: SIMVASTATIN 20 MG TAB PO SCH (21:00)
[2020-08-24] MEDS: rOPINIRole HCL 1 MG TABLET PO SCH (21:01)
[2020-08-25] MEDS ORDERED: SODIUM CHLORIDE 0.45 % 1,000 ML IV SCH (00:45)
[2020-08-25] MEDS ORDERED: VANCOMYCIN TROUGH ONE (07:30)
[2020-08-25] MEDS: LORazepam 1 MG TAB PO SCH ×2 (08:08→17:44)
[2020-08-25] MEDS: MULTIVITAMIN TAB PO SCH (08:09)
[2020-08-25] MEDS: VENLAFAXINE HCL XR 150 MG CAPXR PO SCH (08:09)
[2020-08-25] MEDS: busPIRone 5 MG TAB PO SCH ×2 (08:09→17:46)
[2020-08-25] MEDS: METOPROLOL SUCC 50MG EXT REL TAB PO SCH (08:09)
[2020-08-25] MEDS: MAGNESIUM OXIDE 400 MG TAB PO SCH ×2 (08:09→17:45)
[2020-08-25] MEDS: CHOLECALCIFEROL 1,000 UNITS 25 MCG TAB PO SCH (08:09)
[2020-08-25] MEDS: TAMSULOSIN HCL 0.4 MG CAP PO SCH ×2 (08:09→17:46)
[2020-08-25] MEDS: APIXABAN 5 MG TABLET PO SCH ×2 (08:09→19:53)
[2020-08-25] MEDS: VANCOMYCIN HCL 1,500 MG in SODIUM CHLORIDE 0.9% 500 ML IV SCH (08:10)
[2020-08-25] MEDS: BACLOFEN 20 MG TAB PO SCH (08:10)
[2020-08-25] MEDS: ACETAMINOPHEN 325 MG TAB PO SCH ×2 (08:11→17:46)
[2020-08-25] MEDS: DOXYCYCLINE HYCLATE 100 MG CAP PO SCH ×2 (08:11→21:03)
[2020-08-25] MEDS: levETIRAcetam 500 MG TAB PO SCH (08:12)
[2020-08-25] MEDS: INSULIN ASPART 100 UNITS/ML 3 ML PEN SC SCH ×4 (08:12→19:51)
[2020-08-25] MEDS: DOCUSATE SODIUM/SENNA 50/8.6MG TAB PO SCH ×2 (08:13→17:46)
[2020-08-25 08:35] LABS: Hematocrit (blood only) 31.1 % (42-52); Hemoglobin 9.8 g/dL (14.0-18.0); Mean Corpuscular Hemoglobin 27.8 pg (25-34); Mean Corpuscular Hgb Conc 31.5 g/dL (32-36); Mean Corpuscular Volume 88.1 fL (80-100); Mean Platelet Volume 10.6 fL (7.4-10.4); Platelet Count 335 K/uL (130-400); RDW Coefficient of Variation 16.4 % (11.5-14.5); RDW Standard Deviation 51.9 fL (36.4-46.3); Red Blood Count 3.53 M/uL (4.7-6.1); White Blood Count 19.92 K/uL (4.8-10.8)
--- NOTE | 2020-08-25 08:49 | Pulmonology Progress Note ---
Date of Service August 25, 2020 Assessment & Plan (1) Pneumonia: (2) Acute respiratory failure: Impression: This 60-year-old -[place] male that was admitted on 08/13/2020 for acute shortness of breath. He was found to have pulmonary edema as well as pleural effusions. We were asked to see the patient for evaluation and possible thoracentesis which was completed 08/22/2020 with 550 cc evacuated. 1. Pleural effusions: Pleural fluid was transudate - likely secondary to volume issues. Would recommend continued diuretics until the patient's BUN and creatinine bump. Unfortunately his I/O continue to maintain a fairly even status. Lasix appears to be dosed on a daily basis. Escalating the dose of his kidney function will tolerated to try and achieve a negative fluid balance. If Lasix is ineffectual, may require Lasix in combination with thiazide and/or potassium sparing diuretic 2. Hypoxemic respiratory failure: Multifactorial to fluid overload, atelectasis, VQ mismatch. Oxygenation significantly improved over the last 24 to 48 hours and is now down to conventional oxygen at 3 L/min. 3. History of tobacco abuse: Patient smoked most of his adult life. He quit smoking in 2006 when he had a stroke. No indication for smoking cessation counseling 4. Possible pneumonia: Patient's white count has been decreasing since initiation of vancomycin. He is currently day #12 antibiotics currently doxycycline. He is day #6 vancomycin. Given the improvement in his numbers (white blood cell count) would favor continuing vancomycin for now. Would recommend discontinuation of doxycycline. Noninfectious etiologies including pulmonary hemorrhage could be considered however given the fact that he is clinically improved at this point time I would favor continued treatment with vancomycin and following clinically. We will repeat chest x-ray in 24 to 48 hours 5. 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 He denies any resp iratory issues. His cough is weak but nonproductive. He has been able to wean oxygen down to 3 L. Review of Systems Review of Systems: All systems reviewed & are unremarkable except as noted in HPI & below Physical Exam Constitutional: WD/WN, vitals as above Eyes: EOM intact bilaterally; no conjunctival abnormality ENMT: external ear and nose normal, oropharynx normal Neck: trachea midline, no thyromegaly normal visual inspection Respiratory: normal respiratory effort, lungs clear to auscultation no respiratory distress Cardiovascular: Rate/Rhythm: + tachycardic and + irregularly irregular Heart Sounds: normal S1 and normal S2 Vessels: no JVD Extremities: + edema (Trace left) Gastrointestinal (Abdomen): Inspection/Auscultation: abdomen normal to inspection; abdomen not distended Musculoskeletal: no cyanosis or clubbing, extremities motor strength 5/5 Skin: no rashes, warm and dry Neurologic: moves all extremities; + not awake Psychiatric: Orientation: + not alert and + not oriented to person Results & Data Results & Data ([facility]) Vital Signs (Past 12 Hours) Vital Signs Temp Pulse Resp BP Pulse Ox 08/25/20 04:00 37.7 C H 94 H 22 117/59 L 93 08/25/20 00:00 37.5 C 97 H 22 118/77 94 I/O: remains about even Laboratory Results 08/25/20 08:24 Chemistry panel currently pending Diagnostic Findings No new imaging PG Care Time/CCT Total # of Minutes Spent Total Time Spent with Patient: Total time spent is greater than 50% in coordination of care (as documented) at patient's floor/unit and/or counseling patient: Coding Level of Care Code 15658 Subseq Hosp Care Lvl 2 Diagnoses Pneumonia J18.9 Acute respiratory failure J96.01 Respiratory failure complication: hypoxia Pulmonary edema J81.0 Chronicity: acute
[2020-08-25 09:01] LABS: Albumin Globulin Ratio 0.6 (0.9-2); Albumin Level 2.6 gm/dl (3.4-5.0); BUN Creatinine Ratio 39.3 (10-20); Calcium 8.9 mg/dl (8.5-10.1); Creatinine Clr Calc Pharmacy 65.8 ml/min; Est GFR (African American) 51.9; Est GFR (Non-African American) 44.8; Globulin 4.4 gm/dl (2.5-4.0); Magnesium 2.9 mg/dl (1.8-2.4); Potassium 3.6 mmol/L (3.5-5.1)
--- NOTE | 2020-08-25 10:38 | Neurology Consultation ---
Date of Consultation August 25, 2020 Assessment & Plan (1) Bilateral pleural effusion: (2) On continuous oral anticoagulation: (3) On amiodarone therapy: (4) Cardiomyopathy: (5) History of CVA (cerebrovascular accident): (6) Seizure disorder: (7) S/P coil embolization of cerebral aneurysm: (8) AMS (altered mental status): Karan Guzman is a 60 yo man w/ PMH of HTN, HLD, DM, anxiety/depression, h/o aneurysm s/p coiling c/b stroke and post-stroke epilepsy with residual L-sided weakness, h/o COVID, RLS, and BPH who initially p/t [facility] on 08/14/20 with chest pain and palpitations, found to be in narrow complex tachycardia with possible AFib noted at times. Admitted for cardioversion after dysrhythmia did not respond to IV adenosine/IVFs/IV cardizem. Neurology consulted for new onset AMS during course of hospitalization. # AMS: likely multi-factorial in the setting of new onset renal dysfunction, hypernatremia, transaminitis, possible UTI and medication changes (rapid discontinuation of chronic gabapentin). - would check UA to r/o UTI as that was not checked since 08/13 - would restart home gabapentin at 300mg bid (can increase as tolerated by renal status) - would decrease baclofen to 10mg qid given new onset renal dysfunction - decrease keppra to 750mg bid given worsening renal status - treatment of hyperNa/IAN per primary team - would also check ammonia levels given transaminitis and treat if indicated - low threshold to repeat CTH w/o to r/o any new lesion contributing to AMS Thank you for this interesting consult. Plan of care discussed with primary team. Please call or text with questions. History of Present Illness Attending Physician: Errol Kay MD History of Present Illness Karan Guzman is a 60 yo man w/ PMH of HTN, HLD, DM, anxiety/depression, h/o aneurysm s/p coiling c/b stroke and post-stroke epilepsy with residual L-sided weakness, h/o COVID, RLS, and BPH who initially p/t [facility] on 08/14/20 with chest pain and palpitations, found to be in narrow complex tachycardia with possible AFib noted at times. Admitted for cardioversion after dysrhythmia did not respond to IV adenosine/IVFs/IV cardizem. Neurology consulted for new onset AMS during course of hospitalization. Most recent labs and imaging reviewed. Labs notable for WBC 19.92, hemoglobin 9.8 with MCV 88.1, platelets 335, sodium critically high at 137, potassium 3.6, chloride 127, BUN 64, creatinine 1.62, GFR 44.8, glucose 128, calcium 8.9, mag 2.9, AST elevated 159, ALT elevated to 66 with normal alkaline phosphatase, most recent BNP elevated to >14,000, albumin low at 2.6, recent TSH within normal. Did have a UTI noted on UA from 08/13/2020 though unclear if this was fully treated at admission. CTA head from 08/14/20 independently reviewed and shows encephalomalacia in the right JENNIFER territory extending slightly into the left JENNIFER/MCA border zone (frontal temporal) with 2 aneurysm coils noted (1 in the left JENNIFER, on the left MCA at the bifurcation). He had cardioversion performed on 08/17/2020 after failing medical treatment for atrial flutter. At that time, he did not have any signs of altered mental status and was started on apixaban for atrial flutter and new diagnosis of CHF with EF 30 to 35%. On 08/20, he had onset of fever and recurrence of atrial flutter (no true fever since then). Had urine and blood culture sent at that time; it appears that urine was never sent and blood cultures were no growth x48 hours. He was noted to be lethargic and tachypneic on the evening of 08/21, prompting a thoracentesis and holding apixaban for 2 days (08/22-08/23). In terms of antibiotics, he had been on vancomycin, cefepime and most recently doxycycline. COVID test negative on 08/23. Of note, he was continued on his home keppra 250mg bid and ativan 1mg bid. It appears that his home gabapentin 300mg/700mg was discontinued on 08/21/20 with last dose given on 08/20 PM. Other pertinent medications for mental status include baclofen 20mg qid and prn haldol (last given 08/24 AM). On examination today, he was drowsy bu arousable to voice. He was moving BUEs spontaneously and could wiggle his toes on the right minimally but otherwise minimal movements in BLEs. Knew who he was but otherwise disoriented. Allergies Allergy/AdvReac Type Severity Reaction Status Date / Time No Known Allergies Allergy Verified 08/13/20 15:49 Home Medications Medication Instructions Recorded Confirmed Type acetaminophen [Tylenol] 650 mg PO BIDM MDD 3 GRAMS/24 HOURS 08/13/20 08/13/20 History acetaminophen [Tylenol] 650 mg PO Q6H PRN MDD 3 GRAMS/24 08/13/20 08/13/20 History HOURS baclofen 20 mg PO QID 08/13/20 08/13/20 History buspirone 10 mg PO BIDM 08/13/20 08/13/20 History cholecalciferol (vitamin D3) 2,000 mcg PO QAM 08/13/20 08/13/20 History [Vitamin D3] gabapentin 300 mg PO BID 08/13/20 08/13/20 History gabapentin 400 mg PO HS 08/13/20 08/13/20 History levetiracetam [Keppra] 250 mg PO BIDM 08/13/20 08/13/20 History lorazepam 1 mg PO BIDM 08/13/20 08/13/20 History magnesium oxide 400 mg PO BIDM 08/13/20 08/13/20 History metformin 500 mg PO BIDM 08/13/20 08/13/20 History multivitamin [Daily-Adair] 1 tab PO QAM 08/13/20 08/13/20 History ropinirole 1 mg PO QPM 08/13/20 08/13/20 History sennosides-docusate sodium [Senna 1 tab-cap PO BIDM 08/13/20 08/13/20 History Plus] simvastatin 40 mg PO HS 08/13/20 08/13/20 History tamsulosin [Flomax] 0.4 mg PO BIDM 08/13/20 08/13/20 History venlafaxine [Effexor XR] 150 mg PO QAM 08/13/20 08/13/20 History Patient History Medical History Abnormal EKG Anxiety disorder BPH without urinary obstruction Brain aneurysm Contracture of left hand Dehydration Dysphagia Essential hypertension Generalized muscle weakness Hyperglycemia Major depressive disorder Nontraumatic subarachnoid hemorrhage Personal history of covid-19 Personal history of methicillin resistant Staphylococcus aureus Quadriplegia, unspecified Seizure disorder Stroke Transient paralysis Type 2 diabetes mellitus Unspecified dementia without behavioral disturbance Unspecified glaucoma Unsteadiness on feet Urinary tract infection Surgical History H/O tracheostomy Family History Other Family history non-contributory Social History Smoking Status: Former smoker Age Quit Using Tobacco: 54; packs per day: 1; Smoking End Date: 2006; Do You Dip or Chew Tobacco: No; Hx Alcohol Use: No Hx Substance Use: No Communication Ability: Effective Beliefs That Will Affect Care: None marital status details: Never Current Living Situation: [facility] Current Living Situation Comment: [facility] 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 Has not worked since CVA How many Children do You have: 0 Feels Safe at Home: Yes Safety Concerns: Feels Safe At This Time Assistive Devices: Oxygen - Continuous Assistive Devices Comment: lower Partial Review of Systems Review of Systems: Unobtainable due to reduced consciousness Exam (Neuro) Physical Exam: General Exam: GEN: NAD, sitting in bed. HEENT: No conjunctival injection, no rhinorrhea. CV: Tachycardic, trace peripheral edema PULM: Nonlabored respirations on 4L NC Neuro Exam: MS: Drowsy, arousable to voice. Oriented to person only, not place or date. Speech sparse, mostly fluent and appropriate, +dysarthria, no clear paraphasic errors. Language intact to comprehension, not naming or repetition. Cognition and memory difficult to assess due to AMS. Inattentive. No clear neglect. CN: +BTT. Unable to visualize fundi on fundoscopic exam. PERRLA OU. EOMI without nystagmus. Facial sensation intact to LT. L FP. Hearing intact to conversation. Shoulder shrug normal. Tongue midline. MOTOR: Normal bulk, increased tone in LUE/LLE. No pronator drift in RUE. RUE antigravity without drift, RLE minimal antigravity with drift, LUE minimal antigravity with drift, LLE no antigravity. REFLEXES: 2+ at biceps, triceps, brachioradialis, 1+ patella and absent Achilles bilaterally. Flexor plantar responses bilaterally. SENSORY: Intact to LT without extinction to double simultaneous stimuli. COORDINATION: No dysmetria or ataxia on [id number] in the RUE GAIT: deferred given physical status Results & Data ([facility]) Vital Signs (Past 12 Hours) Vital Signs Temp Pulse Resp BP Pulse Ox 08/25/20 04:00 37.7 C H 94 H 22 117/59 L 93 08/25/20 00:00 37.5 C 97 H 22 118/77 94 PG Care Time/CCT Total # of Minutes Spent Total Time Spent with Patient: Total time spent is greater than 50% in coordination of care (as documented) at patient's floor/unit and/or counseling patient: Coding Level of Care Code 38896 Initial Inpt Care Lvl 3 Diagnoses Bilateral pleural effusion J90 On continuous oral anticoagulation Z79.01 On amiodarone therapy Z79.899 Cardiomyopathy I42.9 Cardiomyopathy type: unspecified History of CVA (cerebrovascular accident) Z86.73 Seizure disorder G40.909 S/P coil embolization of cerebral aneurysm Z98.890 AMS (altered mental status) R41.82 (1) Cardiomyopathy Cardiomyopathy type: unspecified Qualified Code(s): I42.9 - Cardiomyopathy, unspecified
--- NOTE | 2020-08-25 11:06 | Pharmacy Report ---
Pharmacy Abx Dose Progress Nt - Date of Service August 25, 2020 - Pharmacy Dosing Scope The patient is currently receiving the following antimicrobial agents per Pharmacy consult: VANCOMYCIN 1500 mg IV every 12 hours. Pt also receiving Cefepime 2000mg IV Q12hrs - Objective Vital Signs (Past 12hrs): Vital Signs Temp Pulse Resp BP Pulse Ox 08/25/20 04:00 37.7 C H 94 H 22 117/59 L 93 08/25/20 00:00 37.5 C 97 H 22 118/77 94 Lab Results (24hrs): Laboratory Tests (24 Hours) 08/25/20 08/25/20 08/25/20 08:24 08:24 08:24 WBC 19.92 H Creatinine 1.62 H D Est Cr Clr Drug Dosing 65.8 Vancomycin Trough 25.3 Micro Results: 08/22/20 12:20 Gram Stain - Final Pleural Fluid 08/22/20 12:20 Acid Fast Bacilli Smear - Final Pleural Fluid Acid Fast Bacilli Culture - Pending 08/20/20 23:31 Anaerobic Blood Culture - Final Blood 08/13/20 17:26 Urine Culture - Final Urine,Straight Cath Three types of organisms present, all high counts. Repe at collection recommended. No further identifications or sensitivities to follow. - Risk Factors for Resistance * Resident in a long-term or extended-care facility * Current hospitalization > 5 days * Antimicrobial use within the last 90 days CTX - Assessment & Plan Assessment 60 year old M receiving Vancomycin + Cefepime for treatment of PNA Day # 7 of antimicrobial therapy Plan Vancomycin IV * Trough level of 25.3 mcg/mL is supratherapeutic; however, vancomycin was infusing for approx 15 min prior to this level being drawn. It is possible that this vanco trough level is artificially inflated since vanco was infusing at the time of the lab draw. * Scr increased to 1.62mg/dl today - will empirically decrease vancomycin dosing d/t decrease in renal function coupled with elevated trough level today. * Decrease to 1250 mg IV every 12 hours * Goal trough level for pulm : 15 to 20 mcg/mL * Trough level ordered for: 11/24/20 @ 0930 Cefepime * Patient continues on 2,000mg IV Q12hrs Pharmacy will continue to follow and will adjust dose/frequency as necessary. Thank you.
[2020-08-25] MEDS: AMIODARONE / D5W 360 MG/200 ML BAG IV SCH ×2 (12:20→19:36)
[2020-08-25] MEDS: GABAPENTIN 300 MG CAP PO SCH ×2 (12:22→19:46)
[2020-08-25] MEDS: BACLOFEN 10 MG TAB PO SCH ×3 (12:39→21:02)
[2020-08-25] MEDS ORDERED: 0.2 MICRON FILTER SET 1 EA IV ONE (12:39)
[2020-08-25] MEDS ORDERED: AMIODARONE / D5W 150 MG/100 ML BAG IV STA (12:39)
--- NOTE | 2020-08-25 12:55 | Cardiology Progress Note ---
Date of Service August 25, 2020 Assessment & Plan (1) Atrial flutter with rapid ventricular response: (2) AMS (altered mental status): (3) Acute respiratory failure: (4) Cardiomyopathy: (5) Mitral regurgitation: ASSESSMENT/PLAN: 1. Atrial flutter: He continues to have sustained episodes of paroxysmal atrial flutter with rapid ventricular response and given his other acute issues, there is concerned that he may not be tolerating this well. He has been placed on amiodarone drip earlier this hospitalization and underwent cardioversion several days ago. He continues to have brief episodes of sinus rhythm. Will Re bolus amiodarone IV 150 mg daily as it appears to be having some effectiveness. Continue amiodarone drip. Consider atrial flutter ablation next week if he continues to have significant atrial flutter issues. On anticoagulation therapy for stroke risk reduction. 2. Acute respiratory failure: He is being treated for pneumonia and has been receiving intermittent doses of diuretics. His fluid balance for the hospital stay is positive, but labs today suggest azotemia with increased BUN and creatinine. He also is developing worsening hypernatremia. His exam does not suggest intravascular hypervolemia. Would not recommend diuresing today. Also, his oxygen supplementation has been able to be weaned over the past several days. If respiratory status worsens or there is concern for hypervolemia, could consider right heart catheterization at some point to more definitively assess filling pressures. 3. Cardiomyopathy: Possibly due to tachycardia, but there was suggestion that perhaps his atrial flutter began the day of presentation per initial cardiology consultation. Consider secondary workup if LV systolic function does not improve with heart rate control or if other concerns arise that would suggest underlying etiology. Metoprolol succinate if able to safely swallow pills, as blood pressure tolerates. No DUDLEY-inhibitor at this time given worsening renal function. 4. Mitral regurgitation: Reported as non severe. This can be monitored over time. 5. Altered mental status: As per Neurology consultation and primary service. 6. Disposition: Patient care discussed with Dr. Kay of the primary hospitalist service. Dr. Greene will resume his cardiology care in 2 days when he returns. Admission and Anticipated Discharge Date Admission Date: August 15, 2020 Subjective Patient was seen this morning as per request of Dr. Kay due to ongoing issues with atrial flutter with rapid ventricular response. He is having intermittent episodes of sinus rhythm, mostly heart rate in the 90s while in sinus. But today however he has been dominantly been in atrial flutter with rapid ventricular response with heart rates 120s to 150s. He also continues to struggle with other issues such as worsening renal function, elevated transaminase levels, and his respiratory status. He continues to be on an amiodarone drip as well as Eliquis. He is on antibiotic therapy. He was dosed Lasix 40 mg IV x1 yesterday. He was seen by Neurology today due to mental status alteration. Review of systems: As above. Physical Exam Physical Exam: Gen.: No acute distress. Somnolent but easily arousable. HEENT: Anicteric sclera. Neck: No JVD. No hepatic jugular reflux. Cardiac: No ventricular heave. Tachycardic and irregular. Normal S1-S2. No murmurs, rubs, or gallops. Pulmonary: Clear on anterior auscultation. Abdomen: Soft, nontender, nondistended, with normoactive bowel sounds. No bruits noted. Extremities: No significant pitting edema. No cyanosis. Results & Data ([facility]) Vital Signs (Past 12 Hours) Vital Signs Temp Pulse Pulse Resp BP Pulse Ox 08/25/20 11:09 36.5 C 144 H 18 111/75 96 08/25/20 04:00 37.7 C H 94 H 22 117/59 L 93 Intake & Output 08/23/20 08/24/20 08/25/20 08/26/20 06:59 06:59 06:59 06:59 Intake Total 1218.331 / 3211.859 8719 / 1700 1460 / 1460 930 / 930 Output Total 1500 / 1500 1200 / 1200 950 / 950 Balance -281.669 / -281.669 500 / 500 510 / 510 930 / 930 Weight 251 lb 8.759 oz 247 lb 9.266 oz 248 lb 0.321 oz Laboratory Results Laboratory Results - last 24 hr 08/24/20 08/24/20 08/24/20 16:50 17:20 20:59 WBC RBC Hgb Hct MCV MCH MCHC RDW Std Deviation RDW Coeff of Jose Plt Count MPV Absolute Nucleated RBC Nucleated RBC % (auto) Sodium Potassium Chloride Carbon Dioxide Anion Gap BUN Creatinine Est Cr Clr Drug Dosing Est GFR ( Amer) Est GFR (Non-Af Amer) BUN/Creatinine Ratio Glucose POC Glucose 152 H 119 H Calcium Magnesium Total Bilirubin AST ALT Alkaline Phosphatase Ammonia Total Protein Albumin Globulin Albumin/Globulin Ratio Vancomycin Trough Urine Legionella Ag Pending 08/25/20 08/25/20 08/25/20 07:24 08:24 08:24 WBC RBC Hgb Hct MCV MCH MCHC RDW Std Deviation RDW Coeff of Jose Plt Count MPV Absolute Nucleated RBC Nucleated RBC % (auto) Sodium 157 H* Potassium 3.6 Chloride 127 H Carbon Dioxide 19 L Anion Gap 11.0 BUN 64 H Creatinine 1.62 H D Est Cr Clr Drug Dosing 65.8 Est GFR ( Amer) 51.9 Est GFR (Non-Af Amer) 44.8 BUN/Creatinine Ratio 39.3 H Glucose 128 H POC Glucose 113 H Calcium 8.9 Magnesium 2.9 H Total Bilirubin 1.0 AST 159 H ALT 266 H Alkaline Phosphatase 68 Ammonia Total Protein 7.0 Albumin 2.6 L Globulin 4.4 H Albumin/Globulin Ratio 0.6 L Vancomycin Trough 25.3 Urine Legionella Ag 08/25/20 08/25/20 08/25/20 08:24 11:05 12:03 WBC 19.92 H RBC 3.53 L Hgb 9.8 L Hct 31.1 L MCV 88.1 MCH 27.8 MCHC 31.5 L RDW Std Deviation 51.9 H RDW Coeff of Jose 16.4 H Plt Count 335 MPV 10.6 H Absolute Nucleated RBC 0.20 H Nucleated RBC % (auto) 1.0 Sodium Potassium Chloride Carbon Dioxide Anion Gap BUN Creatinine Est Cr Clr Drug Dosing Est GFR ( Amer) Est GFR (Non-Af Amer) BUN/Creatinine Ratio Glucose POC Glucose 135 H Calcium Magnesium Total Bilirubin AST ALT Alkaline Phosphatase Ammonia 39.0 H Total Protein Albumin Globulin Albumin/Globulin Ratio Vancomycin Trough Urine Legionella Ag Diagnostic Findings Telemetry personally reviewed: Sustained episodes of atrial flutter with intermittent sinus rhythm. Chart reviewed. Personally reviewed: ECG 08/24/2020: Atrial flutter with variable AV block 133 beats per minute. Nonspecific T-wave abnormality. Echo 08/14/2020: Moderately reduced systolic function. EF 30-35%. Global hypokinesis. Moderate MR. Medications Administered Current Inpatient Medications Acetaminophen (Acetaminophen 325 Mg Tab) 650 mg PO BIDM VICKY Stop: 09/13/20 07:59 Last Admin: 08/25/20 08:11 Dose: 650 mg Documented by: Acetaminophen (Acetaminophen 325 Mg Tab) 650 mg PO Q4H PRN PRN Reason: Pain or Fever Stop: 09/12/20 20:49 Last Admin: 08/18/20 21:18 Dose: 650 mg Documented by: Al Hydrox/Mg Hydrox/Simethicone (Aluminum/Magnesium Susp 30 Ml Udc) 15 ml PO Q4H PRN PRN Reason: Dyspepsia Stop: 09/12/20 20:49 Apixaban (Apixaban 5 Mg Tablet) 5 mg PO BID [facility] Stop: 09/12/20 20:59 Last Admin: 08/25/20 08:09 Dose: 5 mg Documented by: Baclofen (Baclofen 10 Mg Tab) 10 mg PO QID [facility] Stop: 09/24/20 12:59 Last Admin: 08/25/20 12:39 Dose: Not Given Documented by: Buspirone HCl (Buspirone 5 Mg Tab) 10 mg PO BIDM [facility] Stop: 09/13/20 07:59 Last Admin: 08/25/20 08:09 Dose: 10 mg Documented by: Dextrose (Dextrose 50% 50 Ml Syringe) 25 - 50 ml IV UD PRN; Protocol PRN Reason: Hypoglycemia Protocol Stop: 09/12/20 22:32 Doxycycline Hyclate (Doxycycline Hyclate 100 Mg Cap) 100 mg PO BID [facility]; Protocol Stop: 08/31/20 20:59 Last Admin: 08/25/20 08:11 Dose: 100 mg Documented by: Gabapentin (Gabapentin 300 Mg Cap) 300 mg PO BID [facility] Stop: 09/24/20 11:44 Last Admin: 08/25/20 12:22 Dose: Not Given Documented by: Glucagon (Glucagon For Inj 1 Mg Vial) 1 mg SQ UD PRN; Protocol PRN Reason: Hypoglycemia Protocol Stop: 09/12/20 22:32 Glucose (Glucose 10 Tabs/Tube) 4 - 8 tabs PO UD PRN; Protocol PRN Reason: Hypoglycemia Protocol Stop: 09/12/20 22:32 Glucose (Glucose 40% Gel 15 Gm Tube) 15 - 30 gm PO UD PRN; Protocol PRN Reason: Hypoglycemia Protocol Stop: 09/12/20 22:32 Amiodarone HCl/Dextrose (Nexterone / D5w) 360 mg in 200 mls @ 16.667 mls/hr IV .Q12H [facility] Stop: 09/20/20 10:44 Last Infusion: 08/25/20 12:23 Dose: Infused Documented by: Vancomycin HCl 1,250 mg/ (Sodium Chloride) 275 mls @ 200 mls/hr IV Q12H [facility] Stop: 09/01/20 21:59 Amiodarone HCl/Dextrose (Nexterone / D5w) 150 mg in 100 mls @ 600 mls/hr IV NOW STA Stop: 08/25/20 12:48 Insulin Aspart (Insulin Aspart 100 Units/Ml 3 Ml Pen) 0 units SC ACHS [facility] Stop: 09/13/20 07:29 Last Admin: 08/25/20 12:22 Dose: Not Given Documented by: Levetiracetam (Levetiracetam 250 Mg Tab) 750 mg PO BIDM [facility] Stop: 09/24/20 16:59 Lorazepam (Lorazepam 1 Mg Tab) 1 mg PO BIDM [facility] Stop: 09/13/20 07:59 Last Admin: 08/25/20 08:08 Dose: 1 mg Documented by: Magnesium Oxide (Magnesium Oxide 400 Mg Tab) 400 mg PO BIDM [facility] Stop: 09/13/20 07:59 Last Admin: 08/25/20 08:09 Dose: 400 mg Documented by: Metoprolol Succinate (Metoprolol Succ 50mg Ext Rel Tab) 100 mg PO [facility] Stop: 09/18/20 10:59 Last Admin: 08/25/20 08:09 Dose: 100 mg Documented by: Metoprolol Tartrate (Metoprolol Tartrate 1 Mg/Ml Vial) 10 mg IV Q1H PRN PRN Reason: HR >120 Stop: 09/19/20 20:16 Last Admin: 08/23/20 18:32 Dose: 10 mg Documented by: Miscellaneous (Carbohydrates For Hypoglycemia ) 15 - 30 gm PO UD PRN PRN Reason: Hypoglycemia Protocol Stop: 09/12/20 22:32 Miscellaneous Information (Vancomycin Consult Active) 1 ea N/A UD PRN PRN Reason: Consult Stop: 09/19/20 22:59 Multivitamins (Multivitamin Tab) 1 tab PO [facility] Stop: 09/13/20 08:59 Last Admin: 08/25/20 08:09 Dose: 1 tab Documented by: Ondansetron HCl (Ondansetron Inj 2 Mg/Ml 2 Ml Vial) 4 mg IV Q6H PRN PRN Reason: Nausea Stop: 09/12/20 20:49 Polyethylene Glycol (Polyethylene (Miralax) 17 Gm Pack) 17 gm PO DAILY PRN PRN Reason: Constipation Stop: 09/12/20 20:49 Ropinirole HCl (Ropinirole Hcl 1 Mg Tablet) 1 mg PO QPM [facility] Stop: 09/12/20 20:59 Last Admin: 08/24/20 21:01 Dose: 1 mg Documented by: Senna/Docusate Sodium (Docusate Sodium/Senna 50/8.6mg Tab) 1 tab PO BIDM [facility] Stop: 09/13/20 07:59 Last Admin: 08/25/20 08:13 Dose: 1 tab Documented by: Simvastatin (Simvastatin 20 Mg Tab) 20 mg PO HS [facility] Stop: 09/13/20 20:59 Last Admin: 08/24/20 21:00 Dose: 20 mg Documented by: Tamsulosin HCl (Tamsulosin Hcl 0.4 Mg Cap) 0.4 mg PO BIDM [facility] Stop: 09/13/20 07:59 Last Admin: 08/25/20 08:09 Dose: 0.4 mg Documented by: Venlafaxine HCl (Venlafaxine Hcl Xr 150 Mg Capxr) 150 mg PO QAM [facility] Stop: 09/13/20 08:59 Last Admin: 08/25/20 08:09 Dose: 150 mg Documented by: Vitamin D (Cholecalciferol 1,000 Units 25 Mcg Tab) 2,[facility] [place] Stop: 09/13/20 08:59 Last Admin: 08/25/20 08:09 Dose: 2,000 units Documented by: PG Care Time/CCT Total # of Minutes Spent Total Time Spent with Patient: Total time spent is greater than 50% in coordination of care (as documented) at patient's floor/unit and/or counseling patient: Coding Level of Care Code 88547 Subseq Hosp Care Lvl 3 Diagnoses Atrial flutter with rapid ventricular response I48.92 AMS (altered mental status) R41.82 Acute respiratory failure J96.01 Respiratory failure complication: hypoxia Cardiomyopathy I42.9 Cardiomyopathy type: unspecified Mitral regurgitation I34.0 (1) Acute respiratory failure Respiratory failure complication: hypoxia Qualified Code(s): J96.01 - Acute respiratory failure with hypoxia (2) Cardiomyopathy Cardiomyopathy type: unspecified Qualified Code(s): I42.9 - Cardiomyopathy, unspecified
[2020-08-25] MEDS ORDERED: LORazepam 0.5 MG TAB PO PRN (13:09)
--- NOTE | 2020-08-25 14:41 | Hospitalist Progress Note ---
Date of Service August 25, 2020 Assessment & Plan (1) AMS (altered mental status): Increasing agitation and episodes of confusion since 08/23. Ddx includes medications, seizure, metabolic/infectious encephalopathy, or frustration. - Neurology consulted - Recommended medication changes to account for renal function and adjust for AMS - UA ordered for possible UTI, though he was on cefepime until yesterday, so I'm not sure how much to trimmer climber. - EEG ordered for possible short, subclinical seizures. (2) Pneumonia: Concern for pneumonia with abx started on 08/20. Abx include: * Cefepime 08/20 - 08/24 * Vancomycin 08/20 - present * Doxycycline 08/24 - present - Nasal swab for Covid was negative. He has had both Covid and vaccine, so unlikely. 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 - Still with slight fever on 08/25, though less than 24h of doxycycline, so will continue for now. (3) Atrial flutter with rapid ventricular response: New-onset, with thought that this was possibly acute the day prior to admission. TTE on 08/14 showed EF 30-35%. - Anticoagulation - [id number] 1-2, started apixaban 5mg PO BID - Cardioverted on 08/17 with return to normal sinus rhythm. - Stopped diltiazem and digoxin at that time. -> Returned to atrial flutter on 08/18. - Consult cardiology - Appreciate recs - Continue amiodarone, though will re-bolus today. Cardiology agree that he looks dry on exam and with labs, so will defer further diuresis today. (4) Elevated troponin I level: Suspected demand ischemia in the setting of rapid rate as above. Troponin stable at ~0.12 x 3. No further trending needed. - Further testing per cardiology (5) Major depressive disorder: More agitated today. - Continue venlafaxine 150 mg p.o. every morning. (6) Type 2 diabetes mellitus: HbA1c 5.8% in April and again 5.9% this admission. - Hold metformin - Sliding scale insulin -> 110 - 150 in the last 24 hours. (7) BPH without urinary obstruction: - Continue tamsulosin 0.4 mg p.o. twice daily. - Per admitting provider, had some urinary retention due to CVA. Will monitor PVRs. - Now with [place] in place. (8) Seizure disorder: No seizure episodes witnessed here. - Continue Keppra 750 mg p.o. twice daily. - Neurology following; adjust recs. (9) History of CVA (cerebrovascular accident): Per prior notes from [facility] on 04/22/2017, he had a brain aneurysm and SAH in approx. 2006. - CTA head on 08/14 shows aneurysm coils in the suprasellar region with no aneurysm clearly identified. - Continue baclofen, gabapentin - Lowered dose of baclofen given kidney function to 10 mg QID. (10) DVT prophylaxis: Apixaban per admitting provider for afib. - Discussed with neurology who feel that given there is no current aneurysm clearly identified, he can get anticoagulation at minimal additional risk. Admission and Anticipated Discharge Date Admission Date: August 15, 2020 Subjective Anxious and agitated today. He is able to tell me his name and that he is not in pain, but then has a rapid shift where he does not respond at all apart from acknowledging that I am speaking to him. Physical Exam Constitutional: WD/WN, vitals as above Eyes: EOM intact bilaterally; no conjunctival abnormality ENMT: external ear and nose normal, oropharynx normal Neck: trachea midline, no thyromegaly normal visual inspection Respiratory: normal respiratory effort, lungs clear to auscultation no respiratory distress Cardiovascular: Rate/Rhythm: + tachycardic and + irregularly irregular Heart Sounds: normal S1 and normal S2 Vessels: no JVD Extremities: + edema (Trace left) Gastrointestinal (Abdomen): Inspection/Auscultation: abdomen normal to inspection; abdomen not distended Musculoskeletal: no cyanosis or clubbing, extremities motor strength 5/5 Skin: no rashes, warm and dry Neurologic: moves all extremities; + not awake Psychiatric: Orientation: oriented to person; + not alert Results & Data Results & Data ([facility]) Vital Signs (Past 12 Hours) Vital Signs Temp Pulse Pulse Resp BP Pulse Ox 08/25/20 11:09 36.5 C 144 H 18 111/75 96 08/25/20 04:00 37.7 C H 94 H 22 117/59 L 93 PG Care Time/CCT Total # of Minutes Spent Total Time Spent with Patient: Total time spent is greater than 50% in c oordination of care (as documented) at patient's floor/unit and/or counseling patient: Coding Level of Care Code 26718 Subseq Hosp Care Lvl 3 Diagnoses AMS (altered mental status) R41.82 Pneumonia J18.9 Atrial flutter with rapid ventricular response I48.92 Elevated troponin I level R77.8 Major depressive disorder F32.9 Type 2 diabetes mellitus E11.69 Diabetes mellitus termite technician insulin use: without termite technician use Diabetes mellitus complication status: with other specified complication BPH without urinary obstruction N40.0 Seizure disorder G40.909 History of CVA (cerebrovascular accident) Z86.73 DVT prophylaxis Z29.9 (1) Type 2 diabetes mellitus Diabetes mellitus termite technician insulin use: without residential use Diabetes mellitus complication status: with other specified complication Qualified Code(s): E11.69 - Type 2 diabetes mellitus with other specified complication
[2020-08-25] MEDS: levETIRAcetam 250 MG TAB PO SCH (17:45)
[2020-08-25] MEDS ORDERED: VANCOMYCIN HCL 1,250 MG in SODIUM CHLORIDE 0.9% 250 ML IV SCH (20:00)
[2020-08-25] MEDS: METOPROLOL TARTRATE 1 MG/ML VIAL IV PRN (20:26)
[2020-08-25] MEDS: rOPINIRole HCL 1 MG TABLET PO SCH (21:02)
[2020-08-25] MEDS: VANCOMYCIN HCL 1,250 MG in SODIUM CHLORIDE 0.9% 250 ML IV SCH (21:52)
[2020-08-26] MEDS: METOPROLOL TARTRATE 1 MG/ML VIAL IV PRN (01:22)
[2020-08-26] MEDS: AMIODARONE / D5W 360 MG/200 ML BAG IV SCH (06:43)
[2020-08-26] MEDS: INSULIN ASPART 100 UNITS/ML 3 ML PEN SC SCH ×4 (07:28→20:35)
[2020-08-26] MEDS: ACETAMINOPHEN 325 MG TAB PO SCH (08:00)
[2020-08-26] MEDS: DOXYCYCLINE HYCLATE 100 MG CAP PO SCH ×2 (08:26→20:35)
[2020-08-26] MEDS: BACLOFEN 10 MG TAB PO SCH ×4 (08:26→20:32)
[2020-08-26] MEDS: levETIRAcetam 250 MG TAB PO SCH ×2 (08:26→16:45)
[2020-08-26] MEDS: MAGNESIUM OXIDE 400 MG TAB PO SCH (08:27)
[2020-08-26] MEDS: APIXABAN 5 MG TABLET PO SCH ×2 (08:27→20:31)
[2020-08-26] MEDS: TAMSULOSIN HCL 0.4 MG CAP PO SCH ×2 (08:27→16:45)
[2020-08-26] MEDS: CHOLECALCIFEROL 1,000 UNITS 25 MCG TAB PO SCH (08:28)
[2020-08-26] MEDS: busPIRone 5 MG TAB PO SCH ×2 (08:28→16:45)
[2020-08-26] MEDS: MULTIVITAMIN TAB PO SCH (08:28)
[2020-08-26] MEDS: METOPROLOL SUCC 50MG EXT REL TAB PO SCH (08:29)
[2020-08-26] MEDS: VENLAFAXINE HCL XR 150 MG CAPXR PO SCH (08:29)
[2020-08-26] MEDS: GABAPENTIN 300 MG CAP PO SCH ×2 (08:30→20:32)
[2020-08-26] MEDS: DOCUSATE SODIUM/SENNA 50/8.6MG TAB PO SCH ×2 (08:33→16:38)
[2020-08-26] MEDS: LORazepam 1 MG TAB PO SCH (08:33)
[2020-08-26 08:42] LABS: Hemoglobin 10.4 g/dL (14.0-18.0); Mean Corpuscular Hemoglobin 27.9 pg (25-34); Mean Corpuscular Hgb Conc 31.5 g/dL (32-36); Mean Corpuscular Volume 88.5 fL (80-100); Nucleated RBC % (auto) 2.2 %; Platelet Count 356 K/uL (130-400); RDW Coefficient of Variation 16.5 % (11.5-14.5); RDW Standard Deviation 52.5 fL (36.4-46.3); Red Blood Count 3.73 M/uL (4.7-6.1); White Blood Count 22.92 K/uL (4.8-10.8)
[2020-08-26 08:45] LABS: INR 1.5 (0.9-1.1); Prothrombin Time 14.5 Seconds (9.0-12.0)
[2020-08-26 08:57] LABS: Albumin Globulin Ratio 0.5 (0.9-2); Albumin Level 2.4 gm/dl (3.4-5.0); Bilirubin,Total 0.9 mg/dl (0.2-1); Calcium 8.9 mg/dl (8.5-10.1); Creatinine Clr Calc Pharmacy 60.6 ml/min; Est GFR (Non-African American) 40.5; Globulin 4.7 gm/dl (2.5-4.0); Magnesium 3.1 mg/dl (1.8-2.4); Potassium 3.9 mmol/L (3.5-5.1); Total Protein 7.1 gm/dl (6.4-8.2)
[2020-08-26] MEDS ORDERED: THIAMINE HCL 200 MG in SODIUM CHLORIDE 0.9% 50 ML IV SCH (09:00)
[2020-08-26] MEDS: THIAMINE HCL 100 MG in SYRINGE 9 ML IV SCH ×2 (09:55→09:58)
--- NOTE | 2020-08-26 10:11 | Neurology Progress Note ---
Date of Service August 26, 2020 Assessment & Plan (1) Bilateral pleural effusion: (2) On continuous oral anticoagulation: (3) On amiodarone therapy: (4) Cardiomyopathy: (5) History of CVA (cerebrovascular accident): (6) Seizure disorder: (7) S/P coil embolization of cerebral aneurysm: (8) AMS (altered mental status): Karan Guzman is a 60 yo man w/ PMH of HTN, HLD, DM, anxiety/depression, h/o aneurysm s/p coiling c/b stroke and post-stroke epilepsy with residual L-sided weakness, h/o COVID, RLS, and BPH who initially p/t [facility] on 08/14/20 with chest pain and palpitations, found to be in narrow complex tachycardia with possible AFib noted at times. Admitted for cardioversion after dysrhythmia did not respond to IV adenosine/IVFs/IV cardizem. Neurology consulted for new onset AMS during course of hospitalization. # AMS: likely multi-factorial in the setting of new onset renal dysfunction, hypernatremia, transaminitis, possible UTI and medication changes (rapid discontinuation of chronic gabapentin). - would check UA to r/o UTI as that was not checked since 08/13 (has been on Abx though) - continue gabapentin 300mg bid (can increase as tolerated by renal status), baclofen 10mg qid, keppra 750mg bid - would look into causes of acute liver failure given sudden increase in LFTs with normal AlkPhos - treatment of hyperNa/IAN per primary team as this is very likely contributing to his AMS - ammonia slightly elevated, can use lactulose prn - low threshold to repeat CTH w/o to r/o any new lesion contributing to AMS, especially in the setting of hyperNa Thank you for this interesting consult. Plan of care discussed with primary team. Please call or text with questions. Admission and Anticipated Discharge Date Admission Date: August 15, 2020 Subjective NAEs overnight. Much drowsier this morning despite medication changes, though his LFTs have risen significantly. Renal function stable. Review of Systems Review of Systems: Unobtainable due to reduced consciousness Results & Data ([facility]) Vital Signs (Past 12 Hours) Vital Signs Temp Pulse Pulse Pulse Resp BP BP 08/26/20 07:20 37.0 C 81 19 113/74 08/26/20 07:00 84 02/14/21 05:06 37.6 C H 76 18 94/64 L 08/26/20 01:22 137 H 109/65 08/25/20 23:36 37.1 C 138 H 19 BP Pulse Ox 08/26/20 07:20 91 08/26/20 07:00 08/26/20 05:06 95 08/26/20 01:22 08/25/20 23:36 99/66 L 94 Exam (Neuro) Physical Exam: General Exam: GEN: NAD, sitting in bed. HEENT: No conjunctival injection, no rhinorrhea. CV: Tachycardic, trace peripheral edema PULM: Nonlabored respirations on 4L NC Neuro Exam: MS: Drowsy, arousable to noxious stimuli. Unable to answer orientation questions today or assess speech as he only briefly opened eyes. CN: R exotropia, L eye midline. L FP. Hearing intact to conversation. MOTOR: unable to assess 2/2 mental status REFLEXES: 2+ at biceps, triceps, brachioradialis, 1+ patella and absent Achilles bilaterally. Flexor plantar responses bilaterally. SENSORY: withdraws to noxious stimuli in the RUE/RLE. COORDINATION: unable to assess 2/2 mental status GAIT: deferred given physical status PG Care Time/CCT Total # of Minutes Spent Total Time Spent with Patient: Total time spent is greater than 50% in coordination of care (as documented) at patient's floor/unit and/or counseling patient: Coding Level of Care Code 45859 Subseq Hosp Care Lvl 3 Diagnoses Bilateral pleural effusion J90 On continuous oral anticoagulation Z79.01 On amiodarone therapy Z79.899 Cardiomyopathy I42.9 Cardiomyopathy type: unspecified History of CVA (cerebrovascular accident) Z86.73 Seizure disorder G40.909 S/P coil embolization of cerebral aneurysm Z98.890 AMS (altered mental status) R41.82 (1) Cardiomyopathy Cardiomyopathy type: unspecified Qualified Code(s): I42.9 - Cardiomyopathy, unspecified
[2020-08-26] MEDS: VANCOMYCIN HCL 1,250 MG in SODIUM CHLORIDE 0.9% 250 ML IV SCH ×2 (10:34→22:01)
[2020-08-26 11:15] LABS: Appearance Urine Turbid (Clear); Bacteria Urine Automated Negative (Negative); Blood Urine 3+ (Negative); Color Urine Dark Yellow; Epithelial Cell Urine Auto >30 /lpf (0-5); Glucose Urine UA Negative (Negative); Ketones Urine Trace (Negative); Leukocyte Esterase Urine 1+ (Negative); Nitrite Urine Negative (Negative); Protein Urine 1+ (Negative); Specific Gravity Urine 1.034 (1.000-1.030); Urobilinogen Urine Negative (Negative)
[2020-08-26 11:17] LABS: Bilirubin Urine 1+ (Negative)
--- NOTE | 2020-08-26 11:19 | XRay Report ---
XR chest 1V portable CLINICAL HISTORY: Worsening leukocytosis COMPARISON STUDY: 08/23/2020 FINDINGS: The heart is enlarged. The PICC line has been removed. There are persistent extensive bilat eral pulmonary airspace opacities.[There are probable subpulmonic pleural effusions. IMPRESSION: 1. Interval removal of the right-sided PICC line 2. Persistent cardiomegaly 3. Persistent extensive asymmetric pulmonary airspace opacities 4. Subpulmonic pleural effusions are suspected. ACT 112: Negative or not required by law. Electronically signed by: Nayan Hsu M.D. 08/26/2020 11:18 AM
[2020-08-26 11:27] LABS: RBC Urine Automated >30 /hpf (0-4)
--- NOTE | 2020-08-26 13:19 | Hospitalist Progress Note ---
Date of Service August 26, 2020 Assessment & Plan (1) Hepatitis: Normal LFTs on admission, gradually climbing, then much higher on 08/26. 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 - RUQ u/s for possible Budd-Chiari (though on anticoagulation makes this unlikely) - Hepatitis panel - Stop all hepatotoxic medications (2) AMS (altered mental status): Increasing agitation and episodes of confusion since 08/23. Ddx includes medications, seizure, metabolic/infectious encephalopathy, or frustration. - Neurology consulted - Recommended medication changes to account for renal function and adjust for AMS - UA on 08/26 doesn't look overtly infected. - EEG ordered for possible short, subclinical seizures. - Will give small bolus for hypernatremia. (3) Pneumonia: Concern for pneumonia with abx started on 08/20. Abx include: * Cefepime 08/20 - 08/24 * Vancomycin 08/20 - present * Doxycycline 08/24 - present - Nasal swab for Covid was negative. He has had both Covid and vaccine, so unlikely. 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 - Still with slight fever on 08/25, though less than 24h of doxycycline, so will continue for now. - Attempting to collect sputum sample on 08/26 (4) Atrial flutter with rapid ventricular response: New-onset, with thought that this was possibly acute the day prior to admission. TTE on 08/14 showed EF 30-35%. - Anticoagulation - [id number] 1-2, started apixaban 5mg PO BID - Cardioverted on 08/17 with return to normal sinus rhythm. - Stopped diltiazem and digoxin at that time. -> Returned to atrial flutter on 08/18. - Consult cardiology - Appreciate recs - Continued amiodarone with re-bolusing on 08/25. STOPPED for hepatitis on 08/26. Hopefully for ablation tomorrow. (5) Elevated troponin I level: Suspected demand ischemia in the setting of rapid rate as above. Troponin stable at ~0.12 x 3. No further trending needed. - Further testing per cardiology (6) Major depressive disorder: More agitated today. - Continue venlafaxine 150 mg p.o. every morning. (7) Type 2 diabetes mellitus: HbA1c 5.8% in April and again 5.9% this admission. - Hold metformin - Sliding scale insulin -> 110 - 150 in the last 24 hours. (8) BPH without urinary obstruction: - Continue tamsulosin 0.4 mg p.o. twice daily. - Per admitting provider, had some urinary retention due to CVA. Will monitor PVRs. - Now with [place] in place. (9) Seizure disorder: No seizure episodes witnessed here. - Continue Keppra 750 mg p.o. twice daily. - Neurology following; adjust recs. (10) History of CVA (cerebrovascular accident): Per prior notes from [facility] [place] on 04/22/2017, he had a brain aneurysm and SAH in approx. 2006. - CTA head on 08/14 shows aneurysm coils in the suprasellar region with no aneurysm clearly identified. - Continue baclofen, gabapentin - Lowered dose of baclofen given kidney function to 10 mg QID. (11) DVT prophylaxis: Apixaban per admitting provider for afib. - Discussed with neurology who feel that given there is no current aneurysm clearly identified, he can get anticoagulation at minimal additional risk. Admission and Anticipated Discharge Date Admission Date: August 15, 2020 Subjective Notes to me that he is doing ok this morning. Reports no fevers/chills, chest pain, shortness of breath, abdominal pain, nausea, or vomiting. Physical Exam Constitutional: WD/WN, vitals as above Eyes: EOM intact bilaterally; no conjunctival abnormality ENMT: external ear and nose normal, oropharynx normal Neck: trachea midline, no thyromegaly normal visual inspection Respiratory: normal respiratory effort, lungs clear to auscultation no respiratory distress Cardiovascular: Rate/Rhythm: + tachycardic and + irregularly irregular Heart Sounds: normal S1 and normal S2 Vessels: no JVD Extremities: + edema (Trace) Gastrointestinal (Abdomen): Inspection/Auscultation: abdomen normal to inspection; abdomen not distended Musculoskeletal: no cyanosis or clubbing, extremities motor strength 5/5 Skin: no rashes, warm and dry Neurologic: awake Psychiatric: Orientation: alert and oriented to person Results & Data Results & Data ([facility]) Vital Signs (Past 12 Hours) Vital Signs Temp Pulse Pulse Pulse Resp BP BP 08/26/20 13:06 83 08/26/20 11:56 119 H 08/26/20 11:11 37.2 C 87 20 106/73 08/26/20 07:20 37.0 C 81 19 113/74 08/26/20 07:00 84 08/26/20 05:06 37.6 C H 76 18 94/64 L 08/26/20 01:22 137 H 109/65 Pulse Ox 08/26/20 13:06 08/26/20 11:56 08/26/20 11:11 95 08/26/20 07:20 91 08/26/20 07:00 08/26/20 05:06 95 08/26/20 01:22 PG Care Time/CCT Total # of Minutes Spent Total Time Spent with Patient: Total time spent is greater than 50% in coordination of care (as documented) at patient's floor/unit and/or counseling patient: Coding Level of Care Code 11566 Subseq Hosp Care Lvl 3 Diagnoses Hepatitis K75.9 AMS (altered mental status) R41.82 Pneumonia J18.9 Atrial flutter with rapid ventricular response I48.92 Elevated troponin I level R77.8 Major depressive disorder F32.9 Type 2 diabetes mellitus E11.69 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
[2020-08-26] MEDS ORDERED: DEXTROSE 5% 1,000 ML IV SCH (13:30)
--- NOTE | 2020-08-26 13:44 | Cardiology Progress Note ---
Date of Service August 26, 2020 Assessment & Plan (1) Atrial flutter with rapid ventricular response: (2) AMS (altered mental status): (3) Acute respiratory failure: (4) Cardiomyopathy: (5) Mitral regurgitation: ASSESSMENT/PLAN: 1. Atrial flutter: Has been having episodes of sustained atrial flutter with rapid ventricular response. On telemetry today, rhythm may have been atrial fibrillation. Either way, rate control has been ineffective thus far even on amiodarone. Amiodarone will be discontinued given worsening transaminase levels, which acutely increased since yesterday. There has been discussion for atrial flutter ablation. Reached out to Dr. Ayers of electrophysiology. He plans on reviewing tomorrow to help assist in the care of this gentleman's atrial arrhythmia. Metoprolol succinate was increased to 150 mg daily, first dose today, from 100 mg daily. Most recent charted heart rate is acceptable. If necessary, could consider digoxin for rate control strategy while awaiting electrophysiology input. On anticoagulation therapy for stroke risk reduction. 2. Acute respiratory failure: He had been treated for pneumonia. Leukocytosis worsened today. Difficult to know his volume status. He does not examine as hypervolemic but he does have net positive fluid balance for this hospital stay according to records. Labs suggest azotemia and he also has hypernatremia. Could consider right heart catheterization to help guide therapy. Will discuss with his primary clinical review specialist, Dr. Greene, tomorrow. 3. Cardiomyopathy: Possibly due to tachycardia, but there was suggestion that perhaps his atrial flutter began the day of presentation per initial cardiology consultation. Consider secondary workup. Repeat echocardiogram. On metoprolol succinate. Given worsening renal function, would hold off on DUDLEY-inhibitor. 4. Mitral regurgitation: Reported as non severe. Repeat echocardiogram. 5. Altered mental status: As per Neurology consultation and primary service. 6. Elevated transaminase levels: As per primary service. 7. Acute renal insufficiency with hypernatremia: As per primary service. Could consider Nephrology consultation. 8. Disposition: Patient care discussed with Dr. Kay of the primary hospitalist service on separate occasions throughout the day. Dr. Greene will resume his cardiology care tomorrow. Patient care also discussed with electrophysiology. Admission and Anticipated Discharge Date Admission Date: August 15, 2020 Subjective He was seen earlier this morning. He was very somnolent. He open his eyes on verbal stimuli briefly and then would once again close them. He did not attempt answer any questions. On telemetry, it was noted that he was spending more significant time in sinus rhythm over the past several hours, approximately 50% in AFib/flutter versus sinus. Review of systems: As above. Physical Exam Physical Exam: Gen.: No acute distress. More somnolent today. Did not respond to questions other than to open eyes briefly. HEENT: Anicteric sclera. Neck: No appreciable JVD or hepatic jugular reflux. Cardiac: No ventricular heave. Tachycardic and irregular. Normal S1-S2. No murmurs, rubs, or gallops. Pulmonary: Clear on anterior auscultation. Abdomen: Soft, nontender, nondistended, with normoactive bowel sounds. No bruits noted. Extremities: Trace bilateral lower extremity edema. No cyanosis. Results & Data ([facility]) Vital Signs (Past 12 Hours) Vital Signs Temp Pulse Pulse Pulse Resp BP Pulse Ox 08/26/20 13:06 83 08/26/20 11:56 119 H 08/26/20 11:11 37.2 C 87 20 106/73 95 08/26/20 07:20 37.0 C 81 19 113/74 91 08/26/20 07:00 84 08/26/20 05:06 37.6 C H 76 18 94/64 L 95 Intake & Output 08/24/20 08/25/20 08/26/20 08/27/20 06:59 06:59 06:59 06:59 Intake Total 1700 / 1700 1460 / 1460 2562.648 / 2562.648 601.283 / 601.283 Output Total 1200 / 1200 950 / 950 601 / 601 Balance 500 / 500 510 / 510 1961.648 / 1961.648 601.283 / 601.283 Weight 247 lb 9.266 oz 248 lb 0.321 oz Laboratory Results Laboratory Results - last 24 hr 08/25/20 08/25/20 08/25/20 12:03 16:08 19:50 WBC RBC Hgb Hct MCV MCH MCHC RDW Std Deviation RDW Coeff of Jose Plt Count MPV Absolute Nucleated RBC Nucleated RBC % (auto) PT INR Sodium Potassium Chloride Carbon Dioxide Anion Gap BUN Creatinine Est Cr Clr Drug Dosing Est GFR ( Amer) Est GFR (Non-Af Amer) BUN/Creatinine Ratio Glucose POC Glucose 149 H 137 H Calcium Magnesium Total Bilirubin AST ALT Alkaline Phosphatase Total Creatine Kinase 810 H Total Protein Albumin Globulin Albumin/Globulin Ratio Vitamin B1 Urine Color Urine Appearance Urine pH Ur Specific [place] Urine Protein Urine Glucose (UA) Urine Ketones Urine Blood Urine Nitrite Urine Bilirubin Urine Urobilinogen Ur Leukocyte Esterase Urine WBC (Auto) Urine RBC (Auto) U Hyaline Cast (Auto) U Epithel Cells (Auto) Urine Bacteria (Auto) Granular Casts Urine Yeast 08/26/20 08/26/20 08/26/20 07:18 08:16 08:16 WBC 22.92 H RBC 3.73 L Hgb 10.4 L Hct 33.0 L MCV 88.5 MCH 27.9 MCHC 31.5 L RDW Std Deviation 52.5 H RDW Coeff of Jose 16.5 H Plt Count 356 MPV 11.0 H Absolute Nucleated RBC 0.50 H Nucleated RBC % (auto) 2.2 PT 14.5 H INR 1.5 H Sodium Potassium Chloride Carbon Dioxide Anion Gap BUN Creatinine Est Cr Clr Drug Dosing Est GFR ( Amer) Est GFR (Non-Af Amer) BUN/Creatinine Ratio Glucose POC Glucose 142 H Calcium Magnesium Total Bilirubin AST ALT Alkaline Phosphatase Total Creatine Kinase Total Protein Albumin Globulin Albumin/Globulin Ratio Vitamin B1 Urine Color Urine Appearance Urine pH Ur Specific [place] Urine Protein Urine Glucose (UA) Urine Ketones Urine Blood Urine Nitrite Urine Bilirubin Urine Urobilinogen Ur Leukocyte Esterase Urine WBC (Auto) Urine RBC (Auto) U Hyaline Cast (Auto) U Epithel Cells (Auto) Urine Bacteria (Auto) Granular Casts Urine Yeast 08/26/20 08/26/20 08/26/20 08:16 08:16 11:09 WBC RBC Hgb Hct MCV MCH MCHC RDW Std Deviation RDW Coeff of Jose Plt Count MPV Absolute Nucleated RBC Nucleated RBC % (auto) PT INR Sodium 157 H* Potassium 3.9 Chloride 128 H Carbon Dioxide 19 L Anion Gap 10.0 BUN 79 H Creatinine 1.76 H Est Cr Clr Drug Dosing 60.6 Est GFR ( Amer) 47.0 Est GFR (Non-Af Amer) 40.5 BUN/Creatinine Ratio 45.0 H Glucose 128 H POC Glucose 130 H Calcium 8.9 Magnesium 3.1 H Total Bilirubin 0.9 AST 992 H ALT 842 H Alkaline Phosphatase 112 Total Creatine Kinase Total Protein 7.1 Albumin 2.4 L Globulin 4.7 H Albumin/Globulin Ratio 0.5 L Vitamin B1 Pending Urine Color Urine Appearance Urine pH Ur Specific [place] Urine Protein Urine Glucose (UA) Urine Ketones Urine Blood Urine Nitrite Urine Bilirubin Urine Urobilinogen Ur Leukocyte Esterase Urine WBC (Auto) Urine RBC (Auto) U Hyaline Cast (Auto) U Epithel Cells (Auto) Urine Bacteria (Auto) Granular Casts Urine Yeast 08/26/20 Unknown WBC RBC Hgb Hct MCV MCH MCHC RDW Std Deviation RDW Coeff of Jose Plt Count MPV Absolute Nucleated RBC Nucleated RBC % (auto) PT INR Sodium Potassium Chloride Carbon Dioxide Anion Gap BUN Creatinine Est Cr Clr Drug Dosing Est GFR ( Amer) Est GFR (Non-Af Amer) BUN/Creatinine Ratio Glucose POC Glucose Calcium Magnesium Total Bilirubin AST ALT Alkaline Phosphatase Total Creatine Kinase Total Protein Albumin Globulin Albumin/Globulin Ratio Vitamin B1 Urine Color Dark Yellow Urine Appearance Turbid A Urine pH 5.0 Ur Specific [place] 1.034 H Urine Protein 1+ H Urine Glucose (UA) Negative Urine Ketones Trace H Urine Blood 3+ H Urine Nitrite Negative Urine Bilirubin 1+ H Urine Urobilinogen Negative Ur Leukocyte Esterase 1+ H Urine WBC (Auto) 10-30 H Urine RBC (Auto) >30 H U Hyaline Cast (Auto) 10-30 H U Epithel Cells (Auto) >30 H Urine Bacteria (Auto) Negative Granular Casts 1-5 H Urine Yeast Not Reportable Diagnostic Findings Telemetry personally reviewed: Sinus rhythm with sustained atrial flutter/fibrillation with rapid ventricular response. Medications Administered Current Inpatient Medications Acetaminophen (Acetaminophen 325 Mg Tab) 650 mg PO Q4H PRN PRN Reason: Pain or Fever Stop: 09/12/20 20:49 Last Admin: 08/18/20 21:18 Dose: 650 mg Documented by: Apixaban (Apixaban 5 Mg Tablet) 5 mg PO BID [facility] Stop: 09/12/20 20:59 Last Admin: 08/26/20 08:27 Dose: 5 mg Documented by: Baclofen (Baclofen 10 Mg Tab) 10 mg PO QID [facility] Stop: 09/24/20 12:59 Last Admin: 08/26/20 12:55 Dose: 10 mg Documented by: Buspirone HCl (Buspirone 5 Mg Tab) 10 mg PO BIDM [facility] Stop: 09/13/20 07:59 Last Admin: 08/26/20 08:28 Dose: 10 mg Documented by: Dextrose (Dextrose 50% 50 Ml Syringe) 25 - 50 ml IV UD PRN; Protocol PRN Reason: Hypoglycemia Protocol Stop: 09/12/20 22:32 Doxycycline Hyclate (Doxycycline Hyclate 100 Mg Cap) 100 mg PO BID [facility]; Protocol Stop: 08/31/20 20:59 Last Admin: 08/26/20 08:26 Dose: 100 mg Documented by: Gabapentin (Gabapentin 300 Mg Cap) 300 mg PO BID [facility] Stop: 09/24/20 11:44 Last Admin: 08/26/20 08:30 Dose: 300 mg Documented by: Glucagon (Glucagon For Inj 1 Mg Vial) 1 mg SQ UD PRN; Protocol PRN Reason: Hypoglycemia Protocol Stop: 09/12/20 22:32 Glucose (Glucose 10 Tabs/Tube) 4 - 8 tabs PO UD PRN; Protocol PRN Reason: Hypoglycemia Protocol Stop: 09/12/20 22:32 Glucose (Glucose 40% Gel 15 Gm Tube) 15 - 30 gm PO UD PRN; Protocol PRN Reason: Hypoglycemia Protocol Stop: 09/12/20 22:32 Vancomycin HCl 1,250 mg/ (Sodium Chloride) 275 mls @ 200 mls/hr IV Q12H [facility] Stop: 09/01/20 21:59 Last Infusion: 08/26/20 12:41 Dose: Infused Documented by: Thiamine HCl 100 mg/ Syringe 10 mls @ 2 mls/min IV QAM@0900,0915 [facility] Stop: 09/25/20 08:59 Last Admin: 08/26/20 09:58 Dose: 2 mls/min Documented by: Dextrose (D5w) 1,000 mls @ 100 mls/hr IV .Q10H [facility] Stop: 08/26/20 18:29 Insulin Aspart (Insulin Aspart 100 Units/Ml 3 Ml Pen) 0 units SC ACHS [facility] Stop: 09/13/20 07:29 Last Admin: 08/26/20 11:23 Dose: Not Given Documented by: Levetiracetam (Levetiracetam 250 Mg Tab) 750 mg PO BIDM [facility] Stop: 09/24/20 16:59 Last Admin: 08/26/20 08:26 Dose: 750 mg Documented by: Lorazepam (Lorazepam 0.5 Mg Tab) 0.5 mg PO TID PRN PRN Reason: Anxiety/Agitation Stop: 09/24/20 13:08 Last Admin: 08/25/20 21:04 Dose: 0.5 mg Documented by: Lorazepam (Lorazepam 0.5 Mg Tab) 0.5 mg PO BIDM [facility] Stop: 09/25/20 16:59 Metoprolol Succinate (Metoprolol Succ 50mg Ext Rel Tab) 150 mg PO QAM [facility] Stop: 09/25/20 08:59 Last Admin: 08/26/20 08:29 Dose: 150 mg Documented by: Metoprolol Tartrate (Metoprolol Tartrate 1 Mg/Ml Vial) 10 mg IV Q1H PRN PRN Reason: HR >120 Stop: 09/19/20 20:16 Last Admin: 08/26/20 01:22 Dose: 10 mg Documented by: Miscellaneous (Carbohydrates For Hypoglycemia ) 15 - 30 gm PO UD PRN PRN Reason: Hypoglycemia Protocol Stop: 09/12/20 22:32 Miscellaneous Information (Vancomycin Consult Active) 1 ea N/A UD PRN PRN Reason: Consult Stop: 09/19/20 22:59 Ondansetron HCl (Ondansetron Inj 2 Mg/Ml 2 Ml Vial) 4 mg IV Q6H PRN PRN Reason: Nausea Stop: 09/12/20 20:49 Polyethylene Glycol (Polyethylene (Miralax) 17 Gm Pack) 17 gm PO DAILY PRN PRN Reason: Constipation Stop: 09/12/20 20:49 Ropinirole HCl (Ropinirole Hcl 1 Mg Tablet) 1 mg PO QPM [facility] Stop: 09/12/20 20:59 Last Admin: 08/25/20 21:02 Dose: 1 mg Documented by: Senna/Docusate Sodium (Docusate Sodium/Senna 50/8.6mg Tab) 1 tab PO BIDM [facility] Stop: 09/13/20 07:59 Last Admin: 08/26/20 08:33 Dose: 1 tab Documented by: Tamsulosin HCl (Tamsulosin Hcl 0.4 Mg Cap) 0.4 mg PO BIDM [facility] Stop: 09/13/20 07:59 Last Admin: 08/26/20 08:27 Dose: 0.4 mg Documented by: Venlafaxine HCl (Venlafaxine Hcl Xr 150 Mg Capxr) 150 mg PO QAM [facility] Stop: 09/13/20 08:59 Last Admin: 08/26/20 08:29 Dose: 150 mg Documented by: PG Care Time/CCT Total # of Minutes Spent Total Time Spent with Patient: Total time spent is greater than 50% in coordination of care (as documented) at patient's floor/unit and/or counseling patient: Coding Level of Care Code 83255 Subseq Hosp Care Lvl 3 Diagnoses Atrial flutter with rapid ventricular response I48.92 AMS (altered mental status) R41.82 Acute respiratory failure J96.01 Respiratory failure complication: hypoxia Cardiomyopathy I42.9 Cardiomyopathy type: unspecified Mitral regurgitation I34.0 (1) Acute respiratory failure Respiratory failure complication: hypoxia Qualified Code(s): J96.01 - Acute respiratory failure with hypoxia (2) Cardiomyopathy Cardiomyopathy type: unspecified Qualified Code(s): I42.9 - Cardiomyopathy, unspecified
--- NOTE | 2020-08-26 14:19 | Ultrasound Report ---
US duplex portal hepatic veins CLINICAL HISTORY: Acute hepatitis evaluate for portal vein thrombosis COMPARISON STUDY: No previous studies for comparison. FINDINGS: The portal and hepatic veins are patent with normal directional flow. IMPRESSION: The portal and hepatic veins are patent with normal directional flow. ACT 112: Negative or not required by law. Electronically signed by: Nayan Hsu M.D. 08/26/2020 2:18 PM
--- NOTE | 2020-08-26 14:43 | Pulmonology Progress Note ---
Date of Service August 26, 2020 Assessment & Plan (1) Pneumonia: (2) Acute respiratory failure: Impression: This 60-year-old -Indian male that was admitted on 08/13/2020 for acute shortness of breath. He was found to have pulmonary edema as well as pleural effusions. We were asked to see the patient for evaluation and possible thoracentesis which was completed 08/22/2020 with 550 cc evacuated. He has had persistent infiltrates and now has what appears to be an active urinary sediment. Other etiologies including alveolar hemorrhage would be on the differential. 1. Pleural effusions: Pleural fluid was transudate - likely secondary to volume issues. Agree with cardiology that his volume status is somewhat difficult to ascertain and right heart catheterization with measurement of right-sided filling pressures may be helpful. 2. Hypoxemic respiratory failure: Multifactorial to fluid overload, atelectasis, VQ mismatch. Oxygenation is now worsening in the patient's on 6 to 8 L. Given his active urinary sediment, will check serologies for potential pulmonary renal syndrome. 3. History of tobacco abuse: Patient smoked most of his adult life. He quit smoking in 2006 when he had a stroke. No indication for smoking cessation counseling 4. Possible pneumonia: Patient's white count has been decreasing since initiation of vancomycin. He has been aggressively treated with antimicrobial agents but unfortunately infiltrates continue to worsen. Unclear if this is related to infection or not. Would check Legionella urinary antigen. Will make n.p.o. for potential bronchoscopy tomorrow although consent may be difficult and may need to be obtained from the patient's sister. 5. Management of the patient's other medical issues is deferred to the [facility] hospitalist and saw operator 6. Elevated LFTs. Unclear etiology. The patient is also now hypernatremic and free water is recommended. Additional work-up per the hospitalist. We will continue to follow Respiratory failure complication: hypoxia Qualified Code(s): J96.01 - Acute respiratory failure with hypoxia (3) Pulmonary edema: Chronicity: acute Qualified Code(s): J81.0 - Acute pulmonary edema Admission and Anticipated Discharge Date Admission Date: August 15, 2020 Subjective Increasing oxygen requirement overnight. White count is again up. Patient is not really coughing or expectorating phlegm. Review of Systems Review of Systems: Per hospitalist note Physical Exam Constitutional: WD/WN, vitals as above Eyes: EOM intact bilaterally; no conjunctival abnormality ENMT: external ear and nose normal, oropharynx normal Neck: trachea midline, no thyromegaly normal visual inspection Respiratory: normal respiratory effort, lungs clear to auscultation no respiratory distress Cardiovascular: Rate/Rhythm: + tachycardic and + irregularly irregular Heart Sounds: normal S1 and normal S2 Vessels: no JVD Extremities: + edema (Trace) Gastrointestinal (Abdomen): Inspection/Auscultation: abdomen normal to inspection; abdomen not distended Musculoskeletal: no cyanosis or clubbing, extremities motor strength 5/5 Skin: no rashes, warm and dry Neurologic: awake Psychiatric: Orientation: alert and oriented to person Results & Data Results & Data ([facility]) Vital Signs (Past 12 Hours) Vital Signs Temp Pulse Pulse Pulse Resp BP Pulse Ox 08/26/20 13:06 83 08/26/20 11:56 119 H 08/26/20 11:11 37.2 C 87 20 106/73 95 08/26/20 07:20 37.0 C 81 19 113/74 91 08/26/20 07:00 84 08/26/20 05:06 37.6 C H 76 18 94/64 L 95 Laboratory Results 08/26/20 08:16 08/26/20 08:16 Diagnostic Findings Chest x-ray from today was independently reviewed. There are persistent patchy infiltrates more prominent on the left than the right. PG Care Time/CCT Total # of Minutes Spent Total Time Spent with Patient: Total time spent is greater than 50% in coordination of care (as documented) at patient's floor/unit and/or counseling patient: Coding Level of Care Code 41362 Subseq Hosp Care Lvl 3 Diagnoses Pneumonia J18.9 Acute respiratory failure J96.01 Respiratory failure complication: hypoxia Pulmonary edema J81.0 Chronicity: acute
[2020-08-26 15:10] LABS: Hepatitis B Surf Ag Rflx Conf Neg (Neg)
[2020-08-26] MEDS: LORazepam 0.5 MG TAB PO SCH (16:44)
[2020-08-26] MEDS: rOPINIRole HCL 1 MG TABLET PO SCH (20:36)
[2020-08-27] MEDS ORDERED: VANCOMYCIN TROUGH ONE ×2 (07:30→09:30)
[2020-08-27] MEDS: INSULIN ASPART 100 UNITS/ML 3 ML PEN SC SCH ×2 (07:42→12:04)
--- NOTE | 2020-08-27 07:48 | Ultrasound Report ---
US arterial duplex LE LT CLINICAL HISTORY: cold extremity left leg COMPARISON STUDY: None. FINDINGS: The left ankle-brachial index measured with the dorsalis pedis artery is 1.1. There are low velocity triphasic waveforms seen throughout the left lower extremity arterial system. No areas of a rterial occlusion identified. IMPRESSION: No arterial occlusion identified within the left lower extremity. ACT 112: Negative or not required by law. Electronically signed by: Hung Villa M.D. 08/27/2020 7:47 AM
[2020-08-27] MEDS: DOCUSATE SODIUM/SENNA 50/8.6MG TAB PO SCH ×2 (07:50→16:02)
[2020-08-27] MEDS: LORazepam 0.5 MG TAB PO SCH ×2 (07:57→16:03)
[2020-08-27] MEDS: ACETAMINOPHEN 325 MG TAB PO PRN (07:58)
[2020-08-27] MEDS: busPIRone 5 MG TAB PO SCH ×2 (07:58→16:01)
--- NOTE | 2020-08-27 07:58 | XCELERA ---
[id number]
[2020-08-27] MEDS: TAMSULOSIN HCL 0.4 MG CAP PO SCH ×2 (07:59→16:02)
[2020-08-27] MEDS: levETIRAcetam 250 MG TAB PO SCH ×2 (08:00→16:01)
[2020-08-27] MEDS: THIAMINE HCL 100 MG in SYRINGE 9 ML IV SCH ×2 (08:00→08:06)
[2020-08-27] MEDS: METOPROLOL SUCC 50MG EXT REL TAB PO SCH (08:02)
[2020-08-27] MEDS: DOXYCYCLINE HYCLATE 100 MG CAP PO SCH (08:04)
[2020-08-27] MEDS: GABAPENTIN 300 MG CAP PO SCH (08:05)
[2020-08-27] MEDS: APIXABAN 5 MG TABLET PO SCH (08:05)
[2020-08-27] MEDS: BACLOFEN 10 MG TAB PO SCH ×3 (08:05→16:01)
[2020-08-27] MEDS: VENLAFAXINE HCL XR 150 MG CAPXR PO SCH (08:06)
[2020-08-27] MEDS: VANCOMYCIN HCL 1,250 MG in SODIUM CHLORIDE 0.9% 250 ML IV SCH (09:57)
[2020-08-27 10:18] LABS: Hematocrit (blood only) 32.6 % (42-52); Hemoglobin 10.1 g/dL (14.0-18.0); Mean Corpuscular Hemoglobin 28.1 pg (25-34); Mean Corpuscular Volume 90.6 fL (80-100); Mean Platelet Volume 11.5 fL (7.4-10.4); Nucleated RBC # (auto) 0.82 K/uL (0-0); Nucleated RBC % (auto) 3.7 %; Platelet Count 369 K/uL (130-400); White Blood Count 21.95 K/uL (4.8-10.8)
[2020-08-27 10:58] LABS: Albumin Globulin Ratio 0.5 (0.9-2); Albumin Level 2.4 gm/dl (3.4-5.0); BUN Creatinine Ratio 48.3 (10-20); Bilirubin,Total 1.1 mg/dl (0.2-1); Calcium 8.5 mg/dl (8.5-10.1); Creatinine Clr Calc Pharmacy 66.6 ml/min; Est GFR (African American) 52.7; Est GFR (Non-African American) 45.5; Globulin 4.7 gm/dl (2.5-4.0); Magnesium 3.1 mg/dl (1.8-2.4); Potassium 3.5 mmol/L (3.5-5.1); Total Protein 7.1 gm/dl (6.4-8.2)
--- NOTE | 2020-08-27 11:36 | Pharmacy Report ---
Pharmacy Abx Dose Short Note - Date of Service August 27, 2020 - Assessment & Plan Assessment 60 year old M receiving vancomycin for pulmonary indication. 1000 dose was stopped via verbal communication with RN once supratherapeutic level was resulted and assessed. Will order ~18 hour random level to assess appropriate time to resume dosing and new regimen. Day # 9 of antimicrobial therapy. Plan Vancomycin * Trough level of 29.8 mcg/mL is supratherapeutic * Hold vancomycin at this time pending random level * Random level ordered for: 08/28/20 with AM labs Pharmacy will continue to follow and will adjust dose/frequency as necessary. Thank you.
--- NOTE | 2020-08-27 11:49 | Hospitalist Progress Note ---
Date of Service August 27, 2020 Assessment & Plan (1) Hepatitis: Normal LFTs on admission, gradually climbing, then much higher on 08/26. 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 - RUQ u/s on 08/26 was normal. - Hepatitis panel on 08/26 shows preliminary positive HCV Ab, though this is long-standing (from at least 04/2018), so I doubt it is acutely contributing. - Stop all hepatotoxic medications (including amiodarone) - Improving today. (2) AMS (altered mental status): Increasing agitation and episodes of confusion since 08/23. Ddx includes medications, seizure, metabolic/infectious encephalopathy, or frustration. - Neurology consulted - Recommended medication changes to account for renal function and adjust for AMS - UA on 08/26 doesn't look overtly infected. - EEG ordered for possible short, subclinical seizures -> Still not done; will reach out to neuro today. - Will give bolus for hypernatremia. - Giving IV thiamine as well in case of Wernicke element. (3) Pneumonia: Concern for pneumonia with abx started on 08/20. Abx include: * Cefepime 08/20 - 08/24 * Vancomycin 08/20 - present * Doxycycline 08/24 - present - Nasal swab for Covid was negative. He has had both Covid and vaccine, so unlik zainab. 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 Legionella Ag from 08/24 was negative. - Still with slight fever on 08/25, though less than 24h of doxycycline, so will continue for now. - Collected sputum sample on 08/26 -> Pinpoint growth at present. (4) Atrial flutter with rapid ventricular response: New-onset, with thought that this was possibly acute the day prior to admission. TTE on 08/14 showed EF 30-35%. - Anticoagulation - [id number] 1-2, started apixaban 5mg PO BID - Cardioverted on 08/17 with return to normal sinus rhythm. - Stopped diltiazem and digoxin at that time. -> Returned to atrial flutter on 08/18. - Consult cardiology - Appreciate recs - Continued amiodarone with re-bolusing on 08/25. STOPPED for hepatitis on 08/26. Hopefully for ablation today or tomorrow. (5) Elevated troponin I level: Suspected demand ischemia in the setting of rapid rate as above. Troponin stable at ~0.12 x 3. No further trending needed. - Further testing per cardiology (6) Major depressive disorder: More agitated today. - Continue venlafaxine 150 mg p.o. every morning. (7) Type 2 diabetes mellitus: HbA1c 5.8% in April and again 5.9% this admission. - Hold metformin - Sliding scale insulin -> 110 - 150 in the last 24 hours. (8) BPH without urinary obstruction: - Continue tamsulosin 0.4 mg p.o. twice daily. - Per admitting provider, had some urinary retention due to CVA. Will monitor PVRs. - Now with [place] in place. (9) Seizure disorder: No seizure episodes witnessed here. - Continue Keppra 750 mg p.o. twice daily. - Neurology following; adjust recs. (10) History of CVA (cerebrovascular accident): Per prior notes from [facility] on 04/22/2017, he had a brain aneurysm and SAH in approx. 2006. - CTA head on 08/14 shows aneurysm coils in the suprasellar region with no aneurysm clearly identified. - Continue baclofen, gabapentin - Lowered dose of baclofen given kidney function to 10 mg QID. (11) DVT prophylaxis: Apixaban per admitting provider for afib. - Discussed with neurology who feel that given there is no current aneurysm clearly identified, he can get anticoagulation at minimal additional risk. Admission and Anticipated Discharge Date Admission Date: August 15, 2020 Subjective Somewhat more cardiovascular disease specialist today for me. Asking me to change the channel on his TV and saying he is "not doing well" but mainly seems to attribute it to his right AC IV site bothering him. He does feel like his breathing is not good when directly asked. Reports no fevers/chills, chest pain, abdominal pain, nausea, or vomiting. Physical Exam Constitutional: WD/WN, vitals as above Eyes: EOM intact bilaterally; no conjunctival abnormality ENMT: external ear and nose normal, oropharynx normal Neck: trachea midline, no thyromegaly normal visual inspection Respiratory: normal respiratory effort, lungs clear to auscultation no respiratory distress Cardiovascular: Rate/Rhythm: + tachycardic and + irregularly irregular Heart Sounds: normal S1 and normal S2 Vessels: no JVD Extremities: + edema (Trace) Gastrointestinal (Abdomen): Inspection/Auscultation: abdomen normal to inspection; abdomen not distended Musculoskeletal: no cyanosis or clubbing, extremities motor strength 5/5 Skin: no rashes, warm and dry Neurologic: awake Psychiatric: Orientation: alert and oriented to person Results & Data Results & Data ([facility]) Vital Signs (Past 12 Hours) Vital Signs Temp Pulse Pulse Resp BP BP Pulse Ox 08/27/20 11:31 36.9 C 140 H 30 H 103/64 91 08/27/20 08:00 100 08/27/20 07:55 122 H 08/27/20 07:26 36.4 C L 79 24 105/72 98 08/27/20 03:51 36.9 C 117 H 20 99/67 L 93 08/26/20 23:40 37.3 C 61 22 90/64 L 93 PG Care Time/CCT Total # of Minutes Spent Total Time Spent with Patient: Total time spent is greater than 50% in coordination of care (as documented) at patient's floor/unit and/or counseling patient: Coding Level of Care Code 15789 Subseq Hosp Care Lvl 3 Diagnoses Hepatitis K75.9 AMS (altered mental status) R41.82 Pneumonia J18.9 Atrial flutter with rapid ventricular response I48.92 Elevated troponin I level R77.8 Major depressive disorder F32.9 Type 2 diabetes mellitus E11.69 Diabetes mellitus moth exterminator insulin use: without nursing home use Diabetes mellitus complication status: with other specified complication BPH without urinary obstruction N40.0 Seizure disorder G40.909 History of CVA (cerebrovascular accident) Z86.73 DVT prophylaxis Z29.9 (1) Type 2 diabetes mellitus Diabetes mellitus moth exterminator insulin use: without moth exterminator use Diabetes mellitus complication status: with other specified complication Qualified Code(s): E11.69 - Type 2 diabetes mellitus with other specified complication
[2020-08-27] MEDS ORDERED: DEXTROSE 5% 1,000 ML IV SCH (12:00)
--- NOTE | 2020-08-27 12:52 | Palliative Care Consultation ---
Date of Consultation August 27, 2020 Assessment & Plan (1) Palliative care encounter: Mr. Guzman is a 60 year old male who presents to the ER from [facility] with shortness of breath and tachycardia. He was found to be in rapid afib/flutter and was given Diltiazem and Adenosine in the ED. Additional PMH includes: cardiomyopathy (EF 20%), severe mitral regurgitation, MDD, DM2, seizure disorder, Afib/flutter with RVR and UTI. Karan did undergo a thoracentesis on Thursday with 550mL transudate fluid removed. He continues to struggle with respiratory failure in the setting of cardiomyopathy. In addition, it appears he has previous stroke history, seizures, and acute liver and kidney failure. Cardiology mentioned the possibility of an ablation taking place; however, the patient has declined rather rapidly today. Palliative care was consulted to establish goals of care. I met with Mr. Guzman at the bedside. He was tachypnic, tachycardic, with slurred and garbled speech and with significant audible secretions. I did speak with Dr. Errol Kay who came back to the bedside and agreed that he had declined from his previous encounter of him earlier in the day. There was conversation of him receiving either an ablation tomorrow or bronchoscopy today. Unfortunately, the patient is too unstable for either at this point pre clinical presentation. Dr. Kay and I spoke separately to the patients daughter, Tessy, explaining the gravity of his clinical deterioration. He possible could be experiencing a rebleed; however, no further interventions requested by family. I was able to orchestrate a family zoom call between his sister Tessy and brother Jose at the bedside who both agreed to transition to more comfort focused approach. We discussed BiPap trial and the family and patient declined. Unfortunately, he is experiencing significant diaphragmatic and accessory muscle breathing. I granted his sister, Tessy, visitation and she arrived at the bedside. I answered her questions, as did Dr. Kay. I discontinued all non comfort focused medications and discussed with the RN Krystal. Roxinol ordered for air hunger, Robinul and Atropine gtts. Nursing advised they may need to alternate anticholinergics for how severe his secretions were. Should nursing give Roxinol Q1 or if it is not effective, low threshold to start a Morphine gtt. Life expectancy hours to a day or two. (2) Mitral regurgitation: (3) AMS (altered mental status): (4) History of CVA (cerebrovascular accident): (5) Hypoxia: History of Present Illness Reason for Consultation: Goals of care Requesting Physician: Dr. Kay Attending Physician: Errol Kay MD History of Present Illness Mr. Guzman is a 60 year old male who presents to the ER from [facility] with shortness of breath and tachycardia. He was found to be in rapid afib/flutter and was given Diltiazem and Adenosine in the ED. Additional PMH includes: cardiomyopathy (EF 20%), severe mitral regurgitation, MDD, DM2, seizure disorder, Afib/flutter with RVR and UTI. Karan did undergo a thoracentesis on Thursday with 550mL transudate fluid removed. He continues to struggle with respiratory failure in the setting of cardiomyopathy. In addition, it appears he has previous stroke history, seizures, and acute liver and kidney failure. Cardiology mentioned the possibility of an ablation taking place; however, the patient has declined rather rapidly today. Palliative care was consulted to establish goals of care. Please see A/P for further details. Thank you kindly for involving Palliative Care with this unfortunate individual. Allergies Allergy/AdvReac Type Severity Reaction Status Date / Time No Known Allergies Allergy Verified 08/13/20 15:49 Home Medications Medication Instructions Recorded Confirmed Type acetaminophen [Tylenol] 650 mg PO BIDM MDD 3 GRAMS/24 HOURS 08/13/20 08/13/20 History acetaminophen [Tylenol] 650 mg PO Q6H PRN MDD 3 GRAMS/24 08/13/20 08/13/20 History HOURS baclofen 20 mg PO QID 08/13/20 08/13/20 History buspirone 10 mg PO BIDM 08/13/20 08/13/20 History cholecalciferol (vitamin D3) 2,000 mcg PO QAM 08/13/20 08/13/20 History [Vitamin D3] gabapentin 300 mg PO BID 08/13/20 08/13/20 History gabapentin 400 mg PO HS 08/13/20 08/13/20 History levetiracetam [Keppra] 250 mg PO BIDM 08/13/20 08/13/20 History lorazepam 1 mg PO BIDM 08/13/20 08/13/20 History magnesium oxide 400 mg PO BIDM 08/13/20 08/13/20 History metformin 500 mg PO BIDM 08/13/20 08/13/20 History multivitamin [Daily-Adair] 1 tab PO QAM 08/13/20 08/13/20 History ropinirole 1 mg PO QPM 08/13/20 08/13/20 History sennosides-docusate sodium [Senna 1 tab-cap PO BIDM 08/13/20 08/13/20 History Plus] simvastatin 40 mg PO HS 08/13/20 08/13/20 History tamsulosin [Flomax] 0.4 mg PO BIDM 08/13/20 08/13/20 History venlafaxine [Effexor XR] 150 mg PO QAM 08/13/20 08/13/20 History Patient History Medical History (Updated 08/27/20 @ 16:21 by ANTHONY Vasquez) Abnormal EKG Anxiety disorder BPH without urinary obstruction Brain aneurysm Contracture of left hand Dehydration Dysphagia Essential hypertension Generalized muscle weakness Hyperglycemia Hypoxia Major depressive disorder Nontraumatic subarachnoid hemorrhage Palliative care encounter Personal history of covid-19 Personal history of methicillin resistant Staphylococcus aureus Quadriplegia, unspecified Seizure disorder Stroke Transient paralysis Type 2 diabetes mellitus Unspecified dementia without behavioral disturbance Unspecified glaucoma Unsteadiness on feet Urinary tract infection Surgical History H/O tracheostomy Family History Other Family history non-contributory Social History Smoking Status: Former smoker Age Quit Using Tobacco: 54; packs per day: 1; Smoking End Date: 2006; Do You Dip or Chew Tobacco: No; Hx Alcohol Use: No Hx Substance Use: No Communication Ability: Effective Beliefs That Will Affect Care: None marital status details: Never Current Living Situation: [facility] Current Living Situation Comment: [facility] 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 Has not worked since CVA How many Children do You have: 0 Feels Safe at Home: Yes Safety Concerns: Feels Safe At This Time Assistive Devices: Oxygen - Continuous Assistive Devices Comment: lower Partial Review of Systems Review of Systems: [place] System Assessment Scale: Pain: 0/3 Shortness of breath: 3/3 Anxiety: 2/3 Tiredness: 3/3 Palliative Performance Scale: 20% Physical Exam Constitutional: + acute distress, + ill appearing and + lethargic Respiratory: + respiratory distress, + labored breathing, + uses accessory muscles and + tachypneic; + abnormal respiratory effort Auscultation: + crackles and + rhonchi Cardiovascular: Rate/Rhythm: + tachycardic and + irregularly irregular Heart Sounds: normal S1 and normal S2 Extremities: normal capillary refill, + pedal edema and + edema Gastrointestinal (Abdomen): normal bowel sounds, soft, nontender, no hepatosplenomegaly Skin: no rashes, warm and dry Neurologic: Speech / Cognition: + abnormal speech Psychiatric: Orientation: alert, oriented to person, oriented to place and cooperative Genitourinary: samson in situ Lymphatic: no cervical or axillary lymphadenopathy Results & Data ([facility]) Vital Signs (Past 12 Hours) Vital Signs Temp Pulse Pulse Resp BP Pulse Ox 08/27/20 11:31 36.9 C 140 H 30 H 103/64 91 08/27/20 08:00 100 08/27/20 07:55 122 H 08/27/20 07:26 36.4 C L 79 24 105/72 98 08/27/20 03:51 36.9 C 117 H 20 99/67 L 93 PG Care Time/CCT Total # of Minutes Spent Total Time Spent with Patient: Total time spent is greater than 50% in coordination of care (as documented) at patient's floor/unit and/or counseling patient: 100 Coding Level of Care Code 99853 Inpt Consult Level 4 Diagnoses Palliative care encounter Z51.5 Mitral regurgitation I34.0 AMS (altered mental status) R41.82 History of CVA (cerebrovascular accident) Z86.73 Hypoxia R09.02 Time Spent (min) 100 Time Spent Midlevel Total time spent 100 minutes with > 50% of that time spent assessing the patient, discussing goals of care with the patient and family, providing symptom management and collaborating with IDT
--- NOTE | 2020-08-27 13:46 | Pulmonology Progress Note ---
Date of Service August 27, 2020 Assessment & Plan (1) Pneumonia: (2) Acute respiratory failure: 60-year-old -[place] male with a past medical history of cardiomyopathy with an EF of 20%, severe mitral regurgitation, previous stroke, jail resident, seizure disorder and atrial flutter in the hospital with acute respiratory failure, acute renal failure and acute liver failure. I suspect that the patient's respiratory failure is related to his cardiomyopathy. Bilateral infiltrates noted on chest x-ray seem classic for pulmonary edema. He has bilateral pleural effusions noted as well. A thoracentesis was performed earlier in the hospitalization which demonstrated a transudative of effusion which would be consistent with his underlying heart failure. His underlying liver failure and renal failure are likely secondary to decreased forward flow from his cardiomyopathy. Suspect that he has Congestive hepatopathy and cardiorenal syndrome. Bronchoscopy at this time would be a very risky procedure and he would require intubation prior to bronchoscopy. I doubt that it would change the overall outcome of his condition. He is currently on broad-spectrum antibiotics and treating for superimposed bacterial infection is reasonable. He is certainly at risk for aspiration pneumonitis/pneumonia. A trial of 40 mg twice daily Solu-Medrol can be considered for the possibility of an acute idiopathic interstitial pneumonia. It should be noted, autoimmune serologies are pending. His overall prognosis appears poor and the patient is being evaluated by the palliative care team. I had lengthy discussions with the patient's bedside nurse, hospitalist and the palliative care nurse practitioner. Respiratory failure complication: hypoxia Qualified Code(s): J96.01 - Acute respiratory failure with hypoxia (3) Pulmonary edema: Chronicity: acute Qualified Code(s): J81.0 - Acute pulmonary edema (4) Bilateral pleural effusion: (5) Cardiomyopathy: Cardiomyopathy type: unspecified Qualified Code(s): I42.9 - Cardiomyopathy, unspecified Admission and Anticipated Discharge Date Admission Date: August 15, 2020 Subjective Patient seen and examined this afternoon. He is very tachypneic and tachycardic. He is not following commands and remains very somnolent. He has gurgling respirations noted in his upper airway. He is breathing very rapidly and shallow. He does appear tachypneic. Review of Systems Review of Systems: Unobtainable due to cognitive status Physical Exam Constitutional: Shallow breathing with tachypnea. Appears to be in moderate distress. Nasal cannula in place. Laying in bed. Gurgling sounds in the upper airway present. Eyes: Mild scleral edema. ENMT: external ear and nose normal, oropharynx normal Neck: Previous tracheostomy incision and scar noted. Respiratory: + retractions, + tachypneic, + nasal flaring and + paradoxical thoraco-abdominal movement Gastrointestinal (Abdomen): normal bowel sounds, soft, nontender, no hepatosplenomegaly Musculoskeletal: no cyanosis or clubbing, extremities motor strength 5/5 Skin: no rashes, warm and dry Neurologic: + obtunded Psychiatric: A+Ox3, euthymic affect Results & Data Results & Data ([facility]) Vital Signs (Past 12 Hours) Vital Signs Temp Pulse Pulse Resp BP Pulse Ox 08/27/20 11:31 98.4 F 140 H 30 H 103/64 91 08/27/20 08:00 100 08/27/20 07:55 122 H 08/27/20 07:26 97.5 F L 79 24 105/72 98 08/27/20 03:51 98.4 F 117 H 20 99/67 L 93 I reviewed the vital signs, labs and imaging. PG Care Time/CCT Total # of Minutes Spent Total Time Spent with Patient: Total time spent is greater than 50% in coordination of care (as documented) at patient's floor/unit and/or counseling patient: Coding Level of Care Code 40111 Subseq Hosp Care Lvl 3 Diagnoses Pneumonia J18.9 Acute respiratory failure J96.01 Respiratory failure complication: hypoxia Pulmonary edema J81.0 Chronicity: acute Bilateral pleural effusion J90 Cardiomyopathy I42.9 Cardiomyopathy type: unspecified
--- NOTE | 2020-08-27 14:58 | Cardiology Progress Note ---
Date of Service August 27, 2020 Assessment & Plan (1) Atrial flutter with rapid ventricular response: -atrial flutter, atrial fibrillation, and sinus rhythm noted on telemetry. -rate continues to be difficult to control when in atrial dysrhythmia. -intravenous amiodarone discontinued due to elevated liver transaminases. -discussed AV node ablation and placement of a permanent device with Dr. Ayers. -Dr. Ayers plans to proceed tomorrow. (2) Cardiomyopathy: -left ventricular systolic function severely depressed with ejection fraction of 20% on current echocardiogram. -Dr. Ayers may proceed with a biventricular ICD tomorrow. (3) On amiodarone therapy: -discontinued due to liver transaminitis. Admission and Anticipated Discharge Date Admission Date: August 15, 2020 Subjective The patient is resting comfortably in bed without complaints of chest pain, dyspnea, or palpitations. Physical Exam Physical Exam: In general is well-developed well-nourished black male in no acute distress. HEENT exam is negative. Neck is supple with full carotid upstrokes. No obvious bruits. Jugular venous pressure is difficult to evaluate. Cardiovascular exam reveals a regular rhythm with distant heart sounds. No obvious murmurs. Lungs are clear without rales, rhonchi or wheezes. Abdomen is soft without bruits. Extremities reveal intact radial artery pulses bilaterally. Trace pretibial edema is noted. Left hand contracted. Results & Data ([facility]) Vital Signs (Past 12 Hours) Vital Signs Temp Pulse Pulse Pulse Resp BP Pulse Ox 08/27/20 14:20 138 H 08/27/20 11:31 36.9 C 140 H 30 H 103/64 91 08/27/20 08:00 100 08/27/20 07:55 122 H 08/27/20 07:26 36.4 C L 79 24 105/72 98 08/27/20 03:51 36.9 C 117 H 20 99/[address] notes patient to be in sinus rhythm at this time. However, has had numerous paroxysms of atrial fibrillation and atrial flutter. PG Care Time/CCT Total # of Minutes Spent Total Time Spent with Patient: Total time spent is greater than 50% in coordination of care (as documented) at patient's floor/unit and/or counseling patient: Coding Level of Care Code 53121 Subseq Hosp Care Lvl 3 Diagnoses Atrial flutter with rapid ventricular response I48.92 Cardiomyopathy I42.9 Cardiomyopathy type: unspecified On amiodarone therapy Z79.899 (1) Cardiomyopathy Cardiomyopathy type: unspecified Qualified Code(s): I42.9 - Cardiomyopathy, unspecified
[2020-08-27] MEDS ORDERED: GLYCOPYRROLATE 0.2 MG/ML VIAL IV PRN (16:08)
[2020-08-27] MEDS ORDERED: MoRPHine SULFATE 2 MG/ML CARP IV STA (16:41)
--- NOTE | 2020-08-27 16:49 | Billing Data ---
Date of Service August 27, 2020 Coding Level of Care Code 92717 Prolonged Care (int'l) Comment In room with patient from 8:15am - 8:30am, 11:00am - 11:15am, and 4:30pm - 4:45pm.
[2020-08-27] MEDS: ATROPINE SULFATE 1% OP SOLN 5 ML BTL SL PRN (20:05)
[2020-08-28] MEDS: MoRPHine SULFATE 5 MG/0.25 ML UDP PO PRN ×3 (02:13→10:36)
[2020-08-28] MEDS: ATROPINE SULFATE 1% OP SOLN 5 ML BTL SL PRN ×2 (02:13→10:37)
--- NOTE | 2020-08-28 06:01 | Electrocardiogram Report ---
Test Reason : Blood Pressure : / mmHG Vent. Rate : 119 BPM Atrial Rate : 340 BPM P-R Int : 000 ms QRS Dur : 104 ms QT Int : 318 ms P-R-T Axes : 000 076 -01 degrees QTc Int : 447 ms Atrial fibrillation with rapid ventricular response with premature ventricular or aberrantly conducte d complexes Minimal voltage criteria for LVH, may be normal variant Nonspecific T wave abnormality Abnormal ECG When compared with ECG of 24-AUG-2020 08:49, Atrial fibrillation has replaced Atrial flutter Confirmed by Davey Burnham ([id number]) on 08/28/2020 6:01:34 AM Referred By: [facility] Confirmed By:Davey Burnham
[2020-08-28] MEDS ORDERED: THIAMINE HCL 200 MG in SODIUM CHLORIDE 0.9% 50 ML IV SCH (09:00)
--- NOTE | 2020-08-28 16:44 | Palliative Care Progress Note ---
Date of Service August 28, 2020 Assessment & Plan (1) Palliative care encounter: Spoke with sister, Tessy, at bedside. She asked if it was ok for him to eat and drink. We discussed that if he is awake and asks to eat or drink, we can try to do this as long as he can safely swallow. We discussed elevating head of bed above 45 degrees and chin tuck if possible. It is not clear if this is baseline or isolated event. Discussed with Tessy that we will monitor his progress and if he appears to plateau, we can consider transfer to [facility] with comfort care. They are paying to hold his bed at [facility] for a few days. Palliative care will follow. Admission and Anticipated Discharge Date Admission Date: August 15, 2020 Subjective Resting comfortably. Arouses to voice and touch. Recognized his sister's voice. Asking to eat and for sips of water. Per RN has been tolerating these. Review of Systems Review of Systems: [place] Symptom Assessment Scale Pain 0/3 Dyspnea 0/3 Nausea 0/3 Anxiety 0/3 Drowsiness 2/3 Palliative Performance Score 20% Physical Exam Constitutional: comfortable; no acute distress ENMT: Mouth: + dry oral mucous membranes Respiratory: normal respiratory effort; no labored breathing Gastrointestinal (Abdomen): Percussion/Palpation: abdomen nontender Skin: warm and dry Neurologic: left sided weakness PG Care Time/CCT Total # of Minutes Spent Total Time Spent with Patient: Total time spent is greater than 50% in coordination of care (as documented) at patient's floor/unit and/or counseling patient: Coding Level of Care Code 65753 Subseq Hosp Care Lvl 2 Diagnoses Palliative care encounter Z51.5
--- NOTE | 2020-08-28 21:51 | Hospitalist Progress Note ---
Date of Service August 28, 2020 Assessment & Plan (1) Hepatitis: Patient is currently in comfort measures only Normal LFTs on admission, gradually climbing, then much higher on 08/26. 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 - RUQ u/s on 08/26 was normal. - Hepatitis panel on 08/26 shows preliminary positive HCV Ab, though this is long-standing (from at least 04/2018), so I doubt it is acutely contributing. - Stop all hepatotoxic medications (including amiodarone) - Improving today. (2) AMS (altered mental status): Increasing agitation and episodes of confusion since 08/23. Ddx includes medications, seizure, metabolic/infectious encephalopathy, or frustration. - Neurology consulted - Recommended medication changes to account for renal function and adjust for AMS - UA on 08/26 doesn't look overtly infected. - EEG ordered for possible short, subclinical seizures -> Still not done; will reach out to neuro today. - Will give bolus for hypernatremia. - Giving IV thiamine as well in case of Wernicke element. (3) Pneumonia: Concern for pneumonia with abx started on 08/20. Abx include: * Cefepime 08/20 - 08/24 * Vancomycin 08/20 - present * Doxycycline 08/24 - present - Nasal swab for Covid was negative. He has had both Covid and vaccine, so unlikely. 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 Legionella Ag from 08/24 was negative. - Still with slight fever on 08/25, though less than 24h of doxycycline, so will continue for now. - Collected sputum sample on 08/26 -> Pinpoint growth at present. (4) Atrial flutter with rapid ventricular response: New-onset, with thought that this was possibly acute the day prior to admission. TTE on 08/14 showed EF 30-35%. - Anticoagulation - [id number] 1-2, started apixaban 5mg PO BID - Cardioverted on 08/17 with return to normal sinus rhythm. - Stopped diltiazem and digoxin at that time. -> Returned to atrial flutter on 08/18. - Consult cardiology - Appreciate recs - Continued amiodarone with re-bolusing on 08/25. STOPPED for hepatitis on 08/26. (5) Elevated troponin I level: Suspected demand ischemia in the setting of rapid rate as above. Troponin stable at ~0.12 x 3. No further trending needed. - Further testing per cardiology (6) Major depressive disorder: More agitated today. - Continue venlafaxine 150 mg p.o. every morning. (7) Type 2 diabetes mellitus: HbA1c 5.8% in April and again 5.9% this admission. - Hold metformin - Sliding scale insulin -> 110 - 150 in the last 24 hours. (8) BPH without urinary obstruction: - Continue tamsulosin 0.4 mg p.o. twice daily. - Per admitting provider, had some urinary retention due to CVA. Will monitor PVRs. - Now with [place] in place. (9) Seizure disorder: No seizure episodes witnessed here. - Continue Keppra 750 mg p.o. twice daily. - Neurology following; adjust recs. (10) History of CVA (cerebrovascular accident): Per prior notes from [facility] on 04/22/2017, he had a brain aneurysm and SAH in approx. 2006. - CTA head on 08/14 shows aneurysm coils in the suprasellar region with no aneurysm clearly identified. - Continue baclofen, gabapentin - Lowered dose of baclofen given kidney function to 10 mg QID. (11) DVT prophylaxis: Apixaban per admitting provider for afib. - Discussed with neurology who feel that given there is no current aneurysm clearly identified, he can get anticoagulation at minimal additional risk. Admission and Anticipated Discharge Date Admission Date: August 15, 2020 Subjective Patient reports no new complaints. Sister is at bedside Review of Systems Review of Systems: All systems reviewed & are unremarkable except as noted in HPI & below Physical Exam Physical Exam: Constitutional: WD/WN, vitals as above Eyes: EOM intact bilaterally; no conjunctival abnormality ENMT: external ear and nose normal, oropharynx normal Neck: trachea midline, no thyromegaly normal visual inspection Respiratory: decreased breath sounds with bibasilar rales. Cardiovascular: Rate/Rhythm: + tachycardic and + irregularly irregular Heart Sounds: normal S1 and normal S2 Vessels: no JVD Extremities: + edema (Trace left) Gastrointestinal (Abdomen): Inspection/Auscultation: abdomen normal to inspection; abdomen not distended Musculoskeletal: no cyanosis or clubbing, extremities motor strength 5/5 Skin: no rashes, warm and dry Neurologic: moves all extremities and awake Psychiatric: Orientation:awake PG Care Time/CCT Total # of Minutes Spent Total Time Spent with Patient: Total time spent is greater than 50% in coordination of care (as documented) at patient's floor/unit and/or counseling patient: Coding Level of Care Code 83224 Subseq Hosp Care Lvl 2 Diagnoses Hepatitis K75.9 AMS (altered mental status) R41.82 Pneumonia J18.9 Atrial flutter with rapid ventricular response I48.92 Elevated troponin I level R77.8 Major depressive disorder F32.9 Type 2 diabetes mellitus E11.69 Diabetes mellitus complication status: with other specified complication Diabetes mellitus molder offbearer insulin use: without molder offbearer use BPH without urinary obstruction N40.0 Seizure disorder G40.909 History of CVA (cerebrovascular accident) Z86.73 DVT prophylaxis Z29.9 Time Spent (min) 25 (1) Type 2 diabetes mellitus Diabetes mellitus complication status: with other specified complication Diabetes mellitus molder offbearer insulin use: without molder offbearer use Qualified Code(s): E11.69 - Type 2 diabetes mellitus with other specified complication
[2020-08-29] MEDS: MoRPHine SULFATE 5 MG/0.25 ML UDP PO PRN ×3 (00:38→09:28)
[2020-08-29] MEDS: ATROPINE SULFATE 1% OP SOLN 5 ML BTL SL PRN ×4 (00:38→18:00)
--- NOTE | 2020-08-29 10:02 | Palliative Care Progress Note ---
Date of Service August 29, 2020 Assessment & Plan (1) Palliative care encounter: He appears to be actively dying. Given escalating need for roxanol, will adjust to routine dosing. Continue atropine as needed for secretions. I spoke with his sister, Tessy, at bedside and discussed what to expect. She is agreeable to medication change. Admission and Anticipated Discharge Date Admission Date: August 15, 2020 Subjective More lethargic today. Hypotensive. Has had tachypnea overnight and indicated that he was in pain. Opens his eyes to voice but does not respond to questions at this time. He's had morphine x 3 since midnight. Review of Systems Review of Systems: Unobtainable due to reduced consciousness [place] Symptom Assessment Scale Pain0/3 Dyspnea 0/3 Nausea 0/3 Drowsiness 2/3 Palliative Performance Score 10% Physical Exam Constitutional: comfortable and + lethargic; no acute distress ENMT: Mouth: + dry oral mucous membranes Respiratory: no labored breathing no audible rhonchi Cardiovascular: Extremities: + edema Gastrointestinal (Abdomen): Percussion/Palpation: abdomen nontender Results & Data ([facility]) Vital Signs (Past 12 Hours) Vital Signs Temp Pulse Resp BP Pulse Ox 08/29/20 05:41 97.5 F L 81 14 86/61 L 92 PG Care Time/CCT Total # of Minutes Spent Total Time Spent with Patient: Total time spent is greater than 50% in coordination of care (as documented) at patient's floor/unit and/or counseling patient: total time spent 25 min with more than 50% of time spent on symptom management, family education and support Coding Level of Care Code 15043 Subseq Hosp Care Lvl 2 Diagnoses Palliative care encounter Z51.5
[2020-08-29] MEDS: MoRPHine SULFATE 5 MG/0.25 ML UDP PO SCH ×4 (10:25→22:15)
[2020-08-29 13:08] LABS: Hepatitis A Antibody IgM NON-REACTIVE (NON-REACTIVE); Hepatitis B Core Antibody IgM NON-REACTIVE (NON-REACTIVE); Hepatitis C Vira RNA (Log) PCR <1.18 NOT DETECTED Log IU/mL (NOT DETECTED); Hepatitis C Viral RNA by PCR <15 NOT DETECTED IU/mL (NOT DETECTED)
[2020-08-29] MEDS ORDERED: LORazepam 0.5 MG/1 ML VIAL IV ONE (22:10)
--- NOTE | 2020-08-29 22:32 | Hospitalist Progress Note ---
Date of Service August 29, 2020 Assessment & Plan (1) Hepatitis: Patient is currently in comfort measures only Normal LFTs on admission, gradually climbing, then much higher on 08/26. 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 - RUQ u/s on 08/26 was normal. - Hepatitis panel on 08/26 shows preliminary positive HCV Ab, though this is long-standing (from at least 04/2018), so I doubt it is acutely contributing. - Stop all hepatotoxic medications (including amiodarone) - Slowly getting worse. (2) AMS (altered mental status): Increasing agitation and episodes of confusion since 08/23. Ddx includes medications, seizure, metabolic/infectious encephalopathy, or frustration. - Neurology consulted - Recommended medication changes to account for renal function and adjust for AMS - UA on 08/26 doesn't look overtly infected. - EEG ordered for possible short, subclinical seizures -> Still not done; will reach out to neuro today. - Will give bolus for hypernatremia. - Giving IV thiamine as well in case of Wernicke element. (3) Pneumonia: Concern for pneumonia with abx started on 08/20. Abx include: * Cefepime 08/20 - 08/24 * Vancomycin 08/20 - present * Doxycycline 08/24 - present - Nasal swab for Covid was negative. He has had both Covid and vaccine, so unlikely. 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 Legionella Ag from 08/24 was negative. - Still with slight fever on 08/25, though less than 24h of doxycycline, so will continue for now. - Collected sputum sample on 08/26 -> Pinpoint growth at present. (4) Atrial flutter with rapid ventricular response: New-onset, with thought that this was possibly acute the day prior to admission. TTE on 08/14 showed EF 30-35%. - Anticoagulation - [id number] 1-2, started apixaban 5mg PO BID - Cardioverted on 08/17 with return to normal sinus rhythm. - Stopped diltiazem and digoxin at that time. -> Returned to atrial flutter on 08/18. - Consult cardiology - Appreciate recs - Continued amiodarone with re-bolusing on 08/25. STOPPED for hepatitis on 08/26. (5) Elevated troponin I level: Suspected demand ischemia in the setting of rapid rate as above. Troponin stable at ~0.12 x 3. No further trending needed. - Further testing per cardiology (6) Major depressive disorder: More agitated today. - Continue venlafaxine 150 mg p.o. every morning. (7) Type 2 diabetes mellitus: HbA1c 5.8% in April and again 5.9% this admission. - Hold metformin - Sliding scale insulin -> 110 - 150 in the last 24 hours. (8) BPH without urinary obstruction: - Continue tamsulosin 0.4 mg p.o. twice daily. - Per admitting provider, had some urinary retention due to CVA. Will monitor PVRs. - Now with [place] in place. (9) Seizure disorder: No seizure episodes witnessed here. - Continue Keppra 750 mg p.o. twice daily. - Neurology following; adjust recs. (10) History of CVA (cerebrovascular accident): Per prior notes from [facility] on 04/22/2017, he had a brain aneurysm and SAH in approx. 2006. - CTA head on 08/14 shows aneurysm coils in the suprasellar region with no aneurysm clearly identified. - Continue baclofen, gabapentin - Lowered dose of baclofen given kidney function to 10 mg QID. (11) DVT prophylaxis: Apixaban per admitting provider for afib. - Discussed with neurology who feel that given there is no current aneurysm clearly identified, he can get anticoagulation at minimal additional risk. Admission and Anticipated Discharge Date Admission Date: August 15, 2020 Subjective Patient reports no new symptoms. Review of Systems Review of Systems: All systems reviewed & are unremarkable except as noted in HPI & below Physical Exam Physical Exam: Constitutional: WD/WN, vitals as above Eyes: EOM intact bilaterally; no conjunctival abnormality ENMT: external ear and nose normal, oropharynx normal Cardiovascular: Rate/Rhythm: + tachycardic and + irregularly irregular Heart Sounds: normal S1 and normal S2 Vessels: no JVD Extremities: + edema (Trace left) Musculoskeletal: no cyanosis or clubbing, extremities motor strength 5/5 Skin: no rashes, warm and dry Neurologic: moves all extremities and awake Psychiatric: Orientation:awake PG Care Time/CCT Total # of Minutes Spent Total Time Spent with Patient: Total time spent is greater than 50% in coordination of care (as documented) at patient's floor/unit and/or counseling patient: Coding Level of Care Code 30167 Subseq Hosp Care Lvl 2 Diagnoses Hepatitis K75.9 AMS (altered mental status) R41.82 Pneumonia J18.9 Atrial flutter with rapid ventricular response I48.92 Elevated troponin I level R77.8 Major depressive disorder F32.9 Type 2 diabetes mellitus E11.69 Diabetes mellitus complication status: with other specified complication Diabetes mellitus manager long term care insulin use: without longterm use BPH without urinary obstruction N40.0 Seizure disorder G40.909 History of CVA (cerebrovascular accident) Z86.73 DVT prophylaxis Z29.9 (1) Type 2 diabetes mellitus Diabetes mellitus complication status: with other specified complication Diabetes mellitus longterm insulin use: without longterm use Qualified Code(s): E11.69 - Type 2 diabetes mellitus with other specified complication
[2020-08-30] MEDS: MoRPHine SULFATE 5 MG/0.25 ML UDP PO PRN ×2 (00:45→07:58)
[2020-08-30] MEDS: MoRPHine SULFATE 5 MG/0.25 ML UDP PO SCH ×2 (02:30→05:49)
[2020-08-30] MEDS ORDERED: STAT IV Infusion **Titration per Protocol STA (09:25)
[2020-08-30] MEDS ORDERED: GLYCOPYRROLATE 0.2 MG/ML VIAL IV PRN (09:28)
[2020-08-30] MEDS ORDERED: MoRPHine SULF/NSS 250 MG/250 ML BTL IV SCH (09:30)
--- NOTE | 2020-08-30 09:31 | Palliative Care Progress Note ---
Date of Service August 30, 2020 Assessment & Plan (1) Palliative care encounter: Karan remains at end of life. He remains tachypnic and is using accessory muscles for breathing. Auditory secretions remain consistent. Discussed with Karan's sister Tessy and his brother Jose at the bedside that a Morphine gtt may provide him with consistent symptom management at this point in his active dying state. Both siblings were in agreement. I discussed with nursing. Will start Morphine infusion at 2mg/hour and nursing can increase to a max of 10 mg/hour. Discussed symptoms that warrant increase of infusion. Also ordered IV Glycopyrrolate for increased oropharyngeal secretions. Life expectancy hours to a day. Hospitalist updated. Palliative will follow. Admission and Anticipated Discharge Date Admission Date: August 15, 2020 Subjective Patient tachypnic and using accessory muscles to breath unarousable today. does not respond to verbal or tactile stimulation See a/p for further details Review of Systems Review of Systems: [place] Symptom Assessment Scale Patient unarousable. All below by observation. Pain0/3 Dyspnea 0/3 Nausea 0/3 Drowsiness 2/3 Palliative Performance Score 10% Physical Exam Constitutional: + acute distress, + ill appearing and + lethargic Respiratory: + respiratory distress, + labored breathing, + uses accessory muscles and + tachypneic; + abnormal respiratory effort Auscultation: + crackles and + rhonchi Cardiovascular: Rate/Rhythm: + tachycardic and + irregularly irregular Extremities: + pedal edema and + edema Gastrointestinal (Abdomen): normal bowel sounds, soft, nontender, no hepatosplenomegaly Skin: no rashes, warm and dry Neurologic: + obtunded Psychiatric: A+Ox3, euthymic affect Lymphatic: no cervical or axillary lymphadenopathy PG Care Time/CCT Total # of Minutes Spent Total Time Spent with Patient: Total time spent is greater than 50% in coordination of care (as documented) at patient's floor/unit and/or counseling patient: Total time spent 35 minutes with > 50% of that time spent assessing the patient, discussing symptom management and end of life care with family and IDT Coding Level of Care Code 60217 Subseq Hosp Care Lvl 3 Diagnoses Palliative care encounter Z51.5 Time Spent (min) 35
[2020-08-30] MEDS: ATROPINE SULFATE 1% OP SOLN 5 ML BTL SL PRN (10:12)
--- NOTE | 2020-08-30 14:17 | Death Pronouncement Note ---
Date of Service August 30, 2020 Pronouncement Note Admission Date Admission Date: August 15, 2020 Date and Time of Date of : 08/30/20 Time of : 12:35 Contributing Factors (1) Hepatitis: (2) AMS (altered mental status): (3) Pneumonia: (4) Atrial flutter with rapid ventricular response: (5) Elevated troponin I level: (6) Major depressive disorder: (7) Type 2 diabetes mellitus: (8) BPH without urinary obstruction: (9) Seizure disorder: (10) History of CVA (cerebrovascular accident): (11) DVT prophylaxis: Hospital Course Hospital Course: More deatils on discharge summary Additional Data Confirmation of : no pulse, no respirations, no heart sounds and pupils fixed and dilated Family: at bedside Attending/PCP notified?: Yes Attending physician: Ever Lomeli Was code activated?: No Autopsy requested?: No Organ bank notified?: Yes Advance directives: Yes
[2020-08-30 23:01] LABS: ANCA Screen Negative (Negative); Anti Nuclear Antibody Screen POSITIVE (NEGATIVE); Anti-Glom Basement Antibody <1.0 AI (<1.0); Complement C3 100 mg/dL (82-185); Complement Total(CH50) 60 U/mL (31-60); Myeloperoxidase Ab <1.0 AI (<1.0); Proteinase-3 AB <1.0 AI (<1.0)
[2020-08-31 12:34] LABS: ANA Pattern Cytoplasmic; ANA Titer 1:40 titer
--- NOTE | 2020-09-06 09:05 | Discharge Summary ---
Date of Service August 30, 2020 Admission HPI Per Admitting Provider Karan Guzman is a 60 year old male who presents to the ER from [facility] due to acute onset shortness of breath and tachycardia. Patient reports feeling acutely short of breath earlier this morning. He was evaluated by the on-call healthcare provider who noted tachycardia 150 to 180 bpm. Carotid massage and Valsalva of no benefit, therefore recommended further evaluation in the ER. The patient denies any chest pain, leg swelling, calf pain. No history of coronary artery disease or cardiac arrhythmias. 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 In the ER he received adenosine 6 mg with no effect, 12 mg showing underlying flutter P waves. He was given a total of 30 mg IV diltiazem with good effect slowing his heart rate to 100 bpm. He was referred to medicine for admission and ongoing management of atrial flutter with rapid ventricular rate. Principal Diagnosis hepatitis Discharge Exam as per note Discharge Data Allergies Allergy/AdvReac Type Severity Reaction Status Date / Time No Known Allergies Allergy Verified 08/13/20 15:49 Consultations 08/13/20 17:28 ED Decision to Admit Stat 08/13/20 20:50 Consult Cardiology Routine 08/21/20 22:30 Consult Pulmonology Routine 08/24/20 16:37 Consult Neurology Routine 08/25/20 16:48 Consult Palliative Care Routine Procedures Performed Operation Date: 08/17/20 12:30 Actual Procedures p Cardioversion(Not Applicable) - Gato Greene MD Operation Date: 08/28/20 08:00 <No data on this case meets the specified criteria> Ordered Studies 08/14/20 13:33 CT angio head w con Routine 08/17/20 07:59 CT chest diagnostic wo con Routine 08/20/20 08:55 CT chest diagnostic wo con Routine 08/26/20 13:22 US duplex portal hepatic veins Urgent 08/26/20 23:03 US arterial duplex LE LT Urgent Hospital Course (1) Hepatitis: Patient is currently in comfort measures only Normal LFTs on admission, gradually climbing, then much higher on 08/26. 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 - RUQ u/s on 08/26 was normal. - Hepatitis panel on 08/26 shows preliminary positive HCV Ab, though this is long-standing (from at least 04/2018), so I doubt it is acutely contributing. - Stop all hepatotoxic medications (including amiodarone) - Slowly getting worse. -Placed on morphine drip and patient at time below. Appreciate input by palliative care. Date of : 08/30/20 Time of : 12:35 (2) AMS (altered mental status): Increasing agitation and episodes of confusion since 08/23. Ddx includes medications, seizure, metabolic/infectious encephalopathy, or frustration. - Neurology consulted - Recommended medication changes to account for renal function and adjust for AMS - UA on 08/26 doesn't look overtly infected. - EEG ordered for possible short, subclinical seizures -> Still not done; will reach out to neuro today. - Will give bolus for hypernatremia. - Giving IV thiamine as well in case of Wernicke element. (3) Pneumonia: Concern for pneumonia with abx started on 08/20. Abx include: * Cefepime 08/20 - 08/24 * Vancomycin 08/20 - present * Doxycycline 08/24 - present - Nasal swab for Covid was negative. He has had both Covid and vaccine, so unlikely. 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 Legionella Ag from 08/24 was negative. - Still with slight fever on 08/25, though less than 24h of doxycycline, so will continue for now. - Collected sputum sample on 08/26 -> Pinpoint growth at present. (4) Atrial flutter with rapid ventricular response: New-onset, with thought that this was possibly acute the day prior to admission. TTE on 08/14 showed EF 30-35%. - Anticoagulation - [id number] 1-2, started apixaban 5mg PO BID - Cardioverted on 08/17 with return to normal sinus rhythm. - Stopped diltiazem and digoxin at that time. -> Returned to atrial flutter on 08/18. - Consult cardiology - Appreciate recs - Continued amiodarone with re-bolusing on 08/25. STOPPED for hepatitis on 08/26. (5) Elevated troponin I level: Suspected demand ischemia in the setting of rapid rate as above. Troponin stable at ~0.12 x 3. No further trending needed. - Further testing per cardiology (6) Major depressive disorder: More agitated today. - Continue venlafaxine 150 mg p.o. every morning. (7) Type 2 diabetes mellitus: HbA1c 5.8% in April and again 5.9% this admission. - Hold metformin - Sliding scale insulin -> 110 - 150 in the last 24 hours. (8) BPH without urinary obstruction: - Continue tamsulosin 0.4 mg p.o. twice daily. - Per admitting provider, had some urinary retention due to CVA. Will monitor PVRs. - Now with [place] in place. (9) Seizure disorder: No seizure episodes witnessed here. - Continue Keppra 750 mg p.o. twice daily. - Neurology following; adjust recs. (10) History of CVA (cerebrovascular accident): Per prior notes from [facility] on 04/22/2017, he had a brain aneurysm and SAH in approx. 2006. - CTA head on 08/14 shows aneurysm coils in the suprasellar region with no aneurysm clearly identified. - Continue baclofen, gabapentin - Lowered dose of baclofen given kidney function to 10 mg QID. (11) DVT prophylaxis: Apixaban per admitting provider for afib. - Discussed with neurology who feel that given there is no current aneurysm clearly identified, he can get anticoagulation at minimal additional risk. Total Time Total Time Spent Total Time Spent (In Minutes): 20 Total Time Includes: Examination of the Patient, Discharge Planning and Medication Reconciliation Discharge Plan Discharge Items Patient Disposition: Coding Level of Care Code D/C Day Management <30 mins Diagnoses Hepatitis K75.9 AMS (altered mental status) R41.82 Pneumonia J18.9 Atrial flutter with rapid ventricular response I48.92 Elevated troponin I level R77.8 Major depressive disorder F32.9 Type 2 diabetes mellitus E11.69 Diabetes mellitus termite exterminator insulin use: without termite exterminator use Diabetes mellitus complication status: with other specified complication BPH without urinary obstruction N40.0 Seizure disorder G40.909 History of CVA (cerebrovascular accident) Z86.73 DVT prophylaxis Z29.9
== END 2020-08-30 12:35 | disposition expired | DRG 308 ==
LOC: 2S 14:29 → ED 14:29 → SUATTDRO 19:00 → 2S 20:08 → SUATTDRO 08-15 16:45 → 2W 08-20 19:18 → 2S 08-21 04:47 → 3N 08-27 18:20